=== PATIENT | male | born 1955 | race Caucasian/White ===

== ENCOUNTER → 2018-03-13 09:50 | Outpatient (CLI) | payer OTHER, MEDICAID, SELFPAY | PROVIDERS: Family Provider Physician Assistant Medical; PCP Physician Assistant Medical; Visit Provider Internal Medicine | DX: E11.621 Type 2 diabetes mellitus with foot ulcer (principal); L97.524 Non-pressure chronic ulcer of other part of left foot with necrosis of bone | CPT/HCPCS: 11042 ==

== ENCOUNTER → 2018-04-29 15:03 | Outpatient (CLI) | payer OTHER, MEDICAID, SELFPAY ==
--- NOTE | 2018-04-29 | OV.WND_ITS ---
Progress Note Details Patient Name: Juan Carlos Montalvo Patient Number: [id number] PatientPatientDate: 04/29/2018 Clinician: Staci Ellington Clinician Cosigner: Jessenia Mullen Physician / Social Service Assistant: Anthony Sahu SUBJECTIVE Chief Complaint This information was obtained from the patient Ulcer on Left 2nd toe and left lateral foot Allergies codeine (Severity: Severe, Reaction: cramps on the guts), Bee sting (Severity: Severe, Reaction: swelling) HPI This information was obtained from the patient 04/29/18. Seen by Dr. Sahu. 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 The surgical wound has nearly healed however it's been approximately 6 weeks since surgery. His blood sugars continue to be very poorly controlled with many over 300 and he's working with his PCP on increasing his long and short acting insulin to address this. He admittedly does not follow a diabetic diet. He's also continuing to smoke cigarettes but states he plans to quit later this week. He's also wearing slippers instead of diabetic shoes which he does not yet own. He has a lateral left 5th MT diabetic ulcer as well that has minimal drainage and is nontender. 03/13/18. Seen by Dr. Sahu. The patient has not yet been scheduled for his consultation with [facility] to address the Shanks grade 4 chronic left 2nd toe diabetic ulcer. He does not report significant drainage or pain associated with this nor the chronic left 5th MTP J diabetic ulcer since his last visit. He also has a history of PAD in the right leg with stent placement and will need to be reviewed for clinically significant left lower leg PAD considering the high likelihood the 2nd toe will need amputation. 03/06/18. Seen by Dr. Sahu. The patient does not report increased drainage or pain associated with the chronic left 2nd toe nor left 5th MTPJ diabetic ulcers since his last visit. He was seen by his primary care provider yesterday and thinks that she may have adjusted his antibiotics but is unsure. He had been on Bactrim but now states that he is taking Ciprofloxacin. The wound culture we took at the last visit grew Citrobacter sensitive to Bactrim and ciprofloxacin and he does not report adverse side effects. Also, he's not yet been referred for a surgical consult to discuss amputation of the 2nd toe which I feel he is at high risk for and he is aware of this possibility. 02/27/18. Seen by Dr. Sahu. The patient is new to our clinic and presents with chronic left 2nd toe and left 5th MTPJ diabetic foot ulcers that he states have been present for about one month. He does not report pain nor significant drainage from either site and he' s been treating them with a 'surgical' cleanser and hydrogen peroxide. He states a wound culture was taken of the toe ulcer and he was started on Bactrim by his PCP on 02/22/18. He also has a history of PAD with stenting to the right leg but none to the left. He checks his blood sugars and states they're typically well controlled and he has a long history of smoking but states he quit recently. Family History This information was obtained from the patient Diabetes - Father, Sibling, Heart Disease - Mother, Father, Sibling, Child, Hypertension - Mother, Father, Paternal Grandparents, Sibling, Child Social History This information was obtained from the patient Former smoker, Alcohol Use - recently quit, Caffeine Use - Coffee, Children - 2 , Lives in - home, Retired Past Medical History This information was obtained from the patient Patient has a medical history of: Bradycardia - 11/30/2017 Hypokalemia - 12/07/2017 Hyponatremia - 12/03/2017 Diabetes Cellulitis Hypertensive kidney disease Hypertension Ventricular bigeminy Insomia Depression Dysnpea Diverticulitis Hyperurecemia Dsylipidemia Cardiomyopathy CHF hypomagnesemia PVD Diabetic Neurophty Surgical History This information was obtained from the patient Patient has a surgical history of: Hand repair Complaints and Symptoms This information was obtained from the patient Patient complains of: General Notes: I have reviewed and concur with the Review of Systems and Past Family Social History documents completed by the clinician, I have reviewed and concur with the Wound Assessment document completed by the clinician Cardiovascular (Central/Peripheral): Lower extremity (leg) swelling Integumentary (Hair/Skin/Nails): Open Sore Musculoskeletal: Joint Swelling Neurological: Loss of Protective Sensation Prior Wound History: Drainage, Erythema Patient denies complaints or symptoms related to: Cardiovascular (Central/Peripheral): Intermittent Claudication, Lower extremity (leg) resting pain Constitutional Symptoms (General Health): Chills, Fever Ear/Nose/Mouth/Throat: Hearing Loss / Aid Gastrointestinal (GI): Stomach/abdominal pain Hematologic/Lymphatic: Bleeding / Clotting Disorders, Bleeding Tendency Musculoskeletal: Assistive Devices Prior Wound History: Pain Psychiatric: Memory Loss Respiratory: Oxygen Use, Shortness of Breath General Notes: yes to immunizations Medications Claritin 10 mg tablet oral 1 1 tablet oral once daily glipizide 10 mg tablet oral 1 1 tablet oral twice daily Lipitor 80 mg tablet oral tablet oral take at bedtime hydralazine 25 mg tablet oral 1 1 tablet oral three times daily ipratropium 20 mcg-albuterol 100 mcg/actuation mist for inhalation inhalation 1 1 mist inhalation every 6 hours as needed metoprolol tartrate 100 mg tablet oral 1 /2 1 /2 tablet oral once daily Zyloprim 100 mg tablet oral 1 1 tablet oral once daily Lantus U-100 Insulin 100 unit/mL subcutaneous solution subcutaneous 30 units 30 units solution subcutaneous take at bedtime Colace 100 mg capsule oral 1 1 capsule oral twice daily Lasix 40 mg tablet oral 1 1 tablet oral three times daily Percocet 5 mg-325 mg tablet oral tablet oral every 8 hours as needed for prn Aspir-81 81 mg tablet,delayed release oral 1 1 tablet,delayed release (DR/EC) oral once daily OBJECTIVE Constitutional BP elevated; Afebrile; Alert and in no distress. Well developed. Alert. Clean appearing.. Height/Length: 70 in (177.8 cm), Weight: 216.4 lbs (98.36 kgs), BMI: 31, Temperature: 97.8 ?F (36.56 ?C), Pulse: 55 bpm, Respiratory Rate: 20 breaths/min, Blood Pressure: 147/73 mmHg, Capillary Blood Glucose: 377 mg/dl, Pulse Oximetry: 95 %. Vital Signs Notes: Glucose in clinic. Ears, Nose, Mouth, and Throat: No clinically significant hearing loss on informal examination. Respiratory: No respiratory distress. Even respirations and without use of accessory muscles.. Cardiovascular: monophasic pedal pulses on the left. 1+ left lower extremity edema. Gastrointestinal (GI): Obese. Nondistended.. Integumentary (Hair, Skin) Mild periwound erythema without warmth. Refer to appropriate clinician wound documentation for this visit; left 2nd MTPJ wound and 5th MTPJ ulcer extends to subcut with base partially covered with pink granulation, remainder fibrin and slough. Wound #3 Left Second Toe is an acute Partial Thickness Surgical Wound and has received a status of Not Healed. Initial wound encounter measurements are 0.3cm length x 0.3cm width x 0.1cm depth, with an area of 0.09 sq cm and a volume of 0.009 cubic cm. No tunneling has been noted. No sinus tract has been noted. No undermining has been noted. There is a scant amount of sero-sanguineous drainage noted which has no odor. The patient reports a wound pain of level 0/10. The wound margin is attached. Wound bed has Yes epithelialization, No eschar, No slough, Yes bright red, pink, firm granulation. The periwound skin texture is normal. The periwound skin moisture is normal. The periwound skin color is normal. The temperature of the periwound skin is WNL. Periwound skin does not exhibit signs or symptoms of infection. Local Pulse is Weak. Wound #4 Left Fifth Toe is a chronic Shanks Grade 0 Diabetic Ulcer and has received a status of Not Healed. Initial wound encounter measurements are 0.3cm length x 0.3cm width x 0.1cm depth, with an area of 0.09 sq cm and a volume of 0.009 cubic cm. No tunneling has been noted. No sinus tract has been noted. No undermining has been noted. There is a scant amount of serous drainage noted which has no odor. The patient reports a wound pain of level 0/10. The wound margin is attached. Wound bed has Yes epithelialization, No eschar, Yes slough, No granulation. The periwound skin texture is normal. The periwound skin moisture is normal. The periwound skin color is normal. The temperature of the periwound skin is WNL. Periwound skin does not exhibit signs or symptoms of infection. Local Pulse is Weak. Neurological: Cranial nerves grossly intact with symmetric function normal by informal observation.. ASSESSMENT Active Problems ICD-10 (Encounter Diagnosis) E11.621 - Type 2 diabetes mellitus with foot ulcer (Encounter Diagnosis) S91.302D - Unspecified open wound, left foot, subsequent encounter (Encounter Diagnosis) T81.31XD - Disruption of external operation (surgical) wound, not elsewhere classified, subsequent encounter (Encounter Diagnosis) E11.65 - Type 2 diabetes mellitus with hyperglycemia (Encounter Diagnosis) T65.224D - Toxic effect of tobacco cigarettes, undetermined, subsequent encounter PROCEDURES Wound #4 Wound #4 (Diabetic Ulcer) is located on the left fifth toe. A skin/subcutaneous tissue level surgical debridement with a total area debrided of 0.09 sq cm was performed by Anthony Sahu MD. Subcutaneous was removed along with devitalized tissue: callus and slough. The following instrument(s) were used: curette. Pain control was achieved using 4% Lido. A time out was conducted prior to the start of the procedure. A minimal amount of bleeding was controlled with pressure. The procedure was tolerated well with a pain level of 0 throughout and a pain level of 0 following the procedure. Post Debridement Measurements: 0.3cm length x 0.3cm width x 0.2cm depth; with an area of 0.09 sq cm and a volume of 0.018 cubic cm; PLAN Wound Orders: Wound #3 Left Second Toe Anesthetic Topical Xylocaine to wound bed. - Lidocaine in clinic Cleanser May Shower. - With bag covering wounds. Topical Treatments Antibiotic/Antimicrobial Ointment/Cream. - Triple antibiotic ointment to wounds Dressings Primary dressing: - Optifoam Cover and secure with: - Hypafix tape Change Dressing: - Every two days. Wound #4 Left Fifth Toe Anesthetic Topical Xylocaine to wound bed. - Lidocaine in clinic Cleanser May Shower. - With bag covering wounds. Topical Treatments Antibiotic/Antimicrobial Ointment/Cream. - Triple antibiotic ointment to wounds Dressings Primary dressing: - [place] donut around wound Cover and secure with: - Optifoam Change Dressing: - Every two days. Additional Orders: Off-Loading Keep weight off: Follow-Up Appointments Return Appointment: - - One week. Other information: If you develop fever, chills, increased pain, drainage, redness or swelling please call our office. If after hours, respond to the ER. Should you experience any significant changes in your wound(s) or have any questions regarding your home care instructions please contact the wound center @ [phone]. If after hours, contact your primary care physician or go to the hospital emergency room. I've reviewed the clinician's documentation and agree with the evaluation and plan as written. In addition, the patient's ulcer demonstrates evidence of non-viable devitalized tissue which will continue to benefit from sharp debridement to help promote granulation and expedite healing. Also, a culture's been taken of the surgical wound due to the fact it's remains open and we'll consider treating with an oral antibiotic pending the results. He'll use a surgical shoe to help offload the ulcers and he's again been counseled regarding his significantly elevated blood sugars and continued smoking in the context of impeding wound healing. Electronic Signature(s) Signed By: Date: Anthony Sahu MD 04/30/2018 09:04:29 Entered By: Anthony Sahu on 04/30/2018 09:01:39
== END ==
PROVIDERS: Family Provider Physician Assistant Medical; PCP Physician Assistant Medical; Visit Provider Internal Medicine
DX: E11.621 Type 2 diabetes mellitus with foot ulcer (principal); L97.522 Non-pressure chronic ulcer of other part of left foot with fat layer exposed; T81.31XD Disruption of external operation (surgical) wound, not elsewhere classified, subsequent encounter; E11.65 Type 2 diabetes mellitus with hyperglycemia; T65.224D Toxic effect of tobacco cigarettes, undetermined, subsequent encounter
CPT/HCPCS: 11042; 87070; 87075; 87077; 87147; 87186; 87205

== ENCOUNTER → 2018-05-06 11:34 | Outpatient (CLI) | payer OTHER, MEDICAID, SELFPAY ==
--- NOTE | 2018-05-06 | OV.WND_ITS ---
Progress Note Details Patient Name: Juan Carlos Montalvo Patient Number: [id number] PatientPatientDate: 05/06/2018 Clinician: Gloria Salinas Clinician Cosigner: Staci Ellington Physician / Commissioning Editor: Anthony Sahu SUBJECTIVE Chief Complaint This information was obtained from the patient Ulcer on Left 2nd toe and left lateral foot Allergies codeine (Severity: Severe, Reaction: cramps on the guts), Bee sting (Severity: Severe, Reaction: swelling) HPI This information was obtained from the patient 05/06/18. Seen by Dr. Sahu. The patient's wound culture of the left 2nd toe surgical wound grew 2 coag negative Staph species and he's applying and OTC topical antibiotic to this and the left lateral foot diabetic ulcer. He does not report pain or significant drainage from either location and he's scheduled for a fitting for his diabetic shoes later today. 04/29/18. Seen by Dr. Sahu. 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 The surgical wound has nearly healed however it's been approximately 6 weeks since surgery. His blood sugars continue to be very poorly controlled with many over 300 and he's working with his PCP on increasing his long and short acting insulin to address this. He admittedly does not follow a diabetic diet. He's also continuing to smoke cigarettes but states he plans to quit later this week. He's also wearing slippers instead of diabetic shoes which he does not yet own. He has a lateral left 5th MT diabetic ulcer as well that has minimal drainage and is nontender. 03/13/18. Seen by Dr. Sahu. The patient has not yet been scheduled for his consultation with [facility] wound [facility] to address the Shanks grade 4 chronic left 2nd toe diabetic ulcer. He does not report significant drainage or pain associated with this nor the chronic left 5th MTP J diabetic ulcer since his last visit. He also has a history of PAD in the right leg with stent placement and will need to be reviewed for clinically significant left lower leg PAD considering the high likelihood the 2nd toe will need amputation. 03/06/18. Seen by Dr. Sahu. The patient does not report increased drainage or pain associated with the chronic left 2nd toe nor left 5th MTPJ diabetic ulcers since his last visit. He was seen by his primary care provider yesterday and thinks that she may have adjusted his antibiotics but is unsure. He had been on Bactrim but now states that he is taking Ciprofloxacin. The wound culture we took at the last visit grew Citrobacter sensitive to Bactrim and ciprofloxacin and he does not report adverse side effects. Also, he's not yet been referred for a surgical consult to discuss amputation of the 2nd toe which I feel he is at high risk for and he is aware of this possibility. 02/27/18. Seen by Dr. Sahu. The patient is new to our clinic and presents with chronic left 2nd toe and left 5th MTPJ diabetic foot ulcers that he states have been present for about one month. He does not report pain nor significant drainage from either site and he' s been treating them with a 'surgical' cleanser and hydrogen peroxide. He states a wound culture was taken of the toe ulcer and he was started on Bactrim by his PCP on 02/22/18. He also has a history of PAD with stenting to the right leg but none to the left. He checks his blood sugars and states they're typically well controlled and he has a long history of smoking but states he quit recently. Past Medical History This information was obtained from the patient Patient has a medical history of: Bradycardia - 11/30/2017 Hypokalemia - 12/07/2017 Hyponatremia - 12/03/2017 Diabetes Cellulitis Hypertensive kidney disease Hypertension Ventricular bigeminy Insomia Depression Dysnpea Diverticulitis Hyperurecemia Dsylipidemia Cardiomyopathy CHF hypomagnesemia PVD Diabetic Neurophty Complaints and Symptoms This information was obtained from the patient Patient complains of: General Notes: I have reviewed and concur with the Review of Systems and Past Family Social History documents completed by the clinician, I have reviewed and concur with the Wound Assessment document completed by the clinician Cardiovascular (Central/Peripheral): Lower extremity (leg) swelling Integumentary (Hair/Skin/Nails): Open Sore Musculoskeletal: Joint Swelling Neurological: Loss of Protective Sensation Prior Wound History: Drainage, Erythema Patient denies complaints or symptoms related to: Cardiovascular (Central/Peripheral): Intermittent Claudication, Lower extremity (leg) resting pain Constitutional Symptoms (General Health): Chills, Fever Ear/Nose/Mouth/Throat: Hearing Loss / Aid Gastrointestinal (GI): Stomach/abdominal pain Hematologic/Lymphatic: Bleeding / Clotting Disorders, Bleeding Tendency Musculoskeletal: Assistive Devices Prior Wound History: Pain Psychiatric: Memory Loss Respiratory: Oxygen Use, Shortness of Breath OBJECTIVE Constitutional BP elevated; Afebrile; Alert and in no distress. Well developed. Alert. Clean appearing.. Height/Length: 70 in (177.8 cm), Weight: 217.6 lbs (98.91 kgs), BMI: 31.2, Temperature: 98.6 ?F (37 ?C), Pulse: 87 bpm, Respiratory Rate: 18 breaths/min, Blood Pressure : 154/66 mmHg, Capillary Blood Glucose: 206 mg/dl, Pulse Oximetry: 95 %. Vital Signs Notes: Glucose per patient. Ears, Nose, Mouth, and Throat: No clinically significant hearing loss on informal examination. Respiratory: No respiratory distress. Even respirations and without use of accessory muscles.. Cardiovascular: 1+ left lower extremity edema. Integumentary (Hair, Skin) Mild periwound erythema without warmth. Refer to appropriate clinician wound documentation for this visit; left foot ulcers extend to subcut with bases partially covered with pink granulation, remainder fibrin and slough. Wound #3 Left Second Toe is an acute Partial Thickness Surgical Wound and has received a status of Not Healed. Subsequent wound encounter measurements are 0.2cm length x 0.2cm width x 0.1cm depth, with an area of 0.04 sq cm and a volume of 0.004 cubic cm. No tunneling has been noted. No sinus tract has been noted. No undermining has been noted. There is a scant amount of serous drainage noted which has no odor. The patient reports a wound pain of level 0/10. The wound margin is attached. Wound bed has Yes epithelialization, No eschar, No slough, Yes bright red, pink, firm granulation. The periwound skin texture is normal. The periwound skin moisture is normal. The periwound skin color is normal. The temperature of the periwound skin is WNL. Periwound skin does not exhibit signs or symptoms of infection. Local Pulse is Weak. Wound #4 Left Fifth Toe is a chronic Shanks Grade 0 Diabetic Ulcer and has received a status of Not Healed. Subsequent wound encounter measurements are 0.1cm length x 0.1cm width x 0.1cm depth, with an area of 0.01 sq cm and a volume of 0.001 cubic cm. No tunneling has been noted. No sinus tract has been noted. No undermining has been noted. There was no drainage noted. The patient reports a wound pain of level 0/10. The wound margin is attached. Wound bed has Yes epithelialization, No eschar, Yes slough, Yes bright red, pink , firm granulation. The periwound skin texture is normal. The periwound skin color is normal. The periwound skin exhibited: Moist. The periwound skin did not exhibit: Dry/Scaly, Maceration. The temperature of the periwound skin is WNL. Periwound skin does not exhibit signs or symptoms of infection. Local Pulse is Weak. Neurological: Cranial nerves grossly intact with symmetric function normal by informal observation.. ASSESSMENT Active Problems ICD-10 (Encounter Diagnosis) E11.621 - Type 2 diabetes mellitus with foot ulcer (Encounter Diagnosis) S91.302D - Unspecified open wound, left foot, subsequent encounter (Encounter Diagnosis) T81.31XD - Disruption of external operation (surgical) wound, not elsewhere classified, subsequent encounter (Encounter Diagnosis) L97.522 - Non-pressure chronic ulcer of other part of left foot with fat layer exposed (Encounter Diagnosis) B95.7 - Other staphylococcus as the cause of diseases classified elsewhere PROCEDURES Wound #3 Wound #3 (Surgical Wound) is located on the left second toe. A skin/ subcutaneous tissue level surgical debridement with a total area debrided of 0.06 sq cm was performed by Anthony Sahu MD. Subcutaneous was removed along with devitalized tissue: slough. The following instrument(s) were used: curette. Pain control was achieved using 4% Lido. A time out was conducted prior to the start of the procedure. A minimal amount of bleeding was controlled with n/a. The procedure was tolerated well with a pain level of 0 throughout and a loss of sensation following the procedure. Post Debridement Measurements: 0.3cm length x 0.2cm width x 0.2cm depth; with an area of 0.06 sq cm and a volume of 0.012 cubic cm; Wound #4 Wound #4 (Diabetic Ulcer) is located on the left fifth toe. A skin/subcutaneous tissue level surgical debridement with a total area debrided of 0.04 sq cm was performed by Anthony Sahu MD. Subcutaneous was removed along with devitalized tissue: callus and slough. The following instrument(s) were used: curette. Pain control was achieved using 4% Lido. A time out was conducted prior to the start of the procedure. A minimal amount of bleeding was controlled with n/a. The procedure was tolerated well with a pain level of 0 throughout and a pain level of 0 following the procedure. Post Debridement Measurements: 0.2cm length x 0.2cm width x 0.2cm depth; with an area of 0.04 sq cm and a volume of 0.008 cubic cm; Additional Information Muscle fascia or bone removed and sent to pathology?: No Muscle fascia or bone removed and sent to pathology?: No PLAN Wound Orders: Wound #3 Left Second Toe Anesthetic Topical Xylocaine to wound bed. - Lidocaine in clinic Cleanser May Shower. - With bag covering wounds. Topical Treatments Antibiotic/Antimicrobial Ointment/Cream. - Gentamicin ointment to wound base. Dressings Primary dressing: - Optifoam Cover and secure with: - Hypafix tape Change Dressing: - Every two days. Wound #4 Left Fifth Toe Anesthetic Topical Xylocaine to wound bed. - Lidocaine in clinic Cleanser May Shower. - With bag covering wounds. Topical Treatments Antibiotic/Antimicrobial Ointment/Cream. - Gentamicin ointment to wound base. Dressings Primary dressing: - [place] donut around wound Cover and secure with: - Optifoam Change Dressing: - Every two days. Additional Orders: Off-Loading Keep weight off: Follow-Up Appointments Return Appointment: - - One week. Other information: If you develop fever, chills, increased pain, drainage, redness or swelling please call our office. If after hours, respond to the ER. Should you experience any significant changes in your wound(s) or have any questions regarding your home care instructions please contact the wound center @ [phone]. If after hours, contact your primary care physician or go to the hospital emergency room. I've reviewed the clinician's documentation and agree with the evaluation and plan as written. In addition the patient's ulcers demonstrate evidence of non-viable devitalized tissue and they will continue to benefit from sharp debridement to help promote granulation and expedite healing. Also, I've changed the patient to topical gentamicin to treat the coag negative Staph culture. Electronic Signature(s) Signed By: Date: Anthony Sahu MD 05/06/2018 13:52:38 Entered By: Anthony Sahu on 05/06/2018 13:06:36
== END ==
PROVIDERS: Family Provider Physician Assistant Medical; PCP Physician Assistant Medical; Visit Provider Internal Medicine
DX: E11.621 Type 2 diabetes mellitus with foot ulcer (principal); L97.522 Non-pressure chronic ulcer of other part of left foot with fat layer exposed; B95.7 Other staphylococcus as the cause of diseases classified elsewhere; S91.302A Unspecified open wound, left foot, initial encounter; T81.31XA Disruption of external operation (surgical) wound, not elsewhere classified, initial encounter
CPT/HCPCS: 11042

== ENCOUNTER → 2018-05-13 09:50 | Outpatient (CLI) | payer OTHER, MEDICAID, SELFPAY ==
--- NOTE | 2018-05-13 | OV.WND_ITS ---
Progress Note Details Patient Name: Juan Carlos Montalvo Patient Number: [id number] PatientPatientDate: 05/13/2018 Clinician: Jessenia Mullen Clinician Cosigner: Staci Ellington Physician / Anode Crew Supervisor: Anhtony Sahu SUBJECTIVE Chief Complaint This information was obtained from the patient Ulcer on Left 2nd toe and left lateral foot Allergies codeine (Severity: Severe, Reaction: cramps on the guts), Bee sting (Severity: Severe, Reaction: swelling) HPI This information was obtained from the patient 05/13/18. Seen by Dr. Sahu. The patient does not report pain or significant drainage associated with the chronic left 2nd toe surgical wound nor left lateral diabetic foot ulcer since his last visit. Of note, his heart rate today is sustained in the mid-30's. He does not report any associated symptoms and takes metoprolol and states he has an unusual heart rhythm but does not know what type. 05/06/18. Seen by Dr. Sahu. The patient's wound culture of the left 2nd toe surgical wound grew 2 coag negative Staph species and he's applying and OTC topical antibiotic to this and the left lateral foot diabetic ulcer. He does not report pain or significant drainage from either location and he's scheduled for a fitting for his diabetic shoes later today. 04/29/18. Seen by Dr. Sahu. 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 The surgical wound has nearly healed however it's been approximately 6 weeks since surgery. His blood sugars continue to be very poorly controlled with many over 300 and he's working with his PCP on increasing his long and short acting insulin to address this. He admittedly does not follow a diabetic diet. He's also continuing to smoke cigarettes but states he plans to quit later this week. He's also wearing slippers instead of diabetic shoes which he does not yet own. He has a lateral left 5th MT diabetic ulcer as well that has minimal drainage and is nontender. 03/13/18. Seen by Dr. Sahu. The patient has not yet been scheduled for his consultation with [facility] to address the Shanks grade 4 chronic left 2nd toe diabetic ulcer. He does not report significant drainage or pain associated with this nor the chronic left 5th MTP J diabetic ulcer since his last visit. He also has a history of PAD in the right leg with stent placement and will need to be reviewed for clinically significant left lower leg PAD considering the high likelihood the 2nd toe will need amputation. 03/06/18. Seen by Dr. Sahu. The patient does not report increased drainage or pain associated with the chronic left 2nd toe nor left 5th MTPJ diabetic ulcers since his last visit. He was seen by his primary care provider yesterday and thinks that she may have adjusted his antibiotics but is unsure. He had been on Bactrim but now states that he is taking Ciprofloxacin. The wound culture we took at the last visit grew Citrobacter sensitive to Bactrim and ciprofloxacin and he does not report adverse side effects. Also, he's not yet been referred for a surgical consult to discuss amputation of the 2nd toe which I feel he is at high risk for and he is aware of this possibility. 02/27/18. Seen by Dr. Sahu. The patient is new to our clinic and presents with chronic left 2nd toe and left 5th MTPJ diabetic foot ulcers that he states have been present for about one month. He does not report pain nor significant drainage from either site and he' s been treating them with a 'surgical' cleanser and hydrogen peroxide. He states a wound culture was taken of the toe ulcer and he was started on Bactrim by his PCP on 02/22/18. He also has a history of PAD with stenting to the right leg but none to the left. He checks his blood sugars and states they're typically well controlled and he has a long history of smoking but states he quit recently. Past Medical History This information was obtained from the patient Patient has a medical history of: Bradycardia - 11/30/2017 Hypokalemia - 12/07/2017 Hyponatremia - 12/03/2017 Diabetes Cellulitis Hypertensive kidney disease Hypertension Ventricular bigeminy Insomia Depression Dysnpea Diverticulitis Hyperurecemia Dsylipidemia Cardiomyopathy CHF hypomagnesemia PVD Diabetic Neurophty Complaints and Symptoms This information was obtained from the patient Patient complains of: General Notes: I have reviewed and concur with the Review of Systems and Past Family Social History documents completed by the clinician, I have reviewed and concur with the Wound Assessment document completed by the clinician Cardiovascular (Central/Peripheral): Lower extremity (leg) swelling Integumentary (Hair/Skin/Nails): Open Sore Musculoskeletal: Joint Swelling Neurological: Loss of Protective Sensation Prior Wound History: Drainage, Erythema Patient denies complaints or symptoms related to: Cardiovascular (Central/Peripheral): Intermittent Claudication, Lower extremity (leg) resting pain Constitutional Symptoms (General Health): Chills, Fever Ear/Nose/Mouth/Throat: Hearing Loss / Aid Gastrointestinal (GI): Stomach/abdominal pain Hematologic/Lymphatic: Bleeding / Clotting Disorders, Bleeding Tendency Musculoskeletal: Assistive Devices Prior Wound History: Pain Psychiatric: Memory Loss Respiratory: Oxygen Use, Shortness of Breath OBJECTIVE Constitutional BP elevated; Afebrile; Alert and in no distress; HR 35. Well developed. Alert. Clean appearing.. Height/Length: 70 in (177.8 cm), Weight: 219.1 lbs (99.59 kgs), BMI: 31.4, Temperature: 97.2 ?F (36.22 ?C), Pulse: 36 bpm, Respiratory Rate: 18 breaths/min, Blood Pressure: 140/60 mmHg, Capillary Blood Glucose: 89 mg/dl, Pulse Oximetry: 94 %. Vital Signs Notes: Glucose per patient. Ears, Nose, Mouth, and Throat: No clinically significant hearing loss on informal examination. Respiratory: No respiratory distress. Even respirations and without use of accessory muscles.. Cardiovascular: 1+ left lower extremity edema. Gastrointestinal (GI): Obese. Nondistended.. Musculoskeletal: Left 2nd toe amputation. Integumentary (Hair, Skin) No periwound erythema, warmth, or significant drainage. No periwound rashes appreciated or noted otherwise.. Refer to appropriate clinician wound documentation for this visit; left lateral foot ulcer extends to subcut with base partially covered with pink granulation, remainder fibrin and slough; left 2nd toe wound nearly healed. Wound #3 Left Second Toe is an acute Partial Thickness Surgical Wound and has received a status of Not Healed. Subsequent wound encounter measurements are 0.1cm length x 0.1cm width x 0.1cm depth, with an area of 0.01 sq cm and a volume of 0.001 cubic cm. No tunneling has been noted. No sinus tract has been noted. No undermining has been noted. There is a scant amount of serous drainage noted which has no odor. The patient reports a wound pain of level 0/10. The wound margin is attached. Wound bed has Yes epithelialization, No eschar, No slough, No granulation. The periwound skin texture is normal. The periwound skin moisture is normal. The periwound skin color is normal. The temperature of the periwound skin is WNL. Periwound skin does not exhibit signs or symptoms of infection. Local Pulse is Weak. Wound #4 Left, Lateral Metatarsal head fifth is a chronic Shanks Grade 0 Diabetic Ulcer and has received a status of Not Healed. Subsequent wound encounter measurements are 0.2cm length x 0.2cm width x 0.1cm depth, with an area of 0.04 sq cm and a volume of 0.004 cubic cm. No tunneling has been noted. No sinus tract has been noted. No undermining has been noted. There was no drainage noted. The patient reports a wound pain of level 0/ 10. The wound margin is attached. Wound bed has Yes epithelialization, No eschar, No slough, No granulation. The periwound skin texture is normal. The periwound skin color is normal. The periwound skin exhibited: Moist. The periwound skin did not exhibit: Dry/Scaly, Maceration. The temperature of the periwound skin is WNL. Periwound skin does not exhibit signs or symptoms of infection. Local Pulse is Weak. General Notes: Covered in dried drainage. Neurological: Cranial nerves grossly intact with symmetric function normal by informal observation.. ASSESSMENT Active Problems ICD-10 (Encounter Diagnosis) E11.621 - Type 2 diabetes mellitus with foot ulcer (Encounter Diagnosis) S91.302D - Unspecified open wound, left foot, subsequent encounter (Encounter Diagnosis) T81.31XD - Disruption of external operation (surgical) wound, not elsewhere classified, subsequent encounter (Encounter Diagnosis) L97.522 - Non-pressure chronic ulcer of other part of left foot with fat layer exposed (Encounter Diagnosis) R00.1 - Bradycardia, unspecified PROCEDURES Wound #3 Wound #3 (Surgical Wound) is located on the left second toe. A non-selective mechanical debridement with a total area debrided of 0.01 sq cm was performed by Anthony Sahu MD. Non-viable tissue was removed.The procedure was tolerated well with a pain level of 0 throughout and a pain level of 0 following the procedure. Post Debridement Measurements: 0.1cm length x 0.1cm width x 0.1cm depth; with an area of 0.01 sq cm and a volume of 0.001 cubic cm; General Notes: Drainage removed. Wound #4 Wound #4 (Diabetic Ulcer) is located on the left fifth toe. A skin/subcutaneous tissue level surgical debridement with a total area debrided of 0.06 sq cm was performed by Anthony Sahu MD. Non-viable tissue, including subcutaneous along with devitalized tissue : exudate and slough. The following instrument(s) were used: curette. Pain control was achieved using 4% Lido. A time out was conducted prior to the start of the procedure. A minimal amount of bleeding was controlled with n/a. The procedure was tolerated well with a pain level of 0 throughout and a pain level of 0 following the procedure. Post Debridement Measurements: 0.3cm length x 0.2cm width x 0.1cm depth; with an area of 0.06 sq cm and a volume of 0.006 cubic cm; Additional Information Muscle fascia or bone removed and sent to pathology?: No PLAN Wound Orders: Wound #3 Left Second Toe Anesthetic Topical Xylocaine to wound bed. - Lidocaine in clinic. Cleanser Cleanse Wound: - Normal saline and gauze, may use distilled water at home. May Shower. - With bag covering wounds. Topical Treatments Antibiotic/Antimicrobial Ointment/Cream. - Gentamicin ointment to wound base. Dressings Primary dressing: - Telfa pad. Cover and secure with: - Hypafix tape. May use bandaids at home. Change Dressing: - Every two days. Wound #4 Left Fifth Toe Anesthetic Topical Xylocaine to wound bed. - Lidocaine in clinic. Cleanser Cleanse Wound: - Normal saline and gauze, may use distilled water at home. May Shower. - With bag covering wounds. Topical Treatments Antibiotic/Antimicrobial Ointment/Cream. - Gentamicin ointment to wound base. Dressings Primary dressing: - Telfa pad. Cover and secure with: - Hypafix tape. May use bandaids at home. Change Dressing: - Every two days. Additional Orders: Off-Loading Keep weight off: - Left foot as much as possible. Follow-Up Appointments Return Appointment: - - One week. Other information: If you develop fever, chills, increased pain, drainage, redness or swelling please call our office. If after hours, respond to the ER. Should you experience any significant changes in your wound(s) or have any questions regarding your home care instructions please contact the wound center @ [phone]. If after hours, contact your primary care physician or go to the hospital emergency room. Scribing Attestation I attest, as the nurse, that I scribed these orders for the physician. General Notes: Please see your primary care provider regarding your pulse of 36 in clinic. I've reviewed the clinician's documentation and agree with the evaluation and plan as written. In addition, the patient's ulcer demonstrates evidence of non-viable devitalized tissue which will continue to benefit from sharp debridement to help promote granulation and expedite healing. Also, we've contacted Dr. Watson's office regarding the patient's bradycardia and I'll copy him on my note today as well. Electronic Signature(s) Signed By: Date: Anthony Sahu MD 05/13/2018 13:33:28 Entered By: Anthony Sahu on 05/13/2018 13:30:15
== END ==
PROVIDERS: Family Provider Physician Assistant Medical; PCP Nurse Practitioner Gerontology; Visit Provider Internal Medicine
DX: E11.621 Type 2 diabetes mellitus with foot ulcer (principal); L97.522 Non-pressure chronic ulcer of other part of left foot with fat layer exposed; S91.302D Unspecified open wound, left foot, subsequent encounter; T81.31XD Disruption of external operation (surgical) wound, not elsewhere classified, subsequent encounter; R00.1 Bradycardia, unspecified
CPT/HCPCS: 11042

== ENCOUNTER → 2018-05-20 09:16 | Outpatient (CLI) | payer OTHER, MEDICAID, SELFPAY | PROVIDERS: Family Provider Physician Assistant Medical; PCP Nurse Practitioner Gerontology; Visit Provider Internal Medicine | DX: E11.621 Type 2 diabetes mellitus with foot ulcer (principal); L97.522 Non-pressure chronic ulcer of other part of left foot with fat layer exposed; R00.1 Bradycardia, unspecified | CPT/HCPCS: 11042; 87070; 87075; 87077; 87205 ==

== ENCOUNTER → 2018-05-27 11:20 | Outpatient (CLI) | payer OTHER, MEDICAID, SELFPAY | PROVIDERS: Family Provider Physician Assistant Medical; PCP Nurse Practitioner Gerontology; Visit Provider Internal Medicine | DX: E11.621 Type 2 diabetes mellitus with foot ulcer (principal); L97.522 Non-pressure chronic ulcer of other part of left foot with fat layer exposed; L08.9 Local infection of the skin and subcutaneous tissue, unspecified | CPT/HCPCS: 11042; 87070; 87075; 87077; 87147; 87186; 87205 ==

== ENCOUNTER → 2018-06-03 09:34 | Outpatient (CLI) | payer OTHER, MEDICAID, SELFPAY ==
--- NOTE | 2018-06-03 | OV.WND_ITS ---
Progress Note Details Patient Name: Juan Carlos Montalvo Patient Number: [id number] PatientPatientDate: 06/03/2018 Clinician: Fadia Loving Physician / Wafer Abrading Machine Tender: Anthony Sahu SUBJECTIVE Chief Complaint This information was obtained from the patient Ulcer on Left 2nd toe and left lateral foot Allergies codeine (Severity: Severe, Reaction: cramps on the guts), Bee sting (Severity: Severe, Reaction: swelling) HPI This information was obtained from the patient 06/03/18. Seen by Dr. Sahu. The patient does not report pain or significant drainage associated with the chronic left lateral diabetic foot ulcer since his last visit. He's also wearing his surgical shoe as recommended which has been cut out over the site of the ulcer to relieve pressure and reduce shear. His foot is quite swollen, as is his left lower leg, which is likely causing increased pressure within this diabetic shoe he'd been wearing previously. 05/27/18. Seen by Dr. Sahu. The patient does not report pain or significant drainage associated with the chronic left lateral foot diabetic foot ulcer since his last visit. His wound culture grew coag negative Staph and he's not currently on antibiotics. He's also now wearing his new diabetic shoes. 05/20/18. Seen by Dr. Sahu. The patient does not report pain or significant drainage associated with the chronic left 2nd toe surgical wound nor left lateral diabetic foot ulcer since his last visit. He's also to order picker his diabetic shoes today and has asked for a referral to podiatry for general foot care. Also, his heart rate again today is in the 30's and he's been contacted by Dr. Watson's office regarding wearing a monitor but has not scheduled an appointment yet. 05/13/18. Seen by Dr. Sahu. The patient does not report pain or significant drainage associated with the chronic left 2nd toe surgical wound nor left lateral diabetic foot ulcer since his last visit. Of note, his heart rate today is sustained in the mid-30's. He does not report any associated symptoms and takes metoprolol and states he has an unusual heart rhythm but does not know what type. 05/06/18. Seen by Dr. Sahu. The patient's wound culture of the left 2nd toe surgical wound grew 2 coag negative Staph species and he's applying and OTC topical antibiotic to this and the left lateral foot diabetic ulcer. He does not report pain or significant drainage from either location and he's scheduled for a fitting for his diabetic shoes later today. 04/29/18. Seen by Dr. Sahu. 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 The surgical wound has nearly healed however it's been approximately 6 weeks since surgery. His blood sugars continue to be very poorly controlled with many over 300 and he's working with his PCP on increasing his long and short acting insulin to address this. He admittedly does not follow a diabetic diet. He's also continuing to smoke cigarettes but states he plans to quit later this week. He's also wearing slippers instead of diabetic shoes which he does not yet own. He has a lateral left 5th MT diabetic ulcer as well that has minimal drainage and is nontender. 03/13/18. Seen by Dr. Sahu. The patient has not yet been scheduled for his consultation with [facility] wound [facility] to address the Shanks grade 4 chronic left 2nd toe diabetic ulcer. He does not report significant drainage or pain associated with this nor the chronic left 5th MTP J diabetic ulcer since his last visit. He also has a history of PAD in the right leg with stent placement and will need to be reviewed for clinically significant left lower leg PAD considering the high likelihood the 2nd toe will need amputation. 03/06/18. Seen by Dr. Sahu. The patient does not report increased drainage or pain associated with the chronic left 2nd toe nor left 5th MTPJ diabetic ulcers since his last visit. He was seen by his primary care provider yesterday and thinks that she may have adjusted his antibiotics but is unsure. He had been on Bactrim but now states that he is taking Ciprofloxacin. The wound culture we took at the last visit grew Citrobacter sensitive to Bactrim and ciprofloxacin and he does not report adverse side effects. Also, he's not yet been referred for a surgical consult to discuss amputation of the 2nd toe which I feel he is at high risk for and he is aware of this possibility. 02/27/18. Seen by Dr. Sahu. The patient is new to our clinic and presents with chronic left 2nd toe and left 5th MTPJ diabetic foot ulcers that he states have been present for about one month. He does not report pain nor significant drainage from either site and he' s been treating them with a 'surgical' cleanser and hydrogen peroxide. He states a wound culture was taken of the toe ulcer and he was started on Bactrim by his PCP on 02/22/18. He also has a history of PAD with stenting to the right leg but none to the left. He checks his blood sugars and states they're typically well controlled and he has a long history of smoking but states he quit recently. Past Medical History This information was obtained from the patient Patient has a medical history of: Bradycardia - 11/30/2017 Hypokalemia - 12/07/2017 Hyponatremia - 12/03/2017 Diabetes Cellulitis Hypertensive kidney disease Hypertension Ventricular bigeminy Insomia Depression Dysnpea Diverticulitis Hyperurecemia Dsylipidemia Cardiomyopathy CHF hypomagnesemia PVD Diabetic Neurophty Complaints and Symptoms This information was obtained from the patient Patient complains of: General Notes: I have reviewed and concur with the Review of Systems and Past Family Social History documents completed by the clinician, I have reviewed and concur with the Wound Assessment document completed by the clinician Cardiovascular (Central/Peripheral): Lower extremity (leg) swelling Integumentary (Hair/Skin/Nails): Open Sore Musculoskeletal: Joint Swelling Neurological: Loss of Protective Sensation Prior Wound History: Drainage, Erythema Patient denies complaints or symptoms related to: Cardiovascular (Central/Peripheral): Intermittent Claudication, Lower extremity (leg) resting pain Constitutional Symptoms (General Health): Chills, Fever Ear/Nose/Mouth/Throat: Hearing Loss / Aid Gastrointestinal (GI): Stomach/abdominal pain Hematologic/Lymphatic: Bleeding / Clotting Disorders, Bleeding Tendency Musculoskeletal: Assistive Devices Prior Wound History: Pain Psychiatric: Memory Loss Respiratory: Oxygen Use, Shortness of Breath OBJECTIVE Constitutional BP elevated; Afebrile; Alert and in no distress. Well developed. Alert. Clean appearing.. Height/Length: 70 in (177.8 cm), Weight: 225.3 lbs (102.41 kgs), BMI: 32.3, Temperature: 97.9 ?F (36.61 ?C), Pulse: 80 bpm, Respiratory Rate: 20 breaths/min, Capillary Blood Glucose: 161 mg/dl, Pulse Oximetry: 96 %. Respiratory: No respiratory distress. Even respirations and without use of accessory muscles.. Cardiovascular: 2+ left lower extremity edema. Gastrointestinal (GI): Obese. Nondistended.. Integumentary (Hair, Skin) No periwound erythema, warmth, or significant drainage. No periwound rashes appreciated or noted otherwise.. Refer to appropriate clinician wound documentation for this visit; left lateral 5th MTPJ ulcer extends to subcut with base partially covered with pink granulation, remainder fibrin and slough. Maceration and callus present in the periwound area. Wound #4 Left, Lateral Metatarsal head fifth is a chronic Shanks Grade 0 Diabetic Ulcer and has received a status of Not Healed. Subsequent wound encounter measurements are 0.5cm length x 0.5cm width x 0.1cm depth, with an area of 0.25 sq cm and a volume of 0.025 cubic cm. No tunneling has been noted. No sinus tract has been noted. No undermining has been noted. There is a moderate amount of serous drainage noted which has no odor. The patient reports a wound pain of level 0/10. The wound margin is attached. Wound bed has No epithelialization, No eschar, No slough, Yes bright red, firm granulation. The periwound skin texture is normal. The periwound skin color is normal. The periwound skin exhibited: Moist, Maceration. The periwound skin did not exhibit: Dry/Scaly. The temperature of the periwound skin is WNL. Periwound skin presents with s/s of infection. Confirmation Description and Treatment Plan is: Confirmed Local, Systemic Antibiotics Prescribed. Local Pulse is Weak. Neurological: Cranial nerves grossly intact with symmetric function normal by informal observation.. ASSESSMENT Active Problems ICD-10 (Encounter Diagnosis) E11.621 - Type 2 diabetes mellitus with foot ulcer (Encounter Diagnosis) L97.522 - Non-pressure chronic ulcer of other part of left foot with fat layer exposed (Encounter Diagnosis) R60.0 - Localized edema PROCEDURES Wound #4 Wound #4 (Diabetic Ulcer) is located on the left, lateral metatarsal head fifth. A skin/subcutaneous tissue level surgical debridement with a total area debrided of 0.25 sq cm was performed by Anthony Sahu MD. Subcutaneous was removed along with devitalized tissue: callus and slough. The following instrument(s) were used: curette. Pain control was achieved using 4% Lido. A time out was conducted prior to the start of the procedure. A minimal amount of bleeding was controlled with n/a. The procedure was tolerated well with a pain level of 0 throughout and a pain level of 0 following the procedure. Post Debridement Measurements: 0.5cm length x 0.5cm width x 0.2cm depth; with an area of 0.25 sq cm and a volume of 0.05 cubic cm; Additional Information Muscle fascia or bone removed and sent to pathology?: No PLAN Wound Orders: Wound #4 Left, Lateral Metatarsal head fifth Anesthetic Topical Xylocaine to wound bed. - In clinic. Cleanser Cleanse Wound: - Normal saline and gauze, may use distilled water at home. May Shower. - Use cast protector. Topical Treatments Antibiotic/Antimicrobial Ointment/Cream. - Gentamicin ointment. Dressings Cover and secure with: - Foam secured with tape. Bordered foam applied in clinic. Change Dressing: - Daily. Additional Orders: Off-Loading Keep weight off: - Left foot. Use/Wear when Walking: - Adjusted off-loading shoe. Please were off-loading post -op shoe to keep pressure off of wound. Follow-Up Appointments Return Appointment: - - One week. Other information: If you develop fever, chills, increased pain, drainage, redness or swelling please call our office. If after hours, respond to the ER. Should you experience any significant changes in your wound(s) or have any questions regarding your home care instructions please contact the wound center @ [phone]. If after hours, contact your primary care physician or go to the hospital emergency room. Scribing Attestation I attest, as the nurse, that I scribed these orders for the physician. I've reviewed the clinician's documentation and agree with the evaluation and plan as written. In addition, the patient's ulcer demonstrates evidence of non-viable devitalized tissue which will continue to benefit from sharp debridement to help promote granulation and expedite healing. Also, I've encouraged the patient to continue to wear footwear that minimizes pressure and shear over the left lateral foot ulcer. We'll also refer him to Dr. Cueto due to his recent left 2nd toe amputation and history of refractory diabetic foot ulcers. Electronic Signature(s) Signed By: Date: Anthony Sahu MD 06/04/2018 07:14:34 Entered By: Anthony Sahu on 06/04/2018 07:08:07
== END ==
PROVIDERS: Family Provider Physician Assistant Medical; PCP Nurse Practitioner Gerontology; Visit Provider Internal Medicine
DX: E11.621 Type 2 diabetes mellitus with foot ulcer (principal); L97.522 Non-pressure chronic ulcer of other part of left foot with fat layer exposed; R60.0 Localized edema
CPT/HCPCS: 11042

== ENCOUNTER → 2018-06-10 09:55 | Outpatient (CLI) | payer OTHER, MEDICAID, SELFPAY | PROVIDERS: Family Provider Physician Assistant Medical; PCP Nurse Practitioner Gerontology; Visit Provider Internal Medicine | DX: E11.621 Type 2 diabetes mellitus with foot ulcer (principal); L97.521 Non-pressure chronic ulcer of other part of left foot limited to breakdown of skin | CPT/HCPCS: 97597 ==

== ENCOUNTER → 2018-06-19 13:43 | Outpatient (CLI) | payer OTHER, MEDICAID, SELFPAY | PROVIDERS: PCP Nurse Practitioner Gerontology; Visit Provider Internal Medicine | DX: Z48.817 Encounter for surgical aftercare following surgery on the skin and subcutaneous tissue (principal); E11.9 Type 2 diabetes mellitus without complications | CPT/HCPCS: 99212 ==

== ENCOUNTER → 2018-08-01 14:08 | Outpatient (CLI) | payer OTHER, MEDICAID, SELFPAY ==
--- NOTE | 2018-08-01 | OV.WND_ITS ---
Progress Note Details Patient Name: Juan Carlos Montalvo Patient Number: [id number] PatientPatientDate: 08/01/2018 Clinician: Jessenia Mullen Clinician Cosigner: Staci Ellington Physician / [employer] Estate Office Supervisor: Anthony Sahu SUBJECTIVE Chief Complaint This information was obtained from the patient spot on left foot. Allergies codeine (Severity: Severe, Reaction: cramps on the guts), Bee sting (Severity: Severe, Reaction: swelling) HPI This information was obtained from the patient 08/01/18. Seen by Dr. Sahu. The patient returns to clinic with concern over a possible recurrence of his recently healed left lateral 5th MTPJ diabetic ulcer. He reports a dark eschar over the site but no drainage. 06/19/18. Seen by Dr. Sahu. The patient does not report pain or significant drainage associated with the chronic left lateral diabetic foot ulcer since his last visit. 06/10/18. Seen by Dr. Sahu. The patient does not report pain or significant drainage associated with the chronic left lateral diabetic foot ulcer since his last visit. 06/03/18. Seen by Dr. Sahu. The patient does not report pain or significant drainage associated with the chronic left lateral diabetic foot ulcer since his last visit. He's also wearing his surgical shoe as recommended which has been cut out over the site of the ulcer to relieve pressure and reduce shear. His foot is quite swollen, as is his left lower leg, which is likely causing increased pressure within this diabetic shoe he'd been wearing previously. 05/27/18. Seen by Dr. Sahu. The patient does not report pain or significant drainage associated with the chronic left lateral foot diabetic foot ulcer since his last visit. His wound culture grew coag negative Staph and he's not currently on antibiotics. He's also now wearing his new diabetic shoes. 05/20/18. Seen by Dr. Sahu. The patient does not report pain or significant drainage associated with the chronic left 2nd toe surgical wound nor left lateral diabetic foot ulcer since his last visit. He's also to maker up folding his diabetic shoes today and has asked for a referral to podiatry for general foot care. Also, his heart rate again today is in the 30's and he's been contacted by Dr. Watson's office regarding wearing a monitor but has not scheduled an appointment yet. 05/13/18. Seen by Dr. Sahu. The patient does not report pain or significant drainage associated with the chronic left 2nd toe surgical wound nor left lateral diabetic foot ulcer since his last visit. Of note, his heart rate today is sustained in the mid-30's. He does not report any associated symptoms and takes metoprolol and states he has an unusual heart rhythm but does not know what type. 05/06/18. Seen by Dr. Sahu. The patient's wound culture of the left 2nd toe surgical wound grew 2 coag negative Staph species and he's applying and OTC topical antibiotic to this and the left lateral foot diabetic ulcer. He does not report pain or significant drainage from either location and he's scheduled for a fitting for his diabetic shoes later today. 04/29/18. Seen by Dr. Sahu. 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 The surgical wound has nearly healed however it's been approximately 6 weeks since surgery. His blood sugars continue to be very poorly controlled with many over 300 and he's working with his PCP on increasing his long and short acting insulin to address this. He admittedly does not follow a diabetic diet. He's also continuing to smoke cigarettes but states he plans to quit later this week. He's also wearing slippers instead of diabetic shoes which he does not yet own. He has a lateral left 5th MT diabetic ulcer as well that has minimal drainage and is nontender. 03/13/18. Seen by Dr. Sahu. The patient has not yet been scheduled for his consultation with [facility] to address the Shanks grade 4 chronic left 2nd toe diabetic ulcer. He does not report significant drainage or pain associated with this nor the chronic left 5th MTP J diabetic ulcer since his last visit. He also has a history of PAD in the right leg with stent placement and will need to be reviewed for clinically significant left lower leg PAD considering the high likelihood the 2nd toe will need amputation. 03/06/18. Seen by Dr. Sahu. The patient does not report increased drainage or pain associated with the chronic left 2nd toe nor left 5th MTPJ diabetic ulcers since his last visit. He was seen by his primary care provider yesterday and thinks that she may have adjusted his antibiotics but is unsure. He had been on Bactrim but now states that he is taking Ciprofloxacin. The wound culture we took at the last visit grew Citrobacter sensitive to Bactrim and ciprofloxacin and he does not report adverse side effects. Also, he's not yet been referred for a surgical consult to discuss amputation of the 2nd toe which I feel he is at high risk for and he is aware of this possibility. 02/27/18. Seen by Dr. Sahu. The patient is new to our clinic and presents with chronic left 2nd toe and left 5th MTPJ diabetic foot ulcers that he states have been present for about one month. He does not report pain nor significant drainage from either site and he' s been treating them with a 'surgical' cleanser and hydrogen peroxide. He states a wound culture was taken of the toe ulcer and he was started on Bactrim by his PCP on 02/22/18. He also has a history of PAD with stenting to the right leg but none to the left. He checks his blood sugars and states they're typically well controlled and he has a long history of smoking but states he quit recently. Family History This information was obtained from the patient Diabetes - Father, Sibling, Heart Disease - Mother, Father, Sibling, Child, Hypertension - Mother, Father, Paternal Grandparents, Sibling, Child Social History This information was obtained from the patient Former smoker, Alcohol Use - quit, Caffeine Use - Coffee, Children - 2, Lives in - home, Retired Past Medical History This information was obtained from the patient Patient has a medical history of: Bradycardia - 11/30/2017 Hypokalemia - 12/07/2017 Hyponatremia - 12/03/2017 Diabetes Cellulitis Hypertensive kidney disease Hypertension Ventricular bigeminy Insomia Depression Dysnpea Diverticulitis Hyperurecemia Dsylipidemia Cardiomyopathy CHF hypomagnesemia PVD Diabetic Neurophty Surgical History This information was obtained from the patient Patient has a surgical history of: Hand repair Complaints and Symptoms This information was obtained from the patient Patient complains of: General Notes: I have reviewed and concur with the Review of Systems and Past Family Social History documents completed by the clinician, I have reviewed and concur with the Wound Assessment document completed by the clinician Cardiovascular (Central/Peripheral): Lower extremity (leg) swelling Musculoskeletal: Joint Swelling Neurological: Loss of Protective Sensation Prior Wound History: Drainage, Erythema Patient denies complaints or symptoms related to: Cardiovascular (Central/Peripheral): Intermittent Claudication, Lower extremity (leg) resting pain Constitutional Symptoms (General Health): Chills, Fever Ear/Nose/Mouth/Throat: Hearing Loss / Aid Gastrointestinal (GI): Stomach/abdominal pain Hematologic/Lymphatic: Bleeding / Clotting Disorders, Bleeding Tendency Integumentary (Hair/Skin/Nails): Open Sore Musculoskeletal: Assistive Devices Prior Wound History: Pain Psychiatric: Memory Loss Respiratory: Oxygen Use, Shortness of Breath Medications Claritin 10 mg tablet oral 1 1 tablet oral once daily glipizide 10 mg tablet oral 1 1 tablet oral twice daily Lipitor 80 mg tablet oral tablet oral take at bedtime hydralazine 25 mg tablet oral 1 1 tablet oral three times daily ipratropium 20 mcg-albuterol 100 mcg/actuation mist for inhalation inhalation 1 1 mist inhalation every 6 hours as needed metoprolol tartrate 100 mg tablet oral 1 1/2 1 1/2 tablet oral once daily Zyloprim 100 mg tablet oral 1 1 tablet oral once daily Lantus U-100 Insulin 100 unit/mL subcutaneous solution subcutaneous 30 units 30 units solution subcutaneous take at bedtime Lasix 40 mg tablet oral 1 1 tablet oral three times daily Percocet 5 mg-325 mg tablet oral tablet oral every 8 hours as needed for prn Aspir-81 81 mg tablet,delayed release oral 1 1 tablet,delayed release (DR/EC) oral once daily OBJECTIVE Constitutional BP elevated; Afebrile; Alert and in no distress. Well developed. Alert. Clean appearing.. Height/Length: 69 in (175.26 cm), Weight: 212.2 lbs (96.45 kgs), BMI: 31.3, Temperature: 98.0 ?F (36.67 ?C), Pulse: 80 bpm, Respiratory Rate: 18 breaths/min, Blood Pressure: 140/62 mmHg, Capillary Blood Glucose: 403 mg/dl, Pulse Oximetry: 96 %. Vital Signs Notes: Glucose taken in clinic. Cardiovascular: Affected extremity exhibits no peripheral edema or cyanosis, is warm, and is well perfused. Capillary refill is less than 2 seconds. Integumentary (Hair, Skin) Refer to appropriate clinician wound documentation for this visit.. Neurological: Cranial nerves grossly intact with symmetric function normal by informal observation.. ASSESSMENT Active Problems ICD-10 (Encounter Diagnosis) E11.628 - Type 2 diabetes mellitus with other skin complications PLAN Additional Orders: Follow-Up Appointments Discharge from Outpatient Services. - No open area visible at this time. Please call with any questions or concerns. Scribing Attestation I attest, as the nurse, that I scribed these orders for the physician. I've reviewed the clinician's documentation and agree with the evaluation and plan as written. Also, there as no open ulcer over the left lateral foot today. Electronic Signature(s) Signed By: Date: Anthony Sahu MD 08/02/2018 09:38:07 Entered By: Anthony Sahu on 08/02/2018 06:51:11
== END ==
PROVIDERS: Family Provider Physician Assistant Medical; PCP Nurse Practitioner Gerontology; Visit Provider Internal Medicine
DX: E11.628 Type 2 diabetes mellitus with other skin complications (principal)
CPT/HCPCS: 99211

== ENCOUNTER 2019-02-25 16:09 | Inpatient (IN) | payer OTHER, MEDICAID, SELFPAY ==
[2019-02-25] VITALS (7 sets, daily range): BP systolic 143–203; BP diastolic 63–94; PULSE 61–111; RESP 14–24; TEMP 36.6–37.2; O2SAT 92–96; BMI 35.2
--- NOTE | 2019-02-25 | DI.ECHO.S_ITS ---
[facility]---------+ [facility] +---------+ : : [address] [place] [address] : : : : [id number] : : : : Phone: [phone] Echocardiogram Report + + :Name: AISSATOU ROMERO Study Date: 02/26/2019 Height: 69 in : :[facility] Exam Location: [facility] Weight: 234 lb : : Gender: Male BSA: 2.2 m2 : :: 1955 Age: 63 yrs BP: 145/85 mmHg: :Reason For Study: Elevated Troponin/ CHF : :Ordering Physician: Jean-Claude : :Hospitalist Performed By: Yolanda Page : :Referring: [address] : + + Interpretation Summary The ejection fraction is estimated to be 35-40%. Left ventricular systolic function is moderately reduced. Mild inferior and anterolateral hypokinesis in the setting of mild global hypokinesis The right ventricle is moderate to severely dilated. Right ventricular systolic function is moderately reduced. Both atria are severely dilated. There is trace tricuspid regurgitation. The right ventricular systolic pressure is estimated to be at least 40 mmHg based on an estimated right atrial pressure of 15 mm Hg. Procedure: A two-dimensional transthoracic echocardiogram with color flow and Doppler was performed. The study quality was technically adequate. Comparison is made with the echocardiogram of 10/26/2017. The heart rate ranged between 76-83 bpm during the study. The patient had frequent PVCs during the exam. Left Ventricle: The left ventricle is mildly dilated. The ejection fraction is estimated to be 35-40%. Left ventricular systolic function is moderately reduced. There has been no significant change since the previous exam. Mild inferior and anterolateral hypokinesis in the setting of mild global hypokinesis. Right Ventricle: The right ventricle is moderate to severely dilated. Right ventricular systolic function is moderately reduced. Atria: Both atria are severely dilated. There is no Doppler evidence for an interatrial shunt. Mitral Valve: The mitral valve leaflets appear mildly thickened, but open well. There is mild mitral annular calcification. There is trace mitral regurgitation. Aortic Valve: The aortic valve is trileaflet. The aortic valve opens well. There is trace aortic regurgitation. Tricuspid Valve: The tricuspid valve is normal in structure and function. There is trace tricuspid regurgitation. The right ventricular systolic pressure is estimated to be at least 40 mmHg based on an estimated right atrial pressure of 15 mm Hg. Pulmonic Valve: The pulmonic valve is not well visualized. There is trace pulmonic regurgitation. Great Vessels: The aortic root is normal size. The ascending aorta is mildly enlarged. The pulmonary artery is not well visualized, but is probably normal size. The IVC is dilated (diameter is greater than 2.1 cm) and it collapses less than 50% with a sniff. This suggests a high right atrial pressure of 15 mm Hg. Pericardium/ Pleura There is no pericardial effusion. There has been no significant change since the previous study. MMode/2D Measurements & Calculations LVIDd: 6.0 cm Ao root diam: 3.3 cm LVIDs: 4.3 cm asc Aorta Diam: 3.5 cm FS: 28.2 % IVSd: 0.75 cm LVPWd: 1.3 cm LV yanez. diameter/BSA (cm/m^2): 2.7 LV sys. diameter/BSA (cm/m^2): 2.0 LA A2 area: 29.3 cm2 RA long axis: 7.2 cm LA A4 area: 36.8 cm2 RA area: 35.1 cm2 LA length (vol): 7.2 cm RA vol: 146.2 ml LA vol: 127.0 ml RA : 66.2 ml/m2 LA vol index: 57.5 ml/m2 IVC diam: 3.2 cm RVD1 (basal): 5.0 cm RVD2 (mid): 4.2 cm Doppler Measurements & Calculations Ao V2 max: 111.7 cm/sec LVOT Max Ambrosio: 63.9 cm/sec Ao V2 mean: 74.9 cm/sec LV V1 max P.7 mmHg Ao max P.1 mmHg LV V1 VTI: 12.1 cm Ao mean P.6 mmHg sev ratio: 0.54 Ao V2 VTI: 22.1 cm MV E max ambrosio: 88.6 cm/sec TR max ambrosio: 251.4 cm/sec MV A max ambrosio: 37.8 cm/sec TR max P.3 mmHg MV E/A: 2.3 PA V2 max: 56.8 cm/sec Med Peak E' Ambrosio: 5.7 cm/sec PA V2 mean: 36.3 cm/sec E/E' med: 15.5 PA mean P.59 mmHg Lat Peak E' Ambrosio: 11.2 cm/sec PA Accel Time: 0.09 sec E/E' lat: 7.9 E/e' average: 11.7 MV dec time: 0.13 sec MV P1/2t: 35.9 msec MV P1/2t max ambrosio: 89.5 cm/sec MVA(P12t): 6.1 cm2 Reading Physician:02:42 PM
--- NOTE | 2019-02-25 16:58 | DI.RAD.S_ITS ---
PROCEDURE: XR CHEST 1V INDICATIONS: shortness of breath TECHNIQUE: One view of the chest was acquired. COMPARISON: [facility], CHEST 1 VIEW, 10/09/2017, 15:31. [facility], CHEST FOR PICC PLACEMENT, 10/10/2017, 11:59. FINDINGS: Surgical changes and devices: None. Lungs and pleura: Interstitial prominence is seen. No pleural effusions or pneumothorax. Low lung volumes are noted. This causes a crowded appearance to the lung markings and limits evaluation. Mediastinum: Mediastinal contours appear normal. Heart size is mildly to moderately enlarged. Bones and chest wall: No suspicious bony lesions. Age-appropriate bony degenerative changes are seen. Overlying soft tissues appear unremarkable. IMPRESSION: Cardiomegaly and interstitial prominence can be seen. Please correlate with patient presentation, physical examination findings, and laboratory values for congestive heart failure. Dictated by: Elio Charles M.D. on 02/25/2019 at 16:32 Approved by: Elio Charles M.D. on 02/25/2019 at 16:32
[2019-02-25 17:38] LABS: Add Manual Diff / Slide Review NO; Basophils Absolute Auto 0 /uL (0-100); Basophils Percent Auto 0.9 % (0-2); Eosinophils Absolute Auto 100 /uL (0-450); Hematocrit 40.3 % (41-53); Hemoglobin 12.7 g/dL (13.5-17.5); Lymphocytes Absolute Auto 400 /uL (1100-4500); Lymphocytes Percent Auto 8.2 % (25-40); Mean Corpuscular HGB Conc 31.5 % (30-36); Mean Corpuscular Hemoglobin 27.6 PG (26-34); Mean Corpuscular Volume 87.6 fL (80-100); Monocytes Absolute Auto 500 /uL (0-900); Monocytes Percent Auto 10.5 % (3-14); Neutrophils Absolute Auto 3400 /uL (1500-7000); Neutrophils Percent Auto 77.4 % (50-75); Platelet Count 114 X10^3/uL (150-400); Red Cell Distribution Width 20.2 % (11.6-14.8); White Blood Cell Count 4.4 X10^3/uL (4.5-11.0)
[2019-02-25 17:48] LABS: Alanine Aminotransferase 21 IU/L (21-72); Albumin 4.2 g/dL (3.5-5.0); Albumin Globulin Ratio 1.5 (1.0-2.8); Alkaline Phosphatase 83 U/L (38-126); Aspartate Aminotransferase 12 IU/L (17-59); BUN Creatinine Ratio 37.4 (6-22); Bilirubin Total 0.5 mg/dL (0.2-1.3); Blood Urea Nitrogen 86 mg/dL (9-20); Calcium 8.7 mg/dL (8.4-10.2); Carbon Dioxide 18 mmol/L (22-32); Chloride 113 mmol/L (98-107); Creatine Kinase 52 U/L (55-170); Estimated Glomerular Filt Rate 28.8 mL/min (>60); Globulin 2.8 g/dL (1.7-4.1); Glucose 245 mg/dL (80-110); HEMOLYSIS < 15 (0-50); Sodium 141 mmol/L (137-145)
[2019-02-25 17:52] LABS: Potassium 5.8 mmol/L (3.4-5.1)
[2019-02-25 17:56] LABS: B Type Natriuretic Peptide 1420 (<100)
[2019-02-25 18:00] LABS: Troponin I 0.055 ng/mL (0.01-0.034)
--- NOTE | 2019-02-25 18:12 | ED.ABDPAIN ---
HPI - Abdominal Pain General Chief Complaint: Abdominal Pain Stated Complaint: RASH ON STOMACH Time Seen by Provider: 02/25/19 18:12 Source: patient Mode of arrival: ambulatory Limitations: no limitations History of Present Illness HPI narrative: Patient is a 63-year-old male here for evaluation of abdominal distension bilateral lower extremity swelling. he states that his symptoms started 4 days ago. He has had a significant weight gain over the past 4 weeks. He states that he was in [facility] when the symptoms started. He does return to the area today. He denies any chest pain or shortness of breath. Patient denied any history of heart failure. He does state that he takes 3 Lasix pills a day. He does not know the dosage of these medications. When questioned if there 20 mg pills he stated yes. Patient states he has had kidney issues in the past. He does have known lower extremity diabetic ulcers which he states appear somewhat worse than normal. Related Data Home Medications Medication Instructions Recorded Confirmed Chantix 0.5 mg PO Q12H #0 10/09/17 02/25/19 Combivent Respimat 1 puff INH QID #0 10/09/17 02/25/19 Lyrica 100 mg PO DAILY #0 10/09/17 02/25/19 allopurinol 200 mg PO DAILY #0 10/09/17 02/25/19 aspirin 81 mg PO QDAY #0 10/09/17 02/25/19 cetirizine 10 mg PO DAILY #0 10/09/17 02/25/19 glipizide [Glucotrol XL] 10 mg PO AMCC #0 10/09/17 02/25/19 hydralazine 25 mg PO TIDCC #0 10/09/17 02/25/19 loratadine 10 mg PO QDAY #0 10/09/17 02/25/19 magnesium oxide 400 mg QDAY #0 10/09/17 02/25/19 metolazone 2.5 mg PO QDAY #0 10/09/17 metoprolol tartrate 100 mg PO TID #0 10/09/17 02/25/19 furosemide 120 mg PO DAILY 02/25/19 02/25/19 insulin glargine [Lantus U-100 40 units SUBCUT BEDTIME 02/25/19 02/25/19 Insulin] ipratropium-albuterol [Combivent 1 puff INHALATION Q6H PRN 02/25/19 02/25/19 Respimat] mirtazapine 15 mg PO DAILY 02/25/19 02/25/19 sertraline 200 mg PO DAILY 02/25/19 02/25/19 Allergies Allergy/AdvReac Type Severity Reaction Status Date / Time BEE STINGS Allergy Severe Anaphylaxis Uncoded 02/26/19 00:29 Review of Systems Constitutional Denies chills, Reports fatigue, Denies fever(s) and Denies lethargy Cardiovascular Denies chest pain, Denies rapid heart rate, Reports edema, Denies palpitations, Denies dyspnea and Denies dyspnea on exertion Respiratory Denies dyspnea and Denies dyspnea on exertion Gastrointestinal Gastrointestinal: Denies abdominal pain, Reports bloating, Denies change in stool character, Denies nausea and Denies vomiting Genitourinary Denies dysuria and Reports urinary incontinence (This is not new) Musculoskeletal Denies myalgias and Denies arthralgias Comments: Lower extremity swelling Integumentary/Breasts Reports skin ulcer Neurologic Denies behavioral changes Psychiatric Denies behavioral changes Endocrine Reports fatigue, Denies flushing and Denies palpitations Hematologic/Lymphatic Denies easy bleeding and Denies easy bruising Allergic/Immunologic Denies urticaria [facility] Medical History Amputation toe (Acute) Chronic kidney disease (Acute) Current smoker (Acute) Diabetes (Acute) History of peritoneal dialysis (Acute) Neuropathy (Acute) Systolic heart failure (Acute) Surgical History (Updated 02/26/19 @ 00:20 by EDGAR Power) History of hand fracture (Acute) History of tonsillectomy (Acute) Social History household members: none Smoking Status: Current every day smoker alcohol intake: current Social History household members: none Smoking Status: Current every day smoker alcohol intake: current Exam Initial Vital Signs Initial Vital Signs: Vital Signs Temperature 98.9 F 02/25/19 16:11 Pulse Rate 111 H 02/25/19 16:11 Respiratory Rate 24 02/25/19 16:11 Blood Pressure 173/73 H 02/25/19 16:11 Pulse Oximetry 93 04/30/19 16:11 Const General: cooperative, well groomed and No acute distress Orientation: alert, awake and oriented x3 HENMT Head: normocephalic and atraumatic Face and sinus: face symmetric Mouth: oral mucosae normal and moist mucous membranes Resp Effort & Inspection: normal respiratory effort and not tachypneic Auscultation: rales Cardio Rate: regular rate Rhythm: regular rhythm Pulses: radial pulses present GI Inspection: edema and distended Palpation: soft Percussion: tympanic to percussion Back/Spine/Pelvis Back: No back tenderness and No CVA tenderness Thoracic/Lumbar Spine: No thoracic spinal tenderness and No lumbar spinal tenderness Skin Other: Patient with bilateral lower extremity with redness that is circumferential up to his upper thighs. He does have small ulcerations to his left lower extremity which he states are not new. No drainage from these areas. Neuro General: alert, awake and oriented x3 Extrem General: edema and pedal edema Psych Appearance: grossly normal and well kempt Scores GCS Bliss coma scale eye opening: Spontaneous Zhen coma scale verbal response: Orientated Zhen coma scale motor response: Obey commands Bliss coma scale total score: 15 Course Orders Ordered: ED Orders 02/25/19 21:00 MRSA PCR Urgent 02/25/19 21:27 Consult to Dietitian, Adult Routine 02/25/19 23:55 Basic Metabolic Panel Urgent Troponin I Urgent 02/26/19 Basic Metabolic Panel Routine Complete Blood Count AUTO DIFF Routine Hemoglobin A1C% w Est Avg Glu Routine 02/26/19 00:04 Procalcitonin Routine 02/26/19 00:05 B Type Natriuretic Peptide Routine Acetaminophen (Tylenol) 650 mg PO Q6HR PRN PRN Reason: As Needed for Fever/Mild Pain Albuterol/Ipratropium (Duoneb) 3 ml INH [id number] PRN PRN Reason: Shortness Of Breath Or Wheezing Albuterol/Ipratropium (Combivent Respimat) 1 puff INH QID JOHNATHAN Albuterol/Ipratropium (Combivent Respimat) 1 puff INH Q6H PRN PRN Reason: Shortness Of Breath Allopurinol (Zyloprim) 200 mg PO DAILY JOHNATHAN Aspirin (Aspirin Ec) 81 mg PO DAILY JOHNATHAN Dextrose (D50w) 25 gm IV PRN PRN; Protocol PRN Reason: Hypoglycemia Enoxaparin Sodium (Lovenox) 30 mg SUBCUT DAILY [facility] Furosemide (Lasix) 80 mg IV Q8H [facility] Last Admin: 02/25/19 22:20 Dose: 80 mg Ceftriaxone Sodium/Dextrose (Rocephin) 2 gm in 50 mls @ 100 mls/hr IV Q24H [facility] Last Admin: 02/26/19 02:05 Dose: 100 mls/hr Insulin Aspart (Novolog Flexpen) 0 unit SUBCUT ACHS [facility]; Protocol Last Admin: 02/25/19 22:18 Dose: 2 unit Insulin Glargine (Lantus Solostar (Pen)) 40 unit SUBCUT BEDTIME [facility] Metoprolol Tartrate (Lopressor) 100 mg PO TID [facility] Mirtazapine (Remeron) 15 mg PO DAILY [facility] Pregabalin (Lyrica) 100 mg PO TID [facility] Sertraline HCl (Zoloft) 200 mg PO DAILY [facility] Discontinued Medications Aspirin (Aspirin Chew) 324 mg PO NOW ONE Stop: 02/25/19 18:33 Last Admin: 02/25/19 19:52 Dose: 324 mg Furosemide (Lasix) 60 mg IV NOW ONE Stop: 02/25/19 18:30 Last Admin: 02/25/19 19:53 Dose: 60 mg Hydralazine HCl (Apresoline) 25 mg PO TIDCC [facility] Metolazone (Metolazone) 2.5 mg PO DAILY [facility] Sodium Polystyrene Sulfonate (Kayexalate) 15 gm PO NOW ONE Stop: 02/26/19 00:46 Last Admin: 02/26/19 01:30 Dose: 15 gm Vital Signs - 8 hr 02/25/19 20:03 02/25/19 20:34 02/25/19 21:05 Temperature 97.9 F Pulse Rate 103 H 108 H 61 Respiratory Rate 20 22 20 Blood Pressure 203/94 H Blood Pressure [Left Arm] 175/86 H Pulse Oximetry 92 02/25/19 23:49 02/25/19 23:57 02/26/19 00:00 Temperature 97.8 F Pulse Rate 101 H Respiratory Rate 16 Blood Pressure 176/93 H 157/83 H Blood Pressure [Left Arm] Pulse Oximetry 96 02/26/19 01:12 Temperature Pulse Rate Respiratory Rate Blood Pressure Blood Pressure [Left Arm] Pulse Oximetry 94 MDM - Abdominal Pain Lab Data Attestation: I reviewed the patient's lab results. Result diagrams: 02/25/19 17:30 02/26/19 00:05 Lab Results 02/25/19 02/25/19 02/25/19 Range/Units 17:30 17:30 17:30 WBC 4.4 L (4.5-11.0) X10^3/uL RBC 4.60 (4.5-5.9) X10^6/uL Hgb 12.7 L (13.5-17.5) g/dL Hct 40.3 L (41-53) % MCV 87.6 (80-100) fL MCH 27.6 (26-34) PG MCHC 31.5 (30-36) % RDW 20.2 H (11.6-14.8) % Plt Count 114 L (150-400) X10^3/uL Neut % (Auto) 77.4 H (50-75) % Lymph % (Auto) 8.2 L (25-40) % [place] % (Auto) 10.5 (3-14) % Eos % (Auto) 3.0 (2-4) % Baso % (Auto) 0.9 (0-2) % Neut # (Auto) 3400 (0962-4243) /uL Lymph # (Auto) 400 L (4318-3703) /uL [place] # (Auto) 500 (0-900) /uL Eos # (Auto) 100 (0-450) /uL Baso # (Auto) 0 (0-100) /uL RBC Morphology See below Anisocytosis 2+ H Macrocytosis 1+ H Sodium 141 (137-145) mmol/L Potassium 5.8 H (3.4-5.1) mmol/L Chloride 113 H (98-107) mmol/L Carbon Dioxide 18 L (22-32) mmol/L BUN 86 H (9-20) mg/dL Creatinine 2.30 H (0.66-1.25) mg/dL Estimated GFR 28.8 L (>60) mL/min BUN/Creatinine Ratio 37.4 H (6-22) Glucose 245 H (80-110) mg/dL Calcium 8.7 (8.4-10.2) mg/dL Magnesium 2.3 (1.6-2.3) mg/dL Total Bilirubin 0.5 (0.2-1.3) mg/dL AST 12 L (17-59) IU/L ALT 21 (21-72) IU/L Alkaline Phosphatase 83 (38-126) U/L Total Creatine Kinase 52 L (55-170) U/L CK-MB (CK-2) TNP CK-MB (CK-2) Rel Index TNP Troponin I 0.055 H (0.01-0.034) ng/mL B-Natriuretic Peptide 1420 H (<100) Total Protein 7.0 (6.3-8.2) g/dL Albumin 4.2 (3.5-5.0) g/dL Globulin 2.8 (1.7-4.1) g/dL Albumin/Globulin Ratio 1.5 (1.0-2.8) Procalcitonin (<0.5) ng/mL Nasal Screen MRSA (PCR) (Negative) 02/25/19 02/26/19 02/26/19 Range/Units 21:00 00:04 00:05 WBC (4.5-11.0) X10^3/uL RBC (4.5-5.9) X10^6/uL Hgb (13.5-17.5) g/dL Hct (41-53) % MCV (80-100) fL MCH (26-34) PG MCHC (30-36) % RDW (11.6-14.8) % Plt Count (150-400) X10^3/uL Neut % (Auto) (50-75) % Lymph % (Auto) (25-40) % [place] % (Auto) (3-14) % Eos % (Auto) (2-4) % Baso % (Auto) (0-2) % Neut # (Auto) (4627-5508) /uL Lymph # (Auto) (1502-3415) /uL [place] # (Auto) (0-900) /uL Eos # (Auto) (0-450) /uL Baso # (Auto) (0-100) /uL RBC Morphology Anisocytosis Macrocytosis Sodium 142 (137-145) mmol/L Potassium 5.7 H (3.4-5.1) mmol/L Chloride 113 H (98-107) mmol/L Carbon Dioxide 20 L (22-32) mmol/L BUN 85 H (9-20) mg/dL Creatinine 2.10 H (0.66-1.25) mg/dL Estimated GFR 32.0 L (>60) mL/min BUN/Creatinine Ratio 40.5 H (6-22) Glucose 198 H (80-110) mg/dL Calcium 9.0 (8.4-10.2) mg/dL Magnesium (1.6-2.3) mg/dL Total Bilirubin (0.2-1.3) mg/dL AST (17-59) IU/L ALT (21-72) IU/L Alkaline Phosphatase (38-126) U/L Total Creatine Kinase (55-170) U/L CK-MB (CK-2) CK-MB (CK-2) Rel Index Troponin I 0.046 H (0.01-0.034) ng/mL B-Natriuretic Peptide (<100) Total Protein (6.3-8.2) g/dL Albumin (3.5-5.0) g/dL Globulin (1.7-4.1) g/dL Albumin/Globulin Ratio (1.0-2.8) Procalcitonin < 0.05 (<0.5) ng/mL Nasal Screen MRSA (PCR) Negative for mrsa (Negative) 02/26/19 Range/Units 00:05 WBC (4.5-11.0) X10^3/uL RBC (4.5-5.9) X10^6/uL Hgb (13.5-17.5) g/dL Hct (41-53) % MCV (80-100) fL MCH (26-34) PG MCHC (30-36) % RDW (11.6-14.8) % Plt Count (150-400) X10^3/uL Neut % (Auto) (50-75) % Lymph % (Auto) (25-40) % [place] % (Auto) (3-14) % Eos % (Auto) (2-4) % Baso % (Auto) (0-2) % Neut # (Auto) (5801-6010) /uL Lymph # (Auto) (7991-1352) /uL [place] # (Auto) (0-900) /uL Eos # (Auto) (0-450) /uL Baso # (Auto) (0-100) /uL RBC Morphology Anisocytosis Macrocytosis Sodium (137-145) mmol/L Potassium (3.4-5.1) mmol/L Chloride (98-107) mmol/L Carbon Dioxide (22-32) mmol/L BUN (9-20) mg/dL Creatinine (0.66-1.25) mg/dL Estimated GFR (>60) mL/min BUN/Creatinine Ratio (6-22) Glucose (80-110) mg/dL Calcium (8.4-10.2) mg/dL Magnesium (1.6-2.3) mg/dL Total Bilirubin (0.2-1.3) mg/dL AST (17-59) IU/L ALT (21-72) IU/L Alkaline Phosphatase (38-126) U/L Total Creatine Kinase (55-170) U/L CK-MB (CK-2) CK-MB (CK-2) Rel Index Troponin I (0.01-0.034) ng/mL B-Natriuretic Peptide 1000 H (<100) Total Protein (6.3-8.2) g/dL Albumin (3.5-5.0) g/dL Globulin (1.7-4.1) g/dL Albumin/Globulin Ratio (1.0-2.8) Procalcitonin (<0.5) ng/mL Nasal Screen MRSA (PCR) (Negative) Point of care testing: Point of Care Testing Glucose POC 194 Imaging Data Chest x-ray: Radiologist's impression: [address] [address] XRay Report Signed Patient: Juan Carlos Montalvo [facility]#: [id number] : 5Acct:[id number] Age/Sex: 63 / MDate of Service: 02/25/19 Loc: ED Accession Number: [id number] Procedure: XR chest 1V Ordering Provider: Suzy Alcazar MD PROCEDURE: XR CHEST 1V INDICATIONS: shortness of breath TECHNIQUE: One view of the chest was acquired. COMPARISON: [facility], CHEST 1 VIEW, 10/09/2017, 15:31. [facility], CHEST FOR PICC PLACEMENT, 10/10/2017, 11:59. FINDINGS: Surgical changes and devices: None. Lungs and pleura: Interstitial prominence is seen. No pleural effusions or pneumothorax. Low lung volumes are noted. This causes a crowded appearance to the lung markings and limits evaluation. Mediastinum: Mediastinal contours appear normal. Heart size is mildly to moderately enlarged. Bones and chest wall: No suspicious bony lesions. Age-appropriate bony degenerative changes are seen. Overlying soft tissues appear unremarkable. IMPRESSION: Cardiomegaly and interstitial prominence can be seen. Please correlate with patient presentation, physical examination findings, and laboratory values for congestive heart failure. Dictated by: Elio Charles M.D. on 02/25/2019 at 16:32 Approved by: Elio Charles M.D. on 02/25/2019 at 16:32 ECG Data Attestation: I personally reviewed and interpreted this ECG as follows: Prior ECG tracings: not available for review Interpretation: Sinus tachycardia/ventricular rate of 101 Frequent PVCs in a trigeminy pattern Normal QRS Normal QTC Nonspecific ST T wave changes MDM Narrative Medical decision making narrative: Patient is not in extremis. He does not have any chest pain or shortness of breath. he states that he had a echocardiogram done by his italian teacher 6 months ago which he reported was ?normal? I do not have this for evaluation. He does have an elevated BNP today. Has crackles bilaterally and his chest x-ray does show signs of fluid overload. He has bilateral lower extremity swelling and abdominal swelling. I suspect this is fluid overload secondary to CHF. Patient states he takes 3 Lasix pills a day which he told me were 20 mg tablets. He does have a creatinine of 2.5 today. The only prior creatinine we have for him was when he was in acute renal failure. He was given 60 mg of Lasix IV. His troponin was slightly elevated however at suspect that this is secondary to his heart failure not a non ST elevation [place]. He was given an aspirin. His lower extremity redness is more consistent with edema and venous stasis changes not cellulitis. He is afebrile. Held on any antibiotics here in the emergency department. I did discuss the case with Dr. Watson who is his italian teacher who agreed admitting him for diuresis and repeat echocardiogram was warranted. I discussed the case with ERI Avila the [facility] hospitalist who will admit the patient. I discussed admission with the patient who expressed understanding and agreement. Discharge Plan Departure Patient Disposition: Admitted As Inpatient Clinical Impression: Edema, peripheral, Elevated troponin, Hyperkalemia CHF (congestive heart failure) Qualifiers: Heart failure type: unspecified Heart failure chronicity: unspecified Qualified Code(s): I50.9 - Heart failure, unspecified Discharge Date/Time: 02/25/19 20:50 Interventions: ED Discharge Assessment Last Done: 02/25/19 20:50 Admit Date/Time: 02/25/19 20:43 Admit Provider: Miguel Ángel Avila
[2019-02-25 18:13] LABS: Anisocytosis 2+; Macrocytosis 1+
[2019-02-25] MEDS: ASPIRIN 81 MG TAB 324 MG PO (19:52)
[2019-02-25] MEDS: FUROSEMIDE 100 MG/10 ML VIAL 60 MG IV (19:53)
[2019-02-25 21:10] LABS: Magnesium 2.3 mg/dL (1.6-2.3)
[2019-02-25] MEDS: INSULIN ASPART 100 UNIT/ML INSULN PEN SUBCUT (22:18)
[2019-02-25] MEDS: FUROSEMIDE 100 MG/10 ML VIAL 80 MG IV (22:20)
--- NOTE | 2019-02-25 23:27 | PC.NURSE ---
2100 - Pt to room from ER. Stand-pivot transfer to bed. Pt agitated and gruff. O2 sats 90% on RA. Placed on 2L O2. Pt denies home O2 use. Pt with weeping drainage to bilateral LE with edema and erythema. Pt bumped WC with left lateral [place], Small skin tear with blood drainage. Pt reports need to stand to use urinal. Declines nolasco placement. Pt reports not taking his lasix for 3 days r/t being upset about recent family matters. I was mad at my son-in-law. Oriented to room and routine. Bed alarm on.
[2019-02-26] VITALS (12 sets, daily range): BP systolic 128–157; BP diastolic 57–92; PULSE 71–108; RESP 12–22; TEMP 36.3–36.9; O2SAT 92–95; BMI 34.7
--- NOTE | 2019-02-26 00:28 | P.HP_ITS ---
History of Present Illness Date Patient Seen: 02/25/19 Time Patient Seen: 20:28 Chief complaint: RASH ON STOMACH Narrative: Juan Carlos Montalvo is a 63-year-old male with a history of systolic heart failure with reduced ejection fraction, diabetes with peripheral vascular disease and diabetic ulcers, chronic renal failure stage IV, hypertension and current every day smoker who presents to the ER with complaints abdominal and leg swelling. patient reports that he traveled to visit his son in [facility] over the last week during which time he noticed an increase in the swelling. he reports that the swelling became more marked following his return trip. He does note that this trip was stressful but denies chest pain or shortness of breath more than usual. The patient is currently an every day smoker smoking 1 pack per day for over 50 years. He does use a Combivent inhaler. He has been taking Lasix 120 mg daily and follows with Dr. Watson cardiology. He does have a history of arrhythmias and is found to be in sinus tachycardia with ventricular trigeminy today he is notably hyperkalemic at 5.8 and has BUN of 86 and creatinine of 2.3. Per review of medical records he has previously been noted have a baseline between 1.6 and 2.2. He has elevated blood sugar at 245 mg/dL. He is a poor historian and not forthcoming with information. He Denies other complaints of fevers or chills headaches or dizziness. He reports no chest pain but notes he has had palpitations since he was 29 years old. He continues to smoke and acknowledges a daily cough. He describes his abdomen is more distended but denies abdominal pain, nausea vomiting, constipation or diarrhea. He reports no difficulty urinating. He has reports recent fall with scabbed wounds on his left knee and right elbow. He has marked pedal edema with redness and wounds that are weeping. The ER physi kenneth consulted the patient's supervisor picking crew Dr. Watson regarding presentation and elevated troponin. It was felt that time the patient did not warrant transfer and could be safely diuresed as such the patient is admitted for treatment of exacerbation of congestive heart failure. Patient History Medical History (Updated 02/26/19 @ 00:27 by EDGAR Power) Amputation toe (Acute) Chronic kidney disease (Acute) Current smoker (Acute) Diabetes (Acute) History of peritoneal dialysis (Acute) Neuropathy (Acute) Systolic heart failure (Acute) Surgical History (Updated 02/26/19 @ 00:20 by EDGAR Power) History of hand fracture (Acute) History of tonsillectomy (Acute) Social History household members: none Smoking Status: Current every day smoker alcohol intake: current Family & Social History Social History: household members none Prior Living Arrangements House Safety & Behavioral: Feels Safe in Current Yes Environment Been Physically Hurt or No Threatened By a Person Suicidal Ideation Description Vague Suicide Plan Description No Plan Tobacco & Substance use: Tobacco type cigarettes Smoking Status Current every day smoker Smoking packs per day 1 alcohol intake current alcohol intake frequency 0-2 drinks per day Substance Use Type marijuana Comment: The patient is not forthcoming with information on social history. When asked about his family health he responds simply ?it is bad? but then states that his parents and uncle have lived into their 80s and 90s. Smoking: Patient states he has been smoking 1 pack per day since he was 12 years old and continues to smoke daily. Alcohol: He reports that his physician allows him to have 1 beer daily. Substance use patient denies recreational pharmaceuticals and endorses marijuana use. Advanced directives: The patient states he is full resuscitation but declines to respond to request for a surrogate decision maker. Meds Home Medications Medication Instructions Recorded Confirmed Type Chantix 0.5 mg PO Q12H #0 10/09/17 02/25/19 History Combivent Respimat 1 puff INH QID #0 10/09/17 02/25/19 History Lyrica 100 mg PO DAILY #0 10/09/17 02/25/19 History allopurinol 200 mg PO DAILY #0 10/09/17 02/25/19 History aspirin 81 mg PO QDAY #0 10/09/17 02/25/19 History cetirizine 10 mg PO DAILY #0 10/09/17 02/25/19 History glipizide [Glucotrol XL] 10 mg PO AMCC #0 10/09/17 02/25/19 History hydralazine 25 mg PO TIDCC #0 10/09/17 02/25/19 History loratadine 10 mg PO QDAY #0 10/09/17 02/25/19 History magnesium oxide 400 mg QDAY #0 10/09/17 02/25/19 History metolazone 2.5 mg PO QDAY #0 10/09/17 History metoprolol tartrate 100 mg PO TID #0 10/09/17 02/25/19 History furosemide 120 mg PO DAILY 02/25/19 02/25/19 History insulin glargine [Lantus U-100 40 units SUBCUT BEDTIME 02/25/19 02/25/19 History Insulin] ipratropium-albuterol [Combivent 1 puff INHALATION Q6H PRN 02/25/19 02/25/19 History Respimat] mirtazapine 15 mg PO DAILY 02/25/19 02/25/19 History sertraline 200 mg PO DAILY 02/25/19 02/25/19 History Allergies Allergy/AdvReac Type Severity Reaction Status Date / Time BEE STINGS Allergy Severe Anaphylaxis Uncoded 02/26/19 00:29 Review of Systems Review of Systems All systems reviewed & are unremarkable except as noted in HPI and below Exam Vital Signs (past 8 hours): - 02/25/19 18:55 02/25/19 20:03 02/25/19 20:34 Temperature Pulse Rate 102 H 103 H 108 H Respiratory Rate 14 20 22 Blood Pressure Blood Pressure [Left Arm] 143/63 H 175/86 H Pulse Oximetry 93 02/25/19 21:05 02/25/19 23:49 02/25/19 23:57 Temperature 97.9 F 97.8 F Pulse Rate 61 101 H Respiratory Rate 20 16 Blood Pressure 203/94 H 176/93 H Blood Pressure [Left Arm] Pulse Oximetry 92 96 Oxygen Delivery Method Nasal Cannula Narrative Exam Narrative: GENERAL APPEARANCE: well developed, overweight male in no acute distress who appears older than his stated age. HEAD: Normocephalic, atraumatic, no scalp lesions. EYES: pupils equal, round, reactive to light and accommodation, sclera non-icteric, extraocular movement intact without nystagmus. EARS: normal external structures, no ear pain NOSE: no rhinorrhea ORAL CAVITY: mucosa moist without lesions or exudate, palate normal, tongue in midline. THROAT: Not visualized, raspy voice NECK/THYROID: neck supple, prominent jugular veins, no carotid bruit, no thyromegaly, trachea midline. LYMPH NODES: no cervical or supraclavicular lymphadenopathy. SKIN: warm and dry, redness, warmth and redness bilateral lower leg HEART: regular rate and rhythm, S1-S2 1/6 systolic murmur, no rubs or gallops, brisk capillary refill, 2 to 3+ bilateral lower extremity edema LUNGS: Fine crackles bilateral bases, no coarseness or wheezing, no cough present CHEST: Symmetrical movement, no accessory muscle use. ABDOMEN: Soft, round, no fluid wave appreciated, no epigastric or abdominal tenderness on palpation, no guarding or peritoneal signs, no organomegaly, active bowel tones. BACK: Normal curvature, nontender to palpation, no CVA tenderness on percus acacia. EXTREMITIES: moves all extremities, strength is 5/5 and symmetrical, well perfused, gait unsteady. NEUROLOGIC: AAO x4, no focal neurologic deficits, cranial nerves II-XII grossly intact , motor strength normal upper and lower extremities, sensory exam intact to light touch, hearing grossly normal to speech. PSYCH: Patient is agitated, confrontational and minimally compliant. Objective Labs Result Diagrams: 02/25/19 17:30 02/25/19 17:30 Labs: Laboratory Results - last 24 hr 02/25/19 02/25/19 02/25/19 17:30 17:30 17:30 WBC 4.4 L RBC 4.60 Hgb 12.7 L Hct 40.3 L MCV 87.6 MCH 27.6 MCHC 31.5 RDW 20.2 H Plt Count 114 L Neut % (Auto) 77.4 H Lymph % (Auto) 8.2 L [place] % (Auto) 10.5 Eos % (Auto) 3.0 Baso % (Auto) 0.9 Neut # (Auto) 3400 Lymph # (Auto) 400 L [place] # (Auto) 500 Eos # (Auto) 100 Baso # (Auto) 0 RBC Morphology See below Anisocytosis 2+ H Macrocytosis 1+ H Sodium 141 Potassium 5.8 H Chloride 113 H Carbon Dioxide 18 L BUN 86 H Creatinine 2.30 H Estimated GFR 28.8 L BUN/Creatinine Ratio 37.4 H Glucose 245 H Calcium 8.7 Magnesium 2.3 Total Bilirubin 0.5 AST 12 L ALT 21 Alkaline Phosphatase 83 Total Creatine Kinase 52 L CK-MB (CK-2) TNP CK-MB (CK-2) Rel Index TNP Troponin I 0.055 H B-Natriuretic Peptide 1420 H Total Protein 7.0 Albumin 4.2 Globulin 2.8 Albumin/Globulin Ratio 1.5 Assessment & Plan Assessment & Plan narrative: The patient is admitted to the hospital for diures is, management of hyperkalemia in the setting of chronic kidney disease. 1. Congestive heart failure, systolic dysfunction, acute on chronic, present on admission. -patient has had progressive leg swelling and abdominal distention for the last several days and more acutely in the last day. He reports a 20 lb weight gain. -to 3+ bilateral pedal edema, distended abdomen. -patient with history of congestive heart failure under the care of Dr. Watson who was consulted by the ER prior to admission. -patient's last echocardiogram dated 10/26/2017 pt the patient have a reduced ejection fraction of 35-40% with global hypokinesis. No valvular disease noted. echocardiogram ordered. -patient with elevated BNP at 1420. -the patient has been taking Lasix 120 mg daily. Will continue Lasix however will increase the dose to 80 mg 3 times daily and monitor diuresis. -strict I&Os, daily weights. 2. Chronic kidney disease stage 4, acute on chronic, present on admission. -medical record review finds patient's baseline creatinine reported to be 1.6 1 year ago however patient has since had acute renal failure with creatinine up to 9.8. -current BUN and creatinine are 86 and 2.3. EGFR is 28.8. -prior record from 2017 note renal tubular acidosis. The patient is acidotic day with bicarb of 18. -will check aldosterone and renin function -will monitor labs for renal function 3. Hyperkalemia, present on admission, unknown if acute or chronic -no complaints of weakness or chest pain, patient with trigeminal PVCs on 12 lead EKG with history of frequent ectopy. -potassium is 5.8 on admission, no labs are available for comparison. -history CKD with creatinine of 2.3. Patient received 60 mg Lasix in the emergency department with good diuresis. -will recheck chemistry following diuresis and treat with Kayexalate as needed. 4. Elevated serum troponin, present on admission, acute -no complaints of chest pain, history of arrhythmias, [address] or T-wave changes. -troponin is 0.55 on admission, reviewed with Dr. Watson by the ER provider. -believed to likely be demand related. -will check troponin serially until trend downward. 5. Hypertension, present on admission, chronic -patient adamantly denies that he has hypertension. -patient with labile blood pressures likely related to level of agitation, systolic pressure ranges between mid 140s to over 200. -will continue the patient's hydralazine 25 mg 3 times daily. 6. Arrhythmias, present on admission, chronic -history of cardiac ectopy since age 29 -trigeminal PVCs without evidence of ischemia or acute injury -continue home medication metoprolol 100 mg 3 times daily. 7. Diabetes type 2, insulin dependent, with complications, present on admission, chronic. -blood sugar on admission is 245. Associated renal failure and neuropathy. -patient uses Lantus 40 mg daily at bedtime and takes Lyrica 100 mg 3 times da gregorio for neuropathy. -will continue glargine 40 mg nightly with sliding scale insulin medium range. 8. Bilateral lower extremity cellulitis, present on admission, acute. -patient with redness and warmth bilateral lower legs with wounds and weeping. -patient is started on ceftriaxone 2 g IV daily. 9. Daily smoker, chronic -patient endorses smoking 1 pack per day for 51 years. -expresses no interest in quitting though he has previously been prescribed Chantix. 10. Alcohol abuse, chronic -the patient has previously been a heavy drinker and now reports his physician allows and 1 beer daily. The patient is admitted to the critical care unit related to cardiac arrhythmias, hyperkalemia, chronic acute on chronic kidney disease, acute on chronic systolic heart failure. Patient requires close monitoring frequent vital signs related to hypertension, the patient is admitted as an inpatient with expected length of stay more than 2 midnights. Scores GCS [place] coma scale eye opening: Spontaneous [place] coma scale verbal response: Orientated [place] coma scale motor response: Obey commands [place] coma scale total score: 15 Quality VTE Deep Vein Thrombosis/Pulmonary Embolism Present on Admission: No
[2019-02-26 00:37] LABS: B Type Natriuretic Peptide 1000 (<100)
[2019-02-26 00:43] LABS: BUN Creatinine Ratio 40.5 (6-22); Blood Urea Nitrogen 85 mg/dL (9-20); Carbon Dioxide 20 mmol/L (22-32); Chloride 113 mmol/L (98-107); Glucose 198 mg/dL (80-110); HEMOLYSIS < 15 (0-50); Sodium 142 mmol/L (137-145)
[2019-02-26 00:44] LABS: Potassium 5.7 mmol/L (3.4-5.1)
[2019-02-26 00:55] LABS: Troponin I 0.046 ng/mL (0.01-0.034)
[2019-02-26 00:58] LABS: Procalcitonin < 0.05 ng/mL (<0.5)
[2019-02-26] MEDS: SODIUM POLYSTYRENE SULFON/SORB 15 GM/60 ML CUP PO (01:30)
[2019-02-26] MEDS: CEFTRIAXONE 2 GM/50 ML FROZ.PIGGY IV (02:05)
[2019-02-26 05:13] LABS: Add Manual Diff / Slide Review SLIDE REVIEW; Basophils Absolute Auto 0 /uL (0-100); Basophils Percent Auto 0.8 % (0-2); Eosinophils Absolute Auto 100 /uL (0-450); Eosinophils Percent Auto 2.9 % (2-4); Hematocrit 39.2 % (41-53); Hemoglobin 12.6 g/dL (13.5-17.5); Lymphocytes Absolute Auto 500 /uL (1100-4500); Lymphocytes Percent Auto 11.7 % (25-40); Mean Corpuscular HGB Conc 32.1 % (30-36); Mean Corpuscular Volume 87.2 fL (80-100); Monocytes Absolute Auto 600 /uL (0-900); Monocytes Percent Auto 13.3 % (3-14); Neutrophils Absolute Auto 3200 /uL (1500-7000); Neutrophils Percent Auto 71.3 % (50-75); Platelet Count 116 X10^3/uL (150-400); Red Cell Distribution Width 20.2 % (11.6-14.8); White Blood Cell Count 4.5 X10^3/uL (4.5-11.0)
[2019-02-26 05:33] LABS: BUN Creatinine Ratio 43.2 (6-22); Blood Urea Nitrogen 82 mg/dL (9-20); Calcium 8.9 mg/dL (8.4-10.2); Carbon Dioxide 21 mmol/L (22-32); Chloride 113 mmol/L (98-107); Estimated Glomerular Filt Rate 35.9 mL/min (>60); Glucose 223 mg/dL (80-110); HEMOLYSIS < 15 (0-50); Potassium 5.1 mmol/L (3.4-5.1); Sodium 142 mmol/L (137-145)
--- NOTE | 2019-02-26 05:41 | PC.NURSE ---
NOC Shift: Pt admitted w/several diagnosis, CHF, ARF, HTN, cellulitis. Pt. AAOx3, at times is difficult to communicate with, argumentive and hostile, but follows directions. Pt is unsteady on his feet, but refuses to use FWW to get to bathroom, states he doesn't need help and I won't fall, I've never fallen. Is also hypertensive, demands that RN repeat BP reading w/manual BP cuff, once completed with near exact value, pt states RN is making it up. EDGAR Avila aware. Pt for the most part is redirectable, and follows direct instructions. ST on tele, on 2L NC sats below 90 when sleeping. SOB when up OOB. Denies pain. Has many skin issues see documentation. Plan to give IV Lasix, Kacelate and IV ABX tx's, monitor lab values. ICU care.
[2019-02-26 05:51] LABS: Hemoglobin A1C% w Est Avg Glu 11.6 % (4.0-6.0)
[2019-02-26] MEDS: FUROSEMIDE 100 MG/10 ML VIAL 80 MG IV ×3 (06:14→21:24)
[2019-02-26 07:48] LABS: Anisocytosis 2+
[2019-02-26 07:49] LABS: Poikilocytosis 1+
[2019-02-26] MEDS: ALBUTEROL/IPRATROPIUM MDI 1 PUFF INH ×2 (08:06→12:23)
--- NOTE | 2019-02-26 08:40 | CM.DANOTE ---
DCP: Case received, EMR reviewed and met with patient. Retrieved information from patient regarding his baseline status. DCP template completed with information currently available. Patient is a 63 year old male who admitted yesterday evening to the care of the hospitalist team. PCP: Dr. Gallardo. Payer: confirmed: [facility] [employer]/Medicaid. Patient came to hospital via family vehicle due to weakness, shortness of breath. Patient is a diabetic, and has history of CHF, as well as chronic kidney disease. Patient also has cardiac dysrhythmias, as well as hyperkalemia. He is also a current smoker. Met briefly with patient, was resting. Asked him if he lives alone, stated, yes, and that's the way I want it to be. He stated that he has been independent at home. Patient has a daughter named Jayda. Confirmed with patient that his primary doctor is Dr. Gallardo. He resides in [place]. P: DCP to follow closely as plan unfolds. Patient should be able to return home when he is medically stable. Amy Hudson RN/Ambulatory Analyst
[2019-02-26] MEDS: INSULIN ASPART 100 UNIT/ML INSULN PEN SUBCUT ×2 (09:07→12:14)
[2019-02-26] MEDS: ASPIRIN EC 81 MG TABLET PO (09:08)
[2019-02-26] MEDS: ALLOPURINOL 100 MG TABLET 200 MG PO (09:08)
[2019-02-26] MEDS: ENOXAPARIN 30 MG/0.3 ML SYRINGE SUBCUT (09:08)
[2019-02-26] MEDS: METOPROLOL IR 50 MG TABLET 100 MG PO ×3 (09:09→19:35)
[2019-02-26] MEDS: PREGABALIN 50 MG CAPSULE 100 MG PO ×3 (09:10→19:35)
[2019-02-26] MEDS: MIRTAZAPINE 15 MG TABLET PO (09:10)
[2019-02-26] MEDS: SERTRALINE 50 MG TABLET 200 MG PO (09:10)
--- NOTE | 2019-02-26 13:18 | P.PN_ITS ---
Subjective Date Patient Seen: 02/26/19 Interval history: Juan Carlos Montalvo is a 63-year-old male with a history of systolic heart failure, diabetes with peripheral vascular disease and diabetic ulcers, chronic renal failure stage IV, hypertension and current every day smoker who presented to the ER with complaints abdominal and leg swelling. Admitted due to CHF exacerbation with acute hypoxic respiratory failure. Patient notes improvement in his breathing although remains hypoxic. He has been non compliant with urine collections for accurate urine output measurements. Exam Vital Signs (past 8 hours): - 02/26/19 07:26 02/26/19 08:03 02/26/19 08:10 Temperature Pulse Rate 103 H 108 H Respiratory Rate 22 20 Blood Pressure 145/85 H Pulse Oximetry 93 92 93 02/26/19 12:00 02/26/19 12:25 Temperature 98.1 F Pulse Rate 80 81 Respiratory Rate 22 20 Blood Pressure 142/57 H Pulse Oximetry 94 95 Oxygen Delivery Method Nasal Cannula Oxygen Flow Rate 2 Narrative Exam Narrative: GENERAL: Patient lying in bed and provides 1 word yes or no answers HEENT: Head normocephalic, atraumatic. Pupils equal CHEST: Clear to auscultation bilaterally. CARDIAC: Regular rate and rhythm. ABDOMEN: Moderately distended EXTREMITIES: 2+ bilateral pitting edema in legs with venous stasis changes and superficial scabs of lower extremities NEUROLOGICAL: Nonfocal Objective Labs Result Diagrams: 02/26/19 04:41 02/26/19 04:41 Labs: Laboratory Results - last 24 hr 02/25/19 02/25/19 02/25/19 17:30 17:30 17:30 WBC 4.4 L RBC 4.60 Hgb 12.7 L Hct 40.3 L MCV 87.6 MCH 27.6 MCHC 31.5 RDW 20.2 H Plt Count 114 L Neut % (Auto) 77.4 H Lymph % (Auto) 8.2 L [place] % (Auto) 10.5 Eos % (Auto) 3.0 Baso % (Auto) 0.9 Neut # (Auto) 3400 Lymph # (Auto) 400 L [place] # (Auto) 500 Eos # (Auto) 100 Baso # (Auto) 0 RBC Morphology See below Poikilocytosis Anisocytosis 2+ H Macrocytosis 1+ H Sodium 141 Potassium 5.8 H Chloride 113 H Carbon Dioxide 18 L BUN 86 H Creatinine 2.30 H Estimated GFR 28.8 L BUN/Creatinine Ratio 37.4 H Glucose 245 H Hemoglobin A1c Calcium 8.7 Magnesium 2.3 Total Bilirubin 0.5 AST 12 L ALT 21 Alkaline Phosphatase 83 Total Creatine Kinase 52 L CK-MB (CK-2) TNP CK-MB (CK-2) Rel Index TNP Troponin I 0.055 H B-Natriuretic Peptide 1420 H Total Protein 7.0 Albumin 4.2 Globulin 2.8 Albumin/Globulin Ratio 1.5 Procalcitonin Nasal Screen MRSA (PCR) 02/25/19 02/26/19 02/26/19 21:00 00:04 00:05 WBC RBC Hgb Hct MCV MCH MCHC RDW Plt Count Neut % (Auto) Lymph % (Auto) [place] % (Auto) Eos % (Auto) Baso % (Auto) Neut # (Auto) Lymph # (Auto) [place] # (Auto) Eos # (Auto) Baso # (Auto) RBC Morphology Poikilocytosis Anisocytosis Macrocytosis Sodium 142 Potassium 5.7 H Chloride 113 H Carbon Dioxide 20 L BUN 85 H Creatinine 2.10 H Estimated GFR 32.0 L BUN/Creatinine Ratio 40.5 H Glucose 198 H Hemoglobin A1c Calcium 9.0 Magnesium Total Bilirubin AST ALT Alkaline Phosphatase Total Creatine Kinase CK-MB (CK-2) CK-MB (CK-2) Rel Index Troponin I 0.046 H B-Natriuretic Peptide Total Protein Albumin Globulin Albumin/Globulin Ratio Procalcitonin < 0.05 Nasal Screen MRSA (PCR) Negative for mrsa 02/26/19 02/26/19 02/26/19 00:05 04:41 04:41 WBC 4.5 RBC 4.50 Hgb 12.6 L Hct 39.2 L MCV 87.2 MCH 28.0 MCHC 32.1 RDW 20.2 H Plt Count 116 L Neut % (Auto) 71.3 Lymph % (Auto) 11.7 L [place] % (Auto) 13.3 Eos % (Auto) 2.9 Baso % (Auto) 0.8 Neut # (Auto) 3200 Lymph # (Auto) 500 L [place] # (Auto) 600 Eos # (Auto) 100 Baso # (Auto) 0 RBC Morphology See below Poikilocytosis 1+ H Anisocytosis 2+ H Macrocytosis Sodium 142 Potassium 5.1 Chloride 113 H Carbon Dioxide 21 L BUN 82 H Creatinine 1.90 H Estimated GFR 35.9 L BUN/Creatinine Ratio 43.2 H Glucose 223 H Hemoglobin A1c Calcium 8.9 Magnesium Total Bilirubin AST ALT Alkaline Phosphatase Total Creatine Kinase CK-MB (CK-2) CK-MB (CK-2) Rel Index Troponin I B-Natriuretic Peptide 1000 H Total Protein Albumin Globulin Albumin/Globulin Ratio Procalcitonin Nasal Screen MRSA (PCR) 02/26/19 04:41 WBC RBC Hgb Hct MCV MCH MCHC RDW Plt Count Neut % (Auto) Lymph % (Auto) [place] % (Auto) Eos % (Auto) Baso % (Auto) Neut # (Auto) Lymph # (Auto) [place] # (Auto) Eos # (Auto) Baso # (Auto) RBC Morphology Poikilocytosis Anisocytosis Macrocytosis Sodium Potassium Chloride Carbon Dioxide BUN Creatinine Estimated GFR BUN/Creatinine Ratio Glucose Hemoglobin A1c 11.6 H Calcium Magnesium Total Bilirubin AST ALT Alkaline Phosphatase Total Creatine Kinase CK-MB (CK-2) CK-MB (CK-2) Rel Index Troponin I B-Natriuretic Peptide Total Protein Albumin Globulin Albumin/Globulin Ratio Procalcitonin Nasal Screen MRSA (PCR) Assessment & Plan Assessment & Plan narrative: The patient is admitted to the hospital for diuresis, management of hyperkalemia in the setting of chronic kidney disease. 1. Congestive heart failure, systolic dysfunction, acute on chronic, present on admission. -patient has had progressive leg swelling and abdominal distention for the last several days and more acutely in the last day. He reports a 20 lb weight gain. BNP 1420 -to 3+ bilateral pedal edema, distended abdomen. -patient with history of congestive heart failure under the care of Dr. Watson who was consulted by the ER prior to admission. -repeat echo done, report pending, patient's last echocardiogram dated 10/26/2017 indicated reduced ejection fraction of 35-40% with global hypokinesis. No valvular disease noted. -continue Lasix 80 mg IV every 8 hours. Patient has been on Lasix 120 mg daily at home but admits to recent noncompliance. -daily weights, patient has been noncompliant with saving urinary collection for accurate urine output assessment. 2. Acute hypoxic respiratory failure, due to CHF -still requiring supplemental O2 -continue IV diuresis 3. Chronic kidney disease, likely stage 4, chronic, present on admission. -medical record review finds patient's baseline creatinine reported to be 1.6 one year ago, however patient had acute renal failure with creatinine up to 9.8 in September 2017. -admission BUN and creatinine are 86 and 2.3. EGFR is 28.8. Creatinine improved to 1.9 with diuresis. -prior record from 2017 note renal tubular acidosis. The patient is acidotic with bicarb of 18 on admit. -aldosterone and renin levels were ordered and pending but probably not helpful in setting of acute CHF -check daily labs while getting IV diuresis 4. Hyperkalemia, present on admission, likely acute or more recent due to noncompliance with diuretic -no EKG changes of hyperkalemia -potassium is 5.8 on admission, current potassium 5.1 -continue IV diuresis 5. Elevated serum troponin, present on admission, acute -no complaints of chest pain, history of arrhythmias, [address] or T-wave changes. -troponin is 0.55 on admission, reviewed with Dr. Watson by the ER provider, improved to 0.046 on repeat. -believed to likely be demand related. 6. Hypertension, present on admission, chronic -patient adamantly denies that he has hypertension. -patient with labile blood pressures likely related to volume overload and level of agitation, systolic pressure ranges between mid 140s to over 200. -continue the patient's hydralazine 25 mg 3 times daily. 7. Arrhythmias, present on admission, chronic -history of cardiac ectopy since age 29 -trigeminal PVCs without evidence of ischemia or acute injury -continue home medication metoprolol 100 mg 3 times daily. 8. Diabetes type 2, insulin dependent, with complications, present on admission, chronic. -blood sugar on admission is 245. Associated renal failure and neuropathy. -patient uses Lantus 40 mg daily at bedtime and takes Lyrica 100 mg 3 times daily for neuropathy. -will continue glargine 40 mg nightly with sliding scale insulin medium range. 9. Bilateral lower extremity venous stasis dermatitis, chronic -Rocephin discontinued as cellulitis ruled out with normal WBC, procalcitonin and clinical exam 10. Daily smoker, chronic -patient endorses smoking 1 pack per day for 51 years. -expresses no interest in quitting though he has previously been prescribed Chantix. 11. Alcohol abuse, chronic -the patient has previously been a heavy drinker and now reports his physician allows and 1 beer daily. Continue inpatient management of CHF. Expect patient will need additional 1 or 2 days in hospital for IV diuresis prior to discharge home. Quality VTE Deep Vein Thrombosis/Pulmonary Embolism Present on Admission: No
[2019-02-26] MEDS: OXYCODONE/ACETAMINOPHEN 5/325 TABLET 1 TAB PO (15:44)
--- NOTE | 2019-02-26 19:33 | PC.NURSE ---
Addendum entered by Rabia Molina R.N. 02/26/19 22:19: 2210 - Patient now stating that he did hit his head. Stated I'm fine, I just lightly rolled it. Nurse practitioner notified who stated to order a head CT. Patient refuses CT stating that's a bunch of bulshit, I'm fine. Educated patient on potential complications of hitting his head while on lovenox, but patient still continues to refuse CT. Nurse practitioner updated on patient's refusal of CT. Original Note: 1914 - Patient attempted to get up out of bed alone. CORE FEEDER immediately went into room and assisted patient into bathroom. CORE FEEDER stated that patient began to curse and stated I can do it myself and proceeded to close the door between them. Noise heard from bathroom and patient stated God-damnit. Patient noted to be kneeling in front of toilet. Assessed patient. No injuries noted. Asked patient if he hit head, which he denied vehemently. Assisted to feet and then to toilet. CORE FEEDER stayed with patient while he urinated and then assisted him back to bed. Bed alarm on. Nurse practitioner and coordinator notified of incident. Patient continues to assist that he does not need any help with anything. Informed that he is to call if he wants to get up.
[2019-02-26] MEDS: INSULIN GLARGINE 100 UNIT/ML 3ML PEN 40 UNIT SUBCUT (21:22)
[2019-02-27] VITALS (12 sets, daily range): BP systolic 107–143; BP diastolic 48–73; PULSE 66–90; RESP 13–20; TEMP 36.1–36.4; O2SAT 88–95
[2019-02-27] MEDS: OXYCODONE/ACETAMINOPHEN 5/325 TABLET 1 TAB PO ×2 (00:08→08:45)
[2019-02-27 05:11] LABS: Blood Urea Nitrogen 78 mg/dL (9-20); Calcium 8.7 mg/dL (8.4-10.2); Carbon Dioxide 24 mmol/L (22-32); Chloride 109 mmol/L (98-107); Estimated Glomerular Filt Rate 33.8 mL/min (>60); Glucose 185 mg/dL (80-110); HEMOLYSIS < 15 (0-50); Potassium 4.8 mmol/L (3.4-5.1); Sodium 139 mmol/L (137-145)
--- NOTE | 2019-02-27 06:07 | PM.EVENT ---
Date Patient Seen: 02/27/19 Time Patient Seen: 06:07 Earlier in the night notified of the patient fall. Patient was up using restroom and sustained an unwitnessed fall. He did have nearby by, but not in the line of sight. It is being communicated that patient refuses to allow help while attending his bowel and bladder needs. The fall itself was unwitnessed and it is not clear if there was an injury to the head. Patient has initially denied injury to the head. Then was uncertainty and kept going back and forth. Per patient's RN no visible signs of trauma. Patient did not complain of headache. He did not have changes in mentation. A CT of the head was ordered, however patient declined to have imaging. Checked on patient between 3-4 am, he remained asymptomatic. Encouraged RN to monitor patient's neurological status.
--- NOTE | 2019-02-27 06:16 | PC.NURSE ---
NOC Shift: Pt continues to be argumentive w/direction at times, but mostly cooperative. Continues to deny the need for assistance to and from the bathroom despite an unwitnessed GLF on herbert's shift. Pt denies that he had a fall, states, no one knows what they are talking about, I didn't fall and I don't need any help. Refuses to wear non-slip socks or use FWW even though he is unsteady on his feet. Bed alarm on for safety to have assistance in the room when pt is OOB. VSS, BP more undercontrol now on home medications. LE's less edematous 2+ yet still weepy. Pt complains of neck pain, stating it is chronic and he takes Percocet at home. Medicated at bedtime for pain. Continues to require O2 per NC sats drop to low 80's w/o it even when awake.
[2019-02-27] MEDS: FUROSEMIDE 100 MG/10 ML VIAL 80 MG IV ×2 (06:24→14:22)
[2019-02-27] MEDS: SODIUM CHLORIDE 0.9% FLUSH 10 ML IV ×3 (06:26→14:25)
--- NOTE | 2019-02-27 08:10 | PM.PN.1 ---
Subjective Date Patient Seen: 02/27/19 Time Patient Seen: 08:10 Interval history: Follow up on Acute hypoxic respiratory failure and Acute on chronic CHF. Patient seen at bedside. He is doing better today. States his breathing is improving. Leg swelling is decreasing, however not back to baseline yet. Patient sustained a non witnessed fall over the night and hit his head, but denies any loss of consciousness. He is refusing to get any imaging done to rule out bleeding. No mentation changes. Exam Vital Signs (past 8 hours): - 02/27/19 04:22 02/27/19 04:55 Temperature 97.0 F L Pulse Rate 66 Respiratory Rate 14 Blood Pressure 107/48 L Pulse Oximetry 93 92 Oxygen Delivery Method Nasal Cannula Oxygen Flow Rate 3 Narrative Exam Narrative: General: No acute distress, AAO x3 HEENT: PERRLA bilaterally, moist mucous membranes Neck: Supple, no LAD or JVD CV: Regular rate and rhythm, no murmurs or gallops Respiratory: Clear to auscultation bilaterally, no crackles or wheezing GI: Obese abdomen, positive bowel sounds in all quadrants, no organomegaly Extremities: 2+ bilateral pitting edema in legs with venous stasis changes and dermatitis, as well as chronic ulcers and scabs Musculoskeletal: Normal range of motion in all extremities Neuro: No focal deficits Psych: Patient is able to make his own decisions. Appropriate mood Objective Labs Result Diagrams: 02/26/19 04:41 02/27/19 04:43 Labs: Laboratory Results - last 24 hr 02/27/19 04:43 Sodium 139 Potassium 4.8 Chloride 109 H Carbon Dioxide 24 BUN 78 H Creatinine 2.00 H Estimated GFR 33.8 L BUN/Creatinine Ratio 39.0 H Glucose 185 H Calcium 8.7 Assessment & Plan Assessment & Plan narrative: 63yo M with PMH of systolic heart failure, diabetes with peripheral vascular disease with diabetic ulcers, chronic renal failure stage IV, hypertension, and tobacco dependance presented to the ER with complaints abdominal and leg swelling. Admitted due to CHF exacerbation with acute hypoxic respiratory failure. 1. Acute on chronic systolic CHF, improving -clinically patient 2+ pitting edema lower extremities bilaterally -2D echo performed, which revealed ejection fraction of 35-40%, with mild inferior and anterolateral hypokinesis in the setting of mild global hypokinesis. Seems to be unchanged from previous studies in 2017 -patient is down 5 kg, with improvement of symptoms -decrease Lasix to 80 mg IV b.i.d., given worsening renal function -continue daily weights, I/O, and fluid restriction to 7127-3047 mL per day 2. Acute hypoxic respiratory failure, improving -likely due to CHF exacerbation -still requiring supplemental O2, however saturation is 97-98% -continue IV diuresis, wean off O2 if possible today 3. Chronic kidney disease, likely stage 4, chronic, present on admission -BUN and creatinine are stable, although worsening slightly: Creatinine 2.0, and BUN 78 -continue IV diuresis, although will decrease to 80 mg IV b.i.d. -avoid nephrotoxins, monitor renal function 4. Hyperkalemia, resolved 5. Elevated serum troponin, improved -likely due to demand ischemia from fluid overload -troponin is 0.55 on admission, reviewed with Dr. Watson by the ER provider, improved to 0.046 on repeat. -no further monitoring necessary 6. Hypertension, present on admission, chronic -blood pressure improved with diuresis -continue home regimen metoprolol 100 mg p.o. t.i.d. and resume hydralazine 25 mg t.i.d. and Lasix IV -monitor blood pressure 7. Arrhythmias, present on admission, chronic -history of cardiac ectopy since age 29 -EKG showed trigeminal PVCs without evidence of ischemia or acute injury on admission -continue home medication metoprolol 100 mg 3 times daily 8. Diabetes type 2, insulin dependent, with complications, present on admission, chronic -blood glucose improving, 185 this a.m. -continue home regimen Lantus 40U q.h.s. and sliding scale -hypoglycemia protocol -continue Lyrica 100 mg 3 times daily for neuropathy 9. Bilateral lower extremity venous stasis dermatitis, chronic -Rocephin discontinued as cellulitis ruled out with normal WBC, procalcitonin and clinical exam 10. Tobacco dependence, chronic -patient endorses smoking 1 pack per day for 51 years. -refuse cessation counseling 11. Alcohol abuse, chronic -the patient has previously been a heavy drinker and now reports 1 beer daily -monitor for withdrawals Dispo: Decrease diuresis to Lasix 80 mg IV b.i.d.. Wean off O2 if possible Quality VTE Deep Vein Thrombosis/Pulmonary Embolism Present on Admission: No
[2019-02-27] MEDS: ALLOPURINOL 100 MG TABLET 200 MG PO (08:34)
[2019-02-27] MEDS: ENOXAPARIN 30 MG/0.3 ML SYRINGE SUBCUT (08:35)
[2019-02-27] MEDS: ASPIRIN EC 81 MG TABLET PO (08:35)
[2019-02-27] MEDS: METOPROLOL IR 50 MG TABLET 100 MG PO ×3 (08:36→20:15)
[2019-02-27] MEDS: PREGABALIN 50 MG CAPSULE 100 MG PO ×3 (08:37→20:15)
[2019-02-27] MEDS: SERTRALINE 50 MG TABLET 200 MG PO (08:37)
[2019-02-27] MEDS: MIRTAZAPINE 15 MG TABLET PO (08:37)
[2019-02-27] MEDS: INSULIN ASPART 100 UNIT/ML INSULN PEN SUBCUT ×2 (08:40→12:53)
[2019-02-27] MEDS: ALBUTEROL/IPRATROPIUM MDI 1 PUFF INH ×2 (09:05→17:33)
[2019-02-27] MEDS: HYDRALAZINE 25 MG TABLET PO ×3 (09:08→20:15)
--- NOTE | 2019-02-27 09:59 | CM.DPC ---
DCP Cont: Patient had fall early this morning. He has declined assistance at times, and is unsteady on his feet. Patient does live alone. Discussed patient at team rounds. Will go ahead and add physical and occupational therapy consult, per Dr. Fitzpatrick. Patient has been agitated at times, regarding receiving assistance. Called down at ICU and let them know that therapy orders were put in. P: DCP to follow closely. Patient wants to go home when he is better. Will consult with physical therapy team on findings. Other option may be home health, for nursing and P.T, if patient will consent to this. Amy Hudson RN/Contract Sheltered Workshop Supervisor
--- NOTE | 2019-02-27 11:02 | PC.NURSE ---
DIFFICULT TO ASSESS PT DUE TO HIS GRUFF AND DEMANDING DEMEANOR- HE IS MINIMALLY COMPLIANT WITH STAFF RECOMMENDATIONS AND REQUESTS- DENIES CHEST PAIN BUT DOES C/O NECK PAIN ( CHRONIC) - PT RECEIVING PERCOCET X 1 FOR THIS AND HE REPORTS ITS EFFECTIVE.- SHOWERED AND AMBULATED WITH PT EVEN WITH HIS INITIAL REFUSAL- DENTURE CARE COMPLETED BY PT. ATTEMPTING TO WEAN OXYGEN - PRESENTLY ON ROOM AIR WITH SPO2 88-90%, PT DENIES SHORTNESS OF BREATH- ALSO GIVEN AND INSTRUCTED ON INCENTIVE SPIROMETER
--- NOTE | 2019-02-27 12:34 | PC.NURSE ---
pt adamantly refusing to have bed alarm activated and reports I know how to turn this thing off- he has done this previously this shift and no amount of pt education seems to be working for this pt.
--- NOTE | 2019-02-27 17:33 | PC.NURSE ---
Patient turns bed alarm off and refuse to use call button to call for help and continues activities without asking for help, patient had stated he does not need help
--- NOTE | 2019-02-27 17:45 | PT.IIE ---
Current Diagnoses Acute on chronic systolic (congestive) heart failure (02/25/19) Surgical History (Last Updated 02/26/19 @ 00:20 by EDGAR Power) History of hand fracture (Acute) History of tonsillectomy (Acute) Medical History (Last Reviewed 02/26/19 @ 03:11 by Rashaad Cornejo DO) Amputation toe (Acute) Chronic kidney disease (Acute) Current smoker (Acute) Diabetes (Acute) History of peritoneal dialysis (Acute) Neuropathy (Acute) Systolic heart failure (Acute) Physical Therapy Inpatient Evaluation/Re-Eval M1 PT/OT-IP Prior Functional Status Start: 02/27/19 10:56 Freq: NEEDED Status: Active Protocol: Document 02/27/19 10:40 HH (Rec: 02/27/19 11:14 [email or web address]) Medical Review Prior Functional Status Medical History Reviewed Yes Communication No deficits noted. Able to make needs known Mobility and Gait Pt states he was independent for all mobility and gait without using AD. Pt also drives. However, he had multiple falls over the years because of his balance issues as he stated. He said It's normal to me and no big deal. Activities of Daily Living and IADL's Pt was independent with all ADLs and IADLs. Able to see doctor appt, bank independently. Social History Household Members none Living Arrangements House Number of Floors (Floors) One Floor Number of Stairs To Enter/Railing? 12 steps to front entrance with B rails, 1 step from back entrance has railing around the porch Home Environment Standard Height Toilet Walk in Shower Home Equipment Front Wheel Walker Employment Status Retired Additional Social History Comment Pt lives alone in [facility], counts include [facility] beds at the [facility]. He stated that he has been independent at home. Patient has a daughter named Jayda. Confirmed with patient that his primary doctor is Dr. Gallardo. Pt admitted to ICU due to Acute hypoxic respiratory failure and Acute on chronic CHF. M2 PT-IP Current Condition Start: 02/27/19 10:56 Freq: NEEDED Status: Active Protocol: Document 02/27/19 10:40 HH (Rec: 02/27/19 11:14 [email or web address]) Physical Therapy Current Condition Current Condition Evaluation Date 02/27/19 Treatment Diagnosis Acute hypoxic respiratory failure and Acute on chronic CHF, impaired gait Onset Date 02/25/19 Weight Bearing Status Weight Bearing Status Weight Bear as Tolerated M3 PT-IP Subjective Start: 02/27/19 10:56 Freq: NEEDED Status: Active Protocol: Document 02/27/19 10:40 (Rec: 02/27/19 11:14 [email or web address]) Subjective Physical Therapy Visit Type Type Initial Evaluation Visit Start Time 10:40 Visit Stop Time 10:55 Total Visit Minutes 15 Notes Per RN, Patient had fall early this morning. He has declined assistance at times, and is unsteady on his feet. Pt also refused to use walker and gait belt. Number of FLORAL MERCHANDISER Visits 0 Physical Therapy Visit Comments Patient Comments I am going home tomorrow. I dont care what you guys recommend. Patient Goals To return home Therapy Pain Assessment Pain Present Pain Present Denied Pain M4 PT-IP Mobility and Gait Start: 02/27/19 10:56 Freq: NEEDED Status: Active Protocol: Document 02/27/19 10:40 (Rec: 02/27/19 11:14 [email or web address]) PT-Bed Mobility Assessment Scooting Scooting to Edge of Bed Independent PT-Transfer Assessment Sit to and From Stand Sit to and from Stand Standby Assistance Use of Upper Extremities Equipment Transfer Assistive Device None Orthotic/Prosthetic Devices or Brace: No Transfers Transfer Destination Bed Transfer Technique Stand Step Pivot Transfer Ability Level of Assist Standby Assistance Use of Upper Extremities Comments Mobility Comments Pt sat at EOB upon assessment. BP at 115/62 HR 86. Pt appears very inpatient and agitated for all questions and emphasized he is going to home tomorrow regardless medical team's advice. Pt got up and amb with PT and returned to EOB. Pt tends to show excessive sway initially from sit to stand which requires close SBA. Gait Assessment Gait Gait Assistance Required: Standby Assistance Distance (Feet) 90 Able to Maintain Weight Bearing Status No During Gait Assistive Devices Assistive Device None Orthotic/Prosthetic Devices or Brace: No Gait Deviations General Gait Pattern Ataxic Decreased Stride Length Decreased Feet Clearance Factors Limiting Gait Function Factors Limiting Gait Function Decreased Activity Tolerance Decreased Strength Poor Balance Poor Safety Awareness Respiratory Distress Comments Gait Comments Pt refused to use walker and gait belt. And reminded PT not to support him. Pt amb from EOB to hallway with close SBA. Pt appears excessive sway and unsteady with uneven steps. He often reached for support from counter to regain balance . He states this is normal to me and falling down is just a normal process and there;s no big deal. Stair Climbing Assessment Comments Stair Climbing Comments did not attempt PT-Balance Assessment Sitting Balance and Reactions Static Sitting Balance Ability Normal Dynamic Sitting Balance Ability Normal Standing Balance and Reactions Static Standing Balance Ability Good Dynamic Standing Balance Ability Fair M5 PT-IP Objective Assessments Start: 02/27/19 10:56 Freq: NEEDED Status: Active Protocol: Document 02/27/19 10:40 (Rec: 02/27/19 11:14 [email or web address]) Orientation Orientation/Cognition Level of Alertness Alert Orientation Name Age Birthday Month Date Year Day of Week Place Situation Language Function Ability No Deficits Noted Safety Awareness Decreased Safety Awareness Memory Description No Deficits Noted Gross Range of Motion Upper Extremity ROM Assessment Within Functional Limits Lower Extremity ROM Assessment Within Functional Limits Strength Upper Extremity Strength Assessment Within Functional Limits Lower Extremity Strength Assessment Within Functional Limits Coordination Assessment Gross Coordination Gross Coordination WNL Sensation Assessment Sensation Gross Sensation WNL Muscle Tone Muscle Tone WNL Yes M6 PT-IP Treatment Start: 02/27/19 10:56 Freq: NEEDED Status: Active Protocol: Document 02/27/19 10:40 (Rec: 02/27/19 11:14 [email or web address]) Physical Therapy Treatment Education Education Provided Safety M7 PT-IP Assessment and Plan Start: 02/27/19 10:56 Freq: NEEDED Status: Active Protocol: Document 02/27/19 10:40 (Rec: 02/27/19 11:14 [email or web address]) PT Summary Assessment and Plan Potential Rehabilitation Potential Good Status of Condition at Evaluation Evolving Summary Impairments Strength Balance Transfers Gait Activity Tolerance Assessment Summary Pt is easily agitated, inpatient and uncooperative during assessment. Pt emphasized he is safe and normal in terms of mobility and there's nothing to help regarding his balance. Pt does appears very unsteady with uneven steps and often reached for support during ambulation which indicates his risk of falling. Pt had multiple falls in the past as well which increase his injury risk. Pt refused to consider SNF/ short term rehab. Recommended pt to have home health therapy to improve his mobility but he stated it will not be helpful for him. Goals Bed Mobility Goal Independent Transfer Goal Independent Gait Goal Independent Gait Distance 300 Other Goals climb 12 steps with B rails independently Days to Meet Goals 5 Frequency of Treatment Frequency Of Treatment Once a Day Treatment Plan Physical Therapy Treatment Plan Bed Mobility Training Transfer Training Gait Training Therapeutic Exercise Balance Retraining Discharge Planning Other Recommendations and Next Treatment transfer, gait training and Focus stair climbing as pratik Recommendations To Nursing Amount of Assist Needed 1 Person Assist Discharge Recommendations PT Discharge Recommendations Home Home Health SNF Rehab Other Discharge Recommendations Short term SNF would be ideal for pt due to his high fall risks but pt refused to consider SNF/ short term rehab . Recommended pt to have home health therapy to improve his mobility but he stated it will not be helpful for him.
[2019-02-27] MEDS: INSULIN GLARGINE 100 UNIT/ML 3ML PEN 40 UNIT SUBCUT (20:16)
[2019-02-28] VITALS: BP 121/62; PULSE 71; RESP 20; TEMP 35.8; O2SAT 90
[2019-02-28] MEDS: OXYCODONE/ACETAMINOPHEN 5/325 TABLET 1 TAB PO ×2 (00:29→08:53)
[2019-02-28 00:32] VITALS: O2SAT 90
[2019-02-28 04:55] VITALS: BP 122/61; PULSE 64; RESP 20; TEMP 36.1; O2SAT 90
[2019-02-28 07:06] LABS: Add Manual Diff / Slide Review NO; Basophils Absolute Auto 0 /uL (0-100); Basophils Percent Auto 0.8 % (0-2); Eosinophils Absolute Auto 200 /uL (0-450); Eosinophils Percent Auto 3.9 % (2-4); Hematocrit 41.4 % (41-53); Hemoglobin 12.9 g/dL (13.5-17.5); Lymphocytes Absolute Auto 700 /uL (1100-4500); Lymphocytes Percent Auto 12.7 % (25-40); Mean Corpuscular HGB Conc 31.2 % (30-36); Mean Corpuscular Hemoglobin 27.8 PG (26-34); Monocytes Absolute Auto 500 /uL (0-900); Neutrophils Absolute Auto 4000 /uL (1500-7000); Neutrophils Percent Auto 72.6 % (50-75); Platelet Count 108 X10^3/uL (150-400); Red Blood Cell Count 4.65 X10^6/uL (4.5-5.9); Red Cell Distribution Width 19.8 % (11.6-14.8); White Blood Cell Count 5.5 X10^3/uL (4.5-11.0)
[2019-02-28 07:15] LABS: BUN Creatinine Ratio 34.6 (6-22); Blood Urea Nitrogen 83 mg/dL (9-20); Calcium 8.8 mg/dL (8.4-10.2); Carbon Dioxide 23 mmol/L (22-32); Chloride 108 mmol/L (98-107); Estimated Glomerular Filt Rate 27.4 mL/min (>60); Glucose 76 mg/dL (80-110); HEMOLYSIS < 15 (0-50); Magnesium 2.1 mg/dL (1.6-2.3); Potassium 4.7 mmol/L (3.4-5.1); Sodium 140 mmol/L (137-145)
[2019-02-28 07:59] VITALS: BP 125/59; PULSE 62; RESP 20; TEMP 36.6; O2SAT 87
--- NOTE | 2019-02-28 08:17 | P.DS_ITS ---
History of Present Illness Date Patient Seen: 02/28/19 Time Patient Seen: 07:57 Chief complaint: RASH ON STOMACH Narrative: 63-year-old male with past medical history 3 of chronic systolic co ngestive heart failure, diabetes with peripheral vascular disease and diabetic ulcers, chronic renal failure stage 4, hypertension, chronic venous stasis with stasis dermatitis, presented to ED with shortness of breath, abdominal distention, and worsening leg swelling. patient reported that he travel to visit his son in [place] over the week before the admission and has noticed an increase in his legs swelling. he reported swelling to become more marked following his return from [place]. The patient states that it was very hot there and he drank a lot more water than he usually does keep himself hydrated. He also complained of shortness of breath that was worsening, and dyspnea on exertion. Patient denied any other complaints of fevers or chills, headaches or dizziness, chest pain, palpitations, abdominal pain, nausea, vomiting, constipation, diarrhea. Patient does have a chronic dry cough, as he is a daily smoker. Patient denied any symptoms. Patient has trouble with balance, and has occasional falls with scraping of his extremities. Discharge Providers Date of admission: 02/25/19 20:43 Discharge Date: 02/28/19 Primary care physician: EDGAR De La Rosa Consults: 02/25/19 21:27 Consult to Dietitian, Adult Routine Comment: Reason For Exam: CHF, DM, ETOH 02/27/19 09:58 Consult to Occupational Therapy Evaluate & Treat Comment: Physician Instructions: Evaluate and treat Consult to Physical Therapy Evaluate & Treat Comment: Physician Instructions: Evaluate and Treat Discharge provider: Dorita Fitzpatrick MD Summary Discharge Diagnosis: Acute on chronic systolic CHF, improving Acute hypoxic respiratory failure, resolved Acute kidney injury on Chronic kidney disease stage IV, back to baseline Hyperkalemia, resolved Elevated serum troponins, likely type 2 demand ischemia, improved Hypertension, stable Arrhythmias, stable Insulin-dependent diabetes mellitus, with complications of peripheral neuropathy, stable Bilateral lower extremity venous stasis dermatitis, stable chronic Tobacco dependence, chronic Alcohol abuse, chronic Hospital Course: In ED patient's vitals revealed saturation 88% on room air, pulse 102, respiratory rate 14, blood pressure 143/63, temperature 97.9? F. . Lab work revealed normal CBC however BMP with potassium of 5.8, BUN of 86, creatinine 2.3. Blood glucose was 245. Troponin was 0.55. BNP 1420. Patient was placed on 2 L oxygen with cheese improved his oxygenation to 96%. EKG revealed sinus tachycardia with no ST changes. Chest x-ray showed cardiomegaly an interstitial prominence suggestive of congestive heart failure. Patient was then transferred to ICU for further management of CHF exacerbation, treatment of hyperkalemia, treatment of acute kidney injury on CKD, and trending of troponins. Once in the ICU, patient was started on Lasix 80 mg IV t.i.d.. O2 therapy has been provided to keep saturation above 90%. Echocardiogram was orderedWhich revealed ejection fraction of 35-40% with mild inferior and anterolateral hypokinesis in the setting of mild global hypokinesis. This study has not been changed as compared to 2017. The patient responded well to diuresis and lost close to 5 kg by the time of discharge. patient's potassium has resolved with aggressive diuresis, and patient did not require Kayexalate therapy. The patient had STEPH on admission Hubert initially improved back to baseline with diure sis therapy however slightly worsened on the day of the discharge. Troponins were trended which came down nicely with diuresis, and were deemed to be due to type 2 demand ischemia. Patient's heart rate has normalized after fluid diuresis, and oxygenation has improved. Patient was able to be weaned off oxygen, maintaining saturations of 91%. On 02/27/2019, patient's diuresis was slowed down to 80 mg IV b.i.d. The next day patient's creatinine worsened a little bit, to 2.4. However patient was anxious to be discharged and was refusing to stay another day for more aggressive diuresis. He was evaluated by physical therapy as he has history of frequent falls, who noted patient to be off balance and requiring standby assistance. Patient was offered to go to a short-term rehab or at least have home health, to which patient refused and was adamant about leaving. Patient will be discharged home with instructions to resume his home regimen of Lasix of 120 mg p.o. daily. Status at Discharge Cognitive/behavioral status at discharge: at baseline, oriented Functional status at discharge: independent ambulation Overall status at discharge: patient is back to baseline Time Spent with Patient Greater than 30 minutes Exam Vital Signs (past 8 hours): - 02/28/19 00:00 02/28/19 00:32 02/28/19 04:55 Temperature 96.5 F L 97.0 F L Pulse Rate 71 64 Respiratory Rate 20 20 Blood Pressure 121/62 122/61 Pulse Oximetry 90 L 90 L 90 L Oxygen Delivery Method Room Air Oxygen Flow Rate 0 Narrative Exam Narrative: General: No acute distress, AAO x3 HEENT: PERRLA bilaterally, moist mucous membranes Neck: Supple, no LAD or JVD CV: Regular rate and rhythm, no murmurs or gallops Respiratory: Clear to auscultation bilaterally, no crackles or wheezing GI: Obese abdomen, positive bowel sounds in all quadrants, no organomegaly Extremities: 1+ bilateral pitting edema in legs with venous stasis changes and dermatitis, as well as chronic ulcers and scabs Musculoskeletal: Normal range of motion in all extremities Neuro: No focal deficits Psych: Patient is able to make his own decisions. Appropriate mood Objective Labs Result Diagrams: 02/28/19 06:31 02/28/19 06:31 Labs: Laboratory Results - last 24 hr 02/28/19 02/28/19 06:31 06:31 WBC 5.5 RBC 4.65 Hgb 12.9 L Hct 41.4 MCV 89.0 MCH 27.8 MCHC 31.2 RDW 19.8 H Plt Count 108 L Neut % (Auto) 72.6 Lymph % (Auto) 12.7 L [place] % (Auto) 10.0 Eos % (Auto) 3.9 Baso % (Auto) 0.8 Neut # (Auto) 4000 Lymph # (Auto) 700 L [place] # (Auto) 500 Eos # (Auto) 200 Baso # (Auto) 0 Sodium 140 Potassium 4.7 Chloride 108 H Carbon Dioxide 23 BUN 83 H Creatinine 2.40 H Estimated GFR 27.4 L BUN/Creatinine Ratio 34.6 H Glucose 76 L D Calcium 8.8 Magnesium 2.1 Discharge Plan Discharge Plan Discharge Problem: CHF (congestive heart failure), Edema, peripheral, Elevated troponin, Hyperkalemia Patient Disposition: Home Discharge Med Rec/Prescriptions Prescriptions: Continued metoprolol tartrate 100 MG tablet 150 mg PO BID Qty: 0 RF: 0 glipizide [Glucotrol XL] 10 MG tablet extended release 24hr 10 mg PO AMCC Qty: 0 RF: 0 aspirin 81 MG tablet,delayed release (DR/EC) 81 mg PO QDAY Qty: 0 RF: 0 Lyrica 100 MG capsule 100 mg PO DAILY Qty: 0 RF: 0 loratadine 10 MG tablet 10 mg PO QDAY Qty: 0 RF: 0 Combivent Respimat 4 GM mist 1 puff INH QID Qty: 0 RF: 0 magnesium oxide 400 MG tablet 400 mg QDAY Qty: 0 RF: 0 allopurinol 100 MG tablet 200 mg PO DAILY Qty: 0 RF: 0 hydralazine 25 MG tablet 25 mg PO TIDCC Qty: 0 RF: 0 cetirizine 10 MG tablet 10 mg PO DAILY Qty: 0 RF: 0 Chantix 0.5 MG tablet 0.5 mg PO Q12H Qty: 0 RF: 0 furosemide 40 mg tablet 120 mg PO DAILY RF: 0 Lantus U-100 Insulin 100 unit/mL solution 40 units subcut BEDTIME RF: 0 sertraline 100 mg tablet 200 mg PO DAILY RF: 0 mirtazapine 15 mg tablet 15 mg PO BEDTIME PRN (Reason: Insomnia) RF: 0 Combivent Respimat 20-100 mcg/actuation Mist 1 puff INHALATION Q6H MDD 6 puffs PRN (Reason: Shortness Of Breath) RF: 0 Follow up/Referrals: Kenyetta Gallardo ARNP [Primary Care Provider] - Provider Discharge Instructions Diet: Carb-consistent/Diabetic, Low-fat, Low-sodium and Low-cholesterol Activity: PATIENT NEEDS STAND BY ASSISTANCE AND REHAB BUT IS REFUSING. HE AKNOWLEDGES THE POSSIBLITY OF MORE FALLS BUT CONTINUES TO DENY OFFERED HELP Discharge Data Primary Care Provider: Kenyetta Gallardo Attending Provider: Miguel Ángel Avila Admit Date/Time: 02/25/19 20:43 Quality VTE Deep Vein Thrombosis/Pulmonary Embolism Present on Admission: No
[2019-02-28] MEDS: METOPROLOL IR 50 MG TABLET 100 MG PO (08:45)
[2019-02-28] MEDS: PREGABALIN 50 MG CAPSULE 100 MG PO (08:45)
[2019-02-28] MEDS: HYDRALAZINE 25 MG TABLET PO (08:45)
[2019-02-28] MEDS: FUROSEMIDE 100 MG/10 ML VIAL 80 MG IV (08:45)
[2019-02-28] MEDS: ENOXAPARIN 30 MG/0.3 ML SYRINGE SUBCUT (08:45)
[2019-02-28] MEDS: ALLOPURINOL 100 MG TABLET 200 MG PO (08:46)
[2019-02-28] MEDS: SERTRALINE 50 MG TABLET 200 MG PO (08:46)
[2019-02-28] MEDS: ASPIRIN EC 81 MG TABLET PO (08:47)
[2019-02-28] MEDS: MIRTAZAPINE 15 MG TABLET PO (08:47)
[2019-02-28] MEDS: SODIUM CHLORIDE 0.9% FLUSH 10 ML IV (08:50)
[2019-02-28 09:00] VITALS: O2SAT 90
--- NOTE | 2019-02-28 10:12 | CM.DPC ---
DCP: continued: case received and just discussed in Team Rounds. Dr. Fitzpatrick noted that she had ok'd pt for homoe at his insistance. He is currently waiting for his ride to pick him up.
--- NOTE | 2019-02-28 10:18 | OT.IP.TRT ---
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 Therefore, discharge OT eval orders.
[2019-03-01 08:43] LABS: Aldosterone/Renin Activity Rat 3.1 Ratio (0.9-28.9); Plama Renin, LC/MS/MS 2.29 ng/mL/h (0.25-5.82)
== END 2019-02-28 11:21 | disposition home or self-care (01) | DRG 194 ==
LOC: ED 18:30 → AC 20:44 → ICU 21:16
PROVIDERS: Emergency Medicine; Internal Medicine; Admitting Provider Nurse Practitioner Adult Health; Emergency Provider Emergency Medicine; Family Provider Physician Assistant Medical; PCP Nurse Practitioner Gerontology; Visit Provider Nurse Practitioner Adult Health
DX: I13.0 Hypertensive heart and chronic kidney disease with heart failure and stage 1 through stage 4 chronic kidney disease, or unspecified chronic kidney disease (principal); I50.23 Acute on chronic systolic (congestive) heart failure; J96.01 Acute respiratory failure with hypoxia; N17.9 Acute kidney failure, unspecified; N18.4 Chronic kidney disease, stage 4 (severe); I24.8 Other forms of acute ischemic heart disease; E87.2 Acidosis; E11.22 Type 2 diabetes mellitus with diabetic chronic kidney disease; E11.42 Type 2 diabetes mellitus with diabetic polyneuropathy; E11.622 Type 2 diabetes mellitus with other skin ulcer; L97.921 Non-pressure chronic ulcer of unspecified part of left lower leg limited to breakdown of skin; L03.116 Cellulitis of left lower limb; L03.115 Cellulitis of right lower limb; E87.70 Fluid overload, unspecified; F17.210 Nicotine dependence, cigarettes, uncomplicated; E87.5 Hyperkalemia; Z79.4 Long term (current) use of insulin; W18.30XA Fall on same level, unspecified, initial encounter; Y92.231 Patient bathroom in hospital as the place of occurrence of the external cause; F10.20 Alcohol dependence, uncomplicated; R00.0 Tachycardia, unspecified
CPT/HCPCS: 36415; 36591; 71045; 80048; 80053; 82088; 82550; 82962; 83036; 83735; 83880; 84145; 84244; 84484; 85025; 87797; 93005; 93306; 94640; 94762; 96374; 97162; 99283; 99285; J0696; J1650; J1940

== ENCOUNTER 2019-03-07 17:05 | Emergency (ER) | payer OTHER, MEDICAID, SELFPAY ==
[2019-02-25 21:29] VITALS: BMI 35.2
[2019-03-07] VITALS (8 sets, daily range): BP systolic 131–175; BP diastolic 47–139; PULSE 84–89; RESP 15–20; TEMP 38.3; O2SAT 88–96
--- NOTE | 2019-03-07 17:32 | PC.NURSE ---
FSBS 115
--- NOTE | 2019-03-07 18:34 | DI.CT.S_ITS ---
PROCEDURE: CT HEAD/BRAIN WO CON INDICATIONS: etoh fall on face TECHNIQUE: Noncontrast 4.5 mm thick angled axial sections acquired from the foramen magnum to the vertex, with coronal and sagittal reformats. For radiation dose reduction, the following was used: automated exposure control, adjustment of mA and/or kV according to patient size. COMPARISON: None. FINDINGS: Image quality: Excellent. CSF spaces: Basal cisterns are patent. No extra-axial fluid collections. The ventricles are symmetric in size and shape. Brain: No intracranial bleeds or masses. There is cerebral volume loss for age, with resultant ventricular and sulcal prominence. There are periventricular and deep white matter chronic small vessel ischemic changes. There is intracranial internal carotid artery atherosclerosis. Skull and face: Calvarium and visualized facial bones appear intact, without suspicious lesions. Sinuses: Visualized sinuses and mastoids are clear. IMPRESSION: CT head without acute intracranial abnormalities or calvarial fracture. Age-related senescent changes with sequela of chronic small vessel ischemic disease. Dictated by: Jadon Polanco M.D. on 03/07/2019 at 20:21 Approved by: Jadon Polanco M.D. on 03/07/2019 at 20:22
--- NOTE | 2019-03-07 18:34 | DI.CT.S_ITS ---
PROCEDURE: CT CERVICAL SPINE WO CON INDICATIONS: fall on face TECHNIQUE: Noncontrast 3 mm thick sections acquired from the skull base to the T4 level. Sagittal and coronal reformats were then constructed. For radiation dose reduction, the following was used: automated exposure control, adjustment of mA and/or kV according to patient size. COMPARISON: None. FINDINGS: Image quality: Degraded by patient motion artifact. Bones: Congenital incomplete fusion of the posterior arch of C1. Moderate multilevel cervical spondylosis. Straightening of lordosis likely related to positioning, cervical collar, or concurrent muscle spasms. Visualized superior ribs are intact. However, there is a 9 mm lucent lesion involving the posterior aspect of the left fourth rib. Soft tissues: Prevertebral soft tissues are normal in thickness. No paravertebral hematomas. No apical pneumothoraces. Small right pleural effusion with associated compressive atelectasis. Biapical pulmonary emphysematous changes. IMPRESSION: 1. CT cervical spine without acute fracture or malalignment. 2. Small right pleural effusion. No apical pneumothorax. 3. Biapical pulmonary emphysematous change. 4. Indeterminate 8 mm lucent lesion in the posterior aspect of the left with rib. Recommend nonemergent/outpatient evaluation of the chest. 5. Moderate multilevel cervical spondylosis. Dictated by: Jadon Polanco M.D. on 03/07/2019 at 20:25 Approved by: Jadon Polanco M.D. on 03/07/2019 at 20:40
--- NOTE | 2019-03-07 18:34 | DI.RAD.S_ITS ---
PROCEDURE: XR CHEST 1V INDICATIONS: etoh fall on face TECHNIQUE: One view of the chest was acquired. COMPARISON: 02/25/19. FINDINGS: Surgical changes and devices: None. Lungs and pleura: Diffuse interstitial prominence with minimal loss of vascular distinctness. Patchy right basilar opacities. Possible tiny right pleural effusion as there is now visualization of the right minor fissure. No pneumothorax Mediastinum: Stable cardiomediastinal contours with enlargement of the cardiac silhouette. Bones and chest wall: No suspicious bony lesions. Overlying soft tissues appear unremarkable. IMPRESSION: Findings suggestive of mild pulmonary edema although infectious/inflammatory process not excluded given more prominent right basilar opacities which may represent focal airspace disease/aspiration. Dictated by: Jadon Polanco M.D. on 03/07/2019 at 20:22 Approved by: Jadon Polanco M.D. on 03/07/2019 at 20:25
--- NOTE | 2019-03-07 18:37 | ED.MALEGU ---
HPI - Male Genitourinary General Chief complaint: Urogenital-Male Stated complaint: mulitple complaints,unsteady on feet Time Seen by Provider: 03/07/19 18:14 Source: patient Mode of arrival: ambulatory Limitations: no limitations History of Present Illness HPI Narrative: Patient is a 63-year-old male who presents with testicular swelling. admitted here in discharged on 02/28/2019 diagnosed with congestive heart failure. He obviously fell today he has some dried blood on his face. He admits to drinking half a beer of [employer] prior to EMS arriving. He says that does not actually count. But he does drink. He has no shortness of breath he has obvious swelling in his legs. He is noted to have low-grade fever of 100.9 in the ED. He denies any loss of consciousness. He says he just is unable to walk with his walker. He complains of right shoulder pain MD Complaint: testicle pain and testicle swelling Related Data Home Medications Medication Instructions Recorded Confirmed Chantix 0.5 mg PO Q12H #0 10/09/17 02/25/19 Combivent Respimat 1 puff INH QID #0 10/09/17 02/25/19 Lyrica 100 mg PO DAILY #0 10/09/17 02/25/19 allopurinol 200 mg PO DAILY #0 10/09/17 02/25/19 aspirin 81 mg PO QDAY #0 10/09/17 02/25/19 cetirizine 10 mg PO DAILY #0 10/09/17 02/25/19 glipizide [Glucotrol XL] 10 mg PO AMCC #0 10/09/17 02/25/19 hydralazine 25 mg PO TIDCC #0 10/09/17 02/25/19 loratadine 10 mg PO QDAY #0 10/09/17 02/25/19 magnesium oxide 400 mg QDAY #0 10/09/17 02/25/19 metoprolol tartrate 150 mg PO BID #0 10/09/17 02/26/19 Combivent Respimat 1 puff INHALATION Q6H PRN MDD 6 02/25/19 02/25/19 puffs furosemide 120 mg PO DAILY 02/25/19 02/25/19 insulin glargine 40 units SUBCUT BEDTIME 02/25/19 02/25/19 mirtazapine 15 mg PO BEDTIME PRN 02/25/19 02/26/19 sertraline 200 mg PO DAILY 02/25/19 02/25/19 Allergies Allergy/AdvReac Type Severity Reaction Status Date / Time BEE STINGS Allergy Severe Anaphylaxis Uncoded 02/26/19 00:29 Review of Systems Review of Systems ROS Unobtainable: All systems reviewed & are unremarkable except as noted in HPI and below Constitutional Denies chills, Denies fever(s), Denies lethargy and Denies weakness ENT Ears, Nose, Mouth, and Throat: Denies change in voice, Denies neck pain and Denies sore throat Cardiovascular Denies chest pain, Denies irregular heart rhythm, Denies lightheadedness, Denies palpitations and Denies orthopnea Gastrointestinal Gastrointestinal: Denies abdominal pain, Denies change in bowel habits, Denies diarrhea, Denies nausea and Denies vomiting Genitourinary Reports as per HPI Musculoskeletal Denies neck pain Neurologic Denies weakness Endocrine Denies palpitations Hematologic/Lymphatic Denies easy bruising [facility] Medical History Amputation toe (Acute) Chronic kidney disease (Acute) Current smoker (Acute) Diabetes (Acute) History of peritoneal dialysis (Acute) Neuropathy (Acute) Systolic heart failure (Acute) Surgical History History of hand fracture (Acute) History of tonsillectomy (Acute) Social History household members: none Smoking Status: Current every day smoker alcohol intake: current Social History household members: none Smoking Status: Current every day smoker alcohol intake: current Exam Initial Vital Signs Initial Vital Signs: Vital Signs Temperature 100.9 F H 03/07/19 17:29 Pulse Rate 88 03/07/19 17:29 Respiratory Rate 16 03/07/19 17:29 Blood Pressure 168/56 H 03/07/19 17:29 Pulse Oximetry 88 L 03/07/19 17:29 Gen.: Extremely poor hygiene awake alert HEENT: Blood around the mouth no obvious facial deformities. No crepitations no depression Neck: C-collar placed in the ED, Lungs: Decreased breath sounds bilaterally crackles Cardiac: Regular rate no murmur Abdomen: Distended but soft nontender : Scrotum is significantly swollen with skin breakdown bilaterally. 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 moving all extremities Course Orders Ordered: Discontinued Medications Furosemide (Lasix) 80 mg IV NOW ONE Stop: 03/07/19 19:45 Last Admin: 03/07/19 20: Dose: 80 mg Lidocaine HCl (Urojet) 5 ml TOP NOW ONE Stop: 03/07/19 20:09 Last Admin: 03/07/19 20: Dose: 5 ml Lorazepam (Ativan) 1 mg IV NOW ONE Stop: 03/07/19 20:09 Last Admin: 03/07/19: Dose: 1 mg Consultations Consultation #1: Dr.Lisa Gill accepts Time: 20:06 Vital Signs - 8 hr 03/07/19 21:30 03/07/19 22:33 Pulse Rate 89 85 Respiratory Rate 16 20 Blood Pressure [Left Arm] 140/49 L 131/55 L Pulse Oximetry 94 95 MDM - Male Genitourinary Lab Data Attestation: I reviewed the patient's lab results. Result diagrams: 03/07/19 19:12 03/07/19 19:12 Lab Results 03/07/19 03/07/19 03/07/19 Range/Units 19:12 19:12 19:12 WBC 6.9 (4.5-11.0) X10^3/uL RBC 4.44 L (4.5-5.9) X10^6/uL Hgb 11.9 L (13.5-17.5) g/dL Hct 39.2 L (41-53) % MCV 88.4 (80-100) fL MCH 26.8 (26-34) PG MCHC 30.4 (30-36) % RDW 21.0 H (11.6-14.8) % Plt Count 99 L (150-400) X10^3/uL Neut % (Auto) 81.3 H (50-75) % Lymph % (Auto) 6.1 L (25-40) % Ashley % (Auto) 10.4 (3-14) % Eos % (Auto) 1.3 L (2-4) % Baso % (Auto) 0.9 (0-2) % Neut # (Auto) 5600 (3382-5461) /uL Lymph # (Auto) 400 L (4653-4786) /uL Ashley # (Auto) 700 (0-900) /uL Eos # (Auto) 100 (0-450) /uL Baso # (Auto) 100 (0-100) /uL RBC Morphology Not Reportable Poikilocytosis 1+ H Anisocytosis 3+ H PT 13.4 H (10.1-12.7) SECONDS INR 1.2 (0.9-1.3) APTT 35 (26.4-36.2) SECONDS Sodium 137 (137-145) mmol/L Potassium 5.2 H (3.4-5.1) mmol/L Chloride 106 (98-107) mmol/L Carbon Dioxide 15 L (22-32) mmol/L BUN 112 H* (9-20) mg/dL Creatinine 7.80 H* (0.66-1.25) mg/dL Estimated GFR 7.0 L (>60) mL/min BUN/Creatinine Ratio 14.4 (6-22) Glucose 109 (80-110) mg/dL Lactate (0.7-2.1) mmol/L Calcium 8.2 L (8.4-10.2) mg/dL Total Bilirubin 0.4 (0.2-1.3) mg/dL AST 54 (17-59) IU/L ALT 30 (21-72) IU/L Alkaline Phosphatase 64 (38-126) U/L Total Creatine Kinase 300 H (55-170) U/L CK-MB (CK-2) 8.98 H (<2.37) ng/mL CK-MB (CK-2) Rel Index 3.0 (1.5-5.0) % Troponin I 0.334 H* (0.01-0.034) ng/mL B-Natriuretic Peptide 1420 H (<100) Total Protein 6.4 (6.3-8.2) g/dL Albumin 3.5 (3.5-5.0) g/dL Globulin 2.9 (1.7-4.1) g/dL Albumin/Globulin Ratio 1.2 (1.0-2.8) Procalcitonin (<0.5) ng/mL Urine Color Urine Appearance Urine pH (4.5-8.0) Ur Specific Melber (1.000-1.035) Urine Protein (Negative) Urine Glucose (UA) (Negative) g/dL Urine Ketones (NEGATIVE) Urine Occult Blood (Negative) Urine Nitrate (Negative) Urine Bilirubin (NEGATIVE) Urine Ictotest (Negative) Urine Urobilinogen (0.2) E.U./dL Ur Leukocyte Esterase (NEGATIVE) Urine RBC (0-5/HPF) Urine WBC (0-5/HPF) Ur Squamous Epith Cells (0-5/HPF) Calcium Oxalate Crystal Amorphous Sediment Urine Bacteria (None) Hyaline Casts (None) Ur Culture Indicated? 03/07/19 03/07/19 03/07/19 Range/Units 19:12 19:12 19:20 WBC (4.5-11.0) X10^3/uL RBC (4.5-5.9) X10^6/uL Hgb (13.5-17.5) g/dL Hct (41-53) % MCV (80-100) fL MCH (26-34) PG MCHC (30-36) % RDW (11.6-14.8) % Plt Count (150-400) X10^3/uL Neut % (Auto) (50-75) % Lymph % (Auto) (25-40) % Ashley % (Auto) (3-14) % Eos % (Auto) (2-4) % Baso % (Auto) (0-2) % Neut # (Auto) (7308-2949) /uL Lymph # (Auto) (0554-2143) /uL Ashley # (Auto) (0-900) /uL Eos # (Auto) (0-450) /uL Baso # (Auto) (0-100) /uL RBC Morphology Poikilocytosis Anisocytosis PT (10.1-12.7) SECONDS INR (0.9-1.3) APTT (26.4-36.2) SECONDS Sodium (137-145) mmol/L Potassium (3.4-5.1) mmol/L Chloride (98-107) mmol/L Carbon Dioxide (22-32) mmol/L BUN (9-20) mg/dL Creatinine (0.66-1.25) mg/dL Estimated GFR (>60) mL/min BUN/Creatinine Ratio (6-22) Glucose (80-110) mg/dL Lactate 0.7 (0.7-2.1) mmol/L Calcium (8.4-10.2) mg/dL Total Bilirubin (0.2-1.3) mg/dL AST (17-59) IU/L ALT (21-72) IU/L Alkaline Phosphatase (38-126) U/L Total Creatine Kinase (55-170) U/L CK-MB (CK-2) (<2.37) ng/mL CK-MB (CK-2) Rel Index (1.5-5.0) % Troponin I (0.01-0.034) ng/mL B-Natriuretic Peptide (<100) Total Protein (6.3-8.2) g/dL Albumin (3.5-5.0) g/dL Globulin (1.7-4.1) g/dL Albumin/Globulin Ratio (1.0-2.8) Procalcitonin 1.27 H (<0.5) ng/mL Urine Color Yellow Urine Appearance Clear Urine pH 5.0 (4.5-8.0) Ur Specific Melber >=1.030 H (1.000-1.035) Urine Protein Trace H (Negative) Urine Glucose (UA) Negative (Negative) g/dL Urine Ketones Negative (NEGATIVE) Urine Occult Blood Negative (Negative) Urine Nitrate Negative (Negative) Urine Bilirubin 1+ H (NEGATIVE) Urine Ictotest Negative (Negative) Urine Urobilinogen 0.2 (0.2) E.U./dL Ur Leukocyte Esterase Trace H (NEGATIVE) Urine RBC 1-5/hpf (0-5/HPF) Urine WBC 1-5/hpf (0-5/HPF) Ur Squamous Epith Cells 0-1 /hpf (0-5/HPF) Calcium Oxalate Crystal Few H Amorphous Sediment 2+ Urine Bacteria Occasional (0-1) (None) Hyaline Casts 30-100/lpf (None) Ur Culture Indicated? Cult not indicated Imaging Data Chest x-ray: Radiologist's impression: PROCEDURE: XR CHEST 1V INDICATIONS: etoh fall on face TECHNIQUE: One view of the chest was acquired. COMPARISON: 02/25/19. FINDINGS: Surgical changes and devices: None. Lungs and pleura: Diffuse interstitial prominence with minimal loss of vascular distinctness. Patchy right basilar opacities. Possible tiny right pleural effusion as there is now visualization of the right minor fissure. No pneumothorax Mediastinum: Stable cardiomediastinal contours with enlargement of the cardiac silhouette. Bones and chest wall: No suspicious bony lesions. Overlying soft tissues appear unremarkable. IMPRESSION: Findings suggestive of mild pulmonary edema although infectious/inflammatory process not excluded given more prominent right basilar opacities which may represent focal airspace disease/aspiration. Dictated by: Jadon Polanco M.D. on 03/07/2019 at 20:22 ct head: Radiologist's impression: PROCEDURE: XR CHEST 1V INDICATIONS: etoh fall on face TECHNIQUE: One view of the chest was acquired. COMPARISON: 02/25/19. FINDINGS: Surgical changes and devices: None. Lungs and pleura: Diffuse interstitial prominence with minimal loss of vascular distinctness. Patchy right basilar opacities. Possible tiny right pleural effusion as there is now visualization of the right minor fissure. No pneumothorax Mediastinum: Stable cardiomediastinal contours with enlargement of the cardiac silhouette. Bones and chest wall: No suspicious bony lesions. Overlying soft tissues appear unremarkable. IMPRESSION: Findings suggestive of mild pulmonary edema although infectious/inflammatory process not excluded given more prominent right basilar opacities which may represent focal airspace disease/aspiration. Dictated by: Jadon Polanco M.D. on 03/07/2019 at 20:22 ct cervical: Radiologist's impression: PROCEDURE: CT CERVICAL SPINE WO CON INDICATIONS: fall on face TECHNIQUE: Noncontrast 3 mm thick sections acquired from the skull base to the T4 level. Sagittal and coronal reformats were then constructed. For radiation dose reduction, the following was used: automated exposure control, adjustment of mA and/or kV according to patient size. COMPARISON: None. FINDINGS: Image quality: Degraded by patient motion artifact. Bones: Congenital incomplete fusion of the posterior arch of C1. Moderate multilevel cervical spondylosis. Straightening of lordosis likely related to positioning, cervical collar, or concurrent muscle spasms. Visualized superior ribs are intact. However, there is a 9 mm lucent lesion involving the posterior aspect of the left fourth rib. Soft tissues: Prevertebral soft tissues are normal in thickness. No paravertebral hematomas. No apical pneumothoraces. Small right pleural effusion with associated compressive atelectasis. Biapical pulmonary emphysematous changes. IMPRESSION: 1. CT cervical spine without acute fracture or malalignment. 2. Small right pleural effusion. No apical pneumothorax. 3. Biapical pulmonary emphysematous change. 4. Indeterminate 8 mm lucent lesion in the posterior aspect of the left with rib. Recommend nonemergent/outpatient evaluation of the chest. 5. Moderate multilevel cervical spondylosis. Dictated by: Jadon Polanco M.D. on 03/07/2019 at 20:25 shoulder: Attestation: I personally reviewed and interpreted this imaging study as follows: My impression: No acute fracture us scrotal: Radiologist's impression: PROCEDURE: US SCROTUM INDICATIONS: SWELLING, PAIN TECHNIQUE: Real-time scanning was performed of the scrotum and testicles, with image documentation. Color and pulse Doppler interrogation was performed of both testicles. COMPARISON: None. FINDINGS: Right: Testicle is normal in size at 4.3 x 2.2 x 2.5 cm, and homogenous in echotexture. Epididymis is normal in overall size and morphology. No hydrocele or varicoceles. Overlying scrotal skin is mildly thickened. Left: Testicle is normal in size at 3.2 x 3.0 x 2.4 cm, and homogeneous in echotexture. Epididymis is normal in overall size and morphology. No hydrocele or varicoceles. Overlying scrotal skin is mildly thickened. Doppler: Color and pulse Doppler demonstrate normal and symmetric arterial flow in both testicles. Miscellaneous: There is a prominent sized fat containing left inguinal hernia measuring approximately 8.1 x 7.9 x 5.0 cm which contains small amount of fluid within the hernia sac. It does not peristalse or demonstrate spontaneous reduction upon cessation of Valsalva maneuver. IMPRESSION: 1. Mild thickening of the scrotal skin bilaterally. Otherwise, normal sonographic evaluation of the bilateral testes and epididymides. 2. Moderate-sized fat containing left inguinal hernia. It does not demonstrate spontaneous reduction upon cessation of Valsalva maneuver. Dictated by: Jadon Polanco M.D. on 03/07/2019 at 22:44 ECG Data Attestation: I personally reviewed and interpreted this ECG as follows: Prior ECG tracings: available for review Interpretation: Bigem[place] rate 86 ST depression noted V2, V6 MDM Narrative Medical decision making narrative: The patient is in acute renal failure. He states he has not taken his medication in the last 2 days. Is grossly fluid overloaded requiring oxygen although not acutely dyspneic. He has swelling in his scrotum and lower extremities. He is given 80 mg of Lasix with minimal urine. A troponin positive cutoff is 0.12, however he has absolutely no chest pain. Dr. Gill accept patient transfer Critical Care Time Critical Care Time: Yes Total Critical Care Time: 30 Attestation: The high probability of a clinically significant, sudden or life threatening deterioration of the cardiovascular system(s) required my full and direct attention, intervention and personal management. The aggregate critical care time was 30 minutes. This time is in addition to time spent performing reported procedures but includes the following: x Data Review and interpretation x Patient assessment and monitoring of vital signs x Documentation x Medication orders and management Discharge Plan Departure Patient Disposition: [facility] Clinical Impression: Hypoxia CHF (congestive heart failure) Qualifiers: Heart failure type: systolic Heart failure chronicity: acute on chronic Qualified Code(s): I50.23 - Acute on chronic systolic (congestive) heart failure Acute renal failure Qualifiers: Acute renal failure type: unspecified Qualified Code(s): N17.9 - Acute kidney failure, unspecified Discharge Date/Time: 03/07/19 22:42 Interventions: ED Discharge Assessment Last Done: 03/07/19 22:35 Prescriptions: No Action metoprolol tartrate 100 MG tablet 150 mg PO BID Qty: 0 RF: 0 glipizide [Glucotrol XL] 10 MG tablet extended release 24hr 10 mg PO AMCC Qty: 0 RF: 0 aspirin 81 MG tablet,delayed release (DR/EC) 81 mg PO QDAY Qty: 0 RF: 0 Lyrica 100 MG capsule 100 mg PO DAILY Qty: 0 RF: 0 loratadine 10 MG tablet 10 mg PO QDAY Qty: 0 RF: 0 Combivent Respimat 4 GM mist 1 puff INH QID Qty: 0 RF: 0 magnesium oxide 400 MG tablet 400 mg QDAY Qty: 0 RF: 0 allopurinol 100 MG tablet 200 mg PO DAILY Qty: 0 RF: 0 hydralazine 25 MG tablet 25 mg PO TIDCC Qty: 0 RF: 0 cetirizine 10 MG tablet 10 mg PO DAILY Qty: 0 RF: 0 Chantix 0.5 MG tablet 0.5 mg PO Q12H Qty: 0 RF: 0 furosemide 40 mg tablet 120 mg PO DAILY RF: 0 insulin glargine 100 unit/mL solution 40 units subcut BEDTIME RF: 0 sertraline 100 mg tablet 200 mg PO DAILY RF: 0 mirtazapine 15 mg tablet 15 mg PO BEDTIME PRN (Reason: Insomnia) RF: 0 Combivent Respimat 20-100 mcg/actuation Mist 1 puff INHALATION Q6H MDD 6 puffs PRN (Reason: Shortness Of Breath) RF: 0 Referrals: Kenyetta Gallardo ARNP [Primary Care Provider] -
--- NOTE | 2019-03-07 18:41 | DI.RAD.S_ITS ---
PROCEDURE: XR SHOULDER RT MIN 2V INDICATIONS: fall pain TECHNIQUE: 3 views of the shoulder were acquired. COMPARISON: None. FINDINGS: Bones: No acute fractures or dislocations. There are degenerative changes of the right acromioclavicular joint. The coracoclavicular and acromioclavicular intervals are maintained. No suspicious bony lesions. Visualized ribs appear intact. Soft tissues: No suspicious soft tissue calcifications. IMPRESSION: Right shoulder without acute osseous abnormalities or malalignment. Right acromioclavicular osteoarthrosis. Dictated by: Jadon Polanco M.D. on 03/07/2019 at 23:33 Approved by: Jadon Polanco M.D. on 03/07/2019 at 23:35
--- NOTE | 2019-03-07 18:48 | PC.NURSE ---
moved pt into private room, tried to assist pt with removing pants but he pushed both of the two UROLOGY PHYSICIAN's hands away saying not to start gabbing at things.
--- NOTE | 2019-03-07 19:00 | DI.US.S_ITS ---
PROCEDURE: US SCROTUM INDICATIONS: SWELLING, PAIN TECHNIQUE: Real-time scanning was performed of the scrotum and testicles, with image documentation. Color and pulse Doppler interrogation was performed of both testicles. COMPARISON: None. FINDINGS: Right: Testicle is normal in size at 4.3 x 2.2 x 2.5 cm, and homogenous in echotexture. Epididymis is normal in overall size and morphology. No hydrocele or varicoceles. Overlying scrotal skin is mildly thickened. Left: Testicle is normal in size at 3.2 x 3.0 x 2.4 cm, and homogeneous in echotexture. Epididymis is normal in overall size and morphology. No hydrocele or varicoceles. Overlying scrotal skin is mildly thickened. Doppler: Color and pulse Doppler demonstrate normal and symmetric arterial flow in both testicles. Miscellaneous: There is a prominent sized fat containing left inguinal hernia measuring approximately 8.1 x 7.9 x 5.0 cm which contains small amount of fluid within the hernia sac. It does not peristalse or demonstrate spontaneous reduction upon cessation of Valsalva maneuver. IMPRESSION: 1. Mild thickening of the scrotal skin bilaterally. Otherwise, normal sonographic evaluation of the bilateral testes and epididymides. 2. Moderate-sized fat containing left inguinal hernia. It does not demonstrate spontaneous reduction upon cessation of Valsalva maneuver. Dictated by: Jadon Polanco M.D. on 03/07/2019 at 22:44 Approved by: Jadon Polanco M.D. on 03/07/2019 at 22:48
[2019-03-07 19:30] LABS: INR 1.2 (0.9-1.3); Prothrombin Time 13.4 SECONDS (10.1-12.7)
[2019-03-07 19:33] LABS: Add Manual Diff / Slide Review NO; Basophils Absolute Auto 100 /uL (0-100); Basophils Percent Auto 0.9 % (0-2); Eosinophils Absolute Auto 100 /uL (0-450); Eosinophils Percent Auto 1.3 % (2-4); Hematocrit 39.2 % (41-53); Hemoglobin 11.9 g/dL (13.5-17.5); Lymphocytes Absolute Auto 400 /uL (1100-4500); Lymphocytes Percent Auto 6.1 % (25-40); Mean Corpuscular HGB Conc 30.4 % (30-36); Mean Corpuscular Hemoglobin 26.8 PG (26-34); Mean Corpuscular Volume 88.4 fL (80-100); Monocytes Absolute Auto 700 /uL (0-900); Monocytes Percent Auto 10.4 % (3-14); Neutrophils Absolute Auto 5600 /uL (1500-7000); Neutrophils Percent Auto 81.3 % (50-75); PTT Partial Thromboplastin Tim 35 SECONDS (26.4-36.2); Platelet Count 99 X10^3/uL (150-400); Red Blood Cell Count 4.44 X10^6/uL (4.5-5.9); White Blood Cell Count 6.9 X10^3/uL (4.5-11.0)
[2019-03-07 19:37] LABS: Alanine Aminotransferase 30 IU/L (21-72); Albumin 3.5 g/dL (3.5-5.0); Albumin Globulin Ratio 1.2 (1.0-2.8); Alkaline Phosphatase 64 U/L (38-126); Aspartate Aminotransferase 54 IU/L (17-59); BUN Creatinine Ratio 14.4 (6-22); Bilirubin Total 0.4 mg/dL (0.2-1.3); Calcium 8.2 mg/dL (8.4-10.2); Carbon Dioxide 15 mmol/L (22-32); Chloride 106 mmol/L (98-107); Creatine Kinase 300 U/L (55-170); Globulin 2.9 g/dL (1.7-4.1); Glucose 109 mg/dL (80-110); HEMOLYSIS < 15 (0-50); Lactate (Lactic Acid) 0.7 mmol/L (0.7-2.1); Potassium 5.2 mmol/L (3.4-5.1); Sodium 137 mmol/L (137-145); Total Protein 6.4 g/dL (6.3-8.2)
[2019-03-07 19:43] LABS: Blood Urea Nitrogen 112 mg/dL (9-20)
[2019-03-07 19:52] LABS: Creatine Kinase MB 8.98 ng/mL (<2.37)
[2019-03-07 19:56] LABS: B Type Natriuretic Peptide 1420 (<100)
[2019-03-07 20:03] LABS: Anisocytosis 3+; Poikilocytosis 1+
[2019-03-07 20:09] LABS: Troponin I 0.334 ng/mL (0.01-0.034)
[2019-03-07] MEDS: FUROSEMIDE 100 MG/10 ML VIAL 80 MG IV (20:18)
[2019-03-07] MEDS: LIDOCAINE 2% (UROJET) 5 ML GEL TOP (20:18)
[2019-03-07 20:19] LABS: Procalcitonin 1.27 ng/mL (<0.5)
[2019-03-07] MEDS: LORazepam 2 MG/ML SYRINGE 1 MG IV (20:19)
--- NOTE | 2019-03-07 20:38 | PC.NURSE ---
Generalized swelling of all limbs, penis, testicles, abd. Pt unable to move w/o assistance. Unable to void w/o catheter.
[2019-03-07 20:40] LABS: Appearance Urine UA CLEAR; Bilirubin Urine UA 1+ (NEGATIVE); Color Urine UA YELLOW; Glucose Urine UA NEGATIVE (Negative); Ketones Urine UA NEGATIVE (NEGATIVE); Leukocyte Esterase Urine UA TRACE (NEGATIVE); Nitrite Urine UA NEGATIVE (Negative); Occult Blood Urine UA NEGATIVE (Negative); Protein Urine UA TRACE (Negative); Specific Gravity Urine UA >=1.030 (1.000-1.035); Urobilinogen Urine UA 0.2 E.U./dL (0.2)
[2019-03-07 20:46] LABS: Ictotest Urine Negative (Negative)
[2019-03-07 20:47] LABS: Amorphous Sediment Urine 2+; Bacteria Urine Occasional (0-1); Calcium Oxalate Crystals Urine Few; RBC Urine 1-5/HPF (0-5/HPF); Squamous Epithelial Cell Urine 0-1 /HPF (0-5/HPF); WBC Urine 1-5/HPF (0-5/HPF)
[2019-03-07 20:48] LABS: Culture Indicated Urine Cult Not Indicated; Hyaline Casts Urine 30-100/LPF
== END 2019-03-07 22:42 | disposition short-term general hospital (02) ==
PROVIDERS: Emergency Provider Emergency Medicine; Family Provider Physician Assistant Medical; PCP Nurse Practitioner Gerontology
DX: R09.02 Hypoxemia (principal); I50.23 Acute on chronic systolic (congestive) heart failure; N17.9 Acute kidney failure, unspecified; R60.9 Edema, unspecified; S09.90XA Unspecified injury of head, initial encounter; W19.XXXA Unspecified fall, initial encounter
CPT/HCPCS: 36591; 51701; 70450; 71045; 72125; 73030; 76870; 80053; 81001; 82550; 82553; 83605; 83880; 84145; 84484; 85025; 85610; 85730; 87040; 93005; 93010; 96374; 96375; 99285; J1940; J2060

== ENCOUNTER → 2019-05-27 13:17 | Outpatient (CLI) | payer OTHER, MEDICAID, SELFPAY ==
[2019-02-25 21:29] VITALS: BMI 35.2
== END ==
PROVIDERS: Family Provider Physician Assistant Medical; PCP Nurse Practitioner Gerontology; Visit Provider Family Medicine
DX: E11.621 Type 2 diabetes mellitus with foot ulcer (principal); E11.40 Type 2 diabetes mellitus with diabetic neuropathy, unspecified; L97.421 Non-pressure chronic ulcer of left heel and midfoot limited to breakdown of skin; E11.649 Type 2 diabetes mellitus with hypoglycemia without coma; M79.672 Pain in left foot; Z72.0 Tobacco use; Z91.19 Patient's noncompliance with other medical treatment and regimen; N18.4 Chronic kidney disease, stage 4 (severe)
CPT/HCPCS: 87070; 87075; 87077; 87186; 87205; 99214; 99215

== ENCOUNTER → 2019-06-04 11:51 | Outpatient (CLI) | payer OTHER, MEDICAID, SELFPAY ==
[2019-02-25 21:29] VITALS: BMI 35.2
--- NOTE | 2019-06-04 | DI.US.S_ITS ---
PROCEDURE: US ARTERIAL DUPLEX LE LT INDICATIONS: NON HEALING ULCER TECHNIQUE: Color and pulse Doppler interrogation was performed of the left lower extremity arterial system, with image documentation. COMPARISON: None. FINDINGS: Common femoral artery: 180 cm/sec, with biphasic flow. Deep femoral artery: 177 cm/sec, with biphasic flow. Proximal superficial femoral artery: 135 cm/sec, with biphasic flow. Mid superficial femoral artery: 151 cm/sec, with monophasic flow. Distal superficial femoral artery: 118 cm/sec, with monophasic flow. Popliteal artery: 54-91 cm/sec, with monophasic flow. Posterior tibial artery: 71-73 cm/sec, with monophasic flow. Anterior tibial artery/dorsalis pedis: 42-69 cm/sec, with biphasic flow. IMPRESSION: Prominent calcific atherosclerotic plaquing produces shadowing which disallows clear visualization of portions of the proximal superficial femoral artery. High-grade stenosis or short segment occlusion appears present in this area, with secondary reduction of flow phasicity more distally through the left lower extremity. Additionally, focal elevated flow velocity at the common femoral artery is noted indicating likelihood of significant stenosis in that area further reducing phasicity of the arterial vasculature flow into the left lower extremity. Significant arterial insufficiency over the left lower extremity appears present. If surgical or interventional radiology treatment is anticipated improve visualization and areas of maximal atherosclerotic calcific shadowing could be obtained utilizing MR scanning with contrast. Dictated by: Austin Justice M.D. on 06/04/2019 at 15:59 Approved by: Austin Justice M.D. on 06/04/2019 at 16:06
== END ==
PROVIDERS: Family Provider Physician Assistant Medical; PCP Nurse Practitioner Gerontology; Visit Provider Family Medicine
DX: E11.621 Type 2 diabetes mellitus with foot ulcer (principal); I70.202 Unspecified atherosclerosis of native arteries of extremities, left leg; L97.529 Non-pressure chronic ulcer of other part of left foot with unspecified severity
CPT/HCPCS: 93926

== ENCOUNTER → 2019-06-04 14:11 | Outpatient (CLI) | payer OTHER, MEDICAID, SELFPAY ==
[2019-02-25 21:29] VITALS: BMI 35.2
== END ==
PROVIDERS: Family Provider Physician Assistant Medical; PCP Nurse Practitioner Gerontology; Visit Provider Family Medicine
DX: E11.621 Type 2 diabetes mellitus with foot ulcer (principal); L08.9 Local infection of the skin and subcutaneous tissue, unspecified; E11.40 Type 2 diabetes mellitus with diabetic neuropathy, unspecified; L97.421 Non-pressure chronic ulcer of left heel and midfoot limited to breakdown of skin; Z72.0 Tobacco use; Z91.19 Patient's noncompliance with other medical treatment and regimen; N18.4 Chronic kidney disease, stage 4 (severe)
CPT/HCPCS: 11042; 99212

== ENCOUNTER → 2019-06-18 10:09 | Outpatient (CLI) | payer OTHER, MEDICAID, SELFPAY ==
[2019-02-25 21:29] VITALS: BMI 35.2
== END ==
PROVIDERS: Family Provider Physician Assistant Medical; PCP Nurse Practitioner Gerontology; Visit Provider Family Medicine
DX: E11.621 Type 2 diabetes mellitus with foot ulcer (principal); L97.422 Non-pressure chronic ulcer of left heel and midfoot with fat layer exposed; I73.9 Peripheral vascular disease, unspecified; L08.9 Local infection of the skin and subcutaneous tissue, unspecified; Z72.0 Tobacco use; Z91.19 Patient's noncompliance with other medical treatment and regimen; N18.4 Chronic kidney disease, stage 4 (severe)
CPT/HCPCS: 99212; 99213

== ENCOUNTER → 2019-07-02 08:36 | Outpatient (CLI) | payer OTHER, MEDICAID, SELFPAY ==
[2019-02-25 21:29] VITALS: BMI 35.2
== END ==
PROVIDERS: Family Provider Physician Assistant Medical; PCP Nurse Practitioner Gerontology; Visit Provider Family Medicine
DX: E11.621 Type 2 diabetes mellitus with foot ulcer (principal); L97.421 Non-pressure chronic ulcer of left heel and midfoot limited to breakdown of skin; I73.9 Peripheral vascular disease, unspecified; L08.9 Local infection of the skin and subcutaneous tissue, unspecified; Z72.0 Tobacco use; Z91.19 Patient's noncompliance with other medical treatment and regimen; N18.4 Chronic kidney disease, stage 4 (severe); E11.40 Type 2 diabetes mellitus with diabetic neuropathy, unspecified; I10 Essential (primary) hypertension
CPT/HCPCS: 11042

== ENCOUNTER → 2019-07-16 08:40 | Outpatient (CLI) | payer OTHER, MEDICAID, SELFPAY ==
[2019-02-25 21:29] VITALS: BMI 35.2
== END ==
PROVIDERS: Family Provider Physician Assistant Medical; PCP Nurse Practitioner Gerontology; Visit Provider Family Medicine
DX: E11.621 Type 2 diabetes mellitus with foot ulcer (principal); L97.422 Non-pressure chronic ulcer of left heel and midfoot with fat layer exposed; I73.9 Peripheral vascular disease, unspecified; Z72.0 Tobacco use; Z91.19 Patient's noncompliance with other medical treatment and regimen; N18.4 Chronic kidney disease, stage 4 (severe)
CPT/HCPCS: 11042

== ENCOUNTER → 2019-07-23 08:44 | Outpatient (CLI) | payer OTHER, MEDICAID, SELFPAY ==
[2019-02-25 21:29] VITALS: BMI 35.2
== END ==
PROVIDERS: Family Provider Physician Assistant Medical; PCP Nurse Practitioner Gerontology; Visit Provider Family Medicine
DX: E11.621 Type 2 diabetes mellitus with foot ulcer (principal); L97.421 Non-pressure chronic ulcer of left heel and midfoot limited to breakdown of skin; I73.9 Peripheral vascular disease, unspecified; R60.0 Localized edema; E11.40 Type 2 diabetes mellitus with diabetic neuropathy, unspecified; Z91.19 Patient's noncompliance with other medical treatment and regimen; N18.4 Chronic kidney disease, stage 4 (severe); Z72.0 Tobacco use
CPT/HCPCS: 11042; 87070; 87077; 87147; 87186; 87205

== ENCOUNTER → 2019-07-30 10:43 | Outpatient (CLI) | payer OTHER, MEDICAID, SELFPAY ==
[2019-02-25 21:29] VITALS: BMI 35.2
== END ==
PROVIDERS: Family Provider Physician Assistant Medical; PCP Nurse Practitioner Gerontology; Visit Provider Family Medicine
DX: E11.621 Type 2 diabetes mellitus with foot ulcer (principal); L97.321 Non-pressure chronic ulcer of left ankle limited to breakdown of skin
CPT/HCPCS: 99214

== ENCOUNTER → 2019-08-05 08:05 | Outpatient (CLI) | payer OTHER, MEDICAID, SELFPAY ==
[2019-02-25 21:29] VITALS: BMI 35.2
--- NOTE | 2019-08-05 | DI.MRI.S_ITS ---
PROCEDURE: MR RUN OFF 3 STAGES ABD START INDICATIONS: Non-pressure chronic ulcer of left heel and midfoot TECHNIQUE: Precontrast axial and coronal TruFISP acquired through the abdomen and pelvis. Multi-station dynamic coronal MRA using Care Bolus timing from the kidneys to the ankles during the administration of contrast, with 3-dimensional maximum intensity projection (MIP) reformats constructed. COMPARISON: XA, ANGIO,EXTREM BILATERAL (PNL), 08/24/2015, 9:17. Formerly [facility], , US ARTERIAL DUPLEX LE LT, 06/04/2019, 12:33. FINDINGS: Image quality: Excellent. ABDOMEN: Aorta: Aorta is normal in caliber and is patent. Renal arteries: Renal arteries all appear patent. Extravascular soft tissues: Visualized solid organs are normal in size on limited pre-contrast images. Bowel loops are normal in caliber. No free fluid. No retroperitoneal or mesenteric adenopathy by size criteria. No ventral hernias. Bones: Marrow demonstrates normal overall signal. PELVIS AND BILATERAL LOWER EXTREMITIES: Right sided vessels: There no areas of hemodynamically significant stenosis, vascular occlusion or aneurysmal dilation within the common, internal or external iliac arteries. There are multiple areas of less than 50% stenosis throughout the course of the common femoral artery also extending into the superficial femoral artery. The profunda artery appears patent. The superficial femoral artery demonstrates multiple areas of short segment high grade stenosis most prominent in the proximal and midportion. The popliteal artery is patent. The anterior and posterior tibial arteries are patent and extend to the foot. Extensive venous overlap is noted. Left sided vessels: There no areas of hemodynamically significant stenosis, vascular occlusion or aneurysmal dilation within the common, internal or external iliac artery. Small areas of 50% or less stenosis are noted within the common femoral extending to the superficial femoral artery. While the superficial femoral artery demonstrates multiple areas of short segment stenosis, they are less severe focally when compared to the right. However, they are more numerous extending into the mid and distal aspect of the superficial femoral artery. The popliteal artery is patent. The anterior and posterior tibial arteries are patent and extending to the foot. The peroneal artery is patent and appears to extend to the distal past. IMPRESSION: 1. Bilateral common femoral as well as family proximal and mid superficial femoral arteries of multifocal stenosis as above. Dictated by: Patt Briseno M.D. on 08/05/2019 at 14:40 Approved by: Patt Briseno M.D. on 08/05/2019 at 15:09
== END ==
PROVIDERS: PCP Nurse Practitioner Gerontology; Visit Provider Family Medicine
DX: L97.422 Non-pressure chronic ulcer of left heel and midfoot with fat layer exposed (principal); I70.203 Unspecified atherosclerosis of native arteries of extremities, bilateral legs; N18.4 Chronic kidney disease, stage 4 (severe)
CPT/HCPCS: C8902; C8912; C8918; A9579

== ENCOUNTER → 2019-08-07 13:49 | Outpatient (CLI) | payer OTHER, MEDICAID, SELFPAY ==
[2019-02-25 21:29] VITALS: BMI 35.2
== END ==
PROVIDERS: PCP Nurse Practitioner Gerontology; Visit Provider Family Medicine
DX: E11.621 Type 2 diabetes mellitus with foot ulcer (principal); L97.421 Non-pressure chronic ulcer of left heel and midfoot limited to breakdown of skin; E11.40 Type 2 diabetes mellitus with diabetic neuropathy, unspecified; Z72.0 Tobacco use; Z91.19 Patient's noncompliance with other medical treatment and regimen; N18.4 Chronic kidney disease, stage 4 (severe)
CPT/HCPCS: 11042

== ENCOUNTER → 2019-08-13 10:49 | Outpatient (CLI) | payer OTHER, MEDICAID, SELFPAY ==
[2019-02-25 21:29] VITALS: BMI 35.2
== END ==
PROVIDERS: PCP Nurse Practitioner Gerontology; Visit Provider Family Medicine
DX: E11.621 Type 2 diabetes mellitus with foot ulcer (principal); L97.421 Non-pressure chronic ulcer of left heel and midfoot limited to breakdown of skin; I70.244 Atherosclerosis of native arteries of left leg with ulceration of heel and midfoot; E11.40 Type 2 diabetes mellitus with diabetic neuropathy, unspecified; N18.4 Chronic kidney disease, stage 4 (severe); Z91.19 Patient's noncompliance with other medical treatment and regimen; Z72.0 Tobacco use
CPT/HCPCS: 97597

== ENCOUNTER → 2019-08-20 13:01 | Outpatient (CLI) | payer OTHER, MEDICAID, SELFPAY ==
[2019-02-25 21:29] VITALS: BMI 35.2
== END ==
PROVIDERS: PCP Nurse Practitioner Gerontology; Visit Provider Family Medicine
DX: E11.621 Type 2 diabetes mellitus with foot ulcer (principal); L97.421 Non-pressure chronic ulcer of left heel and midfoot limited to breakdown of skin
CPT/HCPCS: 11042

== ENCOUNTER → 2019-09-05 08:25 | Outpatient (CLI) | payer OTHER, MEDICAID, SELFPAY ==
[2019-02-25 21:29] VITALS: BMI 35.2
== END ==
PROVIDERS: PCP Nurse Practitioner Gerontology; Visit Provider Family Medicine
DX: E11.621 Type 2 diabetes mellitus with foot ulcer (principal); L97.421 Non-pressure chronic ulcer of left heel and midfoot limited to breakdown of skin; I70.244 Atherosclerosis of native arteries of left leg with ulceration of heel and midfoot; R60.0 Localized edema; E11.40 Type 2 diabetes mellitus with diabetic neuropathy, unspecified
CPT/HCPCS: 11042

== ENCOUNTER → 2019-09-10 08:36 | Outpatient (CLI) | payer OTHER, MEDICAID, SELFPAY ==
[2019-02-25 21:29] VITALS: BMI 35.2
== END ==
PROVIDERS: PCP Nurse Practitioner Gerontology; Visit Provider Family Medicine
DX: E11.621 Type 2 diabetes mellitus with foot ulcer (principal); L97.421 Non-pressure chronic ulcer of left heel and midfoot limited to breakdown of skin; E11.40 Type 2 diabetes mellitus with diabetic neuropathy, unspecified; I73.9 Peripheral vascular disease, unspecified; Z91.19 Patient's noncompliance with other medical treatment and regimen
CPT/HCPCS: 11042; 36415; 73650; 80048; 83036; 85025; 85651; 86140; 87070; 87075; 87205

== ENCOUNTER → 2019-09-10 09:52 | Outpatient (CLI) | payer OTHER, MEDICAID, SELFPAY ==
[2019-02-25 21:29] VITALS: BMI 35.2
--- NOTE | 2019-09-10 | DI.RAD.S_ITS ---
PROCEDURE: XR CALCANEOUS LT MIN 2V INDICATIONS: EVAL OSTEO TECHNIQUE: Two views of the calcaneus were acquired. COMPARISON: None. FINDINGS: Bones: No fractures or dislocations. No suspicious bony lesions. Soft tissues: No suspicious calcifications. Achilles tendon appears normal. IMPRESSION: No visualized areas of erosion or lucency. However, if clinical concern persists, MRI is recommended as it demonstrates increased sensitivity to early phases of osteomyelitis. Dictated by: Patt Briseno M.D. on 09/10/2019 at 12:44 Approved by: Patt Briseno M.D. on 09/10/2019 at 12:45
== END ==
PROVIDERS: Family Provider Nurse Practitioner Gerontology; PCP Nurse Practitioner Gerontology; Visit Provider Family Medicine
DX: E11.621 Type 2 diabetes mellitus with foot ulcer (principal); L97.422 Non-pressure chronic ulcer of left heel and midfoot with fat layer exposed
CPT/HCPCS: 73650

== ENCOUNTER → 2019-09-10 10:19 | Outpatient (CLI) | payer OTHER, MEDICAID, SELFPAY ==
[2019-02-25 21:29] VITALS: BMI 35.2
[2019-09-10 11:23] LABS: BUN Creatinine Ratio 23.3 (6-22); Blood Urea Nitrogen 56 mg/dL (9-20); C-Reactive Protein Quant 0.7 mg/dL (<1.0); Calcium 9.5 mg/dL (8.4-10.2); Carbon Dioxide 30 mmol/L (22-32); Chloride 92 mmol/L (98-107); Estimated Glomerular Filt Rate 27.4 mL/min (>60); Glucose 236 mg/dL (80-110); HEMOLYSIS < 15 (0-50); Sodium 136 mmol/L (137-145)
[2019-09-10 11:25] LABS: Potassium 5.6 mmol/L (3.4-5.1)
[2019-09-10 11:28] LABS: Hemoglobin A1C% w Est Avg Glu 13.8 % (4.0-6.0)
[2019-09-10 11:39] LABS: Add Manual Diff / Slide Review NO; Basophils Absolute Auto 100 /uL (0-100); Basophils Percent Auto 1.2 % (0-2); Eosinophils Absolute Auto 300 /uL (0-450); Hematocrit 49.1 % (41-53); Hemoglobin 16.7 g/dL (13.5-17.5); Lymphocytes Absolute Auto 1600 /uL (1100-4500); Lymphocytes Percent Auto 18.5 % (25-40); Mean Corpuscular HGB Conc 33.9 % (30-36); Mean Corpuscular Volume 85.4 fL (80-100); Monocytes Absolute Auto 700 /uL (0-900); Monocytes Percent Auto 8.4 % (3-14); Neutrophils Absolute Auto 5900 /uL (1500-7000); Neutrophils Percent Auto 67.9 % (50-75); Platelet Count 160 X10^3/uL (150-400); Red Blood Cell Count 5.75 X10^6/uL (4.5-5.9); Red Cell Distribution Width 19.1 % (11.6-14.8); White Blood Cell Count 8.7 X10^3/uL (4.5-11.0)
[2019-09-10 11:56] LABS: Erythrocyte Sedimentation Rate 1 MM/HR (0-15)
== END ==
PROVIDERS: Family Provider Nurse Practitioner Gerontology; PCP Nurse Practitioner Gerontology; Visit Provider Family Medicine
DX: E11.621 Type 2 diabetes mellitus with foot ulcer (principal); L97.422 Non-pressure chronic ulcer of left heel and midfoot with fat layer exposed; E11.22 Type 2 diabetes mellitus with diabetic chronic kidney disease; N18.4 Chronic kidney disease, stage 4 (severe)
CPT/HCPCS: 36415; 80048; 83036; 85025; 85651; 86140

== ENCOUNTER → 2019-11-26 13:52 | Outpatient (CLI) | payer OTHER, MEDICAID, SELFPAY ==
[2019-02-25 21:29] VITALS: BMI 35.2
== END ==
PROVIDERS: Family Provider Nurse Practitioner Gerontology; PCP Nurse Practitioner Gerontology; Visit Provider Family Medicine
DX: E11.621 Type 2 diabetes mellitus with foot ulcer (principal); L97.421 Non-pressure chronic ulcer of left heel and midfoot limited to breakdown of skin; Z79.4 Long term (current) use of insulin; E11.51 Type 2 diabetes mellitus with diabetic peripheral angiopathy without gangrene; E11.40 Type 2 diabetes mellitus with diabetic neuropathy, unspecified
CPT/HCPCS: 11042; 99213

== ENCOUNTER → 2019-12-03 13:25 | Outpatient (CLI) | payer MEDICARE, OTHER, MEDICAID, SELFPAY ==
[2019-02-25 21:29] VITALS: BMI 35.2
== END ==
PROVIDERS: Family Provider Nurse Practitioner Gerontology; PCP Nurse Practitioner Gerontology; Referring Provider Nurse Practitioner Gerontology; Visit Provider Family Medicine
DX: E11.621 Type 2 diabetes mellitus with foot ulcer (principal); L97.422 Non-pressure chronic ulcer of left heel and midfoot with fat layer exposed; Z72.0 Tobacco use; Z91.19 Patient's noncompliance with other medical treatment and regimen; Z79.4 Long term (current) use of insulin; E11.40 Type 2 diabetes mellitus with diabetic neuropathy, unspecified; R60.0 Localized edema
CPT/HCPCS: 29445

== ENCOUNTER → 2019-12-05 12:55 | Outpatient (CLI) | payer MEDICARE, MEDICAID, SELFPAY ==
[2019-02-25 21:29] VITALS: BMI 35.2
== END ==
PROVIDERS: Family Provider Nurse Practitioner Gerontology; PCP Nurse Practitioner Gerontology; Referring Provider Nurse Practitioner Gerontology; Visit Provider Family Medicine
DX: E11.621 Type 2 diabetes mellitus with foot ulcer (principal); L97.421 Non-pressure chronic ulcer of left heel and midfoot limited to breakdown of skin; E11.40 Type 2 diabetes mellitus with diabetic neuropathy, unspecified; R60.0 Localized edema; Z79.4 Long term (current) use of insulin
CPT/HCPCS: 97597

== ENCOUNTER → 2019-12-12 12:54 | Outpatient (CLI) | payer MEDICARE, MEDICAID, SELFPAY ==
[2019-02-25 21:29] VITALS: BMI 35.2
== END ==
PROVIDERS: Family Provider Nurse Practitioner Gerontology; PCP Nurse Practitioner Gerontology; Referring Provider Nurse Practitioner Gerontology; Visit Provider Family Medicine
DX: E11.621 Type 2 diabetes mellitus with foot ulcer (principal); L97.421 Non-pressure chronic ulcer of left heel and midfoot limited to breakdown of skin
CPT/HCPCS: 99214

== ENCOUNTER → 2019-12-19 10:49 | Outpatient (CLI) | payer MEDICARE, MEDICAID, SELFPAY ==
[2019-02-25 21:29] VITALS: BMI 35.2
== END ==
PROVIDERS: Family Provider Nurse Practitioner Gerontology; PCP Nurse Practitioner Gerontology; Referring Provider Nurse Practitioner Gerontology; Visit Provider Family Medicine
DX: E11.621 Type 2 diabetes mellitus with foot ulcer (principal); E11.51 Type 2 diabetes mellitus with diabetic peripheral angiopathy without gangrene; E11.40 Type 2 diabetes mellitus with diabetic neuropathy, unspecified; R60.0 Localized edema; Z79.4 Long term (current) use of insulin
CPT/HCPCS: 99212; 99213

== ENCOUNTER → 2020-02-17 09:21 | Outpatient (CLI) | payer MEDICARE, SELFPAY ==
[2019-02-25 21:29] VITALS: BMI 35.2
== END ==
PROVIDERS: Family Provider Nurse Practitioner Gerontology; PCP Nurse Practitioner Gerontology; Referring Provider Nurse Practitioner Gerontology; Visit Provider Family Medicine
DX: E11.621 Type 2 diabetes mellitus with foot ulcer (principal); L97.511 Non-pressure chronic ulcer of other part of right foot limited to breakdown of skin; L08.9 Local infection of the skin and subcutaneous tissue, unspecified; I70.235 Atherosclerosis of native arteries of right leg with ulceration of other part of foot; E11.40 Type 2 diabetes mellitus with diabetic neuropathy, unspecified; E11.51 Type 2 diabetes mellitus with diabetic peripheral angiopathy without gangrene; Z79.4 Long term (current) use of insulin; Z72.0 Tobacco use
CPT/HCPCS: 11042; 87070; 87077; 87147; 87186; 87205; 99214; 99215

== ENCOUNTER → 2020-02-24 08:49 | Outpatient (CLI) | payer MEDICARE, SELFPAY ==
[2019-02-25 21:29] VITALS: BMI 35.2
== END ==
PROVIDERS: Family Provider Nurse Practitioner Gerontology; PCP Nurse Practitioner Gerontology; Referring Provider Nurse Practitioner Gerontology; Visit Provider Family Medicine
DX: E11.621 Type 2 diabetes mellitus with foot ulcer (principal); L97.511 Non-pressure chronic ulcer of other part of right foot limited to breakdown of skin; I70.235 Atherosclerosis of native arteries of right leg with ulceration of other part of foot; Z79.4 Long term (current) use of insulin; M86.171 Other acute osteomyelitis, right ankle and foot
CPT/HCPCS: 11042; 99214

== ENCOUNTER → 2020-03-02 09:57 | Outpatient (CLI) | payer MEDICARE, SELFPAY ==
[2019-02-25 21:29] VITALS: BMI 35.2
== END ==
PROVIDERS: Family Provider Nurse Practitioner Gerontology; PCP Nurse Practitioner Gerontology; Referring Provider Nurse Practitioner Gerontology; Visit Provider Family Medicine
DX: E11.621 Type 2 diabetes mellitus with foot ulcer (principal); L97.511 Non-pressure chronic ulcer of other part of right foot limited to breakdown of skin; E11.40 Type 2 diabetes mellitus with diabetic neuropathy, unspecified
CPT/HCPCS: 97597

== ENCOUNTER → 2020-03-03 12:44 | Outpatient (CLI) | payer MEDICARE, SELFPAY ==
[2019-02-25 21:29] VITALS: BMI 35.2
--- NOTE | 2020-03-03 | DI.MRI.S_ITS ---
PROCEDURE: MR FOOT RT WO/W CON INDICATIONS: RIGHT FOOT PAIN TECHNIQUE: Noncontrast sagittal T1 spin echo and T2 fast spin echo with fat saturation, long-axis T1 spin echo and T2 fast spin echo with fat saturation; short-axis T1 spin echo, proton density fast spin echo, and T2 fast spin echo with fat saturation through the forefoot. Post-contrast short axis, long axis, and sagittal T1 spin echo with fat saturation through the forefoot. COMPARISON: None. FINDINGS: Image quality: Suboptimal related to motion artifact on several imaging sequences. Bones and joints: No acute fracture, dislocation, or suspicious osseous lesion is identified involving the osseous structures of the midfoot and forefoot. However, there is marrow edema identified involving the phalanges of the 5th toe without a discrete fracture evident. Postcontrast images demonstrate subtle enhancement at the base of the proximal phalanx of the 5th toe and distal phalanx of the 5th toe. There mild degenerative changes of the 1st and 5th metatarsophalangeal joints. There is no hallux valgus. Bony alignment is within normal limits. Soft tissues: A marker was placed at the lateral margin of the 5th metatarsal phalangeal joint. Within this region, there is mild subcutaneous edema without a drainable or loculated fluid collection. Postcontrast images demonstrate a vague subcutaneous enhancement without a definable mass evident. There may be a very small effusion involving the 5th metatarsophalangeal joint. No additional joint effusions are appreciated. Centered within the flexor digitorum brevis myotendinous junctions within the region of the midfoot, there is a lobulated structure identified that demonstrates peripheral increased signal on the fluid sensitive sequences and intermediate homogeneous signal on the T1 images, which measures approximately 11 x 12 x 8 mm (image 20, series 5 and image 34, series 9). On the postcontrast images there is only a vague peripheral enhancement within this region. No additional similar appearing enhancing foci or abnormal foci are evident on the fluid sensitive sequences. Scattered areas of mild subcutaneous edema are identified throughout the midfoot and forefoot. No drainable or loculated fluid collections are evident. However, there is a moderate amount of fluid identified within the flexor hallucis longus tendon sheath. A flexor and extensor tendons other than the midfoot and forefoot are otherwise intact and within normal limits. The Lisfranc ligament is grossly intact, but not well-characterized. No widening of the Lisfranc interval is identified. There is moderate edema evident involving the abductor hallucis muscle with corresponding early atrophy. Otherwise, the intrinsic muscles of the foot demonstrate moderate diffuse atrophy. No solid soft tissue masses are appreciated. IMPRESSION: 1. No vague subcutaneous edema and enhancement along the lateral margin of the 5th metatarsal phalangeal joint is nonspecific and may represent sequela from recent injury. An infectious process cannot be completely excluded, such as cellulitis. There is no abscess or drainable fluid collection. 2. Mild edema and subtle areas of enhancement involving the phalanges of the 5th toe most likely is related to recent injury. An inflammatory or infectious process cannot be completely excluded (but is felt to be unlikely) and clinical correlation is recommended. 3. Peripherally enhancing structure along the course of the flexor digitorum brevis tendon and extending to the 3rd digit is most compatible with a ganglion cyst. 4. Diffuse atrophy of the muscles of the midfoot and forefoot. 5. Edema involving the abductor pollicis muscle probably is related to a neurogenic process. However, a muscle strain may also have this appearance. 5. Mild degenerative changes of the 1st and 5th metatarsophalangeal joints. No fractures. Dictated by: Jabier Hallman M.D. on 03/03/2020 at 15:58 Approved by: Jabier Hallman M.D. on 03/03/2020 at 16:16
[2020-03-03 15:01] LABS: Add Manual Diff / Slide Review NO; Basophils Absolute Auto 0 /uL (0-100); Basophils Percent Auto 0.6 % (0-2); Eosinophils Absolute Auto 200 /uL (0-450); Eosinophils Percent Auto 3.2 % (2-4); Hematocrit 43.2 % (41-53); Hemoglobin 14.9 g/dL (13.5-17.5); Lymphocytes Absolute Auto 800 /uL (1100-4500); Lymphocytes Percent Auto 13.8 % (25-40); Mean Corpuscular HGB Conc 34.4 % (30-36); Mean Corpuscular Volume 92.9 fL (80-100); Monocytes Absolute Auto 600 /uL (0-900); Monocytes Percent Auto 10.6 % (3-14); Neutrophils Absolute Auto 4300 /uL (1500-7000); Neutrophils Percent Auto 71.8 % (50-75); Platelet Count 128 X10^3/uL (150-400); Red Blood Cell Count 4.65 X10^6/uL (4.5-5.9); Red Cell Distribution Width 15.5 % (11.6-14.8)
[2020-03-03 15:03] LABS: Alanine Aminotransferase 10 IU/L (<50); Albumin 4.1 g/dL (3.5-5.0); Albumin Globulin Ratio 1.3 (1.0-2.8); Alkaline Phosphatase 182 U/L (38-126); Aspartate Aminotransferase 16 IU/L (17-59); BUN Creatinine Ratio 29.5 (6-22); Bilirubin Total 0.4 mg/dL (0.2-1.3); Blood Urea Nitrogen 57 mg/dL (9-20); Carbon Dioxide 22 mmol/L (22-32); Chloride 109 mmol/L (98-107); Estimated Glomerular Filt Rate 35.1 mL/min (>60); Globulin 3.1 g/dL (1.7-4.1); Glucose 225 mg/dL (80-110); HEMOLYSIS < 15 (0-50); Potassium 4.8 mmol/L (3.4-5.1); Sodium 140 mmol/L (137-145); Total Protein 7.2 g/dL (6.3-8.2)
[2020-03-03 15:10] LABS: C-Reactive Protein Quant < 0.5 mg/dL (<1.0)
[2020-03-03 18:56] LABS: Erythrocyte Sedimentation Rate 11 MM/HR (0-15)
== END ==
PROVIDERS: Family Provider Nurse Practitioner Gerontology; Referring Provider Family Medicine; Visit Provider Family Medicine
DX: E11.621 Type 2 diabetes mellitus with foot ulcer (principal); L97.511 Non-pressure chronic ulcer of other part of right foot limited to breakdown of skin; M86.171 Other acute osteomyelitis, right ankle and foot; E11.22 Type 2 diabetes mellitus with diabetic chronic kidney disease; N18.3 Chronic kidney disease, stage 3 (moderate); M25.571 Pain in right ankle and joints of right foot; R60.0 Localized edema; Z79.2 Long term (current) use of antibiotics
CPT/HCPCS: 36415; 73720; 80053; 85025; 85651; 86140; A9579

== ENCOUNTER → 2020-03-08 10:53 | Outpatient (CLI) | payer MEDICARE, SELFPAY ==
[2019-02-25 21:29] VITALS: BMI 35.2
== END ==
PROVIDERS: Family Provider Nurse Practitioner Gerontology; PCP Nurse Practitioner Gerontology; Referring Provider Nurse Practitioner Gerontology; Visit Provider Family Medicine
DX: E11.621 Type 2 diabetes mellitus with foot ulcer (principal); L97.511 Non-pressure chronic ulcer of other part of right foot limited to breakdown of skin
CPT/HCPCS: 97597

== ENCOUNTER → 2020-03-15 11:30 | Outpatient (CLI) | payer MEDICARE, SELFPAY ==
[2019-02-25 21:29] VITALS: BMI 35.2
== END ==
PROVIDERS: Family Provider Nurse Practitioner Gerontology; PCP Nurse Practitioner Gerontology; Referring Provider Nurse Practitioner Gerontology; Visit Provider Family Medicine
DX: E11.621 Type 2 diabetes mellitus with foot ulcer (principal); L97.515 Non-pressure chronic ulcer of other part of right foot with muscle involvement without evidence of necrosis; I70.235 Atherosclerosis of native arteries of right leg with ulceration of other part of foot; Z79.4 Long term (current) use of insulin; E11.40 Type 2 diabetes mellitus with diabetic neuropathy, unspecified
CPT/HCPCS: 11042; 99213

== ENCOUNTER → 2020-03-23 11:05 | Outpatient (CLI) | payer MEDICARE, SELFPAY ==
[2019-02-25 21:29] VITALS: BMI 35.2
== END ==
PROVIDERS: Family Provider Nurse Practitioner Gerontology; PCP Nurse Practitioner Gerontology; Referring Provider Nurse Practitioner Gerontology; Visit Provider Family Medicine
DX: E11.621 Type 2 diabetes mellitus with foot ulcer (principal); L97.513 Non-pressure chronic ulcer of other part of right foot with necrosis of muscle; E11.40 Type 2 diabetes mellitus with diabetic neuropathy, unspecified; R60.0 Localized edema; Z79.4 Long term (current) use of insulin
CPT/HCPCS: 15275; Q4132

== ENCOUNTER → 2020-03-29 09:50 | Outpatient (CLI) | payer MEDICARE, SELFPAY ==
[2019-02-25 21:29] VITALS: BMI 35.2
== END ==
PROVIDERS: Family Provider Nurse Practitioner Gerontology; PCP Nurse Practitioner Gerontology; Referring Provider Nurse Practitioner Gerontology; Visit Provider Family Medicine
DX: E11.621 Type 2 diabetes mellitus with foot ulcer (principal); L97.512 Non-pressure chronic ulcer of other part of right foot with fat layer exposed; I70.235 Atherosclerosis of native arteries of right leg with ulceration of other part of foot; Z79.4 Long term (current) use of insulin; E11.40 Type 2 diabetes mellitus with diabetic neuropathy, unspecified; L08.9 Local infection of the skin and subcutaneous tissue, unspecified; Z79.2 Long term (current) use of antibiotics
CPT/HCPCS: 11042; 36415; 73630; 80053; 82985; 83036; 84134; 85025; 85651; 86140; 99213

== ENCOUNTER → 2020-03-29 10:23 | Outpatient (CLI) | payer MEDICARE, SELFPAY ==
[2019-02-25 21:29] VITALS: BMI 35.2
--- NOTE | 2020-03-29 | DI.RAD.S_ITS ---
PROCEDURE: XR FOOT RT MIN 3V INDICATIONS: Type 2 diabetes mellitus with foot ulcer TECHNIQUE: 3 views of the foot were acquired. COMPARISON: None. FINDINGS: Bones: No fractures or dislocations. No suspicious bony lesions not indicate presence of osteomyelitis. Soft tissues: No tibiotalar joint effusion. Achilles tendon appears normal. Small vessel calcifications are noted consistent with long-standing diabetes. IMPRESSION: Reported foot ulceration, no osteomyelitis or foreign body seen. No gas in the soft tissues found. Small vessel calcifications between the first and second metatarsal bones as is frequently seen in the setting of long-standing diabetes. Dictated by: Austin Justice M.D. on 03/29/2020 at 11:37 Approved by: Austin Justice M.D. on 03/29/2020 at 11:39
[2020-03-29 11:49] LABS: Add Manual Diff / Slide Review NO; Basophils Absolute Auto 100 /uL (0-100); Eosinophils Absolute Auto 300 /uL (0-450); Eosinophils Percent Auto 4.3 % (2-4); Hematocrit 42.4 % (41-53); Hemoglobin 14.8 g/dL (13.5-17.5); Lymphocytes Absolute Auto 1300 /uL (1100-4500); Lymphocytes Percent Auto 16.9 % (25-40); Mean Corpuscular HGB Conc 34.8 % (30-36); Mean Corpuscular Volume 91.9 fL (80-100); Monocytes Absolute Auto 600 /uL (0-900); Monocytes Percent Auto 7.5 % (3-14); Neutrophils Absolute Auto 5300 /uL (1500-7000); Neutrophils Percent Auto 70.3 % (50-75); Platelet Count 134 X10^3/uL (150-400); Red Blood Cell Count 4.62 X10^6/uL (4.5-5.9); Red Cell Distribution Width 15.1 % (11.6-14.8); White Blood Cell Count 7.6 X10^3/uL (4.5-11.0)
[2020-03-29 12:14] LABS: Erythrocyte Sedimentation Rate 19 MM/HR (0-15)
[2020-03-29 12:22] LABS: Alanine Aminotransferase 9 IU/L (<50); Albumin 3.8 g/dL (3.5-5.0); Albumin Globulin Ratio 1.3 (1.0-2.8); Alkaline Phosphatase 132 U/L (38-126); Aspartate Aminotransferase 15 IU/L (17-59); BUN Creatinine Ratio 26.2 (6-22); Bilirubin Total 0.4 mg/dL (0.2-1.3); Blood Urea Nitrogen 49 mg/dL (9-20); C-Reactive Protein Quant 2.3 mg/dL (<1.0); Calcium 9.2 mg/dL (8.4-10.2); Carbon Dioxide 21 mmol/L (22-32); Chloride 113 mmol/L (98-107); Estimated Glomerular Filt Rate 36.4 mL/min (>60); Globulin 2.9 g/dL (1.7-4.1); Glucose 85 mg/dL (80-110); HEMOLYSIS < 15 (0-50); Sodium 141 mmol/L (137-145); Total Protein 6.7 g/dL (6.3-8.2)
[2020-03-29 12:27] LABS: Prealbumin 24.1 mg/dL (17.6-36.0)
[2020-03-29 12:32] LABS: Potassium 5.6 mmol/L (3.4-5.1)
[2020-03-30 01:06] LABS: Fructosamine 439 umol/L (0-285)
== END ==
PROVIDERS: Family Provider Nurse Practitioner Gerontology; PCP Nurse Practitioner Gerontology; Referring Provider Family Medicine; Visit Provider Family Medicine
DX: E11.621 Type 2 diabetes mellitus with foot ulcer (principal); L97.912 Non-pressure chronic ulcer of unspecified part of right lower leg with fat layer exposed; Z79.2 Long term (current) use of antibiotics
CPT/HCPCS: 36415; 73630; 80053; 82985; 83036; 84134; 85025; 85651; 86140

== ENCOUNTER → 2020-04-06 10:49 | Outpatient (CLI) | payer MEDICARE, SELFPAY ==
[2019-02-25 21:29] VITALS: BMI 35.2
== END ==
PROVIDERS: Family Provider Nurse Practitioner Gerontology; PCP Nurse Practitioner Gerontology; Referring Provider Nurse Practitioner Gerontology; Visit Provider Family Medicine
DX: E11.621 Type 2 diabetes mellitus with foot ulcer (principal); L97.511 Non-pressure chronic ulcer of other part of right foot limited to breakdown of skin; L08.9 Local infection of the skin and subcutaneous tissue, unspecified; E11.40 Type 2 diabetes mellitus with diabetic neuropathy, unspecified; Z79.4 Long term (current) use of insulin
CPT/HCPCS: 11042; 99212

== ENCOUNTER → 2020-04-13 09:34 | Outpatient (CLI) | payer MEDICARE, SELFPAY ==
[2019-02-25 21:29] VITALS: BMI 35.2
== END ==
PROVIDERS: Family Provider Nurse Practitioner Gerontology; PCP Nurse Practitioner Gerontology; Referring Provider Nurse Practitioner Gerontology; Visit Provider Family Medicine
DX: E11.621 Type 2 diabetes mellitus with foot ulcer (principal); L97.511 Non-pressure chronic ulcer of other part of right foot limited to breakdown of skin
CPT/HCPCS: 99213

== ENCOUNTER → 2020-04-20 10:55 | Outpatient (CLI) | payer MEDICARE, SELFPAY ==
[2019-02-25 21:29] VITALS: BMI 35.2
== END ==
PROVIDERS: Family Provider Nurse Practitioner Gerontology; PCP Nurse Practitioner Gerontology; Referring Provider Nurse Practitioner Gerontology; Visit Provider Family Medicine
DX: E11.621 Type 2 diabetes mellitus with foot ulcer (principal); L97.511 Non-pressure chronic ulcer of other part of right foot limited to breakdown of skin; I70.235 Atherosclerosis of native arteries of right leg with ulceration of other part of foot; Z79.4 Long term (current) use of insulin; Z72.0 Tobacco use; E11.40 Type 2 diabetes mellitus with diabetic neuropathy, unspecified; N18.3 Chronic kidney disease, stage 3 (moderate); Z79.2 Long term (current) use of antibiotics; L08.9 Local infection of the skin and subcutaneous tissue, unspecified
CPT/HCPCS: 99213; 99214

== ENCOUNTER → 2020-05-04 14:54 | Outpatient (CLI) | payer MEDICARE, SELFPAY ==
[2019-02-25 21:29] VITALS: BMI 35.2
== END ==
PROVIDERS: Family Provider Nurse Practitioner Gerontology; PCP Nurse Practitioner Gerontology; Referring Provider Nurse Practitioner Gerontology; Visit Provider Family Medicine
DX: E11.621 Type 2 diabetes mellitus with foot ulcer (principal); L97.512 Non-pressure chronic ulcer of other part of right foot with fat layer exposed; I70.235 Atherosclerosis of native arteries of right leg with ulceration of other part of foot; Z79.4 Long term (current) use of insulin; Z72.0 Tobacco use; E11.40 Type 2 diabetes mellitus with diabetic neuropathy, unspecified; N18.3 Chronic kidney disease, stage 3 (moderate); Z79.2 Long term (current) use of antibiotics; L08.9 Local infection of the skin and subcutaneous tissue, unspecified
CPT/HCPCS: 11042; 99214

== ENCOUNTER → 2020-05-11 07:31 | Outpatient (CLI) | payer MEDICARE, SELFPAY ==
[2019-02-25 21:29] VITALS: BMI 35.2
--- NOTE | 2020-05-11 | DI.MRI.S_ITS ---
PROCEDURE: MR FOOT RT WO/W CON INDICATIONS: Type 2 diabetes mellitus with foot ulcer TECHNIQUE: Noncontrast coronal T1 spin echo and STIR, sagittal T1 spin echo with fat saturation and STIR, axial T1 spin echo and T2 fast spin echo with fat saturation. After the administration of contrast, axial/sagittal/coronal T1 spin echo with fat saturation through the right foot. COMPARISON: [facility], MR, MR FOOT RT WO/W CON, 03/03/2020, 13:19. FINDINGS: Image quality: Excellent. Bones: Compared to previous study, there is interval to level of significant edema involving mid to distal 5th metatarsal shaft, 5th metatarsal head, 5th proximal and middle phalanges and show mild contrast enhancement in this area consistent with osteomyelitis given the presence of adjacent full-thickness ulceration. No other area of abnormal marrow signal is seen. No acute fracture or dislocation. Subtle bony erosive changes involving plantar and lateral aspect of 5th metatarsal head and 5th proximal phalangeal base is seen. Soft tissues: Full-thickness ulceration over plantar and lateral aspect of 5th MTP joint is seen with surrounding soft tissue swelling, edema and mild enhancement consistent with extensive cellulitis. No discrete drainable fluid collection is seen. Previously described lobulated structure centered within flexor digitorum brevis myotendinous junction measuring 11 x 12 x 8 mm in size is again seen and unchanged in size and appearance. Mild peripheral contrast enhancement is likely present. Rest of the scanned muscles demonstrate normal overall bulk and internal signal. No new enhancing lesion is identified. IMPRESSION: 1. Full-thickness ulceration over plantar and lateral aspect of 5th MTP joint with suggestion of underlying osteomyelitis involving mid to distal 5th metatarsal shaft, 5th proximal phalanx and proximal portion of 5th middle phalanx. Subtle erosive changes involving plantar and lateral aspect of 5th MTP joint is seen. No fracture or dislocation. No other area of abnormal marrow signal. 2. Peripherally enhancing structure along course of the flexor digitorum brevis tendon extending to the 3rd digit unchanged from prior study and likely represent a ganglion cyst. No other enhancing soft tissue mass is seen. Dictated by: Romeo Mcmillan M.D. on 05/11/2020 at 13:08 Approved by: Romeo Mcmillan M.D. on 05/11/2020 at 13:22
== END ==
PROVIDERS: Family Provider Nurse Practitioner Gerontology; PCP Nurse Practitioner Gerontology; Referring Provider Family Medicine; Visit Provider Family Medicine
DX: E11.621 Type 2 diabetes mellitus with foot ulcer (principal); L97.312 Non-pressure chronic ulcer of right ankle with fat layer exposed; L97.513 Non-pressure chronic ulcer of other part of right foot with necrosis of muscle; L08.9 Local infection of the skin and subcutaneous tissue, unspecified; E11.40 Type 2 diabetes mellitus with diabetic neuropathy, unspecified; E11.22 Type 2 diabetes mellitus with diabetic chronic kidney disease; N18.3 Chronic kidney disease, stage 3 (moderate); I70.235 Atherosclerosis of native arteries of right leg with ulceration of other part of foot; Z79.4 Long term (current) use of insulin; Z79.2 Long term (current) use of antibiotics; Z72.0 Tobacco use
CPT/HCPCS: 11043; 73720

== ENCOUNTER → 2020-05-11 11:00 | Outpatient (CLI) | payer MEDICARE, SELFPAY ==
[2019-02-25 21:29] VITALS: BMI 35.2
== END ==
PROVIDERS: Family Provider Nurse Practitioner Gerontology; PCP Nurse Practitioner Gerontology; Referring Provider Nurse Practitioner Gerontology; Visit Provider Family Medicine
DX: E11.621 Type 2 diabetes mellitus with foot ulcer (principal); L97.513 Non-pressure chronic ulcer of other part of right foot with necrosis of muscle; I70.235 Atherosclerosis of native arteries of right leg with ulceration of other part of foot; Z79.4 Long term (current) use of insulin; Z72.0 Tobacco use; E11.40 Type 2 diabetes mellitus with diabetic neuropathy, unspecified; N18.3 Chronic kidney disease, stage 3 (moderate); Z79.2 Long term (current) use of antibiotics; L08.9 Local infection of the skin and subcutaneous tissue, unspecified
CPT/HCPCS: 11043; 99214

== ENCOUNTER → 2020-05-18 08:38 | Outpatient (CLI) | payer MEDICARE, SELFPAY ==
[2019-02-25 21:29] VITALS: BMI 35.2
== END ==
PROVIDERS: Family Provider Nurse Practitioner Gerontology; PCP Nurse Practitioner Gerontology; Referring Provider Nurse Practitioner Gerontology; Visit Provider Family Medicine
DX: E11.621 Type 2 diabetes mellitus with foot ulcer (principal); L97.514 Non-pressure chronic ulcer of other part of right foot with necrosis of bone; I70.235 Atherosclerosis of native arteries of right leg with ulceration of other part of foot; Z79.4 Long term (current) use of insulin; Z72.0 Tobacco use; E11.40 Type 2 diabetes mellitus with diabetic neuropathy, unspecified; N18.3 Chronic kidney disease, stage 3 (moderate); Z79.2 Long term (current) use of antibiotics; L08.9 Local infection of the skin and subcutaneous tissue, unspecified; M86.171 Other acute osteomyelitis, right ankle and foot
CPT/HCPCS: 99213; 99214

== ENCOUNTER → 2020-05-20 12:07 | Outpatient (CLI) | payer MEDICARE, SELFPAY ==
[2019-02-25 21:29] VITALS: BMI 35.2
== END ==
PROVIDERS: Family Provider Nurse Practitioner Gerontology; PCP Nurse Practitioner Gerontology; Referring Provider Nurse Practitioner Gerontology; Visit Provider Family Medicine
DX: E11.621 Type 2 diabetes mellitus with foot ulcer (principal); L97.511 Non-pressure chronic ulcer of other part of right foot limited to breakdown of skin
CPT/HCPCS: 99212

== ENCOUNTER → 2020-05-24 11:56 | Outpatient (CLI) | payer MEDICARE, SELFPAY ==
[2019-02-25 21:29] VITALS: BMI 35.2
== END ==
PROVIDERS: Family Provider Nurse Practitioner Gerontology; PCP Nurse Practitioner Gerontology; Referring Provider Nurse Practitioner Gerontology; Visit Provider Family Medicine
DX: E11.621 Type 2 diabetes mellitus with foot ulcer (principal); L97.514 Non-pressure chronic ulcer of other part of right foot with necrosis of bone; I70.235 Atherosclerosis of native arteries of right leg with ulceration of other part of foot; Z79.4 Long term (current) use of insulin; Z72.0 Tobacco use; E11.40 Type 2 diabetes mellitus with diabetic neuropathy, unspecified; N18.3 Chronic kidney disease, stage 3 (moderate); Z79.2 Long term (current) use of antibiotics; L08.9 Local infection of the skin and subcutaneous tissue, unspecified; M86.171 Other acute osteomyelitis, right ankle and foot
CPT/HCPCS: 99213; 99214

== ENCOUNTER → 2020-06-22 14:22 | Outpatient (CLI) | payer MEDICARE, SELFPAY ==
[2019-02-25 21:29] VITALS: BMI 35.2
== END ==
PROVIDERS: Family Provider Nurse Practitioner Gerontology; PCP Nurse Practitioner Gerontology; Referring Provider Nurse Practitioner Gerontology; Visit Provider Family Medicine
DX: E11.621 Type 2 diabetes mellitus with foot ulcer (principal); L97.513 Non-pressure chronic ulcer of other part of right foot with necrosis of muscle; I70.235 Atherosclerosis of native arteries of right leg with ulceration of other part of foot; Z79.4 Long term (current) use of insulin; Z72.0 Tobacco use; E11.40 Type 2 diabetes mellitus with diabetic neuropathy, unspecified; N18.3 Chronic kidney disease, stage 3 (moderate); Z79.2 Long term (current) use of antibiotics; L08.9 Local infection of the skin and subcutaneous tissue, unspecified; M86.171 Other acute osteomyelitis, right ankle and foot
CPT/HCPCS: 11043; 99213

== ENCOUNTER → 2020-06-30 13:20 | Outpatient (CLI) | payer MEDICARE, SELFPAY ==
[2019-02-25 21:29] VITALS: BMI 35.2
== END ==
PROVIDERS: Family Provider Nurse Practitioner Gerontology; PCP Nurse Practitioner Gerontology; Referring Provider Nurse Practitioner Gerontology; Visit Provider Family Medicine
DX: E11.621 Type 2 diabetes mellitus with foot ulcer (principal); L97.513 Non-pressure chronic ulcer of other part of right foot with necrosis of muscle; I70.235 Atherosclerosis of native arteries of right leg with ulceration of other part of foot; Z79.4 Long term (current) use of insulin; Z72.0 Tobacco use; E11.40 Type 2 diabetes mellitus with diabetic neuropathy, unspecified; N18.3 Chronic kidney disease, stage 3 (moderate); Z79.2 Long term (current) use of antibiotics; L08.9 Local infection of the skin and subcutaneous tissue, unspecified; M86.171 Other acute osteomyelitis, right ankle and foot
CPT/HCPCS: 11043; 97605

== ENCOUNTER → 2020-07-02 08:38 | Outpatient (CLI) | payer MEDICARE, SELFPAY ==
[2019-02-25 21:29] VITALS: BMI 35.2
== END ==
PROVIDERS: Family Provider Nurse Practitioner Gerontology; PCP Nurse Practitioner Gerontology; Referring Provider Nurse Practitioner Gerontology; Visit Provider Family Medicine
DX: E11.621 Type 2 diabetes mellitus with foot ulcer (principal); L97.513 Non-pressure chronic ulcer of other part of right foot with necrosis of muscle
CPT/HCPCS: 97605

== ENCOUNTER → 2020-07-06 14:44 | Outpatient (CLI) | payer MEDICARE, SELFPAY ==
[2019-02-25 21:29] VITALS: BMI 35.2
== END ==
PROVIDERS: Family Provider Nurse Practitioner Gerontology; PCP Nurse Practitioner Gerontology; Referring Provider Nurse Practitioner Gerontology; Visit Provider Family Medicine
DX: E11.621 Type 2 diabetes mellitus with foot ulcer (principal); L97.511 Non-pressure chronic ulcer of other part of right foot limited to breakdown of skin; I70.235 Atherosclerosis of native arteries of right leg with ulceration of other part of foot; Z79.4 Long term (current) use of insulin; Z72.0 Tobacco use; E11.40 Type 2 diabetes mellitus with diabetic neuropathy, unspecified; N18.3 Chronic kidney disease, stage 3 (moderate)
CPT/HCPCS: 11042; 97605; 99213

== ENCOUNTER → 2020-07-09 11:54 | Outpatient (CLI) | payer MEDICARE, SELFPAY ==
[2019-02-25 21:29] VITALS: BMI 35.2
== END ==
PROVIDERS: Family Provider Nurse Practitioner Gerontology; PCP Nurse Practitioner Gerontology; Referring Provider Nurse Practitioner Gerontology; Visit Provider Family Medicine
DX: E11.621 Type 2 diabetes mellitus with foot ulcer (principal); L97.513 Non-pressure chronic ulcer of other part of right foot with necrosis of muscle
CPT/HCPCS: 97605

== ENCOUNTER → 2020-07-13 12:29 | Outpatient (CLI) | payer MEDICARE, SELFPAY ==
[2019-02-25 21:29] VITALS: BMI 35.2
[2020-07-13 13:26] LABS: Add Manual Diff / Slide Review NO; Basophils Absolute Auto 0 /uL (0-100); Basophils Percent Auto 0.7 % (0-2); Eosinophils Absolute Auto 200 /uL (0-450); Eosinophils Percent Auto 3.9 % (2-4); Hematocrit 42.4 % (41-53); Hemoglobin 14.3 g/dL (13.5-17.5); Lymphocytes Absolute Auto 1100 /uL (1100-4500); Lymphocytes Percent Auto 17.2 % (25-40); Mean Corpuscular HGB Conc 33.8 % (30-36); Mean Corpuscular Hemoglobin 31.6 PG (26-34); Mean Corpuscular Volume 93.7 fL (80-100); Monocytes Absolute Auto 500 /uL (0-900); Monocytes Percent Auto 8.5 % (3-14); Neutrophils Absolute Auto 4300 /uL (1500-7000); Neutrophils Percent Auto 69.7 % (50-75); Platelet Count 129 X10^3/uL (150-400); Red Blood Cell Count 4.53 X10^6/uL (4.5-5.9); Red Cell Distribution Width 15.1 % (11.6-14.8); White Blood Cell Count 6.2 X10^3/uL (4.5-11.0)
[2020-07-13 13:47] LABS: Hemoglobin A1C% w Est Avg Glu 7.5 % (4.0-6.0)
[2020-07-13 13:54] LABS: Erythrocyte Sedimentation Rate 12 MM/HR (0-15)
[2020-07-13 13:59] LABS: Alanine Aminotransferase 14 IU/L (<50); Albumin 3.9 g/dL (3.5-5.0); Albumin Globulin Ratio 1.5 (1.0-2.8); Alkaline Phosphatase 141 U/L (38-126); Aspartate Aminotransferase 20 IU/L (17-59); BUN Creatinine Ratio 10.3 (6-22); Bilirubin Total 0.5 mg/dL (0.2-1.3); Blood Urea Nitrogen 18 mg/dL (9-20); Carbon Dioxide 26 mmol/L (22-32); Chloride 109 mmol/L (98-107); Estimated Glomerular Filt Rate 39.3 mL/min (>60); Globulin 2.6 g/dL (1.7-4.1); Glucose 239 mg/dL (80-110); HEMOLYSIS < 15 (0-50); Potassium 5.1 mmol/L (3.4-5.1); Sodium 142 mmol/L (137-145); Total Protein 6.5 g/dL (6.3-8.2)
[2020-07-13 14:01] LABS: C-Reactive Protein Quant < 0.5 mg/dL (<1.0)
== END ==
PROVIDERS: Family Provider Nurse Practitioner Gerontology; PCP Nurse Practitioner Gerontology; Referring Provider Family Medicine; Visit Provider Family Medicine
DX: E11.621 Type 2 diabetes mellitus with foot ulcer (principal); L97.515 Non-pressure chronic ulcer of other part of right foot with muscle involvement without evidence of necrosis; M86.171 Other acute osteomyelitis, right ankle and foot; Z79.2 Long term (current) use of antibiotics
CPT/HCPCS: 36415; 80053; 83036; 85025; 85651; 86140

== ENCOUNTER → 2020-07-13 14:10 | Outpatient (CLI) | payer MEDICARE, OTHER, SELFPAY ==
[2019-02-25 21:29] VITALS: BMI 35.2
== END ==
PROVIDERS: Family Provider Nurse Practitioner Gerontology; PCP Nurse Practitioner Gerontology; Referring Provider Nurse Practitioner Gerontology; Visit Provider Family Medicine
DX: E11.621 Type 2 diabetes mellitus with foot ulcer (principal); L97.515 Non-pressure chronic ulcer of other part of right foot with muscle involvement without evidence of necrosis; M86.171 Other acute osteomyelitis, right ankle and foot; Z79.2 Long term (current) use of antibiotics; L97.511 Non-pressure chronic ulcer of other part of right foot limited to breakdown of skin; I70.235 Atherosclerosis of native arteries of right leg with ulceration of other part of foot; Z79.4 Long term (current) use of insulin; Z72.0 Tobacco use; E11.40 Type 2 diabetes mellitus with diabetic neuropathy, unspecified; N18.3 Chronic kidney disease, stage 3 (moderate)
CPT/HCPCS: 11042; 36415; 80053; 83036; 85025; 85651; 86140; 97605

== ENCOUNTER → 2020-07-16 10:08 | Outpatient (CLI) | payer MEDICARE, OTHER, SELFPAY ==
[2019-02-25 21:29] VITALS: BMI 35.2
== END ==
PROVIDERS: Family Provider Nurse Practitioner Gerontology; PCP Nurse Practitioner Gerontology; Referring Provider Nurse Practitioner Gerontology; Visit Provider Family Medicine
DX: E11.621 Type 2 diabetes mellitus with foot ulcer (principal); L97.511 Non-pressure chronic ulcer of other part of right foot limited to breakdown of skin
CPT/HCPCS: 97605

== ENCOUNTER → 2020-07-20 11:01 | Outpatient (CLI) | payer MEDICARE, OTHER, SELFPAY ==
[2019-02-25 21:29] VITALS: BMI 35.2
== END ==
PROVIDERS: Family Provider Nurse Practitioner Gerontology; PCP Nurse Practitioner Gerontology; Referring Provider Nurse Practitioner Gerontology; Visit Provider Family Medicine
DX: E11.621 Type 2 diabetes mellitus with foot ulcer (principal); L97.516 Non-pressure chronic ulcer of other part of right foot with bone involvement without evidence of necrosis; I70.235 Atherosclerosis of native arteries of right leg with ulceration of other part of foot; Z79.4 Long term (current) use of insulin; Z72.0 Tobacco use; E11.40 Type 2 diabetes mellitus with diabetic neuropathy, unspecified; N18.3 Chronic kidney disease, stage 3 (moderate)
CPT/HCPCS: 11042; 87070; 87075; 87077; 87186; 87205; 97605; 99213

== ENCOUNTER → 2020-07-23 09:47 | Outpatient (CLI) | payer MEDICARE, OTHER, SELFPAY ==
[2019-02-25 21:29] VITALS: BMI 35.2
== END ==
PROVIDERS: Family Provider Nurse Practitioner Gerontology; PCP Nurse Practitioner Gerontology; Referring Provider Nurse Practitioner Gerontology; Visit Provider Family Medicine
DX: E11.621 Type 2 diabetes mellitus with foot ulcer (principal); L97.516 Non-pressure chronic ulcer of other part of right foot with bone involvement without evidence of necrosis
CPT/HCPCS: 97605

== ENCOUNTER → 2020-07-27 14:14 | Outpatient (CLI) | payer MEDICARE, OTHER, SELFPAY ==
[2019-02-25 21:29] VITALS: BMI 35.2
== END ==
PROVIDERS: Family Provider Nurse Practitioner Gerontology; PCP Nurse Practitioner Gerontology; Referring Provider Nurse Practitioner Gerontology; Visit Provider Family Medicine
DX: E11.621 Type 2 diabetes mellitus with foot ulcer (principal); L97.516 Non-pressure chronic ulcer of other part of right foot with bone involvement without evidence of necrosis
CPT/HCPCS: 97605

== ENCOUNTER → 2020-07-30 11:04 | Outpatient (CLI) | payer MEDICARE, OTHER, SELFPAY ==
[2019-02-25 21:29] VITALS: BMI 35.2
== END ==
PROVIDERS: Family Provider Nurse Practitioner Gerontology; PCP Nurse Practitioner Gerontology; Referring Provider Nurse Practitioner Gerontology; Visit Provider Family Medicine
DX: E11.621 Type 2 diabetes mellitus with foot ulcer (principal); L97.516 Non-pressure chronic ulcer of other part of right foot with bone involvement without evidence of necrosis
CPT/HCPCS: 97605

== ENCOUNTER → 2020-08-03 09:58 | Outpatient (CLI) | payer MEDICARE, OTHER, SELFPAY ==
[2019-02-25 21:29] VITALS: BMI 35.2
== END ==
PROVIDERS: Family Provider Nurse Practitioner Gerontology; PCP Nurse Practitioner Gerontology; Referring Provider Nurse Practitioner Gerontology; Visit Provider Family Medicine
DX: E11.621 Type 2 diabetes mellitus with foot ulcer (principal); L97.511 Non-pressure chronic ulcer of other part of right foot limited to breakdown of skin; L08.9 Local infection of the skin and subcutaneous tissue, unspecified; M86.671 Other chronic osteomyelitis, right ankle and foot; I70.235 Atherosclerosis of native arteries of right leg with ulceration of other part of foot; Z79.4 Long term (current) use of insulin; E11.40 Type 2 diabetes mellitus with diabetic neuropathy, unspecified; Z79.2 Long term (current) use of antibiotics; N18.30 Chronic kidney disease, stage 3 unspecified
CPT/HCPCS: 11042; 36415; 85025; 85651; 86140; 87070; 87075; 87077; 87147; 87186; 87205; 99214

== ENCOUNTER → 2020-08-03 10:04 | Outpatient (CLI) | payer MEDICARE, SELFPAY ==
[2019-02-25 21:29] VITALS: BMI 35.2
[2020-08-03 10:44] LABS: Add Manual Diff / Slide Review NO; Basophils Absolute Auto 100 /uL (0-100); Basophils Percent Auto 0.9 % (0-2); Eosinophils Absolute Auto 200 /uL (0-450); Eosinophils Percent Auto 3.7 % (2-4); Hematocrit 41.3 % (41-53); Hemoglobin 14.1 g/dL (13.5-17.5); Lymphocytes Absolute Auto 1100 /uL (1100-4500); Lymphocytes Percent Auto 17.6 % (25-40); Mean Corpuscular HGB Conc 34.2 % (30-36); Mean Corpuscular Hemoglobin 31.7 PG (26-34); Mean Corpuscular Volume 92.7 fL (80-100); Monocytes Absolute Auto 400 /uL (0-900); Monocytes Percent Auto 6.7 % (3-14); Neutrophils Absolute Auto 4500 /uL (1500-7000); Neutrophils Percent Auto 71.1 % (50-75); Platelet Count 122 X10^3/uL (150-400); Red Blood Cell Count 4.46 X10^6/uL (4.5-5.9); White Blood Cell Count 6.4 X10^3/uL (4.5-11.0)
[2020-08-03 11:02] LABS: Erythrocyte Sedimentation Rate 17 MM/HR (0-15)
[2020-08-03 11:12] LABS: C-Reactive Protein Quant 1.2 mg/dL (<1.0)
== END ==
PROVIDERS: Family Provider Nurse Practitioner Gerontology; Referring Provider Family Medicine; Visit Provider Family Medicine
DX: E11.621 Type 2 diabetes mellitus with foot ulcer (principal); L97.511 Non-pressure chronic ulcer of other part of right foot limited to breakdown of skin; L08.9 Local infection of the skin and subcutaneous tissue, unspecified
CPT/HCPCS: 36415; 85025; 85651; 86140

== ENCOUNTER → 2020-08-06 09:19 | Outpatient (CLI) | payer MEDICARE, OTHER, SELFPAY ==
[2019-02-25 21:29] VITALS: BMI 35.2
== END ==
PROVIDERS: Family Provider Nurse Practitioner Gerontology; PCP Physician Assistant Medical; Referring Provider Physician Assistant Medical; Visit Provider Family Medicine
DX: E11.621 Type 2 diabetes mellitus with foot ulcer (principal); L97.511 Non-pressure chronic ulcer of other part of right foot limited to breakdown of skin
CPT/HCPCS: 97605

== ENCOUNTER → 2020-08-10 09:43 | Outpatient (CLI) | payer MEDICARE, OTHER, SELFPAY ==
[2019-02-25 21:29] VITALS: BMI 35.2
== END ==
PROVIDERS: Family Provider Nurse Practitioner Gerontology; PCP Nurse Practitioner Gerontology; Referring Provider Nurse Practitioner Gerontology; Visit Provider Family Medicine
DX: E11.621 Type 2 diabetes mellitus with foot ulcer (principal); L97.511 Non-pressure chronic ulcer of other part of right foot limited to breakdown of skin; M86.671 Other chronic osteomyelitis, right ankle and foot; I70.235 Atherosclerosis of native arteries of right leg with ulceration of other part of foot; Z79.4 Long term (current) use of insulin; E11.40 Type 2 diabetes mellitus with diabetic neuropathy, unspecified; N18.30 Chronic kidney disease, stage 3 unspecified; Z79.2 Long term (current) use of antibiotics
CPT/HCPCS: 11042; 99213

== ENCOUNTER → 2020-08-23 14:54 | Outpatient (CLI) | payer MEDICARE, SELFPAY ==
[2019-02-25 21:29] VITALS: BMI 35.2
== END ==
PROVIDERS: Family Provider Nurse Practitioner Gerontology; PCP Nurse Practitioner Gerontology; Referring Provider Nurse Practitioner Gerontology; Visit Provider Family Medicine
DX: E11.621 Type 2 diabetes mellitus with foot ulcer (principal); L97.511 Non-pressure chronic ulcer of other part of right foot limited to breakdown of skin; M86.671 Other chronic osteomyelitis, right ankle and foot; I70.235 Atherosclerosis of native arteries of right leg with ulceration of other part of foot; Z79.4 Long term (current) use of insulin; E11.40 Type 2 diabetes mellitus with diabetic neuropathy, unspecified; N18.30 Chronic kidney disease, stage 3 unspecified
CPT/HCPCS: 11042

== ENCOUNTER → 2020-09-01 08:47 | Outpatient (CLI) | payer MEDICARE, MEDICAID, SELFPAY ==
[2019-02-25 21:29] VITALS: BMI 35.2
== END ==
PROVIDERS: Family Provider Nurse Practitioner Gerontology; PCP Nurse Practitioner Gerontology; Referring Provider Nurse Practitioner Gerontology; Visit Provider Family Medicine
DX: E11.621 Type 2 diabetes mellitus with foot ulcer (principal); L97.511 Non-pressure chronic ulcer of other part of right foot limited to breakdown of skin; M86.671 Other chronic osteomyelitis, right ankle and foot; I70.235 Atherosclerosis of native arteries of right leg with ulceration of other part of foot; Z79.4 Long term (current) use of insulin; E11.40 Type 2 diabetes mellitus with diabetic neuropathy, unspecified; N18.30 Chronic kidney disease, stage 3 unspecified; R14.0 Abdominal distension (gaseous)
CPT/HCPCS: 97597; 99212

== ENCOUNTER → 2020-09-08 10:50 | Outpatient (CLI) | payer MEDICARE, MEDICAID, SELFPAY ==
[2019-02-25 21:29] VITALS: BMI 35.2
== END ==
PROVIDERS: Family Provider Nurse Practitioner Gerontology; PCP Nurse Practitioner Gerontology; Referring Provider Nurse Practitioner Gerontology; Visit Provider Family Medicine
DX: E11.621 Type 2 diabetes mellitus with foot ulcer (principal); L97.511 Non-pressure chronic ulcer of other part of right foot limited to breakdown of skin; I70.235 Atherosclerosis of native arteries of right leg with ulceration of other part of foot; Z79.4 Long term (current) use of insulin; E11.40 Type 2 diabetes mellitus with diabetic neuropathy, unspecified; R14.0 Abdominal distension (gaseous); N18.30 Chronic kidney disease, stage 3 unspecified
CPT/HCPCS: 15275; Q4105

== ENCOUNTER → 2020-09-13 09:30 | Outpatient (CLI) | payer MEDICARE, MEDICAID, SELFPAY ==
[2019-02-25 21:29] VITALS: BMI 35.2
--- NOTE | 2020-09-13 | DI.US.S_ITS ---
PROCEDURE: US ABDOMEN COMPLETE INDICATIONS: ABDOMINAL DISTENTION TECHNIQUE: Real-time scanning was performed of the abdominal and retroperitoneal organs, with image documentation. COMPARISON: None. FINDINGS: Liver: Liver is diffusely increased in echogenicity. No focal hepatic abnormalities identified. Normal hepatic size. Gallbladder: Small, roughly 6 mm mobile gallstone with mild shadowing. No gallbladder wall thickening or pericholecystic fluid. Adenomyomatosis present. Biliary ducts: Intrahepatic bile ducts are non-dilated. Extrahepatic bile duct caliber measures 10.3 mm. Normal is 6-7 mm or less in diameter, or 10 mm or less post-cholecystectomy. Pancreas: Visualized portions of the pancreas are sonographically normal. Spleen: Spleen is normal in size and homogeneous in echotexture. Kidneys: Kidneys are normal in size and echotexture. Right kidney measures 12.2 cm long; left kidney measures 12.5 cm long. No hydronephrosis or nephrolithiasis. No solid masses. Aorta: Visualized aorta is normal in caliber at less than 3 cm. Iliacs: Proximal common iliac arteries are normal in caliber at less than 2.5 cm. IVC: Intrahepatic inferior vena cava is patent. Miscellaneous: No free abdominal fluid. IMPRESSION: 1. Increased hepatic echogenicity noted possibly related to hepatic steatosis but other sources of hepatocellular disease cannot be excluded. Recommend clinical correlation. 2. Dilated extrahepatic bile duct measuring up to 10.3 mm. Recommend correlation with LFTs and if indicated, MRCP could be performed. 3. Small mobile gallstone with mild shadowing. No gallbladder wall thickening. Dictated by: Navdeep Lawrence [facility] Interpreted: Austin Justice MD on 09/13/2020 at 13:01 Approved by: Austin Justice M.D. on 09/13/2020 at 15:10
--- NOTE | 2020-09-13 | DI.MRI.S_ITS ---
PROCEDURE: MR FOOT RT WO CON INDICATIONS: Other chronic osteomyelitis TECHNIQUE: Noncontrast sagittal T1 spin echo and T2 fast spin echo with fat saturation, long-axis T1 spin echo and T2 fast spin echo with fat saturation, short-axis T1 spin echo and T2 fast spin echo with fat saturation through the forefoot. COMPARISON: [facility], MR, MR FOOT RT WO/W CON, 05/11/2020, 8:13. [facility], CR, XR FOOT 3+ VIEWS RIGHT, 06/18/2020, 17:30. FINDINGS: Image quality: Excellent. Bones and joints: No discrete fracture line. Postsurgical changes related to amputation of the 5th toe at the level of the mid-distal 5th metatarsal . No marrow specific signal changes to suggest residual osteomyelitis within the 5th metatarsal although there is mild possibly reactive marrow edema involving the distal shaft and base of the 4th metatarsal. There is preservation of the normal fat signal on T1 weighted pulse sequences. Remaining marrow signal intensity appears grossly unremarkable. Soft tissues: Well-circumscribed possible fluid collection with internal calcifications seen measuring 1.2 cm involving the plantar soft tissues of the foot at the level of the base of the 2nd and 3rd metatarsals is unchanged although the exact etiology and clinical significance is unclear. IMPRESSION: Postsurgical changes related to amputation of the 5th toe as above. Mild marrow edema involving the remaining distal shaft of the 5th metatarsal, and the base of the 4th metatarsal which could be reactive. No specific marrow signal changes to suggest osteomyelitis, although as clinical suspicion dictates, continued surveillance with short interval serial radiographs could be performed. Well-circumscribed T2 hyperintense/possible fluid collection with internal calcifications in the region of the plantar fascia and flexor digitorum brevis as detailed above, indeterminate etiology and recommend clinical correlation. Dictated by: Mike Francis M.D. on 09/13/2020 at 11:40 Approved by: Mike Francis M.D. on 09/13/2020 at 11:52
== END ==
PROVIDERS: Family Provider Nurse Practitioner Gerontology; PCP Nurse Practitioner Gerontology; Referring Provider Family Medicine; Visit Provider Family Medicine
DX: M86.671 Other chronic osteomyelitis, right ankle and foot (principal); R14.0 Abdominal distension (gaseous); K83.8 Other specified diseases of biliary tract
CPT/HCPCS: 73718; 76700

== ENCOUNTER → 2020-09-16 10:43 | Outpatient (CLI) | payer MEDICARE, MEDICAID, SELFPAY ==
[2019-02-25 21:29] VITALS: BMI 35.2
== END ==
PROVIDERS: Family Provider Nurse Practitioner Gerontology; PCP Nurse Practitioner Gerontology; Referring Provider Nurse Practitioner Gerontology; Visit Provider Family Medicine
DX: E11.621 Type 2 diabetes mellitus with foot ulcer (principal); L97.511 Non-pressure chronic ulcer of other part of right foot limited to breakdown of skin; I70.235 Atherosclerosis of native arteries of right leg with ulceration of other part of foot; Z79.4 Long term (current) use of insulin; E11.40 Type 2 diabetes mellitus with diabetic neuropathy, unspecified; N18.30 Chronic kidney disease, stage 3 unspecified; R14.0 Abdominal distension (gaseous)
CPT/HCPCS: 99213

== ENCOUNTER 2020-09-20 19:58 | Inpatient (IN) | payer MEDICARE, MEDICAID, SELFPAY ==
[2019-02-25 21:29] VITALS: BMI 35.2
--- NOTE | 2020-09-20 20:47 | DI.MRI.S_ITS ---
PROCEDURE: MR STROKE Pre- and post-contrast brain MRI, non-contrast brain MR angiogram, pre- and postcontrast neck MR angiogram INDICATIONS: CVA TECHNIQUE: Brain: Noncontrast axial T1 spin echo, axial T2 fast spin echo, sagittal and axial FLAIR, coronal T2 fast spin echo, axial gradient echo, axial diffusion and ADC through the brain. After the administration of contrast, axial 3D VIBE of the cranial vasculature and brain. Brain MRA: Non-contrast 3-D time of flight MR angiogram, with multiple vzkoduc-nqscireny-cvsbzumbmh (MIP) reformats performed. Neck MRA: Axial and sagittal TruFISP through the neck. Coronal dynamic MR angiogram during administration of contrast in the arterial and venous phases, with 3-dimenstional yyfufco-sdaamgnpz-lvjpqkoutz (MIP) reformats constructed from subtraction images. COMPARISON: [facility], CT, CT HEAD/BRAIN WO CON, 09/21/2020, 6:55. FINDINGS: Image quality: Excellent. BRAIN: CSF spaces: Ventricles are normal in size and shape. Basal cisterns are patent. No extra-axial fluid collections. Brain: No intracranial bleeds or mass effects. Alfaro-white matter interface is normal. Diffusion weighted images show a definite small acute ischemic injury involving the midline and left paramedian pontomedullary junction best seen on diffusion imaging series 26, image 56. This measures slightly over 1 cm in maximal AP dimension an approximately 8 mm in maximal transverse dimension. No mass effect or hemorrhage is associated . Brainstem otherwise appears normal. Normal intravascular flow voids are present. No abnormal intracranial enhancement. Skull and face: Calvarial marrow signal is normal. Orbits appear normal. Sinuses: Sinuses and mastoids are clear. BRAIN MR ANGIOGRAM: Anterior circulation: Intracranial internal carotid arteries are normal in size and enhancement. The flow within the paired anterior cerebral arteries is normal and symmetric. The flow within the middle cerebral arteries is normal and symmetric. The anterior communicating artery is seen. No stenoses, occlusions, or aneurysms. Posterior circulation: The visualized portions of the vertebral arteries demonstrate normal caliber, and join to form a normal appearing basilar artery. The flow within the posterior cerebral arteries is normal and symmetric. No stenoses, occlusions, or aneurysms. NECK MR ANGIOGRAM: Carotids: Great vessels demonstrate a conventional anatomy as they arise from the aortic arch. The origins of the common carotid arteries appear patent. The calibers and courses of both common carotid arteries are normal. The bifurcation regions appear normal bilaterally. The internal carotid arteries demonstrate normal course and caliber. Posterior circulation: The origins of the vertebral arteries appear patent. More superior portions of both vertebral arteries demonstrate normal course and caliber, and join to form a normal appearing basilar artery. Miscellaneous: Subclavian arteries appear patent. Pre-contrast images through the neck show no soft tissue abnormalities. IMPRESSION: BRAIN MRI: Mild microvascular atherosclerotic change in the deep white matter of each hemisphere. There is a small 8 by 11 mm focus of acute or subacute ischemic injury involving the pontomedullary junction at its midline/left paramedian region without mass effect or associated hemorrhage. This cannot be identified on recent prior CT scanning. BRAIN MR ANGIOGRAM: Normal intracranial MR angiogram. NECK MR ANGIOGRAM: Normal cervical MR angiogram. Dictated by: Austin Justice M.D. on 09/21/2020 at 11:29 Approved by: Austin Justice M.D. on 09/21/2020 at 11:36
--- NOTE | 2020-09-20 21:00 | DI.ECHO.S_ITS ---
[facility]+ [facility] +---------+ : : [address] : [address] : : : : [id number] : : : : Phone: [phone]+ Echocardiogram Report + + :Name: AISSATOU ROMERO Study Date: 09/21/2020 Height: 69 in : :[facility] Weight: 200 lb : : Gender: Male BSA: 2.1 m2 : :: 1955 Age: 64 yrs BP: 129/69 mmHg: :Reason For Study: CVA : :Ordering Physician: ARIANA, : :SCARLETT Performed By: Mary Jett : :Referring: SCARLETT LANE : + + Interpretation Summary The ejection fraction is estimated to be 30-35%. Left ventricular function has slightly worsened compared to the previous exam. Mild inferior and anteroseptal, anterolateral hypokinesis in the setting of mild global hypokinesis Both atria have significantly decreased in size since the prior echo exam. There is no significant valvular heart disease. Procedure: A two-dimensional transthoracic echocardiogram with color flow and Doppler was performed. The study quality was technically adequate. Comparison is made with the echocardiogram of 02/26/2019. A saline contrast injection was performed to assess for cardiac shunting. The injection was performed through an intravenous line in the right arm. The patient was in sinus rhythm with heart rates between 75-78 bpm during the exam. Left Ventricle: The left ventricle is mildly dilated. There is normal left ventricular wall thickness. The ejection fraction is estimated to be 30-35%. Left ventricular function has slightly worsened compared to the previous exam. Mild inferior and anteroseptal, anterolateral hypokinesis in the setting of mild global hypokinesis. Diastolic parameters suggest a relaxation abnormality of the left ventricle, consistent with probable normal filling pressures. Right Ventricle: The right ventricle is normal in size and function. Atria: The left atrium is borderline dilated. Both atria have significantly decreased in size since the prior echo exam. The right atrium is borderline dilated. There is no Doppler evidence for an interatrial shunt. Injection of contrast documented no interatrial shunt. Mitral Valve: There is mild mitral annular calcification. The mitral valve leaflets appear mildly thickened, but open well. There is trace mitral regurgitation. Aortic Valve: The aortic valve is trileaflet. The aortic valve opens well. There is no aortic valve stenosis. No aortic regurgitation is present. Tricuspid Valve: The tricuspid valve is normal in structure and function. No tricuspid regurgitation. Pulmonary artery pressures cannot be estimated because of the lack of a measurable TR jet velocity but the IVC suggests a CVP of around 3 mmHg. Pulmonic Valve: The pulmonic valve leaflets are thin and pliable; valve motion is normal. There is no pulmonic valvular regurgitation. Great Vessels: The aortic root is normal size. The dimensions of the ascending aorta are normal. The IVC is of normal diameter and collapses greater than 50% with a sniff. This suggests a low right atrial pressure of 3 mm Hg. Pericardium/ Pleura There is no pericardial effusion. There is no pleural effusion. MMode/2D Measurements & Calculations LVIDd: 6.0 cm LVOT diam: 2.3 cm LVIDs: 5.1 cm Ao root diam: 3.4 cm FS: 15.7 % asc Aorta Diam: 3.1 cm EPSS: 1.7 cm IVSd: 0.97 cm LVPWd: 1.1 cm LV yanez. diameter/BSA (cm/m^2): 2.9 LV sys. diameter/BSA (cm/m^2): 2.5 LA A2 area: 24.3 cm2 RA long axis: 6.4 cm LA A4 area: 20.8 cm2 RA area: 22.9 cm2 LA length (vol): 6.2 cm RA vol: 70.2 ml LA vol: 69.1 ml RA : 34.0 ml/m2 LA vol index: 33.4 ml/m2 IVC diam: 1.7 cm RVD1 (basal): 3.6 cm TAPSE: 1.9 cm Doppler Measurements & Calculations Ao V2 max: 102.0 cm/sec LVOT Max Ambrosio: 65.7 cm/sec Ao V2 mean: 73.5 cm/sec LV V1 max P.7 mmHg Ao max P.2 mmHg LV V1 VTI: 13.1 cm Ao mean P.4 mmHg ZURI(I,D): 2.7 cm2 Ao V2 VTI: 19.9 cm ZURI(V,D): 2.6 cm2 sev ratio: 0.66 ZURI indexed to BSA (cm^2/m^2): 1.3 MV E max ambrosio: 55.2 cm/sec PA V2 max: 45.3 cm/sec MV A max ambrosio: 68.1 cm/sec PA V2 mean: 27.4 cm/sec MV E/A: 0.81 PA mean P.36 mmHg Med Peak E' Ambrosio: 4.3 cm/sec PA pr(Accel): 29.3 mmHg E/E' med: 13.0 Lat Peak E' Ambrosio: 5.8 cm/sec E/E' lat: 9.6 E/e' average: 11.3 MV dec time: 0.27 sec SV(LVOT): 53.7 ml Reading Physician:12:12 PM
--- NOTE | 2020-09-20 21:03 | PM.HP.1 ---
History of Present Illness History of Present Illness Date Patient Seen: 09/20/20 Time Patient Seen: 22:30 Chief complaint: CVA Narrative: Mr. Juan Carlos Montalvo is a 64-year-old male patient who is a current smoker with a past medical history of hypertension, hyperlipidemia, CAD PVD, COPD, diabetes type 2 with peripheral, diverticulitis CKD stage III, depression and anxiety who presented to [facility] ER with his daughter with chief complaint of slurred speech. Patient lives alone and his daughter spoke with him 2 days ago at which time his speech was normal. Patient self reports that his right sided weakness and his right leg gave out on him yesterday. Upon arrival of EMS the find right-sided facial droop also noted in the patient's asthma at [facility], NIH score upon arrival was 3 (E facial palsy-2, dysarthria-1). The patient has no prior history of CVA and denies any focal numbness or weakness. He reports no complaints of headaches, visual changes or trauma. He has had no recent illness and denies diaphoresis nausea or vomiting. The patient refused admission to [facility] and requested transfer to [facility]. Labs obtained and [facility] for find a white count of 7.4, hemoglobin 15.4 hematocrit 44.4. His platelets are 124. PT is 11.6 with an INR 1.0 PTT of 30.1. He has an elevated potassium of 5.2 and a BUN of 30 and a creatinine of 2.0. His nonfasting glucose is 212. He has a total bilirubin of 0.8, AST 11, ALT of 10 and alkaline phosphatase of 83. His albumin is 4.0. Report received from Dr. Newton [facility] Emergency Department and patient accepted. Upon arrival the patient is alert oriented responsive. He complains mild left parietal area that began yesterday and had associated transient dizziness. He describes weakness in the right leg but denies numbness or tingling. He has no ataxia and states he has stay no falls. The patient is unable to state definitive onset of symptoms but has been greater than 24 hours. He has had no fevers or chills has some chronic postnasal drip and denies sore throat will have a cough from accumulation of mucus from the postnasal drip. He denies chest pain or palpitations. He reports his breathing at baseline and is attempting to quit smoking completely and has been using Chantix. He states he feels his abdomen is little more distended and underwent an abdominal ultrasound on 09/13/2020 for the same complaint. Ultrasound shows increased hepatic echogenicity possible related to hepatic steatosis, dilated extrahepatic bile duct measuring up to 10.5 mm and small mobile gallstone with mild shadowing with no gallbladder wall thickness, no free abdominal fluid. The patient states he has been very sedentary since having right 5th metatarsal resection. Additional labs ordered including magnesium, troponin, proBNP, hemoglobin A1c and COVID-19 screening. Patient is admitted to the medicine service for further evaluation and monitoring of CVA. Patient History Medical History (Updated 09/20/20 @ 21:13 by EDGAR Power) Amputation toe Anxiety Chronic kidney disease COPD (chronic obstructive pulmonary disease) Coronary artery disease Current smoker Depression Diabetes Diverticulitis History of peritoneal dialysis Hyperlipidemia Hypertension Neuropathy Peripheral vascular disease Systolic heart failure Surgical History History of hand fracture History of tonsillectomy Family & Social History Family History (Updated 09/20/20 @ 23:26 by EDGAR Power) Father Congestive heart failure Diabetes mellitus Hyperlipidemia Hypertension Mother Stroke Social History: household members none Tobacco & Substance use: Tobacco type cigarettes Smoking Status Current every day smoker alcohol intake current alcohol intake frequency 0-2 drinks per day Substance Use Type marijuana Meds Home Medications and Allergies Home Medications Medication Instructions Recorded Confirmed Type Chantix 0.5 mg PO Q12H #0 10/09/17 09/20/20 History allopurinol 200 mg PO DAILY #0 10/09/17 09/20/20 History aspirin 81 mg PO QDAY #0 10/09/17 09/20/20 History cetirizine 10 mg PO DAILY #0 10/09/17 09/20/20 History glipizide [Glucotrol XL] 10 mg PO [facility] #0 10/09/17 09/20/20 History hydralazine 25 mg PO BID #0 10/09/17 09/20/20 History loratadine 10 mg PO QDAY #0 10/09/17 09/20/20 History metoprolol tartrate 100 mg PO BID #0 10/09/17 09/20/20 History pregabalin [Lyrica] 100 mg PO DAILY #0 10/09/17 09/20/20 History furosemide 120 mg PO DAILY 02/25/19 09/20/20 History atorvastatin 80 mg PO BEDTIME 09/20/20 09/20/20 History dulaglutide [Trulicity] 7.5 mg SUBCUT QWEEK 09/20/20 09/20/20 History insulin glargine [Basaglar KwikPen 60 unit SUBCUT DAILY 09/20/20 09/20/20 History U-100 Insulin] ipratropium-albuterol [Combivent 2 puff INHALATION DAILY 09/20/20 09/20/20 History Respimat] sertraline 200 mg PO DAILY 09/20/20 09/20/20 History Allergies Allergy/AdvReac Type Severity Reaction Status Date / Time BEE STINGS Allergy Severe Anaphylaxis Uncoded 02/26/19 00:29 Review of Systems Review of Systems ROS: Yes All systems reviewed with the patient and are negative except as otherwise documented Exam Narrative Exam Narrative: GENERAL APPEARANCE: well developed, chronically ill-appearing male who is briskly responsive, In no acute distress. HEENT: Right facial droop, no doses, PERRLA, conjunctiva clear, EOMs intact without nystagmus, no sinus tenderness to percussion, no rhinorrhea, speech appears clear without dysarthria, mucous membranes are moist and pink without lesions or exudate. NECK/THYROID: neck supple, no JVD, no carotid bruit, no thyromegaly, trachea midline. LYMPH NODES: no cervical or supraclavicular lymphadenopathy. SKIN: [place], warm and dry, no visible lesions, rashes, skin changes bilateral lower extremities. HEART: regular rate and rhythm, S1-S2, no murmur appreciated, no rubs or gallops, brisk capillary refill, no edema LUNGS: clear to auscultation bilaterally, no coarseness crackles or wheezing, no cough present CHEST: Symmetrical movement, no accessory muscle use, good tidal volume. ABDOMEN: Soft, round, mild distention, tympanitic to percussion upper and dull lower, mild left-sided abdominal tenderness, no organomegaly, no flank or suprapubic tenderness, active bowel tones. EXTREMITIES: moves all extremities, strength is 5/5 and symmetrical, no drift, no deformities or joint effusions. NEUROLOGIC: AAO x4, no aphasia, NIH score-2 (facial droop, dysarthria), sensation intact to light touch bilaterally, no ataxia, hearing grossly normal to speech. PSYCH: Good judgment, linear thought process, cooperative, stable behavior Assessment & Plan Assessment & Plan narrative: This is a 64-year-old male patient who presents to [facility] with right-sided facial droop and dysarthria. The patient cannot describe a discrete onset of symptoms but they have been present for greater than 24 hours. 1. CVA, acute, present on admission, active -NIH by the sending physician at [facility] was scored 3, NIH score upon arrival is 1 for facial droop. -the patient is not a candidate for tPA or leg appears to involve large territory vessel amenable to interventional procedure. -patient has multiple risk factors including uncontrolled diabetes, CAD, hyperlipidemia and hypertension. -CT scan from the sending facility was reported as negative for acute intracranial pathology. Patient has CKD with a creatinine of 2.[address] angiogram. -patient has been taking aspirin 81 mg daily, ordered addition of Plavix 75 mg daily. -will obtain brain MRI tomorrow and re-evaluate possibility of contrast pending updated creatinine level. -ordered echocardiogram in the morning. -requested PT, OT and ST evaluation. -will check lipid panel, hemoglobin A1c and TSH. 2. Congestive heart failure, systolic dysfunction, chronic, stable -patient has had progressive abdominal distention evaluated with abdominal ultrasound on 09/13/2020 finding no free abdominal fluid and increased liver echogenicity likely related to hepatic steatosis. -patient with history of congestive heart failure under the care of Dr. Watson. Last echocardiogram dated 10/26/2017 pt the patient have a reduced ejection fraction of 35-40% with global hypokinesis. No valvular disease noted. echocardiogram ordered. -patient takes Lasix 120 mg daily and appears grossly euvolemic with no peripheral edema and mucous membranes are pink and moist. -will obtain a proBNP and troponin. -IV is saline locked with strict I&Os and daily weights. 3. Chronic kidney disease stage 3, chronic, present on admission. -on last admission in March of 2019 patient had a creatinine of 2.3 and EGFR consistent with CKD stage 4. -on labs from [facility] patient had a BUN of 37 with a creatinine 2.0 with an EGFR of 34. -will avoid renal toxic agents and renally dose medications as indicated. -will recheck creatinine in consideration of contrast for MRI. -will monitor labs for renal function 4. Hyperkalemia, present on admission, unknown if acute or chronic -Patient with elevated potassium on admission at 5.2 in the setting is CKD stage 3. -patient typically takes Lasix 120 mg per day states he did not do so today. Ordered 40 mg of Lasix x1 now and will continue his usual daily dosing in the morning. -will recheck chemistries in the morning 5. Hypertension, present on admission, chronic Patient hypertensive with blood pressure documented from [facility] in the 140s to 150s. Blood pressure on arrival following transport is 135/104. -the patient did not take his morning dose Lasix stating he was ?too tired?. Patient received 40 mg Lasix IV x1 now. -will continue metoprolol tartrate 100 mg twice daily with dose to be given tonight. -will continue hydralazine 25 mg twice daily with dose given tonight. 6. Diabetes type 2, insulin dependent, with complications, present on admission, chronic. -patient with neuropathy bilateral lower extremities, will continue Lyrica 100 mg twice daily -patient states he is weaned down his glargine insulin from 60 units to 40 units. On chemistries from [facility] has a blood glucose of 212. -will continue patient's glargine at 40 units daily with fingerstick blood sugars a.c. and hs with correctional insulin low-dose range. -will follow glucose trends and manages needed -will obtain a hemoglobin A1c. 7. Hyperlipidemia, chronic, stable -Will continue patient's home regimen of atorvastatin 80 mg daily at bedtime. 8. Peripheral vascular disease, chronic, stable. -history of peripheral vascular disease having undergone vascular procedures bilateral lower extremities including balloon angioplasties. -patient with cool extremities to touch but brisk capillary refill without edema and chronic skin changes. 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 Yuen. Dressing is clean dry and intact, wound is not visualized. 9. Daily smoker, chronic, stable -patient endorses smoking greater than 1 pack per day for 53 years. -patient with COPD using Combivent inhaler. -patient has been taking Chantix and is quitting smoking having an occasional cigarette. -discussion reinforce continuation of smoking cessation. 10. Alcohol abuse, chronic -patient with hepatic steatosis likely alcohol related, no presents of ascites. Liver functions are within normal limits as his INR. -patient states he has quit drinking. VTE prophylaxis: Heparin IV fluid: Saline lock Diet: Status swallow eval then heart healthy of passing Code status: DNR, patient designates Giulia his daughter to be his surrogate decision maker. The patient is admitted due to the severity of symptoms requiring further monitoring and evaluation. The patient is admitted as observation with expected length of stay to be less than 2 midnights. Scores GCS Zhen coma scale eye opening: Spontaneous [place] coma scale verbal response: Orientated [place] coma scale motor response: Obey commands [place] coma scale total score: 15 NIHSS Level of Conciousness: Alert, keenly responsive Ask month/age: Answers both questions correctly. Open/close eyes, close hand: Performs both tasks correctly Best gaze horizontal: Normal Visual savage: No visual loss Facial palsy: Minor paralysis, flattened nasolabial fold, asymmetry on smiling Left arm drift: No drift for full 10 sec Right arm drift: No drift for full 10 sec Left leg drift: No drift for full 5 sec Right leg drift: No drift for full 5 sec Limb ataxia: Absent Sensory on face/arms/legs: Normal, no sensory loss Best language: No aphasia, normal Dysarthria: Mild to mod,some slurring Extinction or inattention: No abnormality Total NIH Stroke scale score: 2
--- NOTE | 2020-09-20 21:34 | DI.RAD.S_ITS ---
PROCEDURE: XR CHEST 1V INDICATIONS: flu-like symptoms TECHNIQUE: One view of the chest was acquired. COMPARISON: [facility], CR, XR CHEST 1V, 03/07/2019, 19:43. [facility], CR, XR CHEST 1V, 02/25/2019, 17:03. FINDINGS: Surgical changes and devices: None. Lungs and pleura: Lungs are clear on the right but at the retrocardiac left lower lobe there appears to be a region of mild alveolar consolidation consistent with pneumonia not previously present on the 3 comparison chest plain films.. No pleural effusions or pneumothorax. Mediastinum: Mediastinal contours appear normal. Heart size is normal. Bones and chest wall: No suspicious bony lesions. Overlying soft tissues appear unremarkable. IMPRESSION: Mild or early pneumonia retrocardiac left lower lobe. Dictated by: Austin Justice M.D. on 09/20/2020 at 22:09 Approved by: Austin Justice M.D. on 09/20/2020 at 22:09
[2020-09-20 21:50] VITALS: BP 135/104; PULSE 89; RESP 20; TEMP 37.3; O2SAT 94
[2020-09-20 22:33] LABS: Prothrombin Time 11.3 SECONDS (10.1-12.7)
[2020-09-20 22:35] LABS: Influenza A - CEPHEID Flu A NEGATIVE (NEGATIVE); Influenza B - CEPHEID Flu B NEGATIVE (NEGATIVE)
[2020-09-20 22:35] LABS: PTT Partial Thromboplastin Tim 35 SECONDS (26.4-36.2)
[2020-09-20 22:36] LABS: Magnesium 1.8 mg/dL (1.6-2.3)
[2020-09-20 22:48] LABS: NT-proBNP (BNP-Adult 18+) 4820 pg/mL (<125); Troponin I < 0.012 ng/mL (0.01-0.034)
[2020-09-20] MEDS: ATORVASTATIN 20 MG TABLET 80 MG PO (22:49)
[2020-09-20] MEDS: HEPARIN 5,000 UNIT/ML VIAL 5000 UNIT SUBCUT (22:49)
[2020-09-20 22:57] LABS: Hemoglobin A1C% w Est Avg Glu 8.6 % (4.0-6.0)
[2020-09-20 23:00] VITALS: BMI 28.6
[2020-09-20 23:02] LABS: COVID19 -Nasal RAPID Negative (Negative)
[2020-09-20] MEDS: INSULIN ASPART 100 UNIT/ML INSULN PEN SUBCUT (23:13)
[2020-09-20 23:28] LABS: Thyroid Stimulating Hormone 0.962 uIU/mL (0.47-4.68)
--- NOTE | 2020-09-20 23:29 | PC.NURSE ---
Patient came from [facility] via ambulance. A/Ox4. Patient self-reports a slur in his speech and a slight R lower facial droop is apparent. NIH scored at 3. Patient is on room air satting low 90's and says he would not use supplemental oxygen. Patient states he wants to be a DNR/DNI. Patient has discolored, scaly, dry skin and abrasions on both shins. There is a bandaid on his right [place] and blood noted on his pants on admission. Patient says he always has lots of wounds. He sees wound clinic for his right foot, which is bandaged. He has a ampulated R pinky toe and his second toe on L foot is amputated above the knuckle. Pedal pulses are palpable but feet are cool to touch. He has scars on his hands and arms, says he was leigh when he was younger. Patient is not forthright on social history and alcohol use. IV in R arm placed at [facility]. Initial swallow eval showed no problems with swallowing, able to take pills whole. Patient advised not to get out of bed and to use call light.
[2020-09-20 23:55] VITALS: BP 129/69; PULSE 84; RESP 16; TEMP 36.6; O2SAT 94
[2020-09-21] VITALS (10 sets, daily range): BP systolic 91–149; BP diastolic 51–75; PULSE 74–85; RESP 15–18; TEMP 36.1–37.2; O2SAT 89–94
[2020-09-21] MEDS: FUROSEMIDE 40 MG/4 ML VIAL IV (00:23)
[2020-09-21] MEDS: METOPROLOL IR 50 MG TABLET 100 MG PO (00:24)
[2020-09-21] MEDS: PREGABALIN 50 MG CAPSULE 100 MG PO ×2 (00:24→09:12)
[2020-09-21] MEDS: HYDRALAZINE 25 MG TABLET PO (00:24)
[2020-09-21 02:26] LABS: Free T4, Direct Thyroxine 0.94 ng/dL (0.78-2.19)
--- NOTE | 2020-09-21 06:46 | PC.NURSE ---
Addendum entered by Libertad Fink R.N. 09/21/20 06:56: pt off floor at [address] Original Note: During patient check, it was noted that the patient's speech was more slurred. NIH was repeated with an increase noted in slurred speech as well as new deficits of R leg drift, R mild sensory loss and new R arm and R leg weakness. NIH went from 3 to 5 due to these new findings. EDGAR Avila was notified of these changes. He ordered a STAT CT and assessed the patient.
--- NOTE | 2020-09-21 07:16 | DI.CT.S_ITS ---
PROCEDURE: CT HEAD/BRAIN WO CON INDICATIONS: extending stroke TECHNIQUE: Noncontrast 4.5 mm thick angled axial sections acquired from the foramen magnum to the vertex, with coronal and sagittal reformats. For radiation dose reduction, the following was used: automated exposure control, adjustment of mA and/or kV according to patient size. COMPARISON: [facility], CT, CT HEAD/BRAIN WO CON, 03/07/2019, 19:37. FINDINGS: Image quality: Excellent. CSF spaces: Basal cisterns are patent. No extra-axial fluid collections. The ventricles are symmetric in size and shape. Brain: No intracranial bleeds or masses. There is cerebral volume loss for age, with resultant ventricular and sulcal prominence. There are mild periventricular and deep white matter chronic small vessel ischemic changes. There is intracranial internal carotid artery atherosclerosis. Skull and face: Calvarium and visualized facial bones appear intact, without suspicious lesions. Sinuses: Visualized sinuses and mastoids are clear. IMPRESSION: 1. Age related volume loss and mild small vessel ischemic change. 2. No evidence acute stroke, hemorrhage, or mass. Dictated by: Aditya Rangel M.D. on 09/21/2020 at 7:18 Approved by: Aditya Rangel M.D. on 09/21/2020 at 7:20
[2020-09-21] MEDS: INSULIN GLARGINE 100 UNIT/ML 3ML PEN 60 UNIT SUBCUT (09:09)
[2020-09-21] MEDS: INSULIN ASPART 100 UNIT/ML INSULN PEN SUBCUT ×2 (09:10→12:33)
[2020-09-21] MEDS: SERTRALINE 50 MG TABLET 200 MG PO (09:11)
[2020-09-21] MEDS: LORATADINE 10 MG TABLET PO (09:11)
[2020-09-21] MEDS: HEPARIN 5,000 UNIT/ML VIAL 5000 UNIT SUBCUT ×2 (09:11→22:07)
[2020-09-21] MEDS: allopurinoL 100 MG TABLET 200 MG PO (09:11)
[2020-09-21] MEDS: FUROSEMIDE 40 MG TABLET 120 MG PO (09:12)
[2020-09-21] MEDS: CLOPIDOGREL 75 MG TABLET PO (09:12)
[2020-09-21] MEDS: ASPIRIN EC 81 MG TABLET PO (09:12)
[2020-09-21] MEDS: diazePAM 5 MG TABLET PO (09:47)
--- NOTE | 2020-09-21 10:24 | PC.NURSE ---
Addendum entered by Starla Hummel R.N. 09/21/20 14:32: Late Entry: Patient asked to use RN's on personal cell phone, explained that this was unable to happen. Patients blood pressure also low on the l.arm 78/53, 62 and r.arm 91/51. aware and ordered a NS bolus, this has been given. She is aware that blood pressure is low and she did round on patient. Addendum entered by Starla Hummel R.N. 09/21/20 14:24: Patient is being non compliant with speech therapy recommendations. He is coughing on thin liquids, and pieces of fruit. Alie up to see him and he called her a f&*ing idiot and that she did not know what she was doing! Patient refused his gaitbelt when ambulating to the bathroom, he wants to do everything by himself, and does understand that he may fall down. He has better use of his r.arm, after valium given, patient slurring his words more and unable to use his r.extremity as well. He is doing better but also has some difficulty lifting his r.leg up. Patient is miserable and not happy with any of staff caring for him. This RN has been encouraging to patient, helpful, and calm. He is doing better, he denies pain and is resting on his bed and watchging television after just working with physical therapy. Addendum entered by Starla Hummel R.N. 09/21/20 10:43: Patients NIH stroke scale a 4. He has some r.sided facial droop but speech is clear. He is doing decent with regular textures but did cough on ice water, stating that it was cold. His blood sugar was 160, speech therapy in to see patient and wonders if something may be wrong with his lungs. They were clear when auscultated this morning. Worked with OT and used a walker to get up. He has a dressing to his r.foot with a diabetic foot ucler and did not want the dressing bothered. Original Note: 0730- R[employer] STABILIZER Románcecy was doing care for patient and taking his vital signs and she told this RN that he was making comments about her bottom and that she better move it away, or he was going to slap it, and stated that he was not kidding.She felt uncomfortable and felt that this was inappropriate. MOISES Mansi then went into patients room and he was upset about something and greeted her rudly, and said f&*K. This RN went into patients room and explained to him that he is being inappropriate and should not talk to staff this way. He has been rude to every person that enters his room. Patient became agitated and hostile with this RN when trying to explain to him that he should be appropiate with staff. He asked for a cell phone and this RN stated that he could not use it, he then became more frustrated with me and said he was cut off. Patient wanted to use a phone senior bookkeeper. Talked to Charge Nurse who went in and talked with patient, he was still short and acting inappropriately. He did not want this nurse to take care of him, let the situation calm down for a while and talked with patient. He is okay now with his care and this nurse taking care of him. He also spoke rudely to the Hospitalist on today, asking her if she was a Doctor or a gunstock spray unit feeder because of her white lab coat. Patient can be manipulative at times, he had his echocardiogram, and was given 5mg of diazepam for his MRI, which he is now at. Staff has been more than appropriate to patient.
--- NOTE | 2020-09-21 10:30 | OT.IP.EVAL ---
Past Medical History (Last Updated 09/20/20 @ 21:13 by EDGAR Power) Amputation toe Anxiety Chronic kidney disease COPD (chronic obstructive pulmonary disease) Coronary artery disease Current smoker Depression Diabetes Diverticulitis History of peritoneal dialysis Hyperlipidemia Hypertension Neuropathy Peripheral vascular disease Systolic heart failure Surgical History (Last Reviewed 03/07/19 @ 19:58 by Vonnie Levi DO) History of hand fracture History of tonsillectomy Occupational Therapy Inpatient Evaluation/Re-Eval M1 PT/OT-IP Prior Functional Status Start: 09/21/20 12:13 Freq: NEEDED Status: Active Protocol: Document 09/21/20 12:13 [facility] (Rec: 09/21/20 13:02 [facility] [id number]) Medical Review Prior Functional Status Medical History Reviewed Yes Communication Independent Activities of Daily Living and IADL's Pt states was completely independent for all his ADL, IADL,and driving. Social History Household Members none Living Arrangements House Number of Floors (Floors) One Floor Number of Stairs To Enter/Railing? Pt states has 2 steps and left rail for ascending up the steps. Home Environment Standard Height Toilet,Walk in Shower Home Equipment Front Wheel Walker,Radiologist Diagnostic, Sock Aid Additional Social History Comment Pt states recently has been sleeping on his couch and gets up on his left side. Pt also mentions for the past three days does do well in the morning and then declines in the afternoon. M2 OT-IP Current Condition Start: 09/21/20 12:13 Freq: Status: Active Protocol: Document 09/21/20 12:13 [facility] (Rec: 09/21/20 13:02 [facility] [id number]) Occupational Therapy Current Condition Current Condition Evaluation Date 09/21/20 Treatment Diagnosis CVA Diagnosis Onset Date 09/20/20 M3 OT- IP Subjective and Pain Start: 09/21/20 12:13 Freq: Status: Active Protocol: Document 09/21/20 12:13 [facility] (Rec: 09/21/20 13:02 [facility] [id number]) OT- Subjective Occupational Therapy Visit Type Type Initial Evaluation Visit Start Time 10:09 Visit Stop Time 10:30 Total Visit Minutes 26 Notes Pt also seen from [id number]. OT eval cut short as pt having to go to MRI. Occupational Therapy Visit Comments Patient Comments Pt agreed to do OT eval but warned OT that he can be inappropriate and short at times Patient/Caregiver Goals To go home. OT Pain Assessment Pain When Pain Assessed At Rest Pain Present Pain Present Denied Pain M4 OT- IP ADL's Start: 09/21/20 12:13 Freq: Status: Active Protocol: Document 09/21/20 12:13 [facility] (Rec: 09/21/20 13:02 [facility] [id number]) OT [id number] Comments OT Self-Feeding Comments Not at meal time. OT ADL-Grooming Comments OT Grooming Comments Not performed. OT ADL-Oral Care Comments Oral Care Comments Nor performed. OT ADL-Dressing Comments OT Dressing Comments Pt able to initiate to reach forwards to lopez his left sock and then stopped half way before completing the task. Pt states, Oh I can just do it . OT ADL-Toileting Comments OT Toileting Comments Pt not having to use go at this time. OT ADL-Bathing Comments OT Bathing Comments Not performed. M5 OT- IP IADL's Start: 09/21/20 12:13 Freq: Status: Active Protocol: Document 09/21/20 12:13 [facility] (Rec: 09/21/20 13:02 [facility] [id number]) OT-Instrumental Activities of Daily Living Home Safety Awareness Awareness of Need for Assistance at Home Decreased Awareness Home Safety Comments Pt having decreased insight on his disabilities and at this time if having to go home would be best have someone stay to assist him 21/05 and is impulsive. M6 OT- IP Functional Cognition Start: 09/21/20 12:13 Freq: Status: Active Protocol: Document 09/21/20 12:13 [facility] (Rec: 09/21/20 13:02 [facility] [id number]) Cognitive Factors Limiting Selfcare Function Cognitive Ability Level of Alertness Alert Patient Orientation Name,Place,Situation Attention Span Ability Capable of Focused Attention, Capable of Sustained Attention Ability to Follow Commands Able to Follow One Step Commands Safety Awareness Underestimates Need for Assistance Problem Solving Ability Unable to Identify Errors, Needs Assist to Identify Solutions Cognitive Comments Cognitive Assessment Comments Pt to follow commands and does not feel that that he has any deficits this morning. Pt however when seen around lunch time aware that his right arm not moving as well and attributes it to the nursing just giving him medications. OT- Vision and Hearing OT- Vision Assessment Vision Assessment Comments Not able to complete assessment to do tomorrow. M7 OT- IP Mobility and Balance Start: 09/21/20 12:13 Freq: Status: Active Protocol: Document 09/21/20 12:13 [facility] (Rec: 09/21/20 13:02 [facility] [id number]) OT- Bed Mobility Assessment Rolling Type of Rolling Roll to Left Level of Assistance Moderate Assistance Supine to Sit Supine to Sit Assist Minimal Assistance,Moderate Assistance OT-Transfer Assessment Sit to and From Stand Sit to and from Stand Minimal Assistance Transfers Transfer Ability Minimal Assistance Technique Transfer Destination Bed,Wheelchair Transfer Technique Stand Step Pivot Devices Transfer Assistive Devices Gait Belt,Front Wheeled Walker Comments Mobility Comments Pt having difficulty to getting out of bed and needing vc to log roll and and PITO/ MOD a to help get upright. Pt to stand with cga to FWW and able to place his hands on the walker and PITO for balance as leaning to the right when transferring to the . Pt insistent on not wearing the gait belt, therapist able to assist to hold him at the gown and hips for his balance. OT- Gait Assessment Comments Gait Ability Comments Just transfer performed at this time. OT- Balance Assessment Sitting Balance and Reactions Static Sitting Balance Ability Good Dynamic Sitting Balance Ability Fair Standing Balance and Reactions Static Standing Balance Ability Poor M8 OT- IP Objective Assessments Start: 09/21/20 12:13 Freq: Status: Active Protocol: Document 09/21/20 12:13 [facility] (Rec: 09/21/20 13:02 [facility] [id number]) OT Gross Range of Motion Upper Extremity Range of Motion Assessment Right Impaired ROM Impairments This AM, RUE only impaired at end range. But at lunch time , pt not using his right hand and unable to lift it off the bed without assist from the left hand. Nursing notified on the change. Athritic changes in hands and Dupuytren's contractures in bilateral hands noted. OT Strength Upper Extremity Strength Assessment Right Impaired Comments Strength Comments RUE in AM 3-/5 to 4-/5 from proximal to distal, in PM 2-/5 to 2+/5. OT- Coordination Assessment Upper Extremity Finger to Nose Test Right UE Impaired Comments Coordination Comments Slight misalignment when use of right finger to touch his nose. OT Sensation Assessment Comments Summary Comments IN AM intact for sensation, kinesthesia, and proprioception. To reassess fully pt's right arm tomorrow. Pt not wanting to do any further OT eval this time until able to talk to the doctor. Edema Edema Absent M9 OT- IP Assessment and Plan Start: 09/21/20 12:13 Freq: Status: Active Protocol: Document 09/21/20 12:13 [facility] (Rec: 09/21/20 13:02 [facility] [id number]) OT Summary Assessment and Plan Potential Rehabilitation Potential Good Analytic Complexity at Evaluation Low Summary OT Impairments Strength,Balance,Coordination, Functional Cognition, Functional Mobility,Self- Feeding,Grooming,Dressing, Toileting,Bathing,Toilet Transfers,Shower Transfers, Activity Tolerance Progress Towards Goals Slow Progress due to Medical Issues,Slow Progress due to Activity Tolerance,Slow Progress due to Cognition Assessment Summary Pt low complexity and here due to CVA with right weakness. Pt's main barriers are steps, decreased balance, functional use of RUE, and now needing assist for all adl and functional mobility needs. Pt having decreased insight to his needs at this time and insistent on going home and that his daughter can fly up to stay with him. Per OT either acute rehab versus skilled rehab pending medical progression off CVA. Goals Self-Feeding Goal Independent Grooming Goal Independent Dressing Goal Independent Toileting Goal Independent Bathing Goal Independent Toilet Transfer Goal Independent Shower Transfer Goal Independent Days to Meet Goals 25 Frequency of Treatment Frequency Of Treatment Once a Day Treatment Plan OT Treatment Plan ADL Training,Functional Cognition Training,Functional Mobility,Neuromuscular Re- education,Patient/Family Education,Discharge Planning Other Treatment Recommendations and Next Reassess RUE, vision in Treatment Focus addition to adl and functional mobility. Discharge Recommendations OT Discharge Recommendations SNF Rehab,Acute Rehab Home Equipment Needs defer to SNF versus acute rehab Transportation Needs at Discharge Private Vehicle,Wheelchair/ Cabulance
--- NOTE | 2020-09-21 11:42 | PT-IP ANOTE ---
Attempted to see pt at 1120 but pt refused. Pt was sitting up on L side EOB upon arrival. Pt requested to use the bathroom. Pt refused to wear gait belt. Pt attempted to direct his own care. Pt demonstrated unilateral weakness on the RUE and RLE. Pt amb to the bathroom with FWW. Pt was very unstable during amb. In the bathroom, pt kept losing balance to the R and had to lean against the wall and use grab bars to sit down on toilet. Pt was not able to void. Pt needed help to stand up from toilet and agreed to use the gait belt for more assistance. Pt had difficulty with lifting and putting his R hand on the FWW. Pt amb back to bed and wanted gait belt off right away. Pt lied supine in bed. Bed alarm activated. Call light placed within reach. Pt refusing evaluation at this time and agreed to be checked on later.
--- NOTE | 2020-09-21 12:56 | ST.IPCSEOM ---
Visit Care Team Role Provider Type EDGAR [facility] La [facility] Family Provider Non-Staff Primary Care Provider Specialty: Medical Address: [address] [place] [address], [id number] Email: EDGAR Power Admit Provider Physician Attending Provider Referring Provider Specialty: Internal Medicine Address: [address] [place] [address], [id number] Email: [email or web address] Past Medical History (Last Updated 09/20/20 @ 21:13 by EDGAR Power) Amputation toe (Medical) Anxiety (Medical) Chronic kidney disease (Medical) COPD (chronic obstructive pulmonary disease) (Medical) Coronary artery disease (Medical) Current smoker (Social Hx) Depression (Medical) Diabetes (Medical) Type 2 diabetes mellitus, insulin dependent Diverticulitis (Medical) History of peritoneal dialysis (Medical) Hyperlipidemia (Medical) Hypertension (Medical) Neuropathy (Medical) Peripheral vascular disease (Medical) Systolic heart failure (Medical) Speech-Language Pathology Swallow Evaluation DOCTOR OF PODIATRY Clinical Swallow Evaluation Start: 09/21/20 12:18 Freq: Status: Active Protocol: Document 09/21/20 12:19 [facility] (Rec: 09/21/20 12:56 [facility] [id number]) Clinical Swallow Evaluation Session Time Visit Start Time 08:50 Visit Stop Time 09:15 Total Visit Minutes 25 Visit Information Visit Number 1 Referral Referring Provider EDGAR Power Setting Assessment Location Acute Care Visit Type Note Type Initial evaluation Patient Information Identification Type Name,Wristband History Per H&P notes: Mr. Juan Carlos Montalvo is a 64-year-old male patient who is a current smoker with a past medical history of hypertension, hyperlipidemia, CAD PVD, COPD, diabetes type 2 with peripheral, diverticulitis CKD stage III, depression and anxiety who presented to [facility] ER with his daughter with chief complaint of slurred speech. Patient lives alone and his daughter spoke with him 2 days ago at which time his speech was normal. Patient self reports that his right sided weakness and his right leg gave out on him yesterday. Upon arrival of EMS the find right-sided facial droop also noted in the patient's asthma at [facility], NIH score upon arrival was 3 (E facial palsy- 2, dysarthria-1). The patient has no prior history of CVA and denies any focal numbness or weakness. He reports no complaints of headaches, visual changes or trauma. He has had no recent illness and denies diaphoresis nausea or vomiting. The patient refused admission to [facility] and requested transfer to [facility]. Subjective Observations Pt was in bed semi-reclined with breakfast tray. Repositioned pt upright in bed for meal Reported by Patient Other Symptoms Food gets stuck Comment Pt reported that foods pocket on the right side. He uses his finger to remove the residue. Current Diet Regular Baseline Feeding Method Independent in self-feeding Objective Assessment Mental Status Alert,Responsive,Cooperative Oral Integrity WFL Dentition Upper dentures/partials,Lower dentures/partials,Adequate denture or partial fitting Lip Function Moderate impairment Observation of Lips at Rest Right sided weakness/Drooping Pucker Right sided weakness/drooping Lip Retraction Reduced range of motion,Right sided weakness/Drooping Alternating Pucker/Lip Retraction Reduced range of motion, Incoordination Tongue Function Mild impairment Tongue Protrusion Within normal limits Tongue Retraction Within normal limits Tongue Lateralization Within normal limits Comment Pt presented with right facial droop. Reduced range of motion on the right side for diadochokinetic assessment for both tongue and lips. Labial strength with cheeks puffed was WFL. Jaw strength WFL. Speech production demonstrated minimal dysarthria. Some multisyllabic words required the pt to spontaneously slow speech production slightly. Speech was 100% intelligible. Food and Liquid Trials Position During Assessment Slightly reclined Liquids Trialed Thin Solids Trialed Mechanical Soft,Regular Administration Type Self-feeding Oral Impairment Mildly impaired Oral Phase Comments Pocketing on the right buccal cavity. Pt spontaneously cleared residue either with a tongue sweep or using his finger to clear the residue. Pt aware of the pocketed residue. Pharyngeal Impairment Within functional limits Pharyngeal Phase Comments Pt observed to take multiple medications with thin liquids all at one time without difficulty. Hyolaryngeal elevation WFL per palpation. No wet voicing, not cough/ choke observed. No overt s/sx aspiration noted. Response/Comments Swallowing appeared to be WFl with the exception of right side pocketing, which pt is aware of and spontaneously clears. Findings Swallowing Function Oral phase dysphagia Swallowing Function Comments mild oral phase dysphagia Severity of Swallow Impairment Within functional limits Contributing Factors to Swallow Reduced oral strength/ Impairment coordination/sensation, Excessive oral residue Prognosis Fair Based on Other (comment) Recommendations Instrumental Assessment No Swallowing Treatment Yes Recommended Solids Regular Recommended Liquids Thin Safety Precautions/Swallowing Remain upright (90 degrees) Recommendations during all oral intake,Upright position at least 30 minutes after meals,Slow rate; swallow between bites,Strict oral care after intake,Check for pocketing Education Patient/Caregiver Education Described results of evaluation,Patient expressed understanding of evaluation, Patient expressed understanding of safety precautions Goals Long-term Goals pt will safely tolerate the least restrictive diet for hydration and nutrition needs without overt s/sx aspiration.
[2020-09-21] MEDS: SODIUM CHLORIDE 0.9% 1,000 ML 1000 ML IV (13:00)
--- NOTE | 2020-09-21 15:50 | PT.IIE ---
Surgical History (Last Reviewed 03/07/19 @ 19:58 by Vonnie Levi DO) History of hand fracture History of tonsillectomy Medical History (Last Updated 09/20/20 @ 21:13 by EDGAR Power) Amputation toe Anxiety Chronic kidney disease COPD (chronic obstructive pulmonary disease) Coronary artery disease Current smoker Depression Diabetes Diverticulitis History of peritoneal dialysis Hyperlipidemia Hypertension Neuropathy Peripheral vascular disease Systolic heart failure Physical Therapy Inpatient Evaluation/Re-Eval M1 PT/OT-IP Prior Functional Status Start: 09/21/20 12:13 Freq: NEEDED Status: Active Protocol: Document 09/21/20 12:13 [facility] (Rec: 09/21/20 13:02 [facility] [id number]) Medical Review Prior Functional Status Medical History Reviewed Yes Communication Independent Activities of Daily Living and IADL's Pt states was completely independent for all his ADL, IADL,and driving. Social History Household Members none Living Arrangements House Number of Floors (Floors) One Floor Number of Stairs To Enter/Railing? Pt states has 2 steps and left rail for ascending up the steps. Home Environment Standard Height Toilet,Walk in Shower Home Equipment Front Wheel Walker,Psychologist Social, Sock Aid Additional Social History Comment Pt states recently has been sleeping on his couch and gets up on his left side. Pt also mentions for the past three days doesn't feel well in the morning and then declines in the afternoon. M2 PT-IP Current Condition Start: 09/21/20 08:44 Freq: NEEDED Status: Active Protocol: Document 09/21/20 14:40 [facility] (Rec: 09/21/20 15:40 [facility] [id number]) Physical Therapy Current Condition Current Condition Evaluation Date 09/21/20 Treatment Diagnosis Stroke; Difficulty with walking. Onset Date 09/20/20 M3 PT-IP Subjective Start: 09/21/20 08:44 Freq: NEEDED Status: Active Protocol: Document 09/21/20 14:40 [place] (Rec: 09/21/20 15:40 DE [id number]) Subjective Physical Therapy Visit Type Type Initial Evaluation Visit Start Time 13:56 Visit Stop Time 14:25 Total Visit Minutes 18 Notes SPT Deandre led session under direct supervision of PT Melba throughout the entire session. Number of [employer] ROLLER OPERATOR Visits 0 Physical Therapy Visit Comments Patient Comments I am the boss here. Don't tell me what to do. Don't put the gait belt on me. M4 PT-IP Mobility and Gait Start: 09/21/20 08:44 Freq: NEEDED Status: Active Protocol: Document 09/21/20 14:40 [place] (Rec: 09/21/20 15:40 [place] [id number]) PT-Transfer Assessment Sit to and From Stand Sit to and from Stand Contact Guard Assistance,Use of Upper Extremities Equipment Transfer Assistive Device Gait Belt,Front Wheeled Walker Orthotic/Prosthetic Devices or Brace: No Transfers Transfer Destination Bed,Chair Transfer Technique Stand Step Pivot Transfer Ability Level of Assist Contact Guard Assistance Comments Mobility Comments Pt was sitting up on L EOB with Dr. Masters in the room as PT and SPT arrived. Dr. Masters was finishing up her examination and handed pt off to PT and left the room shortly. PT asked pt to wear gait belt but pt refused very strongly. Pt wanted to demonstrate he can amb without gait belt. Pt then did sit to stand, amb ~3 ft to chair, and sat down with FWW CGA. Pt was very unsteady. Pt demonstrated ataxic step- through gait pattern with several gait deviations including decreased stride length, decreased feet clearance, flexed trunk, flexed knees, inconsistent steps, and drift to the L. Pt agreed to wear gait belt but was very unhappy about it. Pt continued to attempt to direct his own care. Pt did not want PT to put hand on the gait belt. Pt then amb ~80 ft around foot of bed, in the hallway, and back to the room with FWW CGA. Pt demonstrated poor balance, poor stability, impulsivity, and poor safety awareness with LOB a few times . Pt amb back to the room and sat down on the L side EOB. Pt wanted to remain seated at EOB. Bed alarm activated. Call light placed within reach. Gait Assessment Gait Gait Assistance Required: Contact Guard Assist Distance (Feet) 80 Assistive Devices Assistive Device Gait Belt,Front Wheeled Walker Orthotic/Prosthetic Devices or Brace: No Gait Deviations General Gait Pattern Ataxic,Decreased Stride Length ,Decreased Feet Clearance, Flexed Trunk,Narrow Based Gait ,Wide Based Gait Factors Limiting Gait Function Factors Limiting Gait Function Decreased Activity Tolerance, Decreased Strength,Difficulty Following Directions, Incoordination,Limited Range of Motion,Poor Balance,Poor Safety Awareness Comments Gait Comments See mobility comments. Stair Climbing Assessment Comments Stair Climbing Comments Not assessed. PT-Balance Assessment Sitting Balance and Reactions Static Sitting Balance Ability Normal Dynamic Sitting Balance Ability Good Standing Balance and Reactions Static Standing Balance Ability Fair Dynamic Standing Balance Ability Poor M5 PT-IP Objective Assessments Start: 09/21/20 08:44 Freq: NEEDED Status: Active Protocol: Document 09/21/20 14:40 [place] (Rec: 09/21/20 15:40 DE [id number]) Orientation Orientation/Cognition Level of Alertness Alert Orientation Name,Age,Birthday,Month,Date, Year,Day of Week,Place, Situation Language Function Ability Garbled Speech Safety Awareness Decreased Safety Awareness Memory Description No Deficits Noted Comments Pt is alert but very impulsive and very easily agitated. Gross Range of Motion Upper Extremity ROM Assessment Right Impaired Lower Extremity ROM Assessment Bilaterally Impaired Impairments More weakness noted on RLE Strength Upper Extremity Strength Assessment Bilaterally Impaired Shoulder R 4-/5, L 4/5 Lower Extremity Strength Assessment Bilaterally Impaired Hip R 3+/5, L 4-/5 Comments Strength Comments Pt demonstrated unilateral weakness on R side. Coordination Assessment Gross Coordination Gross Coordination Impaired Assessment Finger to Nose Test Moderate Impairment Pronation/Supination Test Minimal Impairment Foot Tapping Test Minimal Impairment Heel on Blanca Test Moderate Impairment Coordination Comments Pt demonstrated difficulty with R finger to nose test and heel to blanca test. Pt was unable to perform foot tapping with R foot d/t his diabetic toes. Sensation Assessment Sensation Gross Sensation WNL Light Touch Intact Muscle Tone Muscle Tone WNL Yes M6 PT-IP Treatment Start: 09/21/20 08:44 Freq: NEEDED Status: Active Protocol: Document 09/21/20 14:40 [place] (Rec: 09/21/20 15:40 DE [id number]) Physical Therapy Treatment Education Education Provided Safety Other Treatments Other Treatment Performed Pt was educated on safety and role of PT. M7 PT-IP Assessment and Plan Start: 09/21/20 08:44 Freq: NEEDED Status: Active Protocol: Document 09/21/20 14:40 [place] (Rec: 09/21/20 15:40 DE [id number]) PT Summary Assessment and Plan Potential Rehabilitation Potential Poor Status of Condition at Evaluation Unstable Summary Impairments Pain,ROM,Strength,Balance, Coordination,Bed Mobility, Transfers,Gait,Activity Tolerance Assessment Summary Juan Carlos is a 64 yo male who was admitted to the hospital for stroke involving R sided weakness. PMH includes CHF, chronic kidney disease, HTN, diabetes, peripheral vascular disease. At baseline, pt was IND for all mobility, amb, ADLs, and IADLs including driving without AD. On evaluation, pt required CGA for all mobility, transfers, and amb with use of FWW. Although it was CGA because of pt preference, 1P min assist would be more appropriate for safety. Pt is extremely unsteady on his feet. Pt requires encouragement participate with therapy and likes to direct his own care. Pt is also very impulsive and demonstrates decreased safety awareness. Pt is not safe for d/c at this time d/t lack of support and extremely high fall risk. Pt needs 24/7 assistance. PT recommends SNF or acute rehab to improve balance and activity tolerance while receiving assistance. PT communicated with pt regarding d/c recommendation but he is strongly against going to somewhere other than home. PT will continue to assess and refine d/c recommendation. Goals Bed Mobility Goal Standby Assistance Transfer Goal Standby Assistance Gait Goal Standby Assistance Gait Distance 200 Other Goals 2 CHRISTIANO with L railing for going up. Days to Meet Goals 5 Frequency of Treatment Frequency Of Treatment Twice a Day Treatment Plan Physical Therapy Treatment Plan Bed Mobility Training,Transfer Training,Gait Training, Therapeutic Exercise,Balance Retraining,Discharge Planning, Hot or Cold Pack,Neuromuscular Re-ed,Coordination Retraining Recommendations To Nursing Amount of Assist Needed 1 Person Assist Discharge Recommendations PT Discharge Recommendations Home with Assistance,Home Health,SNF Rehab Transportation Needs at Discharge Private Vehicle,Wheelchair/ Cabulance Treatment was provided by Deandre Maxwell, SPT and supervised by Melba Davis, PT. I personally reviewed this note and agree with its contents.
--- NOTE | 2020-09-21 16:04 | ST.IPDYTX ---
Visit Care Team Role Provider Type EDGAR De La Rosa Family Provider Non-Staff Primary Care Provider Specialty: Medical Address: [address] [place] [address], [phone] Email: EDGAR Power Admit Provider Physician Attending Provider Referring Provider Specialty: Internal Medicine Address: [address] [place] [address], [id number] Email: [email or web address] STITCHER TAPE CONTROLLED MACHINE Dysphagia Treatment STITCHER TAPE CONTROLLED MACHINE Dysphagia Treatment Start: 09/21/20 15:37 Freq: Status: Active Protocol: Document 09/21/20 15:37 JASON (Rec: 09/21/20 16:04 JASON [id number]) Dysphagia Treatment Session Time Visit Start Time 12:50 Visit Stop Time 13:15 Total Visit Minutes 25 Setting Assessment Location Acute Care Visit Type Note Type Treatment Note Patient Information Identification Type Name,ID Card Subjective Observations STITCHER TAPE CONTROLLED MACHINE was requested by Nsg to re -evaluate the pt's swallow function/safety as he was observed by both Nsg and OT to cough with intake of liquids. OT and PT reported observing decreased physical strength and coordination over the course of the day. Upon STITCHER TAPE CONTROLLED MACHINE arrival, the pt was reclined ~45 degrees in his bed, watching TV and eating his lunch. He questioned why he was being assessed by so many people and stated he already saw someone who talked to him about swallowing. STITCHER TAPE CONTROLLED MACHINE explained that pts with symptoms of CVA receive extensive evaluations to protect and treat them. The pt reluctantly allowed the clinician to elevate HOB upright and to take limited trials. Throughout the session, he became increasingly uncooperative, raising his voice and eventually using profanity. Treatment Liquids Trialed Thin,Lula Solids Trialed Mechanical Soft Administration Type Cup Single Sip,Cup Consecutive Sips,Straw,Self-Feeding Oral Strategies Upright at 90 degrees,Lingual Sweep,Controlled Bite/Sip Size Pharyngeal Strategies Sitting Upright (90 deg),Small Bites and Sips Treatment Activities Prior to intake of oral trials, the pt appeared to be chewing what was assumed to be residue from earlier intake. However, upon visualization of oral cavity, only minimal residue was present. The pt consumed 2 bites of stew without overt s/sx of aspiration and minimal oral residue, no pocketing. Again, he appeared to be chewing food but no food was observed in his mouth. He consumed NTL ( tomato juice) in single and consecutive sips without overt s/sx of aspiration. He then consumed thin liquid both from straw and cup and exhibited immediate strong cough in the majority of sips. In two instances, coughing started prior to completion of swallow , indicating early escape to pharynx and mago aspiration. The pt self-fed with left hand with moderate difficulty. He exhibited significant weakness of RUE, barely able to lift his hand from bed to table and unable to assist holding glass with right hand. He stated he was ambidextrous. The pt was educated in aspiration risks and precautions, including upright vs reclined position and thin vs thickened liquids. When thin liquid was removed from his tray, the pt became increasingly angry and stated that he didn't cough when he was reclined and comfortable; that he was unable to swallow well when sitting upright. He was reclined to original position and provided same thin liquid. He immediately resumed coughing after intake, and the liquid was removed for his safety. Again the pt was informed of aspiration risks, including pneumonia, and of recommendation for NTL. He responded, Just because that's your recommendation doesn't mean I have to follow it and he requested ice water. When the STITCHER TAPE CONTROLLED MACHINE asked for confirmation that he understood the aspiration risks and potential consequences, he responded, I understand. You told me four times. You're a f idiot. Assessment Patient Response to Treatment Poor Rehab Potential Fair Assessment of Improvement The pt presents with pharyngeal dysphagia characterized by mago aspiration of and consistent coughing with thin liquids. He verbalized understanding aspiration risks, including pneumonia, and refused to follow STITCHER TAPE CONTROLLED MACHINE orders for modified diet. The pt was noncompliant and verbally inappropriate. Will discharge pt from STITCHER TAPE CONTROLLED MACHINE services for now and re-assess as needed. Diet Recommendations Recommendations Downgrade Liquid Order Liquids Order Lula Diet Order Dysphagia Advanced Medication Recommendations Whole in Carrier Aspiration Precautions Recommended Precautions Upright at 90 Degrees,Small Bites/Sips Treatment Plan Placement Recommendation after Discharge Nursing Home Facility Appropriate for Continued Therapy No: Pt is non-compliant and uncooperative Therapy Recommendations SNF placement with dysphagia therapy is recommended for ongoing assessment and treatment as indicated, if pt will comply.
--- NOTE | 2020-09-21 16:12 | PC.NURSE ---
Addendum entered by Lina Gill R.N. 09/21/20 18:46: Pt. complied with NIH assessment. Also walked in hallway with ROLLER MACHINE OPERATOR, using walker and gait belt. Unsteady. Original Note: EVENING SHIFT: Report received, care assumed 1530. Transfer of care at bedside. Pt. sitting on edge of bed, grumbling and contradictory. Said he doesn't have to answer any of our questions (specifically, NIH stroke scale); I acknowledge that, of course, he is a self-governing adult who has the right to decline. Denies pain, any other needs, at this time.
--- NOTE | 2020-09-21 18:28 | PM.PN.1 ---
Subjective Subjective Date Patient Seen: 09/21/20 Interval history: Patient is a 64-year-old male who was admitted to the hospital for right arm weakness right facial weakness with a presumed acute stroke Patient underwent MRI of the brain this morning which confirmed a left pontine stroke. He continues to have some difficulty with speech. Exam Vital Signs (past 8 hours): - 09/21/20 11:48 09/21/20 14:49 09/21/20 15:05 Temperature 98.0 F 97.1 F L Pulse Rate 76 76 79 Respiratory Rate 16 16 18 Blood Pressure 91/51 L 149/65 H Pulse Oximetry 91 91 91 Oxygen Delivery Method Room Air Oxygen Flow Rate 0 Narrative Exam Narrative: Ill-appearing male lying in bed Lungs: Clear to auscultation Cardiac exam: Regular rate and rhythm normal S1-S2 Abdomen: Soft nontender nondistended Extremities: No edema Neuro exam: Noted for right facial droop, right arm weakness, dysmetria on the right NIHSS Score: 3, secondary to right facial droop and dysmetria Objective Labs Labs: Laboratory Results - last 24 hr 09/20/20 09/20/20 09/20/20 22:10 22:10 22:15 PT 11.3 INR 1.0 APTT 35 Hemoglobin A1c Magnesium Troponin I NT-Pro-B Natriuret Pep TSH Free T4 COVID-19 PCR Negative Influenza A (RT-PCR) Flu a negative Influenza B (RT-PCR) Flu b negative 09/20/20 09/20/20 09/20/20 22:15 22:15 22:15 PT INR APTT Hemoglobin A1c 8.6 H Magnesium 1.8 Troponin I < 0.012 NT-Pro-B Natriuret Pep 4820 H TSH 0.962 Free T4 COVID-19 PCR Influenza A (RT-PCR) Influenza B (RT-PCR) 09/20/20 22:15 PT INR APTT Hemoglobin A1c Magnesium Troponin I NT-Pro-B Natriuret Pep TSH Free T4 0.94 COVID-19 PCR Influenza A (RT-PCR) Influenza B (RT-PCR) [facility] Medical History (Updated 09/20/20 @ 21:13 by EDGAR Power) Amputation toe Anxiety Chronic kidney disease COPD (chronic obstructive pulmonary disease) Coronary artery disease Current smoker Depression Diabetes Diverticulitis History of peritoneal dialysis Hyperlipidemia Hypertension Neuropathy Peripheral vascular disease Systolic heart failure Surgical History History of hand fracture History of tonsillectomy Family History (Updated 09/20/20 @ 23:26 by EDGAR Power) Father Congestive heart failure Diabetes mellitus Hyperlipidemia Hypertension Mother Stroke Social History household members: none Smoking Status: Former smoker alcohol intake: current Assessment & Plan Assessment & Plan narrative: CVA, acute, present on admission, active -NIH by the sending physician at [facility] was scored 3, NIH score upon arrival is 1 for facial droop. -the patient is not a candidate for tPA or leg appears to involve large territory vessel amenable to interventional procedure. -patient has multiple risk factors including uncontrolled diabetes, CAD, hyperlipidemia and hypertension. -CT scan from the sending facility was reported as negative for acute intracranial pathology. Patient has CKD with a creatinine of 2.[address] angiogram. -patient has been taking aspirin 81 mg daily, ordered addition of Plavix 75 mg daily. -MRI confirmed: Mild microvascular atherosclerotic change in the deep white matter of each hemisphere. There is a small 8 by 11 mm focus of acute or subacute ischemic injury involving the pontomedullary junction at its midline/left paramedian region without mass effect or associated hemorrhage. This cannot be identified on recent prior CT scanning. -echo reveals decreased ejection for of 30-35% worse since previous -patient with global hypokinesia -will continue Plavix 2. Congestive heart failure, systolic dysfunction, chronic, stable -patient has had progressive abdominal distention evaluated with abdominal ultrasound on 09/13/2020 finding no free abdominal fluid and increased liver echogenicity likely related to hepatic steatosis. -patient with history of congestive heart failure under the care of Dr. Watson. Last echocardiogram dated 10/26/2017 pt the patient have a reduced ejection fraction of 35-40% with global hypokinesis. No valvular disease noted. echocardiogram ordered. -patient takes Lasix 120 mg daily and appears grossly euvolemic with no peripheral edema and mucous membranes are pink and moist. -will obtain a proBNP and troponin -patient developed hypo tension earlier today -there was concern regarding progression of his stroke, this likely resume lately to Valium needed for MRI -Lasix held, patient given 1 L of saline -blood pressure improved -will continue to monitor closely 3. Chronic kidney disease stage 3, chronic, present on admission. -on last admission in March of 2019 patient had a creatinine of 2.3 and EGFR consistent with CKD stage 4. -on labs from [facility] patient had a BUN of 37 with a creatinine 2.0 with an EGFR of 34. -will avoid renal toxic agents and renally dose medications as indicated. -will recheck creatinine in consideration of contrast for MRI. -will monitor labs for renal function 4. Hyperkalemia, present on admission, unknown if acute or chronic -Patient with elevated potassium on admission at 5.2 in the setting is CKD stage 3. -patient typically takes Lasix 120 mg per day states he did not do so today. Ordered 40 mg of Lasix x1 now and will continue his usual daily dosing in the morning. -will recheck chemistries in the morning 5. Hypertension, present on admission, chronic Patient hypertensive with blood pressure documented from [facility] in the 140s to 150s. Blood pressure on arrival following transport is 135/104. -the patient did not take his morning dose Lasix stating he was ?too tired?. Patient received 40 mg Lasix IV x1 now. -blood pressure medications held given the patient's hypotension in the setting of an acute stroke -will resume the more if blood pressure is better 6. Diabetes type 2, insulin dependent, with complications, present on admission, chronic. -patient with neuropathy bilateral lower extremities, will continue Lyrica 100 mg twice daily -patient states he is weaned down his glargine insulin from 60 units to 40 units. On chemistries from [facility] healthy has a blood glucose of 212. -will continue patient's glargine at 40 units daily with fingerstick blood sugars a.c. and hs with correctional insulin low-dose range. -will follow glucose trends and manages needed -will obtain a hemoglobin A1c. 7. Hyperlipidemia, chronic, stable -Will continue patient's home regimen of atorvastatin 80 mg daily at bedtime. 8. Peripheral vascular disease, chronic, stable. -history of peripheral vascular disease having undergone vascular procedures bilateral lower extremities including balloon angioplasties. -patient with cool extremities to touch but brisk capillary refill without edema and chronic skin changes. 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 Yuen. Dressing is clean dry and intact, wound is not visualized. 9. Daily smoker, chronic, stable -patient endorses smoking greater than 1 pack per day for 53 years. -patient with COPD using Combivent inhaler. -patient has been taking Chantix and is quitting smoking having an occasional cigarette. -discussion reinforce continuation of smoking cessation. 10. Alcohol abuse, chronic -patient with hepatic steatosis likely alcohol related, no presents of ascites. Liver functions are within normal limits as his INR. -patient states he has quit drinking.
[2020-09-21] MEDS: ATORVASTATIN 20 MG TABLET 80 MG PO (22:06)
[2020-09-22] VITALS (8 sets, daily range): BP systolic 119–158; BP diastolic 58–88; PULSE 76–91; RESP 17–22; TEMP 36.5–37.1; O2SAT 93–97
--- NOTE | 2020-09-22 01:41 | PC.NURSE ---
09/22 @ 0100 Patient called using call light. Stated he needed to go to the BR. Patient said he wanted to do it himself. Declined gaitbelt placement. Patient then stated Get me my walker. You work for me. Handed Patient his walker. Patient ambulted to bathroom. Patient stated I don't want you putting your hands on me unless I am falling. This TERRAZZO POLISHER stood by while patient went to the BR. Patient ambulated back to bed. Bed alrm on, Call light with in reach. As I was leaving the room patient stated to this TERRAZZO POLISHER is the Bed Alarm on. I said yes it is. Patient stated well how come it didn't go off when I got up. This TERRAZZO POLISHER told him I had turned it off when you got up and that now that your back in bed it is turned back on. Patient stated well I know how to tuen it off. Made sure bed alarm was active and reported to Belinda Mccullough RN
[2020-09-22] MEDS: CLOPIDOGREL 75 MG TABLET PO (09:40)
[2020-09-22] MEDS: SERTRALINE 50 MG TABLET 200 MG PO (09:40)
[2020-09-22] MEDS: PREGABALIN 50 MG CAPSULE 100 MG PO (09:40)
[2020-09-22] MEDS: allopurinoL 100 MG TABLET 200 MG PO (09:40)
[2020-09-22] MEDS: LORATADINE 10 MG TABLET PO (09:40)
[2020-09-22] MEDS: HEPARIN 5,000 UNIT/ML VIAL 5000 UNIT SUBCUT ×2 (09:40→20:26)
[2020-09-22] MEDS: ASPIRIN EC 81 MG TABLET PO (09:40)
--- NOTE | 2020-09-22 10:54 | OT.IP.TRT ---
Occupational Therapy Treatment Note M2 OT-IP Current Condition Start: 09/21/20 12:13 Freq: Status: Active Protocol: Document 09/21/20 12:13 [facility] (Rec: 09/21/20 13:02 [facility] [id number]) Occupational Therapy Current Condition Current Condition Evaluation Date 09/21/20 Treatment Diagnosis CVA Diagnosis Onset Date 09/20/20 M3 OT- IP Subjective and Pain Start: 09/21/20 12:13 Freq: Status: Active Protocol: Document 09/22/20 12:10 [facility] (Rec: 09/22/20 12:46 [facility] [id number]) OT- Subjective Occupational Therapy Visit Type Type Treatment Note Visit Start Time 09:43 Visit Stop Time 10:54 Total Visit Minutes 71 Occupational Therapy Visit Comments Patient Comments Pt agreed to work with OT regarding cognitive assessment and RUE activities of FMS and strengthening needs. Patient/Caregiver Goals Pt now agreed to so to skilled rehab first before going home . OT Pain Assessment Pain When Pain Assessed At Rest Pain Present Pain Present Denied Pain M4 OT- IP ADL's Start: 09/21/20 12:13 Freq: Status: Active Protocol: Document 09/22/20 12:10 [facility] (Rec: 09/22/20 12:46 [facility] [id number]) OT IVQ-Czct-Qohpagw General Evaluation Self-Feeding Ability Maximum Assistance Comments OT Self-Feeding Comments Pt able to use right hand for 10 % of his meal , then per pt due to lack of patience used his left hand to finish. Able to call to request large handled utensils from the cafeteria. OT ADL-Grooming Comments OT Grooming Comments Not performed. OT ADL-Oral Care Comments Oral Care Comments Nor performed. OT ADL-Dressing Comments OT Dressing Comments Not performed. OT ADL-Toileting Comments OT Toileting Comments Pt not having to use go at this time. OT ADL-Bathing Comments OT Bathing Comments Pt wanting to shower but insistent on not having therapist present for a shower. M5 OT- IP IADL's Start: 09/21/20 12:13 Freq: Status: Active Protocol: Document 09/21/20 12:13 [facility] (Rec: 09/21/20 13:02 [facility] [id number]) OT-Instrumental Activities of Daily Living Home Safety Awareness Awareness of Need for Assistance at Home Decreased Awareness Home Safety Comments Pt having decreased insight on his disabilities and at this time if having to go home would be best have someone stay to assist his at all waking hours as pt is a bit impulsive. M6 OT- IP Functional Cognition Start: 09/21/20 12:13 Freq: Status: Active Protocol: Document 09/22/20 12:10 [facility] (Rec: 09/22/20 12:46 [facility] [id number]) Cognitive Factors Limiting Selfcare Function Cognitive Ability Level of Alertness Alert Patient Orientation Name,Place,Situation Attention Span Ability Capable of Focused Attention, Capable of Sustained Attention Ability to Follow Commands Able to Follow One Step Commands Safety Awareness Underestimates Need for Assistance Problem Solving Ability Unable to Identify Errors, Needs Assist to Identify Solutions Cognitive Tests SLUMS Pt scored 21/30, normal score for pt at least 25/30. Pt's score implies mild cognitive deficits and borderlines dementia. Pt not able to subtract 2 digit numbers, unable to recall any of the 5 objects which he was asked to remember, and not able to draw the hour hands correctly on the clock after time given. Cognitive Comments Cognitive Assessment Comments Pt states prior that he has short term memory issues that have progressed as he has gotten older. Pt scored 225 seconds on [place] Making B which implies severe impairment for visual attention, task switching, mental flexibility, executive function, and speed of processing. Suggested pt not to drive, pt states, I will be fine, I have been driving for 60 years. M7 OT- IP Mobility and Balance Start: 09/21/20 12:13 Freq: Status: Active Protocol: Document 09/22/20 12:10 [facility] (Rec: 09/22/20 12:46 [facility] [id number]) OT- Bed Mobility Assessment Rolling Type of Rolling Roll to Left Level of Assistance Standby Assistance,Bedrails Supine to Sit Supine to Sit Assist Standby Assistance,Bedrails Sit to Supine Sit to Supine Assist Standby Assistance,Bedrails OT-Transfer Assessment Comments Mobility Comments SBA from supine to sit and sit to supine. OT- Balance Assessment Sitting Balance and Reactions Static Sitting Balance Ability Normal Dynamic Sitting Balance Ability Good M8 OT- IP Objective Assessments Start: 09/21/20 12:13 Freq: Status: Active Protocol: Document 09/22/20 12:10 [facility] (Rec: 09/22/20 12:46 [facility] [id number]) OT Gross Range of Motion Upper Extremity Range of Motion Assessment Right Impaired ROM Impairments This morning, pt's right UE able to raise his arm up 0-90, and able to open and close his hands and able to hold onto a large handled fork. OT Strength Upper Extremity Strength Assessment Right Impaired Comments Strength Comments RUE 3-/5 to 4-/5. OT- Coordination Assessment Upper Extremity Finger to Nose Test Right UE Impaired Comments Coordination Comments Able to go over and give pt theraputty to help improve strength and coordination for RUE. Also gave pt suggestions to help improve his speed and fluidity of right hand . OT-Muscle Tone Assessment Muscle Tone WNL Yes M9 OT- IP Assessment and Plan Start: 09/21/20 12:13 Freq: Status: Active Protocol: Document 09/22/20 12:10 [facility] (Rec: 09/22/20 12:46 [facility] [id number]) OT Summary Assessment and Plan Potential Rehabilitation Potential Good Analytic Complexity at Evaluation Low Summary OT Impairments Strength,Balance,Coordination, Functional Cognition, Functional Mobility,Self- Feeding,Grooming,Dressing, Toileting,Bathing,Toilet Transfers,Shower Transfers, Activity Tolerance Progress Towards Goals Progressing Toward Goals Assessment Summary Pt cooperative to do OT treatment for theraputty exercises for right hand, able to do gentle stretching of RUE for tightness of internal rotators and help with overall strength, and able to do assessment for cognition. Pt scored 21/30 on the SLUMS which implies cognitive deficits and 225 seconds for [place] Making B which implies implies severe impairment for visual attention, task switching, mental flexibility, executive function, and speed of processing. Suggested pt not to drive. Pt however having decreased insight of his deficits at this time. Therefore pt will benefit from acute rehab versus skilled rehab prior to going home. Goals Self-Feeding Goal Independent Grooming Goal Independent Dressing Goal Independent Toileting Goal Independent Bathing Goal Independent Toilet Transfer Goal Independent Shower Transfer Goal Independent Days to Meet Goals 24 Frequency of Treatment Frequency Of Treatment Once a Day Treatment Plan OT Treatment Plan ADL Training,Functional Cognition Training,Functional Mobility,Neuromuscular Re- education,Patient/Family Education,Discharge Planning Other Treatment Recommendations and Next Incorporation of RUE for ADl Treatment Focus needs. Discharge Recommendations OT Discharge Recommendations SNF Rehab,Acute Rehab Home Equipment Needs defer to SNF versus acute rehab Transportation Needs at Discharge Wheelchair/Cabulance
--- NOTE | 2020-09-22 11:25 | CM.DANOTE ---
DCP/Assessment: Reviewed chart. Patient is a 64yr old male admitted to [facility] with stroke like symptoms. PCP listed is Kenyetta Glalardo. Primary payor is 1)Medicare 2)Medicaid. Current recommendation from therapy is SNF for continued rehabilitation. Notes report patient does have deficits related to CVA. OIL RIGGER met with patient explained role. Patient alert and oriented at time of visit. Patient reports to OIL RIGGER that he is grumpy. Patient in agreement to answer questions pertaining to his current living situation. Patient resides in [place] Patient told about current recommendations for SNF. Initially, patient unsure, however, after OIL RIGGER discussed with him that he would be going for therapy to improve deficits patient agreeable. First SNF choice is [facility]. Placed call to March at [facility], requesting that she review. Patient not anticipated to d/c before Sunday09-24-20. Patient provided this OIL RIGGER with permission to call his daughter/Giuila and provide her with update. Patient reports that he has not given anyone else with permission to call her. Will recommend if CM [employer] sales and lending team member needs to call daughter that they check with patient first. Spoke with daughter/Giulia and she agrees with the plan for patient to go to SNF for rehabilitation. Daughter is out of state and plans to come visit patient when he discharges from SNF. P: [facility] evaluating for admit. [facility] Discharge Planning/Care Management CM Discharge Assessment Start: 09/22/20 11:19 Freq: Status: Active Protocol: Document 09/22/20 11:19 [facility] (Rec: 09/22/20 11:25 [facility] [id number]) Discharge Planning Assessment Assigned Hand Model [facility]ER [facility] Contact Information Giulia Malave (daughter) ph # [phone] Advance Directives? No History Provided By Patient,Medical Record Prior Living Arrangements House Household Members none Type of transporation used prior to Drives own vehicle admit Independent with ADL's Yes Is patient alert and oriented? Yes Caregiver for Another No DME Already Rented / Owned FWW / Walker Patient/Family Preference Senior Living Facility Discharge Plan Senior Living Facility Referrals Initiated Senior Living Medicare Choice List Provided Yes SNF/HH Preference [facility] Contact Name/Phone March ph# [phone] Has Agency SNF been contacted Yes Comment [facility] reviewing for admit. Review Status In Process Next Review Type Continued Stay Review
--- NOTE | 2020-09-22 14:19 | PM.PN.1 ---
Subjective Subjective Date Patient Seen: 09/22/20 Interval history: Patient is a 64-year-old male who was admitted to the hospital for a right brain CVA. This is managed fasted as left facial droop, left arm weakness, and left leg weakness. The patient was evaluated by physical therapy and occupational therapy yesterday. He was deemed unsafe to return home. He is fairly impulsive and at high risk for falling. He has had no new deficits. Exam Vital Signs (past 8 hours): - 09/22/20 08:00 09/22/20 12:20 Temperature 97.7 F 98.7 F Pulse Rate 80 90 Respiratory Rate 17 19 Blood Pressure 119/58 L 147/78 H Pulse Oximetry 97 97 Oxygen Delivery Method Room Air Oxygen Flow Rate 0 Narrative Exam Narrative: Cantankerous gentleman in no obvious distress Lungs: Clear to auscultation Cardiac exam: Regular rate and rhythm normal S1-S2 2/6 GUERITA ABD: soft/non tender Neuro: right facial droop, no aphasia, right arm weak NIHSS 3 PFSH Medical History (Updated 09/20/20 @ 21:13 by EDGAR Power) Amputation toe Anxiety Chronic kidney disease COPD (chronic obstructive pulmonary disease) Coronary artery disease Current smoker Depression Diabetes Diverticulitis History of peritoneal dialysis Hyperlipidemia Hypertension Neuropathy Peripheral vascular disease Systolic heart failure Surgical History History of hand fracture History of tonsillectomy Family History (Updated 09/20/20 @ 23:26 by EDGAR Power) Father Congestive heart failure Diabetes mellitus Hyperlipidemia Hypertension Mother Stroke Social History household members: none Smoking Status: Former smoker alcohol intake: current Assessment & Plan Assessment & Plan narrative: Assessment & Plan narrative: CVA, acute, present on admission, active -NIH by the sending physician at [facility] was scored 3, NIH score upon arrival is 1 for facial droop. -the patient is not a candidate for tPA or leg appears to involve large territory vessel amenable to interventional procedure. -patient has multiple risk factors including uncontrolled diabetes, CAD, hyperlipidemia and hypertension. -CT scan from the sending facility was reported as negative for acute intracranial pathology. Patient has CKD with a creatinine of 2.[address] angiogram. -patient has been taking aspirin 81 mg daily, ordered addition of Plavix 75 mg daily. -MRI confirmed: Mild microvascular atherosclerotic change in the deep white matter of each hemisphere. There is a small 8 by 11 mm focus of acute or subacute ischemic injury involving the pontomedullary junction at its midline/left paramedian region without mass effect or associated hemorrhage. This cannot be identified on recent prior CT scanning. -echo reveals decreased ejection for of 30-35% worse since previous -patient with global hypokinesia -will continue Plavix -continue telemetry -patient very unsteady and at high risk for falling ( patient fell on presentation to [facility]) -patient needs SNF for rehab, which he is agreeable to doing 2. Congestive heart failure, systolic dysfunction, chronic, stable -patient has had progressive abdominal distention evaluated with abdominal ultrasound on 09/13/2020 finding no free abdominal fluid and increased liver echogenicity likely related to hepatic steatosis. -patient with history of congestive heart failure under the care of Dr. Watson. Last echocardiogram dated 10/26/2017 pt the patient have a reduced ejection fraction of 35-40% with global hypokinesis. No valvular disease noted. echocardiogram ordered. -patient takes Lasix 120 mg daily and appears grossly euvolemic with no peripheral edema and mucous membranes are pink and moist. -will obtain a proBNP and troponin -patient developed hypo tension earlier today -there was concern regarding progression of his stroke, this likely resume lately to Valium needed for MRI -Lasix held, patient given 1 L of saline -blood pressure improved -will continue to monitor closely -resume lasix at usual dose -resume bblocker 3. Chronic kidney disease stage 3, chronic, present on admission. -on last admission in March of 2019 patient had a creatinine of 2.3 and EGFR consistent with CKD stage 4. -on labs from [facility] General patient had a BUN of 37 with a creatinine 2.0 with an EGFR of 34. -will avoid renal toxic agents and renally dose medications as indicated. -will recheck creatinine in consideration of contrast for MRI. -will monitor labs for renal function 4. Hyperkalemia, present on admission, unknown if acute or chronic -Patient with elevated potassium on admission at 5.2 in the setting is CKD stage 3. -patient typically takes Lasix 120 mg per day states he did not do so today. Ordered 40 mg of Lasix x1 now and will continue his usual daily dosing in the morning. -will recheck chemistries in the morning 5. Hypertension, present on admission, chronic Patient hypertensive with blood pressure documented from [facility] in the 140s to 150s. Blood pressure on arrival following transport is 135/104. -the patient did not take his morning dose Lasix stating he was ?too tired?. Patient received 40 mg Lasix IV x1 now. -blood pressure medications held given the patient's hypotension in the setting of an acute stroke -will resume Bblocker -needs low dose ACEI- given Echo findings 6. Diabetes type 2, insulin dependent, with complications, present on admission, chronic. -patient with neuropathy bilateral lower extremities, will continue Lyrica 100 mg twice daily -patient states he is weaned down his glargine insulin from 60 units to 40 units. On chemistries from [facility] healthy has a blood glucose of 212. -will continue patient's glargine at 40 units daily with fingerstick blood sugars a.c. and hs with correctional insulin low-dose range. -will follow glucose trends and manages needed -will obtain a hemoglobin A1c. 7. Hyperlipidemia, chronic, stable -Will continue patient's home regimen of atorvastatin 80 mg daily at bedtime. 8. Peripheral vascular disease, chronic, stable. -history of peripheral vascular disease having undergone vascular procedures bilateral lower extremities including balloon angioplasties. -patient with cool extremities to touch but brisk capillary refill without edema and chronic skin changes. 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 Yuen. Dressing is clean dry and intact, wound is not visualized. 9. Daily smoker, chronic, stable -patient endorses smoking greater than 1 pack per day for 53 years. -patient with COPD using Combivent inhaler. -patient has been taking Chantix and is quitting smoking having an occasional cigarette. -discussion reinforce continuation of smoking cessation. 10. Alcohol abuse, chronic -patient with hepatic steatosis likely alcohol related, no presents of ascites. Liver functions are within normal limits as his INR. -patient states he has quit drinking.
[2020-09-22] MEDS: HYDRALAZINE 25 MG TABLET PO ×2 (15:40→20:25)
--- NOTE | 2020-09-22 15:52 | PT-IP ANOTE ---
Per EMR, pt has been very uncooperative with therapy team and nursing staff. This PT decided to have SPT Deandre Maxwell to contact dtr Giulia via phone approx 10am to obtain PLOF and previous cognitive status but forgot to have pt's permission. We did discuss pt's performance in PT and d/c recommendation to SNF. We then attempted to see pt at 1205 and pt is very agitated and upset regarding the decision. He requested this PT to leave the room but allowed SPT to stay to cont treatment. Therefore, SPT Deandre Maxwell completed treatment session with pt with supervision from me at [facility] [place]. Pt requested to report to rehabilitation team lead Miky Alamo. This PT delivered the message and reported to Miky Alamo. Incident is also filed through EMR.
[2020-09-22] MEDS: FUROSEMIDE 40 MG TABLET 80 MG PO (15:53)
--- NOTE | 2020-09-22 16:08 | PT.IPTN ---
Physical Therapy Treatment Note M2 PT-IP Current Condition Start: 09/21/20 08:44 Freq: NEEDED Status: Active Protocol: Document 09/21/20 14:40 DE (Rec: 09/21/20 15:40 DE [id number]) Physical Therapy Current Condition Current Condition Evaluation Date 09/21/20 Treatment Diagnosis Stroke; Difficulty with walking. Onset Date 09/20/20 M3 PT-IP Subjective Start: 09/21/20 08:44 Freq: NEEDED Status: Active Protocol: Document 09/22/20 16:07 DE (Rec: 09/22/20 13:33 DE [id number]) Subjective Physical Therapy Visit Type Type Treatment Note Visit Start Time 12:05 Visit Stop Time 12:33 Total Visit Minutes 28 Notes MOHAMUD Carrera led the session under direct supervision of PT Yovanny. Number of CHEF BROILER OR FRY Visits 0 Physical Therapy Visit Comments Patient Comments Pt is agreeable to do PT. M4 PT-IP Mobility and Gait Start: 09/21/20 08:44 Freq: NEEDED Status: Active Protocol: Document 09/22/20 16:07 DE (Rec: 09/22/20 13:33 DE [id number]) PT-Transfer Assessment Sit to and From Stand Sit to and from Stand Contact Guard Assistance,Use of Upper Extremities Equipment Transfer Assistive Device Gait Belt,Front Wheeled Walker Orthotic/Prosthetic Devices or Brace: No Transfers Transfer Destination Bed,Chair Transfer Technique Stand Step Pivot Transfer Ability Level of Assist Contact Guard Assistance Comments Mobility Comments Pt was sitting up on L EOB upon arrival. Pt completed sit to stand with FWW CGA. PT attempted to put a hand on gait belt for safety but pt refused and told PT not to touch. Pt performed sit to stand with FWW CGA. Pt then amb ~300 ft in the hallway and back to the room with FWW CGA . Pt demonstrated step through gait pattern with flexed knees, flexed trunk, and decreased feet clearance. Pt also demonstrated poor safety awareness. Pt kept drifting to the L during amb. Pt had a LOB after bumping his FWW into a standing cart in the hallway and needed to lean on PT to recover balance. Pt noted he was getting tired after amb about ~200 ft. Pt amb back to the room and sat down on the bed with FWW CGA. Bed alarm activated. Call light placed within reach. Gait Assessment Gait Gait Assistance Required: Contact Guard Assist Distance (Feet) 300 Assistive Devices Assistive Device Gait Belt,Front Wheeled Walker Orthotic/Prosthetic Devices or Brace: No Gait Deviations General Gait Pattern Ataxic,Decreased Stride Length ,Decreased Feet Clearance, Flexed Trunk,Narrow Based Gait ,Wide Based Gait Factors Limiting Gait Function Factors Limiting Gait Function Decreased Activity Tolerance, Decreased Strength,Difficulty Following Directions, Incoordination,Limited Range of Motion,Poor Balance,Poor Safety Awareness Comments Gait Comments See mobility comments. Stair Climbing Assessment Comments Stair Climbing Comments Not assessed. PT-Balance Assessment Sitting Balance and Reactions Static Sitting Balance Ability Normal Dynamic Sitting Balance Ability Good Standing Balance and Reactions Static Standing Balance Ability Fair Dynamic Standing Balance Ability Poor M5 PT-IP Objective Assessments Start: 09/21/20 08:44 Freq: NEEDED Status: Active Protocol: Document 09/21/20 14:40 DE (Rec: 09/21/20 15:40 DE [id number]) Orientation Orientation/Cognition Level of Alertness Alert Orientation Name,Age,Birthday,Month,Date, Year,Day of Week,Place, Situation Language Function Ability Garbled Speech Safety Awareness Decreased Safety Awareness Memory Description No Deficits Noted Comments Pt is alert but very impulsive and very easily agitated. Gross Range of Motion Upper Extremity ROM Assessment Right Impaired Lower Extremity ROM Assessment Bilaterally Impaired Impairments More weakness noted on RLE Strength Upper Extremity Strength Assessment Bilaterally Impaired Shoulder R 4-/5, L 4/5 Lower Extremity Strength Assessment Bilaterally Impaired Hip R 3+/5, L 4-/5 Comments Strength Comments Pt demonstrated unilateral R side weakness. Coordination Assessment Gross Coordination Gross Coordination Impaired Assessment Finger to Nose Test Moderate Impairment Pronation/Supination Test Minimal Impairment Foot Tapping Test Minimal Impairment Heel on Blanca Test Moderate Impairment Coordination Comments Pt demonstrated difficulty with R finger to nose test and heel to blanca test. Pt was unable to perform foot tapping with R foot d/t his diabetic toes. Sensation Assessment Sensation Gross Sensation WNL Light Touch Intact Muscle Tone Muscle Tone WNL Yes M6 PT-IP Treatment Start: 09/21/20 08:44 Freq: NEEDED Status: Active Protocol: Document 09/22/20 16:07 DE (Rec: 09/22/20 13:33 DE [id number]) Physical Therapy Treatment Education Education Provided Safety Other Treatments Other Treatment Performed Pt was educated on safety and role of PT. M7 PT-IP Assessment and Plan Start: 09/21/20 08:44 Freq: NEEDED Status: Active Protocol: Document 09/22/20 16:07 DE (Rec: 09/22/20 13:33 DE [id number]) PT Summary Assessment and Plan Potential Rehabilitation Potential Poor Status of Condition at Evaluation Unstable Summary Impairments Pain,ROM,Strength,Balance, Coordination,Bed Mobility, Transfers,Gait,Activity Tolerance Assessment Summary Pt demonstrated improved activity tolerance. Pt amb ~ 300 ft with FWW CGA. Pt was slightly more stable today. However, pt still demonstrates drift to the L during amb, poor safety awareness, and loss of balance, which required assistance to recover . Pt is not safe to d/c home yet. PT will continue to assess and refine d/c recommendation. Goals Bed Mobility Goal Standby Assistance Transfer Goal Standby Assistance Gait Goal Standby Assistance Gait Distance 200 Other Goals 2 CHRISTIANO with L railing for going up. Days to Meet Goals 5 Frequency of Treatment Frequency Of Treatment Twice a Day Treatment Plan Physical Therapy Treatment Plan Bed Mobility Training,Transfer Training,Gait Training, Therapeutic Exercise,Balance Retraining,Discharge Planning, Hot or Cold Pack,Neuromuscular Re-ed,Coordination Retraining Recommendations To Nursing Amount of Assist Needed 1 Person Assist Discharge Recommendations PT Discharge Recommendations Home with Assistance,Home Health,SNF Rehab,Acute Rehab Transportation Needs at Discharge Private Vehicle,Wheelchair/ Cabulance Treatment was provided by Deandre Maxwell, MOHAMUD and supervised by Lety Lombardi, RICHA. I personally reviewed this note and agree with its contents.
--- NOTE | 2020-09-22 16:55 | PT.IPTN ---
Current Diagnoses Cerebral infarction, unspecified (09/21/20) Physical Therapy Treatment Note M2 PT-IP Current Condition Start: 09/21/20 08:44 Freq: NEEDED Status: Active Protocol: Document 09/21/20 14:40 DE (Rec: 09/21/20 15:40 DE [id number]) Physical Therapy Current Condition Current Condition Evaluation Date 09/21/20 Treatment Diagnosis Stroke; Difficulty with walking. Onset Date 09/20/20 M3 PT-IP Subjective Start: 09/21/20 08:44 Freq: NEEDED Status: Active Protocol: Document 09/22/20 16:40 DE (Rec: 09/22/20 16:01 DE [id number]) Subjective Physical Therapy Visit Type Type Treatment Note Visit Start Time 15:02 Visit Stop Time 15:30 Total Visit Minutes 28 Notes MOHAMUD Carrera led the session under direct supervision of PT Yovanny. Number of DISASSEMBLER PRODUCT Visits 0 Physical Therapy Visit Comments Patient Comments Pt is agreeable to do PT. M4 PT-IP Mobility and Gait Start: 09/21/20 08:44 Freq: NEEDED Status: Active Protocol: Document 09/22/20 16:40 DE (Rec: 09/22/20 16:01 DE [id number]) PT-Transfer Assessment Sit to and From Stand Sit to and from Stand Contact Guard Assistance,Use of Upper Extremities Equipment Transfer Assistive Device Gait Belt,Front Wheeled Walker Orthotic/Prosthetic Devices or Brace: No Transfers Transfer Destination Bed,Chair Transfer Technique Stand Step Pivot Transfer Ability Level of Assist Contact Guard Assistance Comments Mobility Comments Pt was lying supine with elevated HOB upon arrival. Pt completed supine to sit at L EOB with CGA. Pt did not want PT to hold onto gait belt. Pt performed sit to stand with FWW CGA. Pt stood for ~30 sec. In standing, pt lost balance and fell to the R side but was able to sit down on the bed. Pt stood up again and amb ~200 ft in the hallway and back to the room with FWW CGA. Pt demonstrated step through gait pattern with flexed knees, flexed trunk, and decreased feet clearance. Pt also demonstrated poor safety awareness and continued to drift to the L during amb. Pt amb back to the room and performed single leg balance next to the bed. Pt sat down on the bed with FWW CGA. Bed alarm activated. Call light placed within reach. Gait Assessment Gait Gait Assistance Required: Contact Guard Assist Distance (Feet) 200 Assistive Devices Assistive Device Gait Belt,Front Wheeled Walker Orthotic/Prosthetic Devices or Brace: No Gait Deviations General Gait Pattern Ataxic,Decreased Stride Length ,Decreased Feet Clearance, Flexed Trunk,Narrow Based Gait ,Wide Based Gait Factors Limiting Gait Function Factors Limiting Gait Function Decreased Activity Tolerance, Decreased Strength,Difficulty Following Directions, Incoordination,Limited Range of Motion,Poor Balance,Poor Safety Awareness Comments Gait Comments See mobility comments. Stair Climbing Assessment Comments Stair Climbing Comments Not assessed. PT-Balance Assessment Sitting Balance and Reactions Static Sitting Balance Ability Normal Dynamic Sitting Balance Ability Good Standing Balance and Reactions Static Standing Balance Ability Fair Dynamic Standing Balance Ability Poor M5 PT-IP Objective Assessments Start: 09/21/20 08:44 Freq: NEEDED Status: Active Protocol: Document 09/22/20 16:40 DE (Rec: 09/22/20 16:42 DE [id number]) Orientation Orientation/Cognition Level of Alertness Alert Orientation Name,Age,Birthday,Month,Date, Year,Day of Week,Place, Situation Language Function Ability Garbled Speech Safety Awareness Decreased Safety Awareness Memory Description No Deficits Noted Comments Pt is alert but very impulsive and very easily agitated. Pt attempts to direct his own care. Gross Range of Motion Upper Extremity ROM Assessment Right Impaired Lower Extremity ROM Assessment Bilaterally Impaired Strength Upper Extremity Strength Assessment Bilaterally Impaired Shoulder R 4-/5, L 4/5 Lower Extremity Strength Assessment Bilaterally Impaired Comments Strength Comments Pt demonstrated unilateral R sided weakness, especially in the hip extension and ankle plantarflexion (< 3/5). Other Assessments Other Other Assessments Pt performed single leg balance. On the L, pt was able to stand for ~2 sec. On the R , pt was unable to stand for 1 sec. M6 PT-IP Treatment Start: 09/21/20 08:44 Freq: NEEDED Status: Active Protocol: Document 09/22/20 16:40 DE (Rec: 09/22/20 16:01 DE [id number]) Physical Therapy Treatment Education Education Provided Safety Other Treatments Other Treatment Performed Pt was educated on safety and role of PT. M7 PT-IP Assessment and Plan Start: 09/21/20 08:44 Freq: NEEDED Status: Active Protocol: Document 09/22/20 16:40 DE (Rec: 09/22/20 16:01 [place] [id number]) PT Summary Assessment and Plan Potential Rehabilitation Potential Poor Status of Condition at Evaluation Unstable Summary Impairments Pain,ROM,Strength,Balance, Coordination,Bed Mobility, Transfers,Gait,Activity Tolerance Assessment Summary Pt did not walk as far as AM session d/t fatigue. Pt continues to direct his own care and demonstrate unsteadiness on feet. Pt lost balance to the R side and fell in standing next to the bed but was able to sit on the bed . Pt also continues to drift to the L during amb. Pt had difficulty standing on RLE (< 1 sec) and demonstrated significant weakness in R hip extension and R foot plantarflexion (< 3/5). Pt is not safe to d/c home. PT anticipates pt will d/c to SNF once medically cleared. Goals Bed Mobility Goal Standby Assistance Transfer Goal Standby Assistance Gait Goal Standby Assistance Gait Distance 200 Other Goals 2 CHRISTIANO with L railing for going up. Days to Meet Goals 5 Frequency of Treatment Frequency Of Treatment Twice a Day Treatment Plan Physical Therapy Treatment Plan Bed Mobility Training,Transfer Training,Gait Training, Therapeutic Exercise,Balance Retraining,Discharge Planning, Hot or Cold Pack,Neuromuscular Re-ed,Coordination Retraining Recommendations To Nursing Amount of Assist Needed 1 Person Assist Discharge Recommendations PT Discharge Recommendations SNF Rehab Transportation Needs at Discharge Private Vehicle,Wheelchair/ Cabulance Treatment was provided by MOHAMUD Johnson and supervised by Lety Lombardi, RICHA. I personally reviewed this note and agree with its contents.
[2020-09-22] MEDS: INSULIN ASPART 100 UNIT/ML INSULN PEN SUBCUT (17:27)
[2020-09-22] MEDS: ATORVASTATIN 20 MG TABLET 80 MG PO (20:24)
[2020-09-22] MEDS: ZOLPIDEM 5 MG TABLET 10 MG PO (20:24)
[2020-09-22] MEDS: METOPROLOL IR 50 MG TABLET PO (20:25)
[2020-09-22] MEDS: INSULIN GLARGINE 100 UNIT/ML 3ML PEN 60 UNIT SUBCUT (20:26)
--- NOTE | 2020-09-22 23:12 | PC.NURSE ---
A&OX3. NIH 4. SBA to the BR, but pt refused to put on gait belt. administered 40units of Lantus at HS per pt request. bed alarm on.
[2020-09-23 00:47] VITALS: BP 131/82; PULSE 82; RESP 16; TEMP 36.3; O2SAT 94
[2020-09-23 01:12] LABS: Bacteria Urine None Seen; RBC Urine None Seen (0-5/HPF); WBC Urine None Seen (0-5/HPF)
[2020-09-23 01:14] LABS: Appearance Urine UA CLEAR; Bilirubin Urine UA NEGATIVE (NEGATIVE); Color Urine UA YELLOW; Glucose Urine UA NEGATIVE (Negative); Ketones Urine UA NEGATIVE (NEGATIVE); Leukocyte Esterase Urine UA NEGATIVE (NEGATIVE); Nitrite Urine UA NEGATIVE (Negative); Occult Blood Urine UA NEGATIVE (Negative); Protein Urine UA NEGATIVE (Negative); Urobilinogen Urine UA 0.2 E.U./dL (0.2); pH Urine UA 6.5 (4.5-8.0)
[2020-09-23 01:43] LABS: Culture Indicated Urine Cult Not Indicated; Urine Comments Microscopic Normal
--- NOTE | 2020-09-23 01:45 | PC.NURSE ---
0100 patient has been asleep since shift change but now had call light on and needing to go to the bathroom. Patient is very gruff and insistent on doing things for himself. Talks bluntly and can be verbally unpleasant toward staff. Speech is slurred and patient has a right facial droop. Would not cooperate fully with NIH stating they stopped doing that. Independently ran through several of the NIH assessment criteria rapidly but not wanting RN to complete anything further. Does have obvious weakness of right extremities. Breath sounds coarse but CTA with RA sat of 94%. HRR w/telemetry reading of SR w/1st degree AVB. Voided in urinal so UA ordered previously could be sent to lab. Resistive to any staff assistance with mobility and becomes increasingly verbally aggressive when staff try to help support him physically in any way during transfer/ambulation. Did walk to/from bathroom with walker and just SBA. Moving self independently in bed. Has refused to wear SCD's. States he has a wound on right foot with dressing and sees wound care but would not let RN remove sock to look at area. Fall risk score is high and bed alarm is activated but reports he knows how to shut off the alarm. Instructed patient to call staff prior to getting out of bed but patient refuses to agree.
[2020-09-23 07:15] LABS: BUN Creatinine Ratio 22.9 (6-22); Blood Urea Nitrogen 40 mg/dL (9-20); Calcium 9.2 mg/dL (8.4-10.2); Carbon Dioxide 36 mmol/L (22-32); Chloride 102 mmol/L (98-107); Estimated Glomerular Filt Rate 39.3 mL/min (>60); Glucose 67 mg/dL (80-110); HEMOLYSIS < 15 (0-50); Potassium 4.7 mmol/L (3.4-5.1); Sodium 140 mmol/L (137-145)
[2020-09-23 08:00] VITALS: BP 141/73; PULSE 80; RESP 20; TEMP 36.7; O2SAT 95
[2020-09-23] MEDS: HEPARIN 5,000 UNIT/ML VIAL 5000 UNIT SUBCUT ×2 (08:33→20:03)
[2020-09-23] MEDS: PREGABALIN 50 MG CAPSULE 100 MG PO (08:34)
[2020-09-23] MEDS: SODIUM CHLORIDE 0.9% FLUSH 10 ML IV (08:34)
[2020-09-23] MEDS: ASPIRIN EC 81 MG TABLET PO (08:34)
[2020-09-23 08:35] VITALS: BP 141/73
[2020-09-23] MEDS: CLOPIDOGREL 75 MG TABLET PO (08:35)
[2020-09-23] MEDS: HYDRALAZINE 25 MG TABLET PO ×2 (08:35→20:02)
[2020-09-23] MEDS: LORATADINE 10 MG TABLET PO (08:35)
[2020-09-23] MEDS: METOPROLOL IR 50 MG TABLET PO ×2 (08:36→20:02)
[2020-09-23] MEDS: FUROSEMIDE 40 MG TABLET 80 MG PO (08:36)
[2020-09-23] MEDS: SERTRALINE 50 MG TABLET 200 MG PO (08:37)
[2020-09-23] MEDS: allopurinoL 100 MG TABLET 200 MG PO (09:04)
[2020-09-23 09:12] VITALS: PULSE 80; RESP 16; O2SAT 95
--- NOTE | 2020-09-23 10:31 | PT.IPTN ---
Current Diagnoses Cerebral infarction, unspecified (09/21/20) Physical Therapy Treatment Note M2 PT-IP Current Condition Start: 09/21/20 08:44 Freq: NEEDED Status: Active Protocol: Document 09/23/20 10:16 DCW (Rec: 09/23/20 10:39 DCW [id number]) Physical Therapy Current Condition Current Condition Evaluation Date 09/21/20 Treatment Diagnosis Stroke; Difficulty with walking. Onset Date 09/20/20 M3 PT-IP Subjective Start: 09/21/20 08:44 Freq: NEEDED Status: Active Protocol: Document 09/23/20 10:16 DCW (Rec: 09/23/20 10:39 DCW [id number]) Subjective Physical Therapy Visit Type Type Treatment Note Visit Start Time 10:16 Visit Stop Time 10:31 Total Visit Minutes 15 Number of PUBLIC HEALTH SANITARIAN TECHNICIAN Visits 0 Physical Therapy Visit Comments Patient Comments I already walked down the toribio with the nurse earlier, so I don't know why I have to do anything else. I guess I can go down to the end of the toribio, but thats all you're going to get out of me. My calf is already feeling the effects from walking earlier. M4 PT-IP Mobility and Gait Start: 09/21/20 08:44 Freq: NEEDED Status: Active Protocol: Document 09/23/20 10:16 DCW (Rec: 09/23/20 10:39 DCW [id number]) PT-Transfer Assessment Sit to and From Stand Sit to and from Stand Contact Guard Assistance,Use of Upper Extremities Equipment Transfer Assistive Device Front Wheeled Walker Orthotic/Prosthetic Devices or Brace: No Transfers Transfer Destination Bed,Chair Transfer Technique Stand Step Pivot Transfer Ability Level of Assist Contact Guard Assistance Comments Mobility Comments Pt supine in bed upon arrival. Pt strongly refused gait belt , continually turned around quickly to ensure therapist was not guarding too closely. Ambulated 140' /c FWW, unwilling to perform any other activities. Pt was left in room with care management. Gait Assessment Gait Gait Assistance Required: Standby Assistance Distance (Feet) 140 Assistive Devices Assistive Device Front Wheeled Walker Orthotic/Prosthetic Devices or Brace: No Factors Limiting Gait Function Factors Limiting Gait Function Decreased Activity Tolerance, Decreased Strength,Difficulty Following Directions, Incoordination,Limited Range of Motion,Poor Balance,Poor Safety Awareness M5 PT-IP Objective Assessments Start: 09/21/20 08:44 Freq: NEEDED Status: Active Protocol: Document 09/22/20 16:40 DE (Rec: 09/22/20 16:42 DE [id number]) Orientation Orientation/Cognition Level of Alertness Alert Orientation Name,Age,Birthday,Month,Date, Year,Day of Week,Place, Situation Language Function Ability Garbled Speech Safety Awareness Decreased Safety Awareness Memory Description No Deficits Noted Comments Pt is alert but very impulsive and very easily agitated. Pt attempts to direct his own care. Gross Range of Motion Upper Extremity ROM Assessment Right Impaired Lower Extremity ROM Assessment Bilaterally Impaired Strength Upper Extremity Strength Assessment Bilaterally Impaired Shoulder R 4-/5, L 4/5 Lower Extremity Strength Assessment Bilaterally Impaired Comments Strength Comments Pt demonstrated unilateral R sided weakness, especially in the hip extension and ankle plantarflexion (< 3/5). Other Assessments Other Other Assessments Pt performed single leg balance. On the L, pt was able to stand for ~2 sec. On the R , pt was unable to stand for 1 sec. M6 PT-IP Treatment Start: 09/21/20 08:44 Freq: NEEDED Status: Active Protocol: Document 09/22/20 16:40 DE (Rec: 09/22/20 16:01 DE [id number]) Physical Therapy Treatment Education Education Provided Safety Other Treatments Other Treatment Performed Pt was educated on safety and role of PT. M7 PT-IP Assessment and Plan Start: 09/21/20 08:44 Freq: NEEDED Status: Active Protocol: Document 09/23/20 10:16 DCW (Rec: 09/23/20 10:39 DCW [id number]) PT Summary Assessment and Plan Potential Rehabilitation Potential Poor Status of Condition at Evaluation Unstable Summary Impairments Pain,ROM,Strength,Balance, Coordination,Bed Mobility, Transfers,Gait,Activity Tolerance Assessment Summary Pt still very impulsive, continues to dictate own treatment, however demonstrates less path deviation while walking vs yesterday. Due to poor safety recognition, poor impulse control, and increased falls risk, continue to recommend SNF discharge. Goals Bed Mobility Goal Standby Assistance Transfer Goal Standby Assistance Gait Goal Standby Assistance Gait Distance 200 Other Goals 2 CHRISTIANO with L railing for going up. Days to Meet Goals 5 Frequency of Treatment Frequency Of Treatment Twice a Day Treatment Plan Physical Therapy Treatment Plan Bed Mobility Training,Transfer Training,Gait Training, Therapeutic Exercise,Balance Retraining,Discharge Planning, Hot or Cold Pack,Neuromuscular Re-ed,Coordination Retraining Recommendations To Nursing Amount of Assist Needed 1 Person Assist Discharge Recommendations PT Discharge Recommendations SNF Rehab Transportation Needs at Discharge Private Vehicle,Wheelchair/ Cabulance
--- NOTE | 2020-09-23 11:05 | CM.DPC ---
DCP Cont: Per MD, pt is making medical progress but not stable for d/c yet today. Per PT, pt not requiring a lot of assist with ambulation but impulsive and unsafe gait and very high fall risk requiring CGA-1PA. Recommending SNF rehab for strengthening and reduce fall risk from impulsivity prior to return home alone. Per previous SW note, pt had been agreeable to SNF but preference was [facility] and referral was made. SW spoke to [facility] admissions and they decline accepting pt due to his impulsivity, refusal to follow recommendations and assist from staff, and his high risk for falls and need to have a roommate and pt is self identified as grumpy and bossy. SW met bedside with pt and explained role and discussed [facility] denial and provided the SNF Choice list and discussed possible backup SNF or Acute Inpt Rehab options. Pt adamant that he declines going to any other SNF and is not interested in Acute Rehab. SW discussed HH and pt confirms that he has a hx of [facility] a few years ago and did not feel they would be helpful and SW provided the HH Choice List for other HH options and pt still states once I get home, I wont need any HH RN or PT, I will be able to manage at home once I get back there. Pt not willing for SW to make any further HH or SNF/Acute rehab at this time and aware that he will likely be medically stable to d/c the hospital tomorrow. Pt agreeable to keep working with PT today and tomorrow before likely d/c. SW provided pt with his Medicare Rights in anticipation of d/c tomorrow and pt acknowledged understanding and aware of the process of contesting discharge and gave verbal signature on his Medicare Message and states he does not plan to contest discharge. Pt very conversant and has very interesting stories from his life and SW encouraged him to begin writing them down as pt does not have many family members left in his life or alive. Pt confirms he just spoke to his Dtr this morning and updated her on possibly not getting into SNF and she still plans to fly or drive up to stay with him for a bit and now aware it may be sooner since pt likely not going to SNF at d/c. Plan: SW to follow closely after further PT and double confirmation that pt does not want another SNF option or HH for plan of likely d/c tomorrow if medically stable. EVER Lee
--- NOTE | 2020-09-23 11:18 | PM.PN.1 ---
Subjective Subjective Date Patient Seen: 09/23/20 Time Patient Seen: 11:19 Interval history: Patient is a 64-year-old male who was admitted to the hospital for a right brain CVA. This is managed fasted as left facial droop, left arm weakness, and left leg weakness. The patient was evaluated by physical therapy and occupational therapy and was deemed unsafe to return home. He is fairly impulsive and at high risk for falling and has been declined by [facility]. He has had no new deficits and is improving somewhat with PT here. Care management working on disposition, but will continue PT today. Exam Vital Signs (past 8 hours): - 09/23/20 08:00 09/23/20 08:35 09/23/20 09:12 Temperature 98.1 F Pulse Rate 80 80 Respiratory Rate 20 16 Blood Pressure 141/73 H 141/73 H Pulse Oximetry 95 95 Oxygen Delivery Method Room Air Oxygen Flow Rate 0 Narrative Exam Narrative: Gen: [place] gentleman in no obvious distress, cooperative but occasionally resistant. Lungs: Clear to auscultation bilaterally Cardiac exam: Regular rate and rhythm normal S1-S2, no m/r/g ABD: soft/non tender Neuro: mild right facial droop, no aphasia, right arm weak but reportedly improving and strenght +5/5, hand buckle sorter weak, using modified utensils with some difficulty eating this morning. Objective Labs Result Diagrams: 09/23/20 06:50 09/23/20 06:50 Labs: Laboratory Results - last 24 hr 09/23/20 09/23/20 00:40 06:50 Sodium 140 Potassium 4.7 Chloride 102 Carbon Dioxide 36 H BUN 40 H Creatinine 1.75 H Estimated GFR 39.3 L BUN/Creatinine Ratio 22.9 H Glucose 67 L Calcium 9.2 Urine Color Yellow Urine Appearance Clear Urine pH 6.5 Ur Specific Fitzhugh 1.010 Urine Protein Negative Urine Glucose (UA) Negative Urine Ketones Negative Urine Occult Blood Negative Urine Nitrate Negative Urine Bilirubin Negative Urine Urobilinogen 0.2 Ur Leukocyte Esterase Negative Urine RBC None seen Urine WBC None seen Urine Bacteria None seen Ur Culture Indicated? Cult not indicated Micro UA Comment Microscopic normal [facility] Medical History (Updated 09/20/20 @ 21:13 by EDGAR Power) Amputation toe Anxiety Chronic kidney disease COPD (chronic obstructive pulmonary disease) Coronary artery disease Current smoker Depression Diabetes Diverticulitis History of peritoneal dialysis Hyperlipidemia Hypertension Neuropathy Peripheral vascular disease Systolic heart failure Surgical History History of hand fracture History of tonsillectomy Family History (Updated 09/20/20 @ 23:26 by EDGAR Power) Father Congestive heart failure Diabetes mellitus Hyperlipidemia Hypertension Mother Stroke Social History household members: none Smoking Status: Former smoker alcohol intake: current Assessment & Plan Assessment & Plan narrative: 1. CVA, acute, present on admission, active -NIH by the sending physician at [facility] was scored 3 -the patient is not a candidate for tPA or leg appears to involve large territory vessel amenable to interventional procedure. -patient has multiple risk factors including uncontrolled diabetes, CAD, hyperlipidemia and hypertension. -CT scan from the sending facility was reported as negative for acute intracranial pathology. Patient has CKD with a creatinine of 2.[address] angiogram. -patient has been taking aspirin 81 mg daily, ordered addition of Plavix 75 mg daily. -MRI confirmed: Mild microvascular atherosclerotic change in the deep white matter of each hemisphere. There is a small 8 by 11 mm focus of acute or subacute ischemic injury involving the pontomedullary junction at its midline/left paramedian region without mass effect or associated hemorrhage. This cannot be identified on recent prior CT scanning. -echo reveals decreased ejection for of 30-35% worse since previous, with global hypokinesia -will continue Plavix, asa -continue telemetry -patient very unsteady and at high risk for falling ( patient fell on presentation to [facility]) -patient needs SNF for rehab, however denied from [facility] given his behavior, fall risk, etc. He is refusing other facilities at this time, will continue to look for safe discharge, possibly home with home health tomorrow if there is improvement with PT as they did note some improvement in stability today compared to yesterday. 2. Heart failure, systolic dysfunction, chronic -patient has had progressive abdominal distention evaluated with abdominal ultrasound on 09/13/2020 finding no free abdominal fluid and increased liver echogenicity likely related to hepatic steatosis. -patient with history of congestive heart failure under the care of Dr. Watson. Last echocardiogram dated 10/26/2017 pt the patient have a reduced ejection fraction of 35-40% with global hypokinesis. No valvular disease noted. echocardiogram as noted above, with slight decrease to 30-35%. -patient takes Lasix 120 mg daily and appears grossly euvolemic with no peripheral edema and mucous membranes are pink and moist. His creatinine was slightly elevated on admission and lasix was decreased to 80 mg daily. Will continue and monitor for signs of volume overload. 3. Chronic kidney disease stage 3, chronic, present on admission. -on last admission in March of 2019 patient had a creatinine of 2.3 and EGFR consistent with CKD stage 4. -on labs from [facility] patient had a BUN of 37 with a creatinine 2.0 with an EGFR of 34. Now stable around 1.75 after holding lasix briefly and now decreased dosing. -will avoid renal toxic agents and renally dose medications as indicated. 4. Hypertension, present on admission, chronic Patient hypertensive with blood pressure documented from [facility] in the 140s to 150s. Blood pressure on arrival following transport is 135/104. -the patient did not take his morning dose Lasix stating he was ?too tired?. Patient received 40 mg Lasix IV x1 now. -blood pressure medications held given the patient's hypotension in the setting of an acute stroke -will resume Bblocker -needs low dose ACEI- given Echo findings 5. Diabetes type 2, insulin dependent, with complications, present on admission, chronic. -patient with neuropathy bilateral lower extremities, will continue Lyrica 100 mg twice daily -patient states he is weaned down his glargine insulin from 60 units to 40 units. On chemistries from [facility] healthy has a blood glucose of 212. -will continue patient's glargine at 40 units daily with fingerstick blood sugars a.c. and hs with correctional insulin low-dose range. -will follow glucose trends and manages needed -A1c with suboptimal control at 8.6% 6. Hyperlipidemia, chronic, stable -Will continue patient's home regimen of atorvastatin 80 mg daily at bedtime. 7. Peripheral vascular disease, chronic, stable. -history of peripheral vascular disease having undergone vascular procedures bilateral lower extremities including balloon angioplasties. -patient with cool extremities to touch but brisk capillary refill without edema and chronic skin changes. 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 Minow. Dressing is clean dry and intact, wound is not visualized. 8. Daily smoker, chronic, stable -patient endorses smoking greater than 1 pack per day for 53 years. -patient with COPD using Combivent inhaler. -patient has been taking Chantix and is quitting smoking having an occasional cigarette. -discussion reinforce continuation of smoking cessation. 9. Alcohol abuse, chronic -patient with hepatic steatosis likely alcohol related, no presents of ascites. Liver functions are within normal limits as his INR. -patient states he has quit drinking. Code: Full Dispo: Admitted as inpatient. Anticipate possible discharge tomorrow, will try to convince patient to allow placement at an alternative SNF given rejection from [facility], however may need to be discharged home with home health as soon as tomorrow. Care management assisting with safe discharge plan, appreciate their evaluation. DVT: HSQ BID
[2020-09-23 12:00] VITALS: BP 144/72; PULSE 84; RESP 17; TEMP 37.1; O2SAT 94
[2020-09-23] MEDS: INSULIN ASPART 100 UNIT/ML INSULN PEN SUBCUT ×2 (12:24→17:14)
--- NOTE | 2020-09-23 13:26 | PT.IPTN ---
Current Diagnoses Cerebral infarction, unspecified (09/21/20) Physical Therapy Treatment Note M2 PT-IP Current Condition Start: 09/21/20 08:44 Freq: NEEDED Status: Active Protocol: Document 09/23/20 12:48 DCW (Rec: 09/23/20 13:26 DCW [id number]) Physical Therapy Current Condition Current Condition Evaluation Date 09/21/20 Treatment Diagnosis Stroke; Difficulty with walking. Onset Date 09/20/20 M3 PT-IP Subjective Start: 09/21/20 08:44 Freq: NEEDED Status: Active Protocol: Document 09/23/20 12:48 DCW (Rec: 09/23/20 13:26 DCW [id number]) Subjective Physical Therapy Visit Type Visit Start Time 12:48 Visit Stop Time 13:16 Total Visit Minutes 28 Number of BELT KNIFE FEEDER Visits 0 Physical Therapy Visit Comments Patient Comments I just had the best meal I've had in a long time, it was all great. But it was a big portion, so I don't really want to do anything. M4 PT-IP Mobility and Gait Start: 09/21/20 08:44 Freq: NEEDED Status: Active Protocol: Document 09/23/20 12:48 DCW (Rec: 09/23/20 13:26 DCW [id number]) PT-Bed Mobility Assessment Rolling Type of Rolling Roll to Left Level of Assist Independent Supine to Sit Supine to Sit Independent PT-Transfer Assessment Sit to and From Stand Sit to and from Stand Standby Assistance,Use of Upper Extremities Equipment Transfer Assistive Device Front Wheeled Walker Orthotic/Prosthetic Devices or Brace: No Transfer Ability Level of Assist Standby Assistance Comments Mobility Comments Pt in bed upon arrival, empty lunch tray on table. Pt unwilling to do much activity, too full from lunch. Performed minimal balance exercises. PT-Balance Assessment Standing Balance and Reactions Static Standing Balance Ability Fair Dynamic Standing Balance Ability Poor Comments Other Balance Tests/Deviations/Treatment WBOS standing, semi-tandem : standing, semi-tandem eyes closed standing. M5 PT-IP Objective Assessments Start: 09/21/20 08:44 Freq: NEEDED Status: Active Protocol: Document 09/22/20 16:40 DE (Rec: 09/22/20 16:42 DE [id number]) Orientation Orientation/Cognition Level of Alertness Alert Orientation Name,Age,Birthday,Month,Date, Year,Day of Week,Place, Situation Language Function Ability Garbled Speech Safety Awareness Decreased Safety Awareness Memory Description No Deficits Noted Comments Pt is alert but very impulsive and very easily agitated. Pt attempts to direct his own care. Gross Range of Motion Upper Extremity ROM Assessment Right Impaired Lower Extremity ROM Assessment Bilaterally Impaired Strength Upper Extremity Strength Assessment Bilaterally Impaired Shoulder R 4-/5, L 4/5 Lower Extremity Strength Assessment Bilaterally Impaired Comments Strength Comments Pt demonstrated unilateral R sided weakness, especially in the hip extension and ankle plantarflexion (< 3/5). Other Assessments Other Other Assessments Pt performed single leg balance. On the L, pt was able to stand for ~2 sec. On the R , pt was unable to stand for 1 sec. M6 PT-IP Treatment Start: 09/21/20 08:44 Freq: NEEDED Status: Active Protocol: Document 09/22/20 16:40 DE (Rec: 09/22/20 16:01 DE [id number]) Physical Therapy Treatment Education Education Provided Safety Other Treatments Other Treatment Performed Pt was educated on safety and role of PT. M7 PT-IP Assessment and Plan Start: 09/21/20 08:44 Freq: NEEDED Status: Active Protocol: Document 09/23/20 12:48 DCW (Rec: 09/23/20 13:26 DCW [id number]) PT Summary Assessment and Plan Potential Rehabilitation Potential Poor Status of Condition at Evaluation Unstable Summary Impairments Pain,ROM,Strength,Balance, Coordination,Bed Mobility, Transfers,Gait,Activity Tolerance Assessment Summary Pt appears to be making good progress, even since his morning treatment 2.5 hours ago. Pt did not want to do any walking this afternoon, but is showing improvement with static balance. Did have bried LOB in semi-tandem, lost balance backward and sat on bed. Continues to act fairly impulsively, however more willing this afternoon to take some mild direction. Goals Bed Mobility Goal Standby Assistance Transfer Goal Standby Assistance Gait Goal Standby Assistance Gait Distance 200 Other Goals 2 CHRISTIANO with L railing for going up. Days to Meet Goals 5 Frequency of Treatment Frequency Of Treatment Twice a Day Treatment Plan Physical Therapy Treatment Plan Bed Mobility Training,Transfer Training,Gait Training, Therapeutic Exercise,Balance Retraining,Discharge Planning, Hot or Cold Pack,Neuromuscular Re-ed,Coordination Retraining Recommendations To Nursing Amount of Assist Needed 1 Person Assist Discharge Recommendations PT Discharge Recommendations SNF Rehab Transportation Needs at Discharge Private Vehicle,Wheelchair/ Cabulance
--- NOTE | 2020-09-23 13:56 | OT.IP.TRT ---
Current Diagnoses Cerebral infarction, unspecified (09/21/20) Occupational Therapy Treatment Note M2 OT-IP Current Condition Start: 09/21/20 12:13 Freq: Status: Active Protocol: Document 09/21/20 12:13 [facility] (Rec: 09/21/20 13:02 [facility] [id number]) Occupational Therapy Current Condition Current Condition Evaluation Date 09/21/20 Treatment Diagnosis CVA Diagnosis Onset Date 09/20/20 M3 OT- IP Subjective and Pain Start: 09/21/20 12:13 Freq: Status: Active Protocol: Document 09/23/20 13:54 CGR (Rec: 09/23/20 13:56 CGR [id number]) OT- Subjective Occupational Therapy Visit Type Type Administrative Note Notes Attempted to see pt for OT services. When OT entered the room pt started saying No, No , No repeatedly. Upon further discussion, pt is waiting for the game to come on and does not want to do therapy at this time. Will hold and continue to follow.
[2020-09-23 14:18] VITALS: BP 144/72; PULSE 84
--- NOTE | 2020-09-23 14:31 | PC.NURSE ---
Refused 1500 Hydralazine. pt stated that he only takes BID and if he takes TID his heart rate drops too low. I informed pt on his most recent BP of 144/72 and HR of 84. pt not concerned and still declining medication. pt pleasant but firm in not wanting this medication.
--- NOTE | 2020-09-23 16:24 | PC.NURSE ---
Pt deferring nursing interventions and assessment until the game is over. Discussed and OK w/ this RN, nursing team made aware. Pt educated on mealtime deferral until BGC completed and insulin administered if needed.
--- NOTE | 2020-09-23 17:17 | PC.NURSE ---
Addendum entered by Franca Lee R.N. 09/23/20 20:30: Pt refused ordered insulin protocol of insulin aspart dependent on BG and 60 units insulin glargine. Instead, pt demanded 40 units of insulin glargine, indicating to this RN that their home dosage was 40 units and the only dose they would be willing to take. Pt was educated on use of insulin pen and demanded to self-administer insulin. Pt allowed this RN to administer heparin and other medications and complete assessment. Pt continues to be labile and aggressive towards staff, limited interaction suggested. Addendum entered by Franca Lee R.N. 09/23/20 17:31: Pt ambulates on own w/ walker and refuses bed alarm or other precautions. Original Note: Pt requested to administer insulin himself. Pt instructed on pen usage and administered correctly. Pt verbally aggressive with CHRISTIAN Eastman and CHRISTIAN Lee and MOISES Maldonado. Pt accusatory and upset over lost belongings, which were promptly found. Pt deferred assessment once again.
--- NOTE | 2020-09-23 19:25 | PC.NURSE ---
Pt uses call light to summon staff to room. PT lying in bed with television on. Requests meds at 8 p.m. so I can then go to sleep. This mortgage or loan underwriter listened to pt requests and did not further engage pt in conversation as this has proven to provoke pt into conversational confrontations. Agreed to administer meds at 8 p.m. as requested by pt and this mortgage or loan underwriter then exited room. Addendum: Earlier this evening shift: Pt's clear plastic belongings bag was located under pt's bed and retrieved by this mortgage or loan underwriter. Noted pt's clothing in this bag, wallet in this bag and single loose credit or debit card in this bag. This mortgage or loan underwriter placed bag in pt's closet. Pt did rant about the perceived inconsistencies of staff members and made the statement, I've called HR about the staff before and I can do it again. Pt requests staff not speak and to be left alone. This was respected.
[2020-09-23] MEDS: ATORVASTATIN 20 MG TABLET 80 MG PO (20:02)
[2020-09-23] MEDS: INSULIN GLARGINE 100 UNIT/ML 3ML PEN 60 UNIT SUBCUT (20:03)
[2020-09-23] MEDS: ZOLPIDEM 5 MG TABLET 10 MG PO (20:03)
[2020-09-24 03:31] VITALS: BP 140/82; PULSE 79; RESP 16; TEMP 36.2; O2SAT 93
[2020-09-24 05:37] LABS: BUN Creatinine Ratio 24.9 (6-22); Blood Urea Nitrogen 43 mg/dL (9-20); Calcium 8.9 mg/dL (8.4-10.2); Carbon Dioxide 33 mmol/L (22-32); Chloride 105 mmol/L (98-107); Estimated Glomerular Filt Rate 39.8 mL/min (>60); Glucose 83 mg/dL (80-110); HEMOLYSIS < 15 (0-50); Potassium 4.5 mmol/L (3.4-5.1); Sodium 141 mmol/L (137-145)
--- NOTE | 2020-09-24 06:15 | PC.NURSE ---
pt was cooperative when nurse and aid went in to do vitals, pt states that he could not make it to the bathroom and was too tired so he wet the bed, pt was encouraged to use the bathroom and change into dry gown, pt said he wanted to go back to sleep and change later, however the nurse was able to encourage him to do so, pt was in bed after gown and bedding change pt later was up ambulating in room without calling for assistance, when aid went in room, pt refused help.
[2020-09-24 07:45] VITALS: BP 154/84; PULSE 84; RESP 18; TEMP 36.6; O2SAT 96
[2020-09-24] MEDS: allopurinoL 100 MG TABLET 200 MG PO (08:18)
[2020-09-24] MEDS: PREGABALIN 50 MG CAPSULE 100 MG PO (08:19)
[2020-09-24] MEDS: FUROSEMIDE 40 MG TABLET 80 MG PO (08:19)
[2020-09-24] MEDS: CLOPIDOGREL 75 MG TABLET PO (08:19)
[2020-09-24] MEDS: SERTRALINE 50 MG TABLET 200 MG PO (08:19)
[2020-09-24] MEDS: ASPIRIN EC 81 MG TABLET PO (08:20)
[2020-09-24] MEDS: LORATADINE 10 MG TABLET PO (08:20)
[2020-09-24 08:21] VITALS: BP 125/72; PULSE 76
[2020-09-24] MEDS: HYDRALAZINE 25 MG TABLET PO (08:21)
[2020-09-24] MEDS: HEPARIN 5,000 UNIT/ML VIAL 5000 UNIT SUBCUT (08:21)
[2020-09-24] MEDS: METOPROLOL IR 50 MG TABLET PO (08:23)
--- NOTE | 2020-09-24 10:08 | P.DS_ITS ---
History of Present Illness History of Present Illness Date Patient Seen: 09/24/20 Time Patient Seen: 10:08 Chief complaint: CVA Narrative: As per EDGAR Power: Mr. Juan Carlos Montalvo is a 64-year-old male patient who is a current smoker with a past medical history of hypertension, hyperlipidemia, CAD PVD, COPD, diabetes type 2 with peripheral, diverticulitis CKD stage III, depression and anxiety who presented to [facility] ER with his daughter with chief complaint of slurred speech. Patient lives alone and his daughter spoke with him 2 days ago at which time his speech was normal. Patient self reports that his right sided weakness and his right leg gave out on him yesterday. Upon arrival of EMS the find right-sided facial droop also noted in the patient's asthma at [facility], NIH score upon arrival was 3 (E facial palsy-2, dysarthria-1). The patient has no prior history of CVA and denies any focal numbness or weakness. He reports no complaints of headaches, visual changes or trauma. He has had no recent i llness and denies diaphoresis nausea or vomiting. The patient refused admission to [facility] and requested transfer to [facility]. Labs obtained and [facility] for find a white count of 7.4, hemoglobin 15.4 hematocrit 44.4. His platelets are 124. PT is 11.6 with an INR 1.0 PTT of 30.1. He has an elevated potassium of 5.2 and a BUN of 30 and a creatinine of 2.0. His nonfasting glucose is 212. He has a total bilirubin of 0.8, AST 11, ALT of 10 and alkaline phosphatase of 83. His albumin is 4.0. Report received from Dr. Newton [facility] Emergency Department and patient accepted. Upon arrival the patient is alert oriented responsive. He complains mild left parietal area that began yesterday and had associated transient dizziness. He describes weakness in the right leg but denies numbness or tingling. He has no ataxia and states he has stay no falls. The patient is unable to state definitive onset of symptoms but has been greater than 24 hours. He has had no fevers or chills has some chronic postnasal drip and denies sore throat will have a cough from accumulation of mucus from the postnasal drip. He denies chest pain or palpitations. He reports his breathing at baseline and is attempting to quit smoking completely and has been using Chantix. He states he feels his abdomen is little more distended and underwent an abdominal ultrasound on 09/13/2020 for the same complaint. Ultrasound shows increased hepatic echogenicity possible related to hepatic steatosis, dilated extrahepatic bile duct measuring up to 10.5 mm and small mobile gallstone with mild shadowing with no gallbladder wall thickness, no free abdominal fluid. The patient states he has been very sedentary since having right 5th metatarsal resection. Additional labs ordered including magnesium, troponin, proBNP, hemoglobin A1c and COVID-19 screening. Patient is admitted to the medicine service for further evaluation and monitoring of CVA. Discharge Providers Provider Date of admission: 09/21/20 13:09 Discharge Date: 09/24/20 Primary care physician: EDGAR De La Rosa Consults: 09/20/20 20:47 Consult to Discharge Planning Routine Comment: Consult to Occupational Therapy Evaluate & Treat Comment: CVA Physician Instructions: Evaluate and treat Consult to Physical Therapy Evaluate & Treat Comment: CVA Physician Instructions: Evaluate and Treat Consult to Speech Therapy Evaluate & Treat Comment: CVA Physician Instructions: Evaluate and treat 09/20/20 21:35 Consult to Respiratory Therapy Evaluate & Treat Comment: COPD, current smoker Physician Instructions: Evaluate and treat Discharge provider: Miguel Ángel Bunn DO Summary Hospital Course Discharge Diagnosis: Please see hospital course by problem list noted below: Hospital Course: 1. CVA, acute, present on admission, active -NIH by the sending physician at [facility] was scored 3, the patient is not a candidate for tPA or leg appears to involve large territory vessel amenable to interventional procedure. -patient has multiple risk factors including uncontrolled diabetes, CAD, hyperlipidemia and hypertension. -CT scan from the sending facility was reported as negative for acute intracranial pathology. Patient has CKD with a creatinine of 2.[address] angiogram. -patient has been taking aspirin 81 mg daily, ordered addition of Plavix 75 mg daily which he will continue x21 days for additional secondary prevention. -MRI confirmed CVA: Mild microvascular atherosclerotic change in the deep white matter of each hemisphere. There is a small 8 by 11 mm focus of acute or subacute ischemic injury involving the pontomedullary junction at its midline/left paramedian region without mass effect or associated hemorrhage. This cannot be identified on recent prior CT scanning. -echo revealed decreased ejection for of 30-35% worse since previous, with global hypokinesia -continued telemetry with no events. -patient very unsteady and at high risk for falling ( patient fell on presentation to [facility]). He did improve with PT, however recommended SNF for rehab. Denied from [facility] given his behavior, fall risk, etc. He is refusing transfer to other facilities at this time and wishes to go home. Will send home with home health. 2. Heart failure, systolic dysfunction, chronic -patient has had progressive abdominal distention evaluated with abdominal ultrasound on 09/13/2020 finding no free abdominal fluid and increased liver ec hogenicity likely related to hepatic steatosis. -patient with history of congestive heart failure under the care of Dr. Watson. Last echocardiogram dated 10/26/2017 pt the patient have a reduced ejection fraction of 35-40% with global hypokinesis. No valvular disease noted. echocardiogram as noted above, with slight decrease to 30-35%. -patient takes Lasix 120 mg daily. His creatinine was slightly elevated on admission and lasix was decreased to 80 mg daily during admission. He can now resume 120 mg daily upon discharge. -on home metoprolol and lasix. Unable to add isaac-inhibitor given combination of CKD, normotension with concern for hypotension after initiation, and increased fall risk at the moment given stroke. 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 3. Chronic kidney disease stage 3, chronic, present on admission. -on last admission in March of 2019 patient had a creatinine of 2.3 and EGFR consistent with CKD stage 4. -on labs from [facility] patient had a BUN of 37 with a creatinine 2.0 with an EGFR of 34. Now stable around 1.75 after reducing lasix therapy during admission as above. 4. Hypertension, present on admission, chronic Patient hypertensive with blood pressure documented from [facility] in the 140s to 150s. Blood pressure on arrival following transport is 135/104. -was unable to add lisinopril due to blood pressures and prior medications. Recommend follow up with cardiology as an outpatient. 5. Diabetes type 2, insulin dependent, with complications, present on admission, chronic. -patient with neuropathy bilateral lower extremities, will continue Lyrica 100 mg twice daily -patient states he is weaned down his glargine insulin from 60 units to 40 units. On chemistries from [facility] has a blood glucose of 212. -recommend outpatient follow up with primary care provider for adjustments as indicated. No changes at this time. -A1c with suboptimal control at 8.6% 6. Hyperlipidemia, chronic, stable -Continued patient's home regimen of atorvastatin 80 mg daily at bedtime. 7. Peripheral vascular disease, chronic, stable. -history of peripheral vascular disease having undergone vascular procedures bilateral lower extremities including balloon angioplasties. 8. Daily smoker, chronic, stable -patient endorses smoking greater than 1 pack per day for 53 years. -patient with COPD using Combivent inhaler. -patient has been taking Chantix and is quitting smoking having an occasional cigarette. -discussed smoking cessation during the course of his admission. 9. Alcohol abuse, chronic -patient with hepatic steatosis likely alcohol related, no presents of ascites. Liver functions are within normal limits as his INR. -patient states he has quit drinking. Time Spent with Patient Time spent: Greater than 30 minutes Exam Vital Signs (past 8 hours): - 09/24/20 03:31 09/24/20 07:45 09/24/20 08:21 Temperature 97.1 F L 97.8 F Pulse Rate 79 84 76 Respiratory Rate 16 18 Blood Pressure 140/82 154/84 H 125/72 Pulse Oximetry 93 96 Oxygen Delivery Method Room Air Oxygen Flow Rate 0 Narrative Exam Narrative: Gen: [place] gentleman in no obvious distress, irritated this AM. Lungs: no respiratory distress, no accessory muscle use. 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 Objective Labs Result Diagrams: 09/24/20 05:05 09/24/20 05:05 Labs: Laboratory Results - last 24 hr 09/24/20 05:05 Sodium 141 Potassium 4.5 Chloride 105 Carbon Dioxide 33 H BUN 43 H Creatinine 1.73 H Estimated GFR 39.8 L BUN/Creatinine Ratio 24.9 H Glucose 83 Calcium 8.9 PFSH Medical History (Updated 09/20/20 @ 21:13 by EDGAR Power) Amputation toe Anxiety Chronic kidney disease COPD (chronic obstructive pulmonary disease) Coronary artery disease Current smoker Depression Diabetes Diverticulitis History of peritoneal dialysis Hyperlipidemia Hypertension Neuropathy Peripheral vascular disease Systolic heart failure Surgical History History of hand fracture History of tonsillectomy Family History (Updated 09/20/20 @ 23:26 by EDGAR Power) Father Congestive heart failure Diabetes mellitus Hyperlipidemia Hypertension Mother Stroke Social History household members: none Smoking Status: Former smoker alcohol intake: current Discharge Plan Discharge Plan Patient Disposition: Home Health Service Provider Discharge Comment: You were admitted to the hospital with a stroke. You improved with physical therapy. Rehab was recommended however [facility] and you did not want to go to any other rehab facility. You are being discharged home with home health. I recommend following up with your primary care provider as soon as possible. No medication changes are recommended at this time. Discharge orders & Medications Prescriptions: New clopidogrel 75 mg tablet 75 mg PO DAILY 19 Days Qty: 19 RF: 0 Continued metoprolol tartrate 100 MG tablet 100 mg PO BID Qty: 0 RF: 0 glipizide [Glucotrol XL] 10 MG tablet extended release 24hr 10 mg PO [facility] Qty: 0 RF: 0 aspirin 81 MG tablet,delayed release (DR/EC) 81 mg PO QDAY Qty: 0 RF: 0 pregabalin [Lyrica] 100 MG capsule 100 mg PO DAILY Qty: 0 RF: 0 loratadine 10 MG tablet 10 mg PO QDAY Qty: 0 RF: 0 allopurinol 100 MG tablet 200 mg PO DAILY Qty: 0 RF: 0 hydralazine 25 MG tablet 25 mg PO BID Qty: 0 RF: 0 cetirizine 10 MG tablet 10 mg PO DAILY Qty: 0 RF: 0 Chantix 0.5 MG tablet 0.5 mg PO Q12H Qty: 0 RF: 0 furosemide 40 mg tablet 120 mg PO DAILY RF: 0 sertraline 100 mg tablet 200 mg PO DAILY RF: 0 Trulicity 0.75 mg/0.5 mL pen injector 7.5 mg SUBCUT QWEEK RF: 0 Basaglar KwikPen U-100 Insulin 100 unit/mL (3 mL) insulin pen 60 unit SUBCUT DAILY RF: 0 atorvastatin 80 mg tablet 80 mg PO BEDTIME RF: 0 Combivent Respimat 20-100 mcg/actuation mist 2 puff INHALATION DAILY RF: 0 Follow up/Referrals: Kenyetta Gallardo ARNP [Primary Care Provider] - Diet/Activity/Treatments Diet: Diet as Tolerated, Carb-consistent/Diabetic and Low-sodium Activity: As toelrated Discharge Data Primary Care Provider: Kenyetta Gallardo
--- NOTE | 2020-09-24 10:55 | PT.IPTN ---
Current Diagnoses Cerebral infarction, unspecified (09/21/20) Physical Therapy Treatment Note M2 PT-IP Current Condition Start: 09/21/20 08:44 Freq: NEEDED Status: Active Protocol: Document 09/23/20 12:48 DCW (Rec: 09/23/20 13:26 DCW [id number]) Physical Therapy Current Condition Current Condition Evaluation Date 09/21/20 Treatment Diagnosis Stroke; Difficulty with walking. Onset Date 09/20/20 M3 PT-IP Subjective Start: 09/21/20 08:44 Freq: NEEDED Status: Active Protocol: Document 09/24/20 11:36 [facility] (Rec: 09/24/20 11:52 [facility] [id number]) Subjective Physical Therapy Visit Type Type Treatment Note Visit Start Time 09:51 Visit Stop Time 10:44 Total Visit Minutes 53 Number of FILM COMPOSER Visits 0 Physical Therapy Visit Comments Patient Comments Pt ready to go home. Pt has no concerns re: going home. Irritated by staff here talking down to him M4 PT-IP Mobility and Gait Start: 09/21/20 08:44 Freq: NEEDED Status: Active Protocol: Document 09/24/20 11:36 [facility] (Rec: 09/24/20 11:52 [facility] [id number]) PT-Bed Mobility Assessment Supine to Sit Supine to Sit Independent Scooting Scooting to Edge of Bed Independent PT-Transfer Assessment Sit to and From Stand Sit to and from Stand Independent,Use of Upper Extremities Equipment Transfer Assistive Device Front Wheeled Walker Orthotic/Prosthetic Devices or Brace: No Comments Mobility Comments pt indep with supine to sit and sit to stand. He was able to amb in room and go up and down 2 steps using 2 hands on rail and facing step x4 reps with SBA. He did require heavy use of rail but has B rails on 8 steps to enter at front of house. He was able to amb 200ft with FWW SBA but did indicate he is supposed to be wearing an offloading boot on his foot whcih he has not been doing since in the hospital. Pt amb down hallways with FWW without LOB. Gait Assessment Gait Gait Assistance Required: Standby Assistance Distance (Feet) 200 Assistive Devices Assistive Device Front Wheeled Walker Orthotic/Prosthetic Devices or Brace: No Factors Limiting Gait Function Factors Limiting Gait Function Decreased Activity Tolerance, Decreased Strength,Difficulty Following Directions, Incoordination,Limited Range of Motion,Poor Balance,Poor Safety Awareness Stair Climbing Assessment Evaluation Level of Assist On Stairs Standby Assistance Devices Stair Climbing Assistive Devices Left Railing Technique/Endurance Stair Climbing Direction Ascend and Descend Stair Climbing Technique Step to Step Number of Steps Climbed 4 PT-Balance Assessment Standing Balance and Reactions Static Standing Balance Ability Fair Dynamic Standing Balance Ability Fair Comments Other Balance Tests/Deviations/Treatment Standing w/turning to talk to : PT and RNs with and without walker with head turns & entire body turns. Standing extended periords w/o FWW with turning head & talking to PT M5 PT-IP Objective Assessments Start: 09/21/20 08:44 Freq: NEEDED Status: Active Protocol: Document 09/22/20 16:40 [place] (Rec: 09/22/20 16:42 DE [id number]) Orientation Orientation/Cognition Level of Alertness Alert Orientation Name,Age,Birthday,Month,Date, Year,Day of Week,Place, Situation Language Function Ability Garbled Speech Safety Awareness Decreased Safety Awareness Memory Description No Deficits Noted Comments Pt is alert but very impulsive and very easily agitated. Pt attempts to direct his own care. Gross Range of Motion Upper Extremity ROM Assessment Right Impaired Lower Extremity ROM Assessment Bilaterally Impaired Strength Upper Extremity Strength Assessment Bilaterally Impaired Shoulder R 4-/5, L 4/5 Lower Extremity Strength Assessment Bilaterally Impaired Comments Strength Comments Pt demonstrated unilateral R sided weakness, especially in the hip extension and ankle plantarflexion (< 3/5). Other Assessments Other Other Assessments Pt performed single leg balance. On the L, pt was able to stand for ~2 sec. On the R , pt was unable to stand for 1 sec. M6 PT-IP Treatment Start: 09/21/20 08:44 Freq: NEEDED Status: Active Protocol: Document 09/24/20 11:36 [facility] (Rec: 09/24/20 11:52 [facility] [id number]) Physical Therapy Treatment Education Education Provided Safety Other Treatments Other Treatment Performed Discussed use of FWW at home and using offloading boot like LENORA ARMSTRONG had recommended. Edu on using 8 [address] in front of house as they have a railing and he does not have to walk through grass/unstable surface to get to them. Discussed moving slowly to avoid falling especially with turning. Discussed possible OP PT after HH or instead of HH if he does not feel open to HH idea. Edu re: how PT could help balance and to discuss with wound care MD when PT would be appropriate to start. M7 PT-IP Assessment and Plan Start: 09/21/20 08:44 Freq: NEEDED Status: Active Protocol: Document 09/24/20 11:36 [facility] (Rec: 09/24/20 11:52 [facility] [id number]) PT Summary Assessment and Plan Summary Impairments Pain,ROM,Strength,Balance, Coordination,Bed Mobility, Transfers,Gait,Activity Tolerance Assessment Summary Pt is making good progress and had one LOB during session today when turning but was able to regain balance indep. Gait belt not used d/t pt not wanting it used during session . Pt was hina to hold conversations and turn head turning therapy including with amb without LOB but did show some swaying butdid not have to use steppage to regain balance. He does still show signs of imbalance and best choice would be SNF for rehab but pt is refusing d/t not accepted at [facility]. Discussed w/pt DC plan and dgt plans to fly up when he tells her he is headed home. Pt was encouraged to do PT after dc from hospital but pt did not appear very interested in this idea. pt at this time is able to do activities required w/ SBA to CGA but would definitely benefit from PT if he is agreeable. Goals Bed Mobility Goal Standby Assistance Transfer Goal Standby Assistance Gait Goal Standby Assistance Gait Distance 200 Other Goals 2 [address] with L railing for going up. Days to Meet Goals 5 Frequency of Treatment Frequency Of Treatment Twice a Day Treatment Plan Physical Therapy Treatment Plan Bed Mobility Training,Transfer Training,Gait Training, Therapeutic Exercise,Balance Retraining,Discharge Planning, Hot or Cold Pack,Neuromuscular Re-ed,Coordination Retraining Recommendations To Nursing Amount of Assist Needed 1 Person Assist Discharge Recommendations PT Discharge Recommendations Home,Home Health,SNF Rehab Other Discharge Recommendations Pt did not get choice of SNF and refuses other SNFs so home with HH w/ Dgt coming up to help Transportation Needs at Discharge Private Vehicle
[2020-09-24 11:42] VITALS: BP 141/80; PULSE 86; RESP 19; TEMP 37.2; O2SAT 96
[2020-09-24 11:45] VITALS: BP 141/80; PULSE 86
--- NOTE | 2020-09-24 12:03 | PC.NURSE ---
Addendum entered by Bridget Lux R.N. 09/24/20 13:14: Home via [employer] in stable condition. Addendum entered by Bridget Lux R.N. 09/24/20 12:11: Discharging with [facility]. Original Note: Day shift note: Patient awake, alert, and calm. Ambulating with FWW in hallway with PT, stair training performed with FWW. VSS and afebrile. Discharge instructions given to patient, discussed importance of F/U with PMD, new medication adherence, s/sx of stroke, home fall safety measures, and dietary modifications.
--- NOTE | 2020-09-24 12:46 | CM.DPNOTE ---
Faxed Face to Face, order, FS, PN, PT notes, H&P to [facility] on 09/24/20 per Rachel. Domi Craig CM Asst.
--- NOTE | 2020-09-24 12:54 | PT.IPTN ---
Current Diagnoses Cerebral infarction, unspecified (09/21/20) Physical Therapy Treatment Note M2 PT-IP Current Condition Start: 09/21/20 08:44 Freq: NEEDED Status: Active Protocol: Document 09/23/20 12:48 DCW (Rec: 09/23/20 13:26 DCW [id number]) Physical Therapy Current Condition Current Condition Evaluation Date 09/21/20 Treatment Diagnosis Stroke; Difficulty with walking. Onset Date 09/20/20 M3 PT-IP Subjective Start: 09/21/20 08:44 Freq: NEEDED Status: Active Protocol: Document 09/24/20 12:46 LR (Rec: 09/24/20 12:54 [facility] [email or web address]) Subjective Physical Therapy Visit Type Type Treatment Note Visit Start Time 11:54 Visit Stop Time 12:40 Total Visit Minutes 46 Number of FABRIC DESIGNER Visits 0 Physical Therapy Visit Comments Patient Comments Pt agreeable to work with this therapist M4 PT-IP Mobility and Gait Start: 09/21/20 08:44 Freq: NEEDED Status: Active Protocol: Document 09/24/20 12:46 LR (Rec: 09/24/20 12:54 [facility] [id number]) PT-Bed Mobility Assessment Supine to Sit Supine to Sit Independent PT-Transfer Assessment Sit to and From Stand Sit to and from Stand Independent Equipment Transfer Assistive Device Gait Belt Comments Mobility Comments Pt able to do bed mobility and sit to stand indep again this PM. Pt able to stand with only 1 LOB during convo re: safety. Pt able to use steppage to regain balance. Pt did mult standing balancing exercises with CGA and able to regain balance with steppage or use of UE indep about 80% of the time but did require PT assist at gait belt for balance. PT-Balance Assessment Standing Balance and Reactions Static Standing Balance Ability Fair Dynamic Standing Balance Ability Fair Device Used none Comments Other Balance Tests/Deviations/Treatment trials of:SLS LLE, WBOS & NBOS : & staggered stance B w/EO/EC &head turn trials, bending over to pickling operator objects off ground (imitating movement did not pickling operator anything), fwd reach (LOB required PT asssist for regaining balance), turning in circles B M5 PT-IP Objective Assessments Start: 09/21/20 08:44 Freq: NEEDED Status: Active Protocol: Document 09/22/20 16:40 DE (Rec: 09/22/20 16:42 DE [id number]) Orientation Orientation/Cognition Level of Alertness Alert Orientation Name,Age,Birthday,Month,Date, Year,Day of Week,Place, Situation Language Function Ability Garbled Speech Safety Awareness Decreased Safety Awareness Memory Description No Deficits Noted Comments Pt is alert but very impulsive and very easily agitated. Pt attempts to direct his own care. Gross Range of Motion Upper Extremity ROM Assessment Right Impaired Lower Extremity ROM Assessment Bilaterally Impaired Strength Upper Extremity Strength Assessment Bilaterally Impaired Shoulder R 4-/5, L 4/5 Lower Extremity Strength Assessment Bilaterally Impaired Comments Strength Comments Pt demonstrated unilateral R sided weakness, especially in the hip extension and ankle plantarflexion (< 3/5). Other Assessments Other Other Assessments Pt performed single leg balance. On the L, pt was able to stand for ~2 sec. On the R , pt was unable to stand for 1 sec. M6 PT-IP Treatment Start: 09/21/20 08:44 Freq: NEEDED Status: Active Protocol: Document 09/24/20 12:46 [facility] (Rec: 09/24/20 12:54 [facility] [id number]) Physical Therapy Treatment Other Treatments Other Treatment Performed discussed importance of HH PT and reiterated improtance of PT w/HH then potentially OP. Gave card of this PT for OP d/ t pt request for card for potentially following up w/ PT ; reviewed importance of offloading boot and working w/ PT re: balancing with this boot. Discussed importance of use of FWW at home, attempted to discuss how MELTER CASTER could helpw ith speech but pt not interested. M7 PT-IP Assessment and Plan Start: 09/21/20 08:44 Freq: NEEDED Status: Active Protocol: Document 09/24/20 12:46 [facility] (Rec: 09/24/20 12:54 [facility] [email or web address]) PT Summary Assessment and Plan Summary Impairments Balance,Gait Assessment Summary Pt is making good progress w/ PT and showed improved balance today. He is challenged by some reaching activities but was able to do SLS on LLE for about 5 sec before requiring use of other LE to regain balance. He was receptive to PT's edu re: safety and balance at home. Goals Bed Mobility Goal Standby Assistance Transfer Goal Standby Assistance Gait Goal Standby Assistance Gait Distance 200 Other Goals 2 CRHISTIANO with L railing for going up. Days to Meet Goals 5 Frequency of Treatment Frequency Of Treatment Twice a Day Treatment Plan Physical Therapy Treatment Plan Bed Mobility Training,Transfer Training,Gait Training, Therapeutic Exercise,Balance Retraining,Discharge Planning, Hot or Cold Pack,Neuromuscular Re-ed,Coordination Retraining Recommendations To Nursing Amount of Assist Needed 1 Person Assist Discharge Recommendations PT Discharge Recommendations Home,Home Health Transportation Needs at Discharge Private Vehicle
--- NOTE | 2020-09-24 14:18 | CM.DPC ---
DCP Discharge Home with HH Per MD, pt is medically stable to d/c home today with HH and signed the F2F. PT worked with pt twice and completed stairs and pt has made progress and not at the level that he would require SNF at d/c and safe for home with HH but ideally with assist due to high fall risk but pt lives alone. SW met bedside with pt and discussed HH and he is in agreement with home with HH today but will need a taxi ride and pt requesting assist with finding out cost, etc.. Pt also requested SW update his adult Dtr Jayda although pt has already updated her that he will d/c home today. SW provided the HH Choice list and no HH preference so SW made new referral to [facility] based on [employer] Calendar and GERARD Duron kindly faxed the referral packet including d/c summary, F2F, and MD orders. SW called Dtr Jayda and explained role and updated her on the SNF vs HH situation and plan and pt's progress but high fall risk. Dtr confirms she feels HH would be needed and she is working on a plan to either drive or fly up from [place] to stay with pt for a week. Dtr has been very helpful in coordinating his community services for eye sight issues, wound care, PCP, and getting onto Medicare and Medicaid. Dtr plans to follow up on all of this when she is here visiting and she is hoping it will be on Sunday or Sunday. Dtr confirms that no local friends or family that pt has good relationship with that can assist or check on pt in the mean time. ZACHARY called Medicaid and confirmed that pt currently does not have transportation benefits. ZACHARY called [email or web address] and got quote of about $45 for taxi to pt's home and maybe the pharmacy at [facility] in [place]. ZACHARY met bedside and provide this info to pt as well as contact number for Amanda to finalize the cost and time for transport. ZACHARY gave pt the [facility] brochure. ZACHARY updated RN and PRINT COLOR OPERATOR to help get pt down for taxi pickup today around 1400. Plan: Patient to d/c home today with new [facility] referral and Dtr to arrive this week to assist pt and help coordinate services. Rachel Recinos MSW
== END 2020-09-24 13:15 | disposition home or self-care (01) | DRG 65 ==
PROVIDERS: Internal Medicine; Admitting Provider Nurse Practitioner Adult Health; Family Provider Nurse Practitioner Gerontology; PCP Nurse Practitioner Gerontology; Referring Provider Nurse Practitioner Adult Health; Visit Provider Nurse Practitioner Adult Health
DX: I63.9 Cerebral infarction, unspecified (principal); G81.94 Hemiplegia, unspecified affecting left nondominant side; I13.0 Hypertensive heart and chronic kidney disease with heart failure and stage 1 through stage 4 chronic kidney disease, or unspecified chronic kidney disease; I50.22 Chronic systolic (congestive) heart failure; R29.810 Facial weakness; E87.5 Hyperkalemia; E11.22 Type 2 diabetes mellitus with diabetic chronic kidney disease; N18.30 Chronic kidney disease, stage 3 unspecified; F10.10 Alcohol abuse, uncomplicated; K76.0 Fatty (change of) liver, not elsewhere classified; F17.210 Nicotine dependence, cigarettes, uncomplicated; E78.5 Hyperlipidemia, unspecified; I25.10 Atherosclerotic heart disease of native coronary artery without angina pectoris; E11.40 Type 2 diabetes mellitus with diabetic neuropathy, unspecified; J44.9 Chronic obstructive pulmonary disease, unspecified; F32.9 Major depressive disorder, single episode, unspecified; I73.9 Peripheral vascular disease, unspecified; Z79.4 Long term (current) use of insulin; Z11.59 Encounter for screening for other viral diseases
CPT/HCPCS: 36415; 70450; 70548; 70553; 71045; 80048; 81001; 82962; 83036; 83735; 83880; 84439; 84443; 84484; 85610; 85730; 87502; 87635; 92526; 92610; 93306; 97112; 97116; 97129; 97163; 97165; 97530; 97535; G0378; G0379; J1644; J1940

== ENCOUNTER → 2020-09-28 09:49 | Outpatient (CLI) | payer MEDICARE, MEDICAID, SELFPAY ==
[2020-09-20 23:00] VITALS: BMI 28.6
== END ==
PROVIDERS: Family Provider Nurse Practitioner Gerontology; PCP Nurse Practitioner Gerontology; Referring Provider Nurse Practitioner Gerontology; Visit Provider Family Medicine
DX: E11.621 Type 2 diabetes mellitus with foot ulcer (principal); M86.371 Chronic multifocal osteomyelitis, right ankle and foot; E11.40 Type 2 diabetes mellitus with diabetic neuropathy, unspecified
CPT/HCPCS: 99212; 99213